=== PATIENT | male | born 1950 | race Caucasian/White ===

== ENCOUNTER 2021-04-09 09:38 | Inpatient (IN) | payer MEDICARE, BC ==
[~2021-04-09] VITALS: Ht 182.9 cm; Wt 82.2 kg
--- NOTE | 2021-04-09 10:07 | PHYS DOC ---
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 Chemical Production Technician reports patient was found on floor in bedroom by who thinks he may have been laying there for 5 hours prior to being found. Chemical Production Technician reports told him the patient has been feeling sick in some way for the past 10 days. Patient complains of mouth dryness. No other HPI obtained related to patient's altered mental status state. Review of Systems: Review of Systems: 14 body systems of review of systems have been reviewed. See HPI for pertinent positives and negative responses, otherwise all other systems are negative, nonpertinent or noncontributory. Constitutional: Negative except as outlined in HPI above. Skin: Negative except as outlined in HPI above. Eyes: Negative except as outlined in HPI above. HENT: Negative except as outlined in HPI above. Respiratory: Negative except as outlined in HPI above. Cardiovascular: Negative except as outlined in HPI above. GI: Negative except as outlined in HPI above. : Negative except as outlined in HPI above. Musculoskeletal: Negative except as outlined in HPI above. Integument: Negative except as outlined in HPI above. Neurologic: Negative except as outlined in HPI above. Endocrine: Negative except as outlined in HPI above. Lymphatic: Negative except as outlined in HPI above. Psychiatric: Negative except as outlined in HPI above. Note: Limited HPI related to patient's altered mental status state. Heart Score: C/O Chest Pain: No Risk Factors: Risk Factors: DM, Current or recent (<one month) smoker, HTN, HLP, family history of CAD, obesity. Risk Scores: Score 0 - 3: 2.5% MACE over next 6 weeks - Discharge Home Score 4 - 6: 20.3% MACE over next 6 weeks - Admit for Clinical Observation Score 7 - 10: 72.7% MACE over next 6 weeks - Early Invasive Strategies Current Medications: Current Medications Medications (Trade) Dose Ordered Sig/Carole Start Time Stop Time Status Last Admin Dose Admin Sodium Chloride 1,000 ml @ 1,000 mls/hr 1X ONCE 04/09/21 10:15 04/09/21 11:14 UNV Physical Exam: PE: Constitutional: Well developed, well nourished, no acute distress, non-toxic appearance. 70-year-old male in no apparent distress HENT: Normocephalic, atraumatic, bilateral external ears normal, oropharynx and oral mucosa sticky, no oral exudates, nose normal. No deep tissue infectious process appreciated, no lymphadenopathy of the head or neck. Eyes: PERRLA, EOMI, conjunctiva normal, no discharge. Neck: Normal range of motion, no tenderness, supple, no stridor. Cardiovascular:Heart rate regular rhythm, no murmur, tachycardic rate at 110 bpm during physical examination. Lungs & Thorax: Bilateral breath sounds clear to auscultation, limited assessment related to patient not taking deep breaths during assessment. Abdomen: Bowel sounds normal, soft, no tenderness, no masses, no pulsatile masses. Ecchymotic skin discoloration around abdomen Skin: Warm, dry, no erythema, no rash. Back: No tenderness, no CVA tenderness. Extremities: No tenderness, no cyanosis, no clubbing, ROM intact, no edema. Neurologic: Alert and not oriented to self place or time or birthday, normal motor function, normal sensory function, no focal deficits noted. Psychologic: Affect normal, judgement normal, mood normal. Current Patient Data: Vital Signs: Vital Signs Date Time Temp Pulse Resp B/P (MAP) Pulse Ox O2 Delivery O2 Flow Rate FiO2 04/09/21 09:52 99.7 118 30 122/73 100 Nasal Cannula 4.0 99.7 EKG: EKG: EKG performed at 943 by ED nursing staff shows a sinus tachycardia with abnormal left axis deviation, no ectopy appreciated, heart rate 118, ID interval 0.124, QTc interval 0.499, no acute STEMI, no ACS, no acute ischemia appreciated, EKG interpreted by ED attending physician Dr. Pastrana. Radiology/Procedures: Radiology/Procedures: [] Course & Med Decision Making: Course & Med Decision Making Pertinent Labs and Imaging studies reviewed. (See chart for details) 70-year-old male, vital signs reviewed, has tachycardic rate otherwise within normal limits, the patient is not febrile, presents to the emergency department via EMS for concerns of being found on floor at home. Physical examination concerning for rhabdomyolysis, patient had ill with COVID-19 virus for the past 2 weeks, will order COVID-19 virus testing, cardio respiratory work-up, septic work-up, urinalysis assay. Patient's chest x-ray concerning for immunity acquired pneumonia, elevated troponin I, elevated lactic acid level, white blood cell count within normal l imits. CK level to evaluate rhabdomyolysis pending at this time, will consult with hospitalist for admission to hospital. Strong suspicion for rhabdomyolysis related to patient being found on floor for unknown amount of time estimated by 4 to 5 hours. Called and discussed patient case and ED work-up with inpatient management physician Dr. Calhoun who agrees patient's case warrants admission to the hospital on CVC unit, patient has been started on Rocephin 1 g IV along with 30 mL/kg normal saline IV fluid replacement. Dr. Calhoun has assumed care at this time, patient awaiting bed assignment from supervisor vat house. COVID-19 testing pending at this time. Patient has not given urine sample at this time. At 11:20 AM ED staff nurse advised patient is COVID-19 positive per rapid study. At 1154, patient awaiting bed assignment, ED nurse reports patient room air O2 sat is down to 90%, will start on 2 L per nasal cannula. DragEnvis Disclaimer: DragEnvis Disclaimer: This electronic medical record was generated, in whole or in part, using a voice recognition dictation system. Departure Departure Impression: Primary Impression: Elevated troponin I level Additional Impressions: Elevated lactic acid level Altered mental status Qualified Codes: R41.82 - Altered mental status, unspecified Acute kidney injury Community acquired pneumonia Qualified Codes: J18.9 - Pneumonia, unspecified organism COVID-19 virus infection Disposition: ADMITTED INPATIENT Admitting Physician: RENE (Admit to Dr. Calhoun to CVC unit) Condition: GUARDED NICOLE WILHELM TAX EVALUATOR Apr 09, 2021 10:07
[2021-04-09] MEDS ORDERED: IV NORMAL SALINE 1000ML BAG 1,000 ML IV ONE (10:15)
[2021-04-09 10:24] LABS: CALCIUM 8.8 mg/dL (8.5-10.1); CREATININE 1.9 mg/dL (0.7-1.3); GFR 35.2; POTASSIUM 3.7 mmol/L (3.5-5.1)
--- NOTE | 2021-04-09 10:27 | RAD ---
XR CHEST 1V History: Status. Comparison: None. Technique: Portable AP radiograph of the chest. Findings: Mild hypoinflation. Bilateral hazy airspace opacities. No pleural effusion thorax. Postsurgical singh es from CABG. Heart size and pulmonary vasculature are within normal limits. No acute findings in the osseous structures are soft tissues. Impression: 1. Hazy bilateral airspace opacities concerning for multifocal pneumonia versus pulmonary edema. Electronically signed by: Jayden Sharp MD (04/09/2021 10:24 AM) [id number]
[2021-04-09 10:30] LABS: ALBUMIN 3.1 g/dL (3.4-5.0); ALBUMIN/GLOBULIN RATIO 0.7 (1.0-1.7); MAGNESIUM 2.5 mg/dL (1.8-2.4); PHOSPHORUS 4.3 mg/dL (2.6-4.7); TOTAL BILIRUBIN 2.9 mg/dL (0.2-1.0); TOTAL PROTEIN 7.3 g/dL (6.4-8.2)
[2021-04-09 10:35] LABS: BASO % 0 % (0-3); EOS % 0 % (0-3); HEMATOCRIT 49.2 % (39.0-53.0); LYMPH # 0.8 x10^3/uL (1.0-4.8); LYMPH % 10 % (24-48); MEAN CORPUSCULAR HEMOGLOBIN 34 pg (25-35); MEAN CORPUSCULAR HGB CONC 36 g/dL (31-37); MEAN CORPUSCULAR VOLUME 94 fL (79-100); MONO # 0.9 x10^3/uL (0.0-1.1); MONO % 11 % (0-9); NEUT # 6.1 x10^3/uL (1.8-7.7); NEUT % 79 % (31-73); PLATELET COUNT 180 x10^3/uL (140-400); RED BLOOD COUNT 5.21 x10^6/uL (4.30-5.70); RED CELL DISTRIBUTION WIDTH 14.4 % (11.5-14.5); WHITE BLOOD COUNT 7.8 x10^3/uL (4.0-11.0)
[2021-04-09] MEDS: IV NORMAL SALINE 1000ML BAG 1,000 ML IV SCH ×4 (10:45→21:00)
[2021-04-09] MEDS ORDERED: cefTRIAXone IV Push 1 GM VIAL. IVP ONE (10:45)
[2021-04-09 10:51] LABS: HEMOGLOBIN 17.4 g/dL (13.0-17.5)
--- NOTE | 2021-04-09 10:54 | RAD ---
EXAMINATION: CT HEAD/BRAIN WO CLINICAL HISTORY: Altered mental status TECHNIQUE: Serial axial images without IV contrast were obtained from the vertex to the foramen magnu m. CT Dose Reduction Employed: One or more of the following individualized dose reduction techniques ghazala e utilized for this examination: 1. Automated exposure control 2. Adjustment of the mA and/or kV ac cording to patient size 3. Use of iterative reconstruction technique. COMPARISON: None FINDINGS: Acute Change: No evidence of an acute infarct or other acute parenchymal process. Hemorrhage: No evidence of acute intracranial hemorrhage. Mass Lesion/Mass Effect: No evidence of intracranial mass or extraaxial fluid collection. No signific ant mass effect. Chronic Change: Scattered patchy foci of hypoattenuation in the supratentorial white matter, nonspeci fic but likely represents mild microvascular ischemia. Atherosclerotic calcification of the anterior and posterior circulation. Parenchyma: Mild generalized volume loss. Ventricles: Ventricular enlargement concordant with degree of parenchymal volume loss. Paranasal Sinuses and Skull Base: Mild secretions in the ethmoid air cells. Minimal mucoperiosteal th ickening and mild sclerosis of the sphenoid sinus nino, suggestive of history of chronic sinusitis. Small remote blowout fracture in the left medial orbital wall with herniation of extraconal fat into the fracture defect. Visualized skull base and soft tissues otherwise unremarkable. IMPRESSION: No evidence of acute intracranial abnormality. Mild chronic white matter microvascular ischemic changes. Small remote blowout fracture left medial orbital wall as described. Electronically signed by: Danny Van DO (04/09/2021 10:51 AM) [id number]
[2021-04-09] MEDS ORDERED: DOXYCYCLINE HYCLATE 100 MG in IV DEXTROSE 5% 100ML 100 ML IV ONE (11:00)
--- NOTE | 2021-04-09 11:02 | PDOC1 ---
History and Physical Date of Admission Date of Admission DATE: 04/09/21 TIME: 11:01 Identification/Chief Complaint Chief Complaint Acute encephalopathy Source Source: Caregiver, Chart review, Patient History of Present Illness History of Present Illness Mr Page is a 70 year old male with PMH HTN, HLD, CAD s/p CABG comes to ED via EMS after his called 911. Teaching Dietitian reports patient was found on floor in bedroom by who thinks he may have been laying there for at least 5-6 hours. noted he has bee sick for the past 10 days and that she has also been sick with COVID 19 for 14 days. She is confused as well as the patient. Patient can only ask for food and water and is oriented to self only. His only recalls above PMHx, does not know his meds. EMS noted patient was 87% on room air, placed on 4L NCO2 Patient's chest x-ray concerning for immunity acquired pneumonia, elevated troponin I, elevated lactic acid level, white blood cell count within [place] [address], LFTs elevated, CR 1.9. Started on Rocephin 1 g IV along with 30 mL/kg normal saline IV fluid replacement. COVID-19 positive per rapid study. EKG sinus tachycardia 118 bpm, left axis deviation, LAFB, no ST segment or T- wave abnormalities Admitted for further care Past Medical History Cardiovascular: HTN, Hyperlipidemia Past Surgical History Past Surgical History: CABG Family History Family History: Family History Unknown Social History Smoke: No (unknown) ALCOHOL: other (unknown) Drugs: None Current Medications Current Medications Current Medications Sodium Chloride 1,000 ml @ 1,000 mls/hr 1X ONCE IV Last administered on 04/09/21at 10:10; Start 04/09/21 at 10:15; Stop 04/09/21 at 11:14 Sodium Chloride 1,000 ml @ 2,850 mls/hr Q22M IV ; Start 04/09/21 at 10:45; Stop 04/09/21 at 11:45 Ceftriaxone Sodium (Rocephin) 1 gm 1X ONCE IVP ; Start 04/09/21 at 10:45; Stop 04/09/21 at 10:46; Status DC Allergies Allergies: Coded Allergies: No Known Drug Allergies (Unverified , 04/09/21) ROS Review of System Unable to obtain due to obtunded mental status Physical Exam General: Cooperative, moderate distress, Other (Confused) HEENT: Atraumatic, PERRLA, EOMI, Mucous membr. moist/pink Lungs: Other (bialteral crackles) Heart: S1S2, RRR, no thrills, no rubs, no gallops, no murmurs Abdomen: Normal bowel sounds, Soft, No tenderness, No hepatosplenomegaly, No masses Extremities: No clubbing, No cyanosis, No edema, Normal pulses, No tenderness/swelling Skin: No rashes, No breakdown, No significant lesion Neuro: Normal tone, Sensation intact, Cranial nerves 3-12 NL, Reflexes 2+ Psych/Mental Status: Other (Obtunded) Vitals Vitals Vital Signs Date Time Temp Pulse Resp B/P (MAP) Pulse Ox O2 Delivery O2 Flow Rate FiO2 04/09/21 09:52 99.7 118 30 122/73 100 Nasal Cannula 4.0 99.7 Labs Labs Laboratory Tests Test 04/09/21 09:50 White Blood Count 7.8 x10^3/uL (4.0-11.0) Red Blood Count 5.21 x10^6/uL (4.30-5.70) Hemoglobin 17.4 g/dL (13.0-17.5) Hematocrit 49.2 % (39.0-53.0) Mean Corpuscular Volume 94 fL (79-100) Mean Corpuscular Hemoglobin 34 pg (25-35) Mean Corpuscular Hemoglobin Concent 36 g/dL (31-37) Red Cell Distribution Width 14.4 % (11.5-14.5) Platelet Count 180 x10^3/uL (140-400) Neutrophils (%) (Auto) 79 % (31-73) Lymphocytes (%) (Auto) 10 % (24-48) Monocytes (%) (Auto) 11 % (0-9) Eosinophils (%) (Auto) 0 % (0-3) Basophils (%) (Auto) 0 % (0-3) Neutrophils # (Auto) 6.1 x10^3/uL (1.8-7.7) Lymphocytes # (Auto) 0.8 x10^3/uL (1.0-4.8) Monocytes # (Auto) 0.9 x10^3/uL (0.0-1.1) Eosinophils # (Auto) 0.0 x10^3/uL (0.0-0.7) Basophils # (Auto) 0.0 x10^3/uL (0.0-0.2) Sodium Level 145 mmol/L (136-145) Potassium Level 3.7 mmol/L (3.5-5.1) Chloride Level 98 mmol/L (98-107) Carbon Dioxide Level 36 mmol/L (21-32) Anion Gap 11 (6-14) Blood Urea Nitrogen 42 mg/dL (8-26) Creatinine 1.9 mg/dL (0.7-1.3) Estimated GFR (Cockcroft-Gault) 35.2 BUN/Creatinine Ratio 22 (6-20) Glucose Level 142 mg/dL (70-99) Lactic Acid Level 3.6 mmol/L (0.4-2.0) Calcium Level 8.8 mg/dL (8.5-10.1) Phosphorus Level 4.3 mg/dL (2.6-4.7) Magnesium Level 2.5 mg/dL (1.8-2.4) Total Bilirubin 2.9 mg/dL (0.2-1.0) Aspartate Amino Transf (AST/SGOT) 601 U/L (15-37) Alanine Aminotransferase (ALT/SGPT) 194 U/L (16-63) Alkaline Phosphatase 61 U/L (46-116) Troponin I Quantitative 0.523 ng/mL (0.000-0.055) Total Protein 7.3 g/dL (6.4-8.2) Albumin 3.1 g/dL (3.4-5.0) Albumin/Globulin Ratio 0.7 (1.0-1.7) Laboratory Tests Test 04/09/21 09:50 White Blood Count 7.8 x10^3/uL (4.0-11.0) Red Blood Count 5.21 x10^6/uL (4.30-5.70) Hemoglobin 17.4 g/dL (13.0-17.5) Hematocrit 49.2 % (39.0-53.0) Mean Corpuscular Volume 94 fL (79-100) Mean Corpuscular Hemoglobin 34 pg (25-35) Mean Corpuscular Hemoglobin Concent 36 g/dL (31-37) Red Cell Distribution Width 14.4 % (11.5-14.5) Platelet Count 180 x10^3/uL (140-400) Neutrophils (%) (Auto) 79 % (31-73) Lymphocytes (%) (Auto) 10 % (24-48) Monocytes (%) (Auto) 11 % (0-9) Eosinophils (%) (Auto) 0 % (0-3) Basophils (%) (Auto) 0 % (0-3) Neutrophils # (Auto) 6.1 x10^3/uL (1.8-7.7) Lymphocytes # (Auto) 0.8 x10^3/uL (1.0-4.8) Monocytes # (Auto) 0.9 x10^3/uL (0.0-1.1) Eosinophils # (Auto) 0.0 x10^3/uL (0.0-0.7) Basophils # (Auto) 0.0 x10^3/uL (0.0-0.2) Sodium Level 145 mmol/L (136-145) Potassium Level 3.7 mmol/L (3.5-5.1) Chloride Level 98 mmol/L (98-107) Carbon Dioxide Level 36 mmol/L (21-32) Anion Gap 11 (6-14) Blood Urea Nitrogen 42 mg/dL (8-26) Creatinine 1.9 mg/dL (0.7-1.3) Estimated GFR (Cockcroft-Gault) 35.2 BUN/Creatinine Ratio 22 (6-20) Glucose Level 142 mg/dL (70-99) Lactic Acid Level 3.6 mmol/L (0.4-2.0) Calcium Level 8.8 mg/dL (8.5-10.1) Phosphorus Level 4.3 mg/dL (2.6-4.7) Magnesium Level 2.5 mg/dL (1.8-2.4) Total Bilirubin 2.9 mg/dL (0.2-1.0) Aspartate Amino Transf (AST/SGOT) 601 U/L (15-37) Alanine Aminotransferase (ALT/SGPT) 194 U/L (16-63) Alkaline Phosphatase 61 U/L (46-116) Troponin I Quantitative 0.523 ng/mL (0.000-0.055) Total Protein 7.3 g/dL (6.4-8.2) Albumin 3.1 g/dL (3.4-5.0) Albumin/Globulin Ratio 0.7 (1.0-1.7) Images Images CT head: Acute Change: No evidence of an acute infarct or other acute parenchymal process. Hemorrhage: No evidence of acute intracranial hemorrhage. Mass Lesion/Mass Effect: No evidence of intracranial mass or extraaxial fluid collection. No significant mass effect. Chronic Change: Scattered patchy foci of hypoattenuation in the supratentorial white matter, nonspecific but likely represents mild microvascular ischemia. Atherosclerotic calcification of the anterior and posterior circulation. Parenchyma: Mild generalized volume loss. Ventricles: Ventricular enlargement concordant with degree of parenchymal volume loss. Paranasal Sinuses and Skull Base: Mild secretions in the ethmoid air cells. Minimal mucoperiosteal thickening and mild sclerosis of the sphenoid sinus nino, suggestive of history of chronic sinusitis. Small remote blowout fracture in the left medial orbital wall with herniation of extraconal fat into the fracture defect. Visualized skull base and soft tissues otherwise unremarkable. IMPRESSION: No evidence of acute intracranial abnormality. Mild chronic white matter microvascular ischemic changes. Small remote blowout fracture left medial orbital wall as described. VTE Prophylaxis Ordered VTE Prophylaxis Devices: No VTE Pharmacological Prophylaxi: Yes Assessment/Plan Assessment/Plan A/P: Acute encephalopathy - likely metabolic from hypoxia, rhabdomyolysis Acute hypoxic respiratory failure - likely due to COVID 19 pneumonia Elevated troponin I level - likely demand ischemia from hypoxia, will trend, monitor on tele Elevated lactic acid - likely due to hypoxia, sepsis from COVID 19 Sepsis - with COVID 19 will treat with IVF and remdesivir, this is clearly viral, no definite bacterial source Acute kidney injury - likely vasomotor nephropathy from rhabomyolysis, will monitor renal function Pneumonia - likely due to COVID 19 COVID-19 virus infection - remdesivir and steroids, supportive care, wean O2 as tolerated Rhabdomyolysis - will monitor CK, likely traumatic from falling Transaminitis - likely rhabdo and covid related, will hydrate CAD s/p CABG - reconcile home meds with pharmacy as and patient cannot recall HTN - restart home meds FEN - ADAT PPX - heparin FULL CODE Dispo - inpatient Justifications for Admission Other Justification KARIME MORRIS MD Apr 09, 2021 11:02
[2021-04-09] MEDS ORDERED: ONDANSETRON PF 4 MG/2 ML VIAL. IVP PRN (15:00)
[2021-04-09] MEDS ORDERED: traMADol 50 MG TABLET PO PRN (15:00)
[2021-04-09] MEDS ORDERED: guaiFENesin DM 200MG/20MG 10 ML SYRUP PO PRN (15:00)
[2021-04-09] MEDS ORDERED: fentaNYL PF VIAL 100 MCG/2 ML VIAL IVP PRN (15:00)
[2021-04-09] MEDS ORDERED: ACETAMINOPHEN 325 MG TABLET. PO PRN (15:00)
[2021-04-09] MEDS: HEPARIN for SUB-Q USE 5,000 UNIT/ML VIAL. SQ SCH ×2 (15:30→21:02)
[2021-04-09] MEDS ORDERED: REMDESIVIR LOAD in IV NORMAL SALINE 250ML TV IV ONE (16:00)
[2021-04-09] MEDS: DEXAMETHASONE SOD PHOS 4 MG/ML VIAL IVP SCH (17:33)
[2021-04-09] MEDS: THIAMINE 100 MG TABLET. PO SCH (17:33)
[2021-04-09] MEDS: ZINC SULFATE 220 MG CAPSULE. PO SCH (17:33)
[2021-04-09 18:00] VITALS: BP 109/73
[2021-04-09 19:47] VITALS: BP 100/71
--- NOTE | 2021-04-09 20:00 | NUR ---
The patient, KYLER ROTIZ, 70 y/o, M admitted by KARIME MORRIS MD, was given written information regarding hospital policies, unit procedures and contact persons. assessment complete and documented. pt nonverbal at this time, unable to obtain history. pt call light in place will cont to monitor pt status and safety. pmrn
[2021-04-09] MEDS: ACETAMINOPHEN 650 MG SUPP.RECT. PR PRN (21:01)
[2021-04-09 23:12] VITALS: BP 106/76
[2021-04-10 02:00] VITALS: BP 118/62
[2021-04-10 05:53] LABS: ALBUMIN/GLOBULIN RATIO 0.6 (1.0-1.7); CALCIUM 7.4 mg/dL (8.5-10.1); CREATININE 1.2 mg/dL (0.7-1.3); GFR 59.9; POTASSIUM 3.3 mmol/L (3.5-5.1); TOTAL BILIRUBIN 1.5 mg/dL (0.2-1.0); TOTAL PROTEIN 5.2 g/dL (6.4-8.2)
[2021-04-10] MEDS: IV NORMAL SALINE 1000ML BAG 1,000 ML IV SCH (05:59)
[2021-04-10] MEDS: HEPARIN for SUB-Q USE 5,000 UNIT/ML VIAL. SQ SCH ×3 (05:59→21:46)
[2021-04-10] MEDS ORDERED: METO-239 PO (06:39)
[2021-04-10] MEDS ORDERED: ASPI-630 PO (06:39)
[2021-04-10] MEDS ORDERED: ATOR20TA58 PO (06:40)
[2021-04-10] MEDS ORDERED: HYDR25TA10 PO (06:41)
[2021-04-10 07:00] VITALS: BP 103/66
[2021-04-10] MEDS: ZINC SULFATE 220 MG CAPSULE. PO SCH (09:00)
[2021-04-10] MEDS: LACTOBACILLUS RHAMNOSUS GG 1 CAPSULE. PO SCH ×2 (09:00→21:45)
[2021-04-10] MEDS: THIAMINE 100 MG TABLET. PO SCH (09:00)
--- NOTE | 2021-04-10 09:43 | PDOC ---
PROGRESS NOTES Date of Service: DATE: 04/10/21 TIME: 09:43 Chief Complaint Chief Complaint VTE Prophylaxis Ordered VTE Prophylaxis Devices: No VTE Pharmacological Prophylaxi: Yes Assessment/Plan Assessment/Plan A/P: Acute encephalopathy - likely metabolic from hypoxia, rhabdomyolysis Acute hypoxic respiratory failure - likely due to COVID 19 pneumonia Elevated troponin I level - likely demand ischemia from hypoxia, will trend, monitor on tele Elevated lactic acid - likely due to hypoxia, sepsis from COVID 19 Sepsis - with COVID 19 will treat with IVF and remdesivir, this is clearly viral, no definite bacterial source Acute kidney injury - likely vasomotor nephropathy from rhabomyolysis, will monitor renal function Pneumonia - likely due to COVID 19 COVID-19 virus infection - remdesivir and steroids, supportive care, wean O2 as tolerated Rhabdomyolysis - will monitor CK, likely traumatic from falling Transaminitis - likely rhabdo and covid related, will hydrate CAD s/p CABG - reconcile home meds with pharmacy as and patient cannot recall HTN - restart home meds FEN - ADAT PPX - heparin FULL CODE Dispo - inpatient ERROR DUPLICATE History of Present Illness History of Present Illness Identification/Chief Complaint Chief Complaint Acute encephalopathy Source Source: Caregiver, Chart review, Patient History of Present Illness History of Present Illness Mr Page is a 70 year old male with PMH HTN, HLD, CAD s/p CABG comes to ED via EMS after his called 911. Wind Technician reports patient was found on floor in bedroom by who thinks he may have been laying there for at least 5-6 hours. noted he has bee sick for the past 10 days and that she has also been sick with COVID 19 for 14 days. She is confused as well as the patient. Patient can only ask for food and water and is oriented to self only. His only recalls above PMHx, does not know his meds. EMS noted patient was 87% on room air, placed on 4L NCO2 Patient's chest x-ray concerning for immunity acquired pneumonia, elevated troponin I, elevated lactic acid level, white [place] [address], LFTs elevated, CR 1.9. Started on Rocephin 1 g IV along with 30 mL/kg normal saline IV fluid replacement. COVID-19 positive per rapid study. EKG sinus tachycardia 118 bpm, left axis deviation, LAFB, no ST segment or T- wave abnormalities Admitted for further care Past Medical History Cardiovascular: HTN, Hyperlipidemia Past Surgical History Past Surgical History: CABG Family History Family History: Family History Unknown Social History Smoke: No (unknown) ALCOHOL: other (unknown) Drugs: None Current Medications Current Medications Current Medications Sodium Chloride 1,000 ml @ 1,000 mls/hr 1X ONCE IV Last administered on 04/09/21at 10:10; Start 04/09/21 at 10:15; Stop 04/09/21 at 11:14 Sodium Chloride 1,000 ml @ 2,850 mls/hr Q22M IV ; Start 04/09/21 at 10:45; Stop 04/09/21 at 11:45 Ceftriaxone Sodium (Rocephin) 1 gm 1X ONCE IVP ; Start 04/09/21 at 10:45; Stop 04/09/21 at 10:46; Status DC Allergies Allergies: Coded Allergies: No Known Drug Allergies (Unverified , 04/09/21) ROS Review of System Unable to obtain due to obtunded mental status Vitals Vitals Vital Signs Date Time Temp Pulse Resp B/P (MAP) Pulse Ox O2 Delivery O2 Flow Rate FiO2 04/10/21 02:00 98.3 104 22 118/62 (80) 95 Nasal Cannula 3.0 98.3 Physical Exam Physical Exam General: Cooperative, moderate distress, Other (Confused) HEENT: Atraumatic, PERRLA, EOMI, Mucous membr. moist/pink Lungs: Other (bialteral crackles) Heart: S1S2, RRR, no thrills, no rubs, no gallops, no murmurs Abdomen: Normal bowel sounds, Soft, No tenderness, No hepatosplenomegaly, No masses Extremities: No clubbing, No cyanosis, No edema, Normal pulses, No tenderness/swelling Skin: No rashes, No breakdown, No significant lesion Neuro: Normal tone, Sensation intact, Cranial nerves 3-12 NL, Reflexes 2+ Psych/Mental Status: Other (Obtunded) General: Cooperative, moderate distress, Other (Confused) Abdomen: Normal bowel sounds, Soft, No tenderness, No hepatosplenomegaly, No masses Extremities: No clubbing, No cyanosis, No edema, Normal pulses, No tenderness/swelling Skin: No rashes, No breakdown, No significant lesion Labs LABS Laboratory Tests Test 04/09/21 09:50 04/09/21 13:23 04/09/21 18:00 04/10/21 00:25 White Blood Count 7.8 x10^3/uL (4.0-11.0) Red Blood Count 5.21 x10^6/uL (4.30-5.70) Hemoglobin 17.4 g/dL (13.0-17.5) Hematocrit 49.2 % (39.0-53.0) Mean Corpuscular Volume 94 fL (79-100) Mean Corpuscular Hemoglobin 34 pg (25-35) Mean Corpuscular Hemoglobin Concent 36 g/dL (31-37) Red Cell Distribution Width 14.4 % (11.5-14.5) Platelet Count 180 x10^3/uL (140-400) Neutrophils (%) (Auto) 79 % (31-73) Lymphocytes (%) (Auto) 10 % (24-48) Monocytes (%) (Auto) 11 % (0-9) Eosinophils (%) (Auto) 0 % (0-3) Basophils (%) (Auto) 0 % (0-3) Neutrophils # (Auto) 6.1 x10^3/uL (1.8-7.7) Lymphocytes # (Auto) 0.8 x10^3/uL (1.0-4.8) Monocytes # (Auto) 0.9 x10^3/uL (0.0-1.1) Eosinophils # (Auto) 0.0 x10^3/uL (0.0-0.7) Basophils # (Auto) 0.0 x10^3/uL (0.0-0.2) Sodium Level 145 mmol/L (136-145) Potassium Level 3.7 mmol/L (3.5-5.1) Chloride Level 98 mmol/L (98-107) Carbon Dioxide Level 36 mmol/L (21-32) Anion Gap 11 (6-14) Blood Urea Nitrogen 42 mg/dL (8-26) Creatinine 1.9 mg/dL (0.7-1.3) Estimated GFR (Cockcroft-Gault) 35.2 BUN/Creatinine Ratio 22 (6-20) Glucose Level 142 mg/dL (70-99) Lactic Acid Level 3.6 mmol/L (0.4-2.0) 1.5 mmol/L (0.4-2.0) Calcium Level 8.8 mg/dL (8.5-10.1) Phosphorus Level 4.3 mg/dL (2.6-4.7) Magnesium Level 2.5 mg/dL (1.8-2.4) Total Bilirubin 2.9 mg/dL (0.2-1.0) Aspartate Amino Transf (AST/SGOT) 601 U/L (15-37) Alanine Aminotransferase (ALT/SGPT) 194 U/L (16-63) Alkaline Phosphatase 61 U/L (46-116) Creatine Kinase 31119 U/L (39-308) Creatine Kinase MB (Mass) 3.5 ng/mL (0.0-3.6) Creatine Kinase MB Relative Index 0.0 % (0-4) Troponin I Quantitative 0.523 ng/mL (0.000-0.055) 0.497 ng/mL (0.000-0.055) 0.520 ng/mL (0.000-0.055) QU-Cus-P-Type Natriuretic Peptide 809 pg/mL (0-124) Total Protein 7.3 g/dL (6.4-8.2) Albumin 3.1 g/dL (3.4-5.0) Albumin/Globulin Ratio 0.7 (1.0-1.7) Test 04/10/21 04:40 Sodium Level 152 mmol/L (136-145) Potassium Level 3.3 mmol/L (3.5-5.1) Chloride Level 111 mmol/L (98-107) Carbon Dioxide Level 32 mmol/L (21-32) Anion Gap 9 (6-14) Blood Urea Nitrogen 32 mg/dL (8-26) Creatinine 1.2 mg/dL (0.7-1.3) Estimated GFR (Cockcroft-Gault) 59.9 BUN/Creatinine Ratio 27 (6-20) Glucose Level 143 mg/dL (70-99) Calcium Level 7.4 mg/dL (8.5-10.1) Total Bilirubin 1.5 mg/dL (0.2-1.0) Aspartate Amino Transf (AST/SGOT) 365 U/L (15-37) Alanine Aminotransferase (ALT/SGPT) 141 U/L (16-63) Alkaline Phosphatase 45 U/L (46-116) Creatine Kinase 7773 U/L (39-308) Troponin I Quantitative 0.336 ng/mL (0.000-0.055) Total Protein 5.2 g/dL (6.4-8.2) Albumin 2.0 g/dL (3.4-5.0) Albumin/Globulin Ratio 0.6 (1.0-1.7) Assessment and Plan Assessmemt and Plan Problems Medical Problems: (1) Acute kidney injury Status: Acute (2) Altered mental status Status: Acute (3) Community acquired pneumonia Status: Acute (4) COVID-19 virus infection Status: Acute (5) Elevated lactic acid level Status: Acute (6) Elevated troponin I level Status: Acute Comment Review of Relevant I have reviewed the following items pinky (where applicable) has been applied. Labs Laboratory Tests Test 04/09/21 09:43 04/09/21 09:50 04/09/21 13:23 04/09/21 18:00 SARS-CoV-2 Antigen (Rapid) Positive (NEGATIVE) White Blood Count 7.8 x10^3/uL (4.0-11.0) Red Blood Count 5.21 x10^6/uL (4.30-5.70) Hemoglobin 17.4 g/dL (13.0-17.5) Hematocrit 49.2 % (39.0-53.0) Mean Corpuscular Volume 94 fL (79-100) Mean Corpuscular Hemoglobin 34 pg (25-35) Mean Corpuscular Hemoglobin Concent 36 g/dL (31-37) Red Cell Distribution Width 14.4 % (11.5-14.5) Platelet Count 180 x10^3/uL (140-400) Neutrophils (%) (Auto) 79 % (31-73) Lymphocytes (%) (Auto) 10 % (24-48) Monocytes (%) (Auto) 11 % (0-9) Eosinophils (%) (Auto) 0 % (0-3) Basophils (%) (Auto) 0 % (0-3) Neutrophils # (Auto) 6.1 x10^3/uL (1.8-7.7) Lymphocytes # (Auto) 0.8 x10^3/uL (1.0-4.8) Monocytes # (Auto) 0.9 x10^3/uL (0.0-1.1) Eosinophils # (Auto) 0.0 x10^3/uL (0.0-0.7) Basophils # (Auto) 0.0 x10^3/uL (0.0-0.2) Sodium Level 145 mmol/L (136-145) Potassium Level 3.7 mmol/L (3.5-5.1) Chloride Level 98 mmol/L (98-107) Carbon Dioxide Level 36 mmol/L (21-32) Anion Gap 11 (6-14) Blood Urea Nitrogen 42 mg/dL (8-26) Creatinine 1.9 mg/dL (0.7-1.3) Estimated GFR (Cockcroft-Gault) 35.2 BUN/Creatinine Ratio 22 (6-20) Glucose Level 142 mg/dL (70-99) Lactic Acid Level 3.6 mmol/L (0.4-2.0) 1.5 mmol/L (0.4-2.0) Calcium Level 8.8 mg/dL (8.5-10.1) Phosphorus Level 4.3 mg/dL (2.6-4.7) Magnesium Level 2.5 mg/dL (1.8-2.4) Total Bilirubin 2.9 mg/dL (0.2-1.0) Aspartate Amino Transf (AST/SGOT) 601 U/L (15-37) Alanine Aminotransferase (ALT/SGPT) 194 U/L (16-63) Alkaline Phosphatase 61 U/L (46-116) Creatine Kinase 14789 U/L (39-308) Creatine Kinase MB (Mass) 3.5 ng/mL (0.0-3.6) Creatine Kinase MB Relative Index 0.0 % (0-4) Troponin I Quantitative 0.523 ng/mL (0.000-0.055) 0.497 ng/mL (0.000-0.055) AT-Pde-L-Type Natriuretic Peptide 809 pg/mL (0-124) Total Protein 7.3 g/dL (6.4-8.2) Albumin 3.1 g/dL (3.4-5.0) Albumin/Globulin Ratio 0.7 (1.0-1.7) Test 04/10/21 00:25 04/10/21 04:40 Troponin I Quantitative 0.520 ng/mL (0.000-0.055) 0.336 ng/mL (0.000-0.055) Sodium Level 152 mmol/L (136-145) Potassium Level 3.3 mmol/L (3.5-5.1) Chloride Level 111 mmol/L (98-107) Carbon Dioxide Level 32 mmol/L (21-32) Anion Gap 9 (6-14) Blood Urea Nitrogen 32 mg/dL (8-26) Creatinine 1.2 mg/dL (0.7-1.3) Estimated GFR (Cockcroft-Gault) 59.9 BUN/Creatinine Ratio 27 (6-20) Glucose Level 143 mg/dL (70-99) Calcium Level 7.4 mg/dL (8.5-10.1) Total Bilirubin 1.5 mg/dL (0.2-1.0) Aspartate Amino Transf (AST/SGOT) 365 U/L (15-37) Alanine Aminotransferase (ALT/SGPT) 141 U/L (16-63) Alkaline Phosphatase 45 U/L (46-116) Creatine Kinase 7773 U/L (39-308) Total Protein 5.2 g/dL (6.4-8.2) Albumin 2.0 g/dL (3.4-5.0) Albumin/Globulin Ratio 0.6 (1.0-1.7) Laboratory Tests Test 04/09/21 09:50 04/09/21 13:23 04/09/21 18:00 04/10/21 00:25 White Blood Count 7.8 x10^3/uL (4.0-11.0) Red Blood Count 5.21 x10^6/uL (4.30-5.70) Hemoglobin 17.4 g/dL (13.0-17.5) Hematocrit 49.2 % (39.0-53.0) Mean Corpuscular Volume 94 fL (79-100) Mean Corpuscular Hemoglobin 34 pg (25-35) Mean Corpuscular Hemoglobin Concent 36 g/dL (31-37) Red Cell Distribution Width 14.4 % (11.5-14.5) Platelet Count 180 x10^3/uL (140-400) Neutrophils (%) (Auto) 79 % (31-73) Lymphocytes (%) (Auto) 10 % (24-48) Monocytes (%) (Auto) 11 % (0-9) Eosinophils (%) (Auto) 0 % (0-3) Basophils (%) (Auto) 0 % (0-3) Neutrophils # (Auto) 6.1 x10^3/uL (1.8-7.7) Lymphocytes # (Auto) 0.8 x10^3/uL (1.0-4.8) Monocytes # (Auto) 0.9 x10^3/uL (0.0-1.1) Eosinophils # (Auto) 0.0 x10^3/uL (0.0-0.7) Basophils # (Auto) 0.0 x10^3/uL (0.0-0.2) Sodium Level 145 mmol/L (136-145) Potassium Level 3.7 mmol/L (3.5-5.1) Chloride Level 98 mmol/L (98-107) Carbon Dioxide Level 36 mmol/L (21-32) Anion Gap 11 (6-14) Blood Urea Nitrogen 42 mg/dL (8-26) Creatinine 1.9 mg/dL (0.7-1.3) Estimated GFR (Cockcroft-Gault) 35.2 BUN/Creatinine Ratio 22 (6-20) Glucose Level 142 mg/dL (70-99) Lactic Acid Level 3.6 mmol/L (0.4-2.0) 1.5 mmol/L (0.4-2.0) Calcium Level 8.8 mg/dL (8.5-10.1) Phosphorus Level 4.3 mg/dL (2.6-4.7) Magnesium Level 2.5 mg/dL (1.8-2.4) Total Bilirubin 2.9 mg/dL (0.2-1.0) Aspartate Amino Transf (AST/SGOT) 601 U/L (15-37) Alanine Aminotransferase (ALT/SGPT) 194 U/L (16-63) Alkaline Phosphatase 61 U/L (46-116) Creatine Kinase 95240 U/L (39-308) Creatine Kinase MB (Mass) 3.5 ng/mL (0.0-3.6) Creatine Kinase MB Relative Index 0.0 % (0-4) Troponin I Quantitative 0.523 ng/mL (0.000-0.055) 0.497 ng/mL (0.000-0.055) 0.520 ng/mL (0.000-0.055) NX-Zim-D-Type Natriuretic Peptide 809 pg/mL (0-124) Total Protein 7.3 g/dL (6.4-8.2) Albumin 3.1 g/dL (3.4-5.0) Albumin/Globulin Ratio 0.7 (1.0-1.7) Test 04/10/21 04:40 Sodium Level 152 mmol/L (136-145) Potassium Level 3.3 mmol/L (3.5-5.1) Chloride Level 111 mmol/L (98-107) Carbon Dioxide Level 32 mmol/L (21-32) Anion Gap 9 (6-14) Blood Urea Nitrogen 32 mg/dL (8-26) Creatinine 1.2 mg/dL (0.7-1.3) Estimated GFR (Cockcroft-Gault) 59.9 BUN/Creatinine Ratio 27 (6-20) Glucose Level 143 mg/dL (70-99) Calcium Level 7.4 mg/dL (8.5-10.1) Total Bilirubin 1.5 mg/dL (0.2-1.0) Aspartate Amino Transf (AST/SGOT) 365 U/L (15-37) Alanine Aminotransferase (ALT/SGPT) 141 U/L (16-63) Alkaline Phosphatase 45 U/L (46-116) Creatine Kinase 7773 U/L (39-308) Troponin I Quantitative 0.336 ng/mL (0.000-0.055) Total Protein 5.2 g/dL (6.4-8.2) Albumin 2.0 g/dL (3.4-5.0) Albumin/Globulin Ratio 0.6 (1.0-1.7) Medications Current Medications Sodium Chloride 1,000 ml @ 1,000 mls/hr 1X ONCE IV Last administered on 04/09/21at 10:10; Start 04/09/21 at 10:15; Stop 04/09/21 at 11:14; Status DC Sodium Chloride 1,000 ml @ 2,850 mls/hr Q22M IV Last administered on 04/09/21at 11:29; Start 04/09/21 at 10:45; Stop 04/09/21 at 11:45; Status DC Ceftriaxone Sodium (Rocephin) 1 gm 1X ONCE IVP Last administered on 04/09/21at 11:33; Start 04/09/21 at 10:45; Stop 04/09/21 at 10:46; Status DC Doxycycline Hyclate 100 mg/ Dextrose 100 ml @ 50 mls/hr 1X ONCE IV Last administered on 04/09/21at 11:32; Start 04/09/21 at 11:00; Stop 04/09/21 at 12:59; Status DC Olanzapine (ZyPREXA ZYDIS) 5 mg PRN BID PRN PO ANXIETY / AGITATION; Start 04/09/21 at 15:00 Ondansetron HCl (Zofran) 4 mg PRN Q4HRS PRN IVP NAUSEA/VOMITING; Start 04/09/21 at 15:00 Tramadol HCl (Ultram) 50 mg PRN Q6HRS PRN PO MODERATE - SEVERE PAIN; Start 04/09/21 at 15:00 Guaifenesin (Robitussin Dm) 10 ml PRN Q6HRS PRN PO COUGH; Start 04/09/21 at 15:00 Acetaminophen (Tylenol) 650 mg PRN Q6HRS PRN PO MILD PAIN / TEMP > 100.3'F; Start 04/09/21 at 15:00 Fentanyl Citrate (Fentanyl 2ml Vial) 25 mcg PRN Q3HRS PRN IVP SEVERE PAIN 7-10; Start 04/09/21 at 15:00 Heparin Sodium (Porcine) (Heparin Sodium) 5,000 unit Q8HRS SQ Last administered on 04/10/21at 05:59; Start 04/09/21 at 15:30 Zinc Sulfate (Orazinc) 220 mg DAILY PO Last administered on 04/09/21at 17:33; Start 04/09/21 at 15:00 Thiamine Mononitrate (Vitamin B-1) 100 mg DAILY PO Last administered on 04/09/21at 17:33; Start 04/09/21 at 15:00 Dexamethasone Sodium Phosphate (Decadron) 6 mg DAILY IVP Last administered on 04/09/21at 17:33; Start 04/09/21 at 15:30 Remdesivir 200 mg/ Sodium Chloride 210 ml @ 210 mls/hr 1X ONCE IV Last administered on 04/09/21at 19:00; Start 04/09/21 at 16:00; Stop 04/09/21 at 16:59; Status DC Remdesivir 100 mg/ Sodium Chloride 230 ml @ 460 mls/hr Q24H IV ; Start 04/10/21 at 16:00; Stop 04/13/21 at 16:29 Acetaminophen (Tylenol Supp) 650 mg PRN Q6HRS PRN LA MILD PAIN / TEMP > 100.3'F Last administered on 04/09/21at 21:01; Start 04/09/21 at 20:15 Sodium Chloride 1,000 ml @ 100 mls/hr Q10H IV Last administered on 04/10/21at 05:59; Start 04/09/21 at 20:30 Ceftriaxone Sodium (Rocephin) 1 gm Q24H IVP ; Start 04/10/21 at 10:15 Doxycycline Hyclate 100 mg/ Dextrose 100 ml @ 50 mls/hr Q12HR IV ; Start 04/10/21 at 09:00 Lactobacillus Rhamnosus (Culturelle) 1 cap BID PO ; Start 04/10/21 at 09:00 Active Scripts Active Reported Hydrochlorothiazide 25 Mg Tablet 25 Mg PO 1X Atorvastatin Calcium 20 Mg Tablet 20 Mg PO HS Metoprolol Succinate ( Xl ) (Metoprolol Succinate) 25 Mg Tab.er.24h 25 Mg PO 3X/WEEK Aspirin 81 Mg Tab.chew 81 Mg PO DAILY Vitals/I & O Vital Sign - Last 24 Hours 04/09/21 04/09/21 04/09/21 04/09/21 09:52 10:39 11:50 11:54 Temp 99.7 99.7 Pulse 118 107 107 Resp 30 30 30 B/P (MAP) 122/73 126/74 (91) 126/74 (91) Pulse Ox 100 98 91 96 O2 Delivery Nasal Cannula Room Air O2 Flow Rate 4.0 4.0 3.0 04/09/21 04/09/21 04/09/21 04/09/21 17:55 18:00 19:47 20:30 Temp 101.0 101.3 101.0 101.3 Pulse 107 114 111 Resp 26 20 B/P (MAP) 126/74 (91) 109/73 (85) 100/71 (81) Pulse Ox 95 89 91 O2 Delivery Nasal Cannula Nasal Cannula Nasal Cannula Room Air O2 Flow Rate 3.0 5.0 4.0 04/09/21 04/10/21 23:12 02:00 Temp 99.4 98.3 99.4 98.3 Pulse 97 104 Resp 20 22 B/P (MAP) 106/76 (86) 118/62 (80) Pulse Ox 90 95 O2 Delivery Nasal Cannula Nasal Cannula O2 Flow Rate 3.0 3.0 Intake and Output 04/09/21 04/09/21 04/10/21 15:00 23:00 07:00 Intake Total 0 ml 1164 ml Output Total 875 ml Balance 0 ml 289 ml Justicifation of Admission Dx: Justifications for Admission: Justification of Admission Dx: Yes Sepsis: Hypoxemia YULIET DE SOUZA MD Apr 10, 2021 09:43
--- NOTE | 2021-04-10 10:26 | PDOC ---
PROGRESS NOTES Date of Service: DATE: 04/10/21 TIME: 10:25 Chief Complaint Chief Complaint VTE Prophylaxis Ordered VTE Prophylaxis Devices: No VTE Pharmacological Prophylaxi: Yes Assessment/Plan Assessment/Plan A/P: Acute encephalopathy - likely metabolic from hypoxia, rhabdomyolysis Acute hypoxic respiratory failure - likely due to COVID 19 pneumonia Elevated troponin I level - likely demand ischemia from hypoxia, will trend, monitor on tele Elevated lactic acid - likely due to hypoxia, sepsis from COVID 19 Sepsis - with COVID 19 will treat with IVF and remdesivir, this is clearly viral, no definite bacterial source Acute kidney injury - likely vasomotor nephropathy from rhabomyolysis, will monitor renal function Pneumonia - likely due to COVID 19 COVID-19 virus infection - remdesivir and steroids, supportive care, wean O2 as tolerated Rhabdomyolysis - will monitor CK, likely traumatic from falling Transaminitis - likely rhabdo and covid related, will hydrate CAD s/p CABG - reconcile home meds with pharmacy as and patient cannot recall HTN - restart home meds FEN - ADAT PPX - heparin FULL CODE Dispo - inpatient d/w RN History of Present Illness History of Present Illness Identification/Chief Complaint Chief Complaint Acute encephalopathy Source Source: Caregiver, Chart review, Patient History of Present Illness History of Present Illness Mr Page is a 70 year old male with PMH HTN, HLD, CAD s/p CABG comes to ED via EMS after his called 911. Hand Reamer reports patient was found on floor in bedroom by who thinks he may have been laying there for at least 5-6 hours. noted he has bee sick for the past 10 days and that she has also been sick with COVID 19 for 14 days. She is confused as well as the patient. Patient can only ask for food and water and is oriented to self only. His only recalls above PMHx, does not know his meds. EMS noted patient was 87% on room air, placed on 4L NCO2 Patient's chest x-ray concerning for immunity acquired pneumonia, elevated troponin I, elevated lactic acid level, white blood cell count [place] [address], LFTs elevated, CR 1.9. Started on Rocephin 1 g IV along with 30 mL/kg normal saline IV fluid replacement. COVID-19 positive per rapid study. EKG sinus tachycardia 118 bpm, left axis deviation, LAFB, no ST segment or T- wave abnormalities Admitted for further care Past Medical History Cardiovascular: HTN, Hyperlipidemia Past Surgical History Past Surgical History: CABG Family History Family History: Family History Unknown Social History Smoke: No (unknown) ALCOHOL: other (unknown) Drugs: None Current Medications Current Medications Current Medications Sodium Chloride 1,000 ml @ 1,000 mls/hr 1X ONCE IV Last administered on 04/09/21at 10:10; Start 04/09/21 at 10:15; Stop 04/09/21 at 11:14 Sodium Chloride 1,000 ml @ 2,850 mls/hr Q22M IV ; Start 04/09/21 at 10:45; Stop 04/09/21 at 11:45 Ceftriaxone Sodium (Rocephin) 1 gm 1X ONCE IVP ; Start 04/09/21 at 10:45; Stop 04/09/21 at 10:46; Status DC Allergies Allergies: Coded Allergies: No Known Drug Allergies (Unverified , 04/09/21) ROS Review of System Unable to obtain due to obtunded mental status Vitals Vitals Vital Signs Date Time Temp Pulse Resp B/P (MAP) Pulse Ox O2 Delivery O2 Flow Rate FiO2 04/10/21 07:00 96.1 114 22 103/66 (78) 82 Nasal Cannula 3.0 96.1 Physical Exam Physical Exam General: Cooperative, moderate distress, Other (Confused) HEENT: Atraumatic, PERRLA, EOMI, Mucous membr. moist/pink Lungs: Other (bialteral crackles) Heart: S1S2, RRR, no thrills, no rubs, no gallops, no murmurs Abdomen: Normal bowel sounds, Soft, No tenderness, No hepatosplenomegaly, No masses Extremities: No clubbing, No cyanosis, No edema, Normal pulses, No tenderness/swelling Skin: No rashes, No breakdown, No significant lesion Neuro: Normal tone, Sensation intact, Cranial nerves 3-12 NL, Reflexes 2+ Psych/Mental Status: MORE AWAKE General: Alert, Cooperative, No acute distress, Other (Confused) Heart: Regular rate Lungs: Clear Abdomen: Normal bowel sounds, Soft, No tenderness, No hepatosplenomegaly, No masses Extremities: No clubbing, No cyanosis, No edema, Normal pulses, No tenderness/swelling Skin: No rashes, No breakdown, No significant lesion Labs LABS Signed PATIENT: XAVIER PAGE ACCOUNT: [id number] : 1950 LOCATION: ER AGE: 70 SEX: M EXAM STATUS: PRE ER ORD. PHYSICIAN: NICOLE WILHELM APRN REASON: Altered mental status PROCEDURE: CHEST AP ONLY XR CHEST 1V History: Status. Comparison: None. Technique: Portable AP radiograph of the chest. Findings: Mild hypoinflation. Bilateral hazy airspace opacities. No pleural effusion thorax. Postsurgical changes from CABG. Heart size and pulmonary vasculature are within normal limits. No acute findings in the osseous structures are soft tissues. Impression: 1. Hazy bilateral airspace opacities concerning for multifocal pneumonia versus pulmonary edema. Electronically signed by: Jayden Avitia MD (04/09/2021 10:24 AM) [id number] DICTATED and SIGNED BY: JAYDEN AVITIA MD DATE: 04/09/21 [id number] 0 think and talk about your own wishes for healthcare in case youre ever not able to tell your loved ones or healthcare team what your wishes are. If you became really sick tomorrow, would your loved ones or healthcare team know what your wishes were? Here are some examples of different sets of goals and health care directives for your conversations: My wish is to use all medical therapies including resuscitation (such as CPR) and artificial life-sustaining treatments (such as machines and medicine) in an intensive care unit, to keep me alive if at all possible. My wish is to live as long as possible, but I dont want attempts to bring me back to life if my heart and breathing stop. I would like full medical care but without using resuscitation or artificial life-sustaining intensive treatments, if these are unlikely to make me live longer or restore me to a certain quality of life. I will accept treatments that try to fix medical problems, but if Im not getting better or going to have a certain quality of life, I would want to switch to focusing only on my comfort and letting my happen naturally. My wish is for healthcare to focus on my comfort and lessen suffering. I would like medical care that focuses only on my quality of life and that allows me to naturally. Consider: What does a good quality of life mean for me? For many people, it is the ability to live independently and tell their own story. I may define it differently. Under what circumstances would I not want to be kept alive by medical treatments, resuscitation, or intensive care? What kind of changes to my health or life might make me change my mind? If I clearly am facing the last chapter of my life, how do I want the story to end? Who do I want to speak for me if I cant speak for myself? Do they un derstand my preferences? Are they willing to assume the role of my Durable Power of [employer]p [employer]? Can I change my Goals of Care Designation? Yes, your Goals of Care Designation can be changed at any time. It should be reviewed if: your health condition changes your circumstances change (such as new understanding) you are transferred or admitted to another healthcare setting dpoa review, to pt portal 17 min and question review SPEC #: [id number] SUSAN: 04/09/21 STATUS: RES REQ #: [id number] RECD: 04/09/21 [facility] DR: NICOLE WILHELM APRN SOURCE: BLOOD ENTR: 04/09/21-1006 [facility] DR: SPDES: ORDERED: BCULT Procedure Result BLOOD CULTURE Preliminary NO GROWTH AFTER 1 DAY Laboratory Tests Test 04/09/21 13:23 04/09/21 18:00 04/10/21 00:25 04/10/21 04:40 Lactic Acid Level 1.5 mmol/L (0.4-2.0) Troponin I Quantitative 0.497 ng/mL (0.000-0.055) 0.520 ng/mL (0.000-0.055) 0.336 ng/mL (0.000-0.055) Sodium Level 152 mmol/L (136-145) Potassium Level 3.3 mmol/L (3.5-5.1) Chloride Level 111 mmol/L (98-107) Carbon Dioxide Level 32 mmol/L (21-32) Anion Gap 9 (6-14) Blood Urea Nitrogen 32 mg/dL (8-26) Creatinine 1.2 mg/dL (0.7-1.3) Estimated GFR (Cockcroft-Gault) 59.9 BUN/Creatinine Ratio 27 (6-20) Glucose Level 143 mg/dL (70-99) Calcium Level 7.4 mg/dL (8.5-10.1) Total Bilirubin 1.5 mg/dL (0.2-1.0) Aspartate Amino Transf (AST/SGOT) 365 U/L (15-37) Alanine Aminotransferase (ALT/SGPT) 141 U/L (16-63) Alkaline Phosphatase 45 U/L (46-116) Creatine Kinase 7773 U/L (39-308) Total Protein 5.2 g/dL (6.4-8.2) Albumin 2.0 g/dL (3.4-5.0) Albumin/Globulin Ratio 0.6 (1.0-1.7) Assessment and Plan Assessmemt and Plan Problems Medical Problems: (1) Acute kidney injury Status: Acute (2) Altered mental status Status: Acute (3) Community acquired pneumonia Status: Acute (4) COVID-19 virus infection Status: Acute (5) Elevated lactic acid level Status: Acute (6) Elevated troponin I level Status: Acute Comment Review of Relevant I have reviewed the following items pinky (where applicable) has been applied. Labs Laboratory Tests Test 04/09/21 09:43 04/09/21 09:50 04/09/21 13:23 04/09/21 18:00 SARS-CoV-2 Antigen (Rapid) Positive (NEGATIVE) White Blood Count 7.8 x10^3/uL (4.0-11.0) Red Blood Count 5.21 x10^6/uL (4.30-5.70) Hemoglobin 17.4 g/dL (13.0-17.5) Hematocrit 49.2 % (39.0-53.0) Mean Corpuscular Volume 94 fL (79-100) Mean Corpuscular Hemoglobin 34 pg (25-35) Mean Corpuscular Hemoglobin Concent 36 g/dL (31-37) Red Cell Distribution Width 14.4 % (11.5-14.5) Platelet Count 180 x10^3/uL (140-400) Neutrophils (%) (Auto) 79 % (31-73) Lymphocytes (%) (Auto) 10 % (24-48) Monocytes (%) (Auto) 11 % (0-9) Eosinophils (%) (Auto) 0 % (0-3) Basophils (%) (Auto) 0 % (0-3) Neutrophils # (Auto) 6.1 x10^3/uL (1.8-7.7) Lymphocytes # (Auto) 0.8 x10^3/uL (1.0-4.8) Monocytes # (Auto) 0.9 x10^3/uL (0.0-1.1) Eosinophils # (Auto) 0.0 x10^3/uL (0.0-0.7) Basophils # (Auto) 0.0 x10^3/uL (0.0-0.2) Sodium Level 145 mmol/L (136-145) Potassium Level 3.7 mmol/L (3.5-5.1) Chloride Level 98 mmol/L (98-107) Carbon Dioxide Level 36 mmol/L (21-32) Anion Gap 11 (6-14) Blood Urea Nitrogen 42 mg/dL (8-26) Creatinine 1.9 mg/dL (0.7-1.3) Estimated GFR (Cockcroft-Gault) 35.2 BUN/Creatinine Ratio 22 (6-20) Glucose Level 142 mg/dL (70-99) Lactic Acid Level 3.6 mmol/L (0.4-2.0) 1.5 mmol/L (0.4-2.0) Calcium Level 8.8 mg/dL (8.5-10.1) Phosphorus Level 4.3 mg/dL (2.6-4.7) Magnesium Level 2.5 mg/dL (1.8-2.4) Total Bilirubin 2.9 mg/dL (0.2-1.0) Aspartate Amino Transf (AST/SGOT) 601 U/L (15-37) Alanine Aminotransferase (ALT/SGPT) 194 U/L (16-63) Alkaline Phosphatase 61 U/L (46-116) Creatine Kinase 99912 U/L (39-308) Creatine Kinase MB (Mass) 3.5 ng/mL (0.0-3.6) Creatine Kinase MB Relative Index 0.0 % (0-4) Troponin I Quantitative 0.523 ng/mL (0.000-0.055) 0.497 ng/mL (0.000-0.055) EI-Dpa-L-Type Natriuretic Peptide 809 pg/mL (0-124) Total Protein 7.3 g/dL (6.4-8.2) Albumin 3.1 g/dL (3.4-5.0) Albumin/Globulin Ratio 0.7 (1.0-1.7) Test 04/10/21 00:25 04/10/21 04:40 Troponin I Quantitative 0.520 ng/mL (0.000-0.055) 0.336 ng/mL (0.000-0.055) Sodium Level 152 mmol/L (136-145) Potassium Level 3.3 mmol/L (3.5-5.1) Chloride Level 111 mmol/L (98-107) Carbon Dioxide Level 32 mmol/L (21-32) Anion Gap 9 (6-14) Blood Urea Nitrogen 32 mg/dL (8-26) Creatinine 1.2 mg/dL (0.7-1.3) Estimated GFR (Cockcroft-Gault) 59.9 BUN/Creatinine Ratio 27 (6-20) Glucose Level 143 mg/dL (70-99) Calcium Level 7.4 mg/dL (8.5-10.1) Total Bilirubin 1.5 mg/dL (0.2-1.0) Aspartate Amino Transf (AST/SGOT) 365 U/L (15-37) Alanine Aminotransferase (ALT/SGPT) 141 U/L (16-63) Alkaline Phosphatase 45 U/L (46-116) Creatine Kinase 7773 U/L (39-308) Total Protein 5.2 g/dL (6.4-8.2) Albumin 2.0 g/dL (3.4-5.0) Albumin/Globulin Ratio 0.6 (1.0-1.7) Laboratory Tests Test 04/09/21 13:23 04/09/21 18:00 04/10/21 00:25 04/10/21 04:40 Lactic Acid Level 1.5 mmol/L (0.4-2.0) Troponin I Quantitative 0.497 ng/mL (0.000-0.055) 0.520 ng/mL (0.000-0.055) 0.336 ng/mL (0.000-0.055) Sodium Level 152 mmol/L (136-145) Potassium Level 3.3 mmol/L (3.5-5.1) Chloride Level 111 mmol/L (98-107) Carbon Dioxide Level 32 mmol/L (21-32) Anion Gap 9 (6-14) Blood Urea Nitrogen 32 mg/dL (8-26) Creatinine 1.2 mg/dL (0.7-1.3) Estimated GFR (Cockcroft-Gault) 59.9 BUN/Creatinine Ratio 27 (6-20) Glucose Level 143 mg/dL (70-99) Calcium Level 7.4 mg/dL (8.5-10.1) Total Bilirubin 1.5 mg/dL (0.2-1.0) Aspartate Amino Transf (AST/SGOT) 365 U/L (15-37) Alanine Aminotransferase (ALT/SGPT) 141 U/L (16-63) Alkaline Phosphatase 45 U/L (46-116) Creatine Kinase 7773 U/L (39-308) Total Protein 5.2 g/dL (6.4-8.2) Albumin 2.0 g/dL (3.4-5.0) Albumin/Globulin Ratio 0.6 (1.0-1.7) Microbiology 04/09/21 Blood Culture - Preliminary, Resulted NO GROWTH AFTER 1 DAY Medications Current Medications Sodium Chloride 1,000 ml @ 1,000 mls/hr 1X ONCE IV Last administered on 04/09/21at 10:10; Start 04/09/21 at 10:15; Stop 04/09/21 at 11:14; Status DC Sodium Chloride 1,000 ml @ 2,850 mls/hr Q22M IV Last administered on 04/09/21at 11:29; Start 04/09/21 at 10:45; Stop 04/09/21 at 11:45; Status DC Ceftriaxone Sodium (Rocephin) 1 gm 1X ONCE IVP Last administered on 04/09/21at 11:33; Start 04/09/21 at 10:45; Stop 04/09/21 at 10:46; Status DC Doxycycline Hyclate 100 mg/ Dextrose 100 ml @ 50 mls/hr 1X ONCE IV Last administered on 04/09/21at 11:32; Start 04/09/21 at 11:00; Stop 04/09/21 at 12:59; Status DC Olanzapine (ZyPREXA ZYDIS) 5 mg PRN BID PRN PO ANXIETY / AGITATION; Start 04/09/21 at 15:00 Ondansetron HCl (Zofran) 4 mg PRN Q4HRS PRN IVP NAUSEA/VOMITING; Start 04/09/21 at 15:00 Tramadol HCl (Ultram) 50 mg PRN Q6HRS PRN PO MODERATE - SEVERE PAIN; Start 04/09/21 at 15:00 Guaifenesin (Robitussin Dm) 10 ml PRN Q6HRS PRN PO COUGH; Start 04/09/21 at 15:00 Acetaminophen (Tylenol) 650 mg PRN Q6HRS PRN PO MILD PAIN / TEMP > 100.3'F; Start 04/09/21 at 15:00 Fentanyl Citrate (Fentanyl 2ml Vial) 25 mcg PRN Q3HRS PRN IVP SEVERE PAIN 7-10; Start 04/09/21 at 15:00 Heparin Sodium (Porcine) (Heparin Sodium) 5,000 unit Q8HRS SQ Last administered on 04/10/21at 05:59; Start 04/09/21 at 15:30 Zinc Sulfate (Orazinc) 220 mg DAILY PO Last administered on 04/09/21at 17:33; Start 04/09/21 at 15:00 Thiamine Mononitrate (Vitamin B-1) 100 mg DAILY PO Last administered on 04/09/21at 17:33; Start 04/09/21 at 15:00 Dexamethasone Sodium Phosphate (Decadron) 6 mg DAILY IVP Last administered on 04/09/21at 17:33; Start 04/09/21 at 15:30 Remdesivir 200 mg/ Sodium Chloride 210 ml @ 210 mls/hr 1X ONCE IV Last administered on 04/09/21at 19:00; Start 04/09/21 at 16:00; Stop 04/09/21 at 16:59; Status DC Remdesivir 100 mg/ Sodium Chloride 230 ml @ 460 mls/hr Q24H IV ; Start 04/10/21 at 16:00; Stop 04/13/21 at 16:29 Acetaminophen (Tylenol Supp) 650 mg PRN Q6HRS PRN VA MILD PAIN / TEMP > 100.3'F Last administered on 04/09/21at 21:01; Start 04/09/21 at 20:15 Sodium Chloride 1,000 ml @ 100 mls/hr Q10H IV Last administered on 04/10/21at 05:59; Start 04/09/21 at 20:30 Ceftriaxone Sodium (Rocephin) 1 gm Q24H IVP ; Start 04/10/21 at 10:15 Doxycycline Hyclate 100 mg/ Dextrose 100 ml @ 50 mls/hr Q12HR IV ; Start 04/10/21 at 09:00 Lactobacillus Rhamnosus (Culturelle) 1 cap BID PO ; Start 04/10/21 at 09:00 Active Scripts Active Reported Hydrochlorothiazide 25 Mg Tablet 25 Mg PO 1X Atorvastatin Calcium 20 Mg Tablet 20 Mg PO HS Metoprolol Succinate ( Xl ) (Metoprolol Succinate) 25 Mg Tab.er.24h 25 Mg PO 3X/WEEK Aspirin 81 Mg Tab.chew 81 Mg PO DAILY Vitals/I & O Vital Sign - Last 24 Hours 04/09/21 04/09/21 04/09/21 04/09/21 10:39 11:50 11:54 17:55 Pulse 107 107 107 Resp 30 30 B/P (MAP) 126/74 (91) 126/74 (91) 126/74 (91) Pulse Ox 98 91 96 95 O2 Delivery Room Air Nasal Cannula O2 Flow Rate 4.0 3.0 3.0 04/09/21 04/09/21 04/09/21 04/09/21 18:00 19:47 20:30 23:12 Temp 101.0 101.3 99.4 101.0 101.3 99.4 Pulse 114 111 97 Resp 26 20 20 B/P (MAP) 109/73 (85) 100/71 (81) 106/76 (86) Pulse Ox 89 91 90 O2 Delivery Nasal Cannula Nasal Cannula Room Air Nasal Cannula O2 Flow Rate 5.0 4.0 3.0 04/10/21 04/10/21 02:00 07:00 Temp 98.3 96.1 98.3 96.1 Pulse 104 114 Resp 22 22 B/P (MAP) 118/62 (80) 103/66 (78) Pulse Ox 95 82 O2 Delivery Nasal Cannula Nasal Cannula O2 Flow Rate 3.0 3.0 Intake and Output 04/09/21 04/09/21 04/10/21 15:00 23:00 07:00 Intake Total 0 ml 1164 ml Output Total 875 ml Balance 0 ml 289 ml Justicifation of Admission Dx: Justifications for Admission: Justification of Admission Dx: Yes Sepsis: Hypoxemia YULIET DE SOUZA MD Apr 10, 2021 10:26
[2021-04-10] MEDS: DEXAMETHASONE SOD PHOS 4 MG/ML VIAL IVP SCH (10:49)
[2021-04-10] MEDS: cefTRIAXone IV Push 1 GM VIAL. IVP SCH (10:50)
[2021-04-10] MEDS: DOXYCYCLINE HYCLATE 100 MG in IV DEXTROSE 5% 100ML 100 ML IV SCH ×2 (10:59→21:43)
[2021-04-10 11:00] VITALS: BP 97/61
--- NOTE | 2021-04-10 11:47 | NUR ---
All PO medications held this AM due to swallow precautions. Order for speech/swallow eval is in place
--- NOTE | 2021-04-10 12:28 | NUR ---
SS following for discharge planning. SS reviewed pt chart and discussed with pt RN. Pt is from home with spouse and is currently requiring oxygen at three liters nasal canula. COVID19 positive. Pt on IV Rocephin, IV Remdesivir, IV Doxycycline, and IV Decadron. ST ordered. SS will continue to follow for discharge planning.
[2021-04-10 13:32] LABS: BASO % 0 % (0-3); EOS % 0 % (0-3); HEMATOCRIT 40.4 % (39.0-53.0); HEMOGLOBIN 14.2 g/dL (13.0-17.5); LYMPH # 0.6 x10^3/uL (1.0-4.8); LYMPH % 5 % (24-48); MEAN CORPUSCULAR HEMOGLOBIN 34 pg (25-35); MEAN CORPUSCULAR HGB CONC 35 g/dL (31-37); MEAN CORPUSCULAR VOLUME 96 fL (79-100); MONO # 1.2 x10^3/uL (0.0-1.1); MONO % 11 % (0-9); NEUT # 9.2 x10^3/uL (1.8-7.7); NEUT % 84 % (31-73); PLATELET COUNT 156 x10^3/uL (140-400); RED BLOOD COUNT 4.22 x10^6/uL (4.30-5.70); RED CELL DISTRIBUTION WIDTH 14.5 % (11.5-14.5); WHITE BLOOD COUNT 10.9 x10^3/uL (4.0-11.0)
[2021-04-10] MEDS ORDERED: POTASSIUM CHLORIDE 20 MEQ TABLET.ER. PO ONE (14:00)
[2021-04-10] MEDS: IV 1/2 NORMAL SALINE 1,000 ML IV SCH (14:19)
--- NOTE | 2021-04-10 14:39 | PDOC2 ---
LUNA TRUJILLO VEGETABLE THINNER 04/10/21 1439: CARDIAC CONSULT DATE OF CONSULT Date of Consult DATE: 04/10/21 TIME: 14:35 REASON FOR CONSULT Reason for Consult: Elevated troponin REFERRING PHYSICIAN Referring Physician: Dr. Kim SOURCE Source: Chart review, Patient HISTORY OF PRESENT ILLNESS HISTORY OF PRESENT ILLNESS This is a 70 yo male who presented secondary to altered mental status. Was found down on the floor by in bedroom. Thinks he could have been there for 5-6 hours. Has been since approximately 10 days prior to arrival. Was COVID + upon arrival. Troponin noted to be mildly elevated, which prompted this consult. He denies any dizziness, diaphoresis, or chest pain. He has a history of CAD s/p C ABG in 2001. PAST MEDICAL HISTORY Cardiovascular: CAD, HTN, Hyperlipidemia PAST SURGICAL HISTORY Past Surgical History: CABG FAMILY HISTORY Family History: Other (noncontributory ) SOCIAL HISTORY Smoke: No ALCOHOL: none Drugs: None Lives: with Family CURRENT MEDICATIONS CURRENT MEDICATIONS Current Medications Medications (Trade) Dose Ordered Sig/Carole Route PRN Reason Start Time Stop Time Status Last Admin Dose Admin Olanzapine (ZyPREXA ZYDIS) 5 mg PRN BID PRN PO ANXIETY / AGITATION 04/09/21 15:00 04/10/21 11:02 Heparin Sodium (Porcine) (Heparin Sodium) 5,000 unit Q8HRS SQ 04/09/21 15:30 04/10/21 14:20 Zinc Sulfate (Orazinc) 220 mg DAILY PO 04/09/21 15:00 04/09/21 17:33 Thiamine Mononitrate (Vitamin B-1) 100 mg DAILY PO 04/09/21 15:00 04/09/21 17:33 Dexamethasone Sodium Phosphate (Decadron) 6 mg DAILY IVP 04/09/21 15:30 04/10/21 10:49 Remdesivir 200 mg/ Sodium Chloride 210 ml @ 210 mls/hr 1X ONCE IV 04/09/21 16:00 04/09/21 16:59 DC 04/09/21 19:00 Acetaminophen (Tylenol Supp) 650 mg PRN Q6HRS PRN DE MILD PAIN / TEMP > 100.3'F 04/09/21 20:15 04/09/21 21:01 Sodium Chloride 1,000 ml @ 100 mls/hr Q10H IV 04/09/21 20:30 8/19/21 13:47 DC 04/10/21 05:59 Ceftriaxone Sodium (Rocephin) 1 gm Q24H IVP 04/10/21 10:15 04/10/21 10:50 Doxycycline Hyclate 100 mg/ Dextrose 100 ml @ 50 mls/hr Q12HR IV 04/10/21 09:00 04/10/21 10:59 Sodium Chloride 1,000 ml @ 75 mls/hr [id number] IV 04/10/21 14:00 04/10/21 14:19 Potassium Chloride (Klor-Con) 40 meq 1X ONCE PO 04/10/21 14:00 04/10/21 14:01 DC 04/10/21 14:20 ALLERGIES ALLERGIES: Coded Allergies: No Known Drug Allergies (Unverified , 04/09/21) ROS Review of System 14 point ROS conducted with pertinent positives noted above in hPI, although somewhat limited due to confusion PHYSICAL EXAM General: Alert, Cooperative, Other (alert to person and place) HEENT: Atraumatic Lungs: Other (on NC ) Heart: Regular rate Abdomen: Soft Extremities: No edema Skin: No significant lesion Neuro: Normal speech, Sensation intact Psych/Mental Status: Mood NL, Other (confused ) MUSCULOSKELETAL: Osteoarthritic changes both hands VITALS/I&O VITALS/I&O: Vital Signs Date Time Temp Pulse Resp B/P (MAP) Pulse Ox O2 Delivery O2 Flow Rate FiO2 04/10/21 11:00 97.9 104 22 97/61 (73) 90 Nasal Cannula 3.0 97.9 I & O 04/09/21 04/09/21 04/10/21 15:00 23:00 07:00 Intake Total 0 ml 1164 ml Output Total 875 ml Balance 0 ml 289 ml LABS Lab: Laboratory Tests Test 04/09/21 18:00 04/10/21 00:25 04/10/21 04:40 04/10/21 13:00 Troponin I Quantitative 0.497 ng/mL (0.000-0.055) 0.520 ng/mL (0.000-0.055) 0.336 ng/mL (0.000-0.055) Sodium Level 152 mmol/L (136-145) H Potassium Level 3.3 mmol/L (3.5-5.1) L Chloride Level 111 mmol/L (98-107) H Carbon Dioxide Level 32 mmol/L (21-32) Anion Gap 9 (6-14) Blood Urea Nitrogen 32 mg/dL (8-26) H Creatinine 1.2 mg/dL (0.7-1.3) Estimated GFR (Cockcroft-Gault) 59.9 BUN/Creatinine Ratio 27 (6-20) H Glucose Level 143 mg/dL (70-99) H Calcium Level 7.4 mg/dL (8.5-10.1) L Total Bilirubin 1.5 mg/dL (0.2-1.0) H Aspartate Amino Transferase (AST) 365 U/L (15-37) H Alanine Aminotransferase (ALT) 141 U/L (16-63) H Alkaline Phosphatase 45 U/L (46-116) L Creatine Kinase 7773 U/L (39-308) H Total Protein 5.2 g/dL (6.4-8.2) L Albumin 2.0 g/dL (3.4-5.0) L Albumin/Globulin Ratio 0.6 (1.0-1.7) L White Blood Count 10.9 x10^3/uL (4.0-11.0) Red Blood Count 4.22 x10^6/uL (4.30-5.70) L Hemoglobin 14.2 g/dL (13.0-17.5) Hematocrit 40.4 % (39.0-53.0) Mean Corpuscular Volume 96 fL (79-100) Mean Corpuscular Hemoglobin 34 pg (25-35) Mean Corpuscular Hemoglobin Concent 35 g/dL (31-37) Red Cell Distribution Width 14.5 % (11.5-14.5) Platelet Count 156 x10^3/uL (140-400) Neutrophils (%) (Auto) 84 % (31-73) H Lymphocytes (%) (Auto) 5 % (24-48) L Monocytes (%) (Auto) 11 % (0-9) H Eosinophils (%) (Auto) 0 % (0-3) Basophils (%) (Auto) 0 % (0-3) Neutrophils # (Auto) 9.2 x10^3/uL (1.8-7.7) H Lymphocytes # (Auto) 0.6 x10^3/uL (1.0-4.8) L Monocytes # (Auto) 1.2 x10^3/uL (0.0-1.1) H Eosinophils # (Auto) 0.0 x10^3/uL (0.0-0.7) Basophils # (Auto) 0.0 x10^3/uL (0.0-0.2) Laboratory Tests 04/10/21 13:00 Laboratory Tests 04/10/21 04:40 ECHOCARDIOGRAM ECHOCARDIOGRAM Echo 02/22/19 shows an ejection fraction of 50-55% with mild to moderate mitral regurgitation and mild tricuspid regurgitation HEART CATH HEART CATH His most recent catheterization was in 2010. His LAD and right coronary artery were occluded. He had a severe lesion in his left circumflex. His GUNTER graft was patent to his LAD. He had a patent saphenous vein graft to the right coronary artery. He had a patent saphenous vein graft in skip fashion to the obtuse marginal 2, 3 and 4. ASSESSMENT/PLAN ASSESSMENT/PLAN 1. Acute respiratory failure secondary to COVID PNA 2. Mild troponin elevation; peak 0.5. Most probably type II, demand ischemia secondary to above 3. CAD s/p remote CABG. Cath 2010 showed patent grafts as noted above. Echo 03/10 with preserved LV systolic function 4. Hypertension; controlled 5. Hyperlipidemia; on statin at home 6. NOEMÍ; better 7. Rhabdomyolysis 8. Hypokalemia, hypernatremia 9. Transaminitis Recommendations ASA Lipids Secondary prevention No statin with transaminitis Hold HCTZ with NOEMÍ Ongoing lung optimization, treatment of COVID Supportive care Plan outpatient echo and ischemic evaluation when recovered from COVID MARTIN MACEDO MD 04/10/21 1833: CARDIAC CONSULT ASSESSMENT/PLAN ASSESSMENT/PLAN Patient seen and evaluated. I agree with our nurse practitioners assessment and plan. Acute respiratory failure secondary to COVID PNA. Continuing baseline Covid treatments with close monitoring. Mild troponin elevation; peak 0.5. Now trending down. Most probably type II, demand ischemia secondary to above. Also the patient was down for a prolonged period and creatinine kinase is elevated at 7773. Will trend. CAD s/p remote CABG. Cath 2010 showed patent grafts as noted above. Echo 03/10 with preserved LV systolic function. Follow-up echo as per Covid guidelines. Hypertension; controlled Hyperlipidemia; on statin at home. Checking a lipid panel. NOEMÍ; improved. Rhabdomyolysis Hypokalemia, hypernatremia Transaminitis. Holding statins. LUNA TRUJILLO APRN Apr 10, 2021 14:39 MARTIN MACEDO MD Apr 10, 2021 18:33
[2021-04-10 15:00] VITALS: BP 115/77
[2021-04-10 15:36] LABS: BASE EXCESS COOX 4 mmol/L (-3-3); HCO3 COOX 26 mmol/L (21-28); METHEMOGLOBIN 0.3 % (0.0-1.9); OXYHEMOGLOBIN 90.9 %; PCO2 COOX 34 mmHg (35-46); PO2 COOX 59 mmHg (65-108); SAT O2 COOX 91 % (92-99)
[2021-04-10 16:49] LABS: CHOLESTEROL/HDL RATIO 6.6
[2021-04-10] MEDS: REMDESIVIR 100mg in NORMAL SALINE 250ML X 4 DAYS IV SCH (18:01)
[2021-04-10 19:34] VITALS: BP 97/66
[2021-04-10 22:28] VITALS: BP 98/60
--- NOTE | 2021-04-11 01:38 | CONS ---
DATE OF CONSULTATION: 04/10/2021 ATTENDING PHYSICIAN: Dr. Calhoun. REASON FOR CONSULTATION: Respiratory failure, COVID-19 viral pneumonia. HISTORY OF PRESENT ILLNESS: The patient is a 70-year-old male who has past medical history of hypertension, coronary artery disease, status post CABG. He was brought into the hospital after he was found to be lying down on the floor for at least 5-6 hours. The patient's has been sick for the last 10 days with COVID. I did the consultation via telemedicine. The patient states that he and his have not been out much in the last 2 years, except to do the grocery which his usually does. The patient's called 911. He was brought into the hospital. He was hypoxic with saturation of 87% on room air. He was placed on 4 liters. His chest x-ray was reviewed by me and it shows evidence of hazy bilateral airspace opacities consistent with viral pneumonia. He also had very markedly elevated CPK consistent with rhabdomyolysis. His troponin levels were high as well as transaminases were high. He is currently getting hydration and numbers are getting better. He does not appear to be in any obvious respiratory distress. I did the tele exam. He has no cough. No chest pain. No nausea or vomiting. No diarrhea, no dysuria. No focal weakness. He is currently on 5 liters with saturation of 91%. PAST MEDICAL HISTORY: Significant for hypertension, CAD, status post CABG. Likely COPD, smoked for 31 years. PAST SURGICAL HISTORY: CABG. FAMILY HISTORY: Noncontributory to lungs. ALLERGIES: None. MEDICATIONS: Reviewed as listed in the [facility]AD including remdesivir, Rocephin, doxycycline and dexamethasone. REVIEW OF SYSTEMS: A 12-point systems obtained. Pertinent positives discussed in my present illness, otherwise noncontributory. All systems that were negative were reviewed as well. PHYSICAL EXAMINATION: VITAL SIGNS: Reviewed. 91% saturation on 5 liters, blood pressure stable, pulse is in the 90s. He is afebrile. Visual exam done. No paradoxical breathing. He is on nasal cannula. EXTREMITIES: No leg edema. LABORATORY DATA: Reviewed. Sodium 152, potassium 3.3, chloride 111, BUN 32, creatinine 1.2. Troponin 0.3. His liver function tests are trending down. Initially, his lactic acid was elevated at 3.6, now 1.5. AST was 601 and ALT 194 with bilirubin of 2.9. They are all improving. ABG showed a pH of 7.51, pCO2 of 34 and a pO2 of 59 on 40% FIO2. IMPRESSION: 1. Acute hypoxic respiratory failure secondary to COVID-19 viral pneumonia and acute lung injury. 2. Abnormal chest x-ray with faint bilateral hazy opacities consistent with viral pneumonia. 3. Rhabdomyolysis, currently being hydrated and clinically improving. 4. Markedly elevated LFTs secondary to combination of COVID-19 viral pneumonia and rhabdomyolysis. Improving. 5. Mildly increased troponin level. 6. Lactic acidosis, which is now improving as well. 7. Underlying COPD. The patient smoked for 31 years before quitting. RECOMMENDATIONS: 1. Continue with present oxygen, keep saturations 92 and above. 2. Follow complete remdesivir course. 3. Continue steroids with gradual tapering for a total of 10 days. 4. Empiric antibiotics. 5. Continue hydration and follow renal function as well as liver function test and CPKs. 6. Heparin for DVT prophylaxis. 7. Continue isolation for COVID-19. 8. Discussed with RN. We will follow along with you. WILFREDO/KYMBERLY/RAMEZ DR: Bryan TID: [id number]
[2021-04-11 03:31] VITALS: BP 94/60
[2021-04-11 04:57] LABS: BASO % 0 % (0-3); EOS % 0 % (0-3); HEMATOCRIT 37.7 % (39.0-53.0); HEMOGLOBIN 13.3 g/dL (13.0-17.5); LYMPH # 0.8 x10^3/uL (1.0-4.8); LYMPH % 7 % (24-48); MEAN CORPUSCULAR HEMOGLOBIN 34 pg (25-35); MEAN CORPUSCULAR HGB CONC 35 g/dL (31-37); MEAN CORPUSCULAR VOLUME 96 fL (79-100); MONO # 2.2 x10^3/uL (0.0-1.1); MONO % 22 % (0-9); NEUT # 7.2 x10^3/uL (1.8-7.7); NEUT % 71 % (31-73); PLATELET COUNT 158 x10^3/uL (140-400); RED BLOOD COUNT 3.91 x10^6/uL (4.30-5.70); RED CELL DISTRIBUTION WIDTH 14.8 % (11.5-14.5); WHITE BLOOD COUNT 10.2 x10^3/uL (4.0-11.0)
[2021-04-11 05:30] LABS: ALBUMIN 1.9 g/dL (3.4-5.0); ALBUMIN/GLOBULIN RATIO 0.5 (1.0-1.7); CALCIUM 7.7 mg/dL (8.5-10.1); CREATININE 0.9 mg/dL (0.7-1.3); GFR 83.4; POTASSIUM 3.4 mmol/L (3.5-5.1); TOTAL PROTEIN 5.5 g/dL (6.4-8.2)
[2021-04-11] MEDS: HEPARIN for SUB-Q USE 5,000 UNIT/ML VIAL. SQ SCH ×3 (06:14→21:35)
[2021-04-11 06:54] VITALS: BP_SYST 113
[2021-04-11] MEDS ORDERED: METOPROLOL SUCC 24HR ER 25 MG TAB.ER.24H. PO SCH (09:00)
--- NOTE | 2021-04-11 09:06 | PDOC ---
PROGRESS NOTES Date of Service: DATE: 04/11/21 TIME: 09:05 Chief Complaint Chief Complaint VTE Prophylaxis Ordered VTE Prophylaxis Devices: No VTE Pharmacological Prophylaxi: Yes Assessment/Plan Assessment/Plan A/P: Acute encephalopathy - likely metabolic from hypoxia, rhabdomyolysis Acute hypoxic respiratory failure - likely due to COVID 19 pneumonia Elevated troponin I level - likely demand ischemia from hypoxia, will trend, monitor on tele Elevated lactic acid - likely due to hypoxia, sepsis from COVID 19 Sepsis - with COVID 19 will treat with IVF and remdesivir, this is clearly viral, no definite bacterial source Acute kidney injury - likely vasomotor nephropathy from rhabomyolysis, will monitor renal function Pneumonia - likely due to COVID 19 COVID-19 virus infection - remdesivir and steroids, supportive care, wean O2 as tolerated Rhabdomyolysis - will monitor CK, likely traumatic from falling Transaminitis - likely rhabdo and covid related, will hydrate CAD s/p CABG - reconcile home meds with pharmacy as and patient cannot recall HTN - restart home meds FEN - ADAT PPX - heparin FULL CODE Dispo - inpatient ERROR DUPLICATE History of Present Illness History of Present Illness Identification/Chief Complaint Chief Complaint Acute encephalopathy Source Source: Caregiver, Chart review, Patient History of Present Illness History of Present Illness Mr Page is a 70 year old male with PMH HTN, HLD, CAD s/p CABG comes to ED via EMS after his called 911. Junior [employer] Analyst reports patient was found on floor in bedroom by who thinks he may have been laying there for at least 5-6 hours. noted he has bee sick for the past 10 days and that she has also been sick with COVID 19 for 14 days. She is confused as well as the patient. Patient can only ask for food and water and is oriented to self only. His only recalls above PMHx, does not know his meds. EMS noted patient was 87% on room air, placed on 4L NCO2 Patient's chest x-ray concerning for immunity acquired pneumonia, elevated troponin I, elevated lactic acid level, white blood cell count within [place]. [place] [address], LFTs elevated, CR 1.9. Started on Rocephin 1 g IV along with 30 mL/kg normal saline IV fluid replacement. COVID-19 positive per rapid study. EKG sinus tachycardia 118 bpm, left axis deviation, LAFB, no ST segment or T- wave abnormalities Admitted for further care Past Medical History Cardiovascular: HTN, Hyperlipidemia Past Surgical History Past Surgical History: CABG Family History Family History: Family History Unknown Social History Smoke: No (unknown) ALCOHOL: other (unknown) Drugs: None Current Medications Current Medications Current Medications Sodium Chloride 1,000 ml @ 1,000 mls/hr 1X ONCE IV Last administered on 04/09/21at 10:10; Start 04/09/21 at 10:15; Stop 04/09/21 at 11:14 Sodium Chloride 1,000 ml @ 2,850 mls/hr Q22M IV ; Start 04/09/21 at 10:45; Stop 04/09/21 at 11:45 Ceftriaxone Sodium (Rocephin) 1 gm 1X ONCE IVP ; Start 04/09/21 at 10:45; Stop 04/09/21 at 10:46; Status DC Allergies Allergies: Coded Allergies: No Known Drug Allergies (Unverified , 04/09/21) ROS Review of System Unable to obtain due to obtunded mental status 04-11 alcoholism: admitted drinking rum Metabolic encephalopathy Arrhythmia: NSVT with associated triggers above including covid-19, possible ETOH Mild troponin elevation; peak 0.5. Most probably type II, demand ischemia secondary to above. denies angina CAD s/p remote CABG. Cath 2010 showed patent grafts as noted above. Echo 03/10 with preserved LV systolic function COVID 19 POS Pneumonia Acute encephalopathy - likely metabolic from hypoxia, rhabdomyolysis Acute hypoxic respiratory failure - likely due to COVID 19 pneumonia Elevated troponin I level - likely demand ischemia from hypoxia, will trend, monitor on tele Elevated lactic acid - likely due to hypoxia, sepsis from COVID 19 Sepsis - with COVID 19 will treat with IVF and remdesivir, this is clearly viral, no definite bacterial source Acute kidney injury - likely vasomotor nephropathy from rhabomyolysis, will monitor renal function Pneumonia - likely due to COVID 19 COVID-19 virus infection - remdesivir and steroids, supportive care, wean O2 as tolerated Rhabdomyolysis - will monitor CK, likely traumatic from falling Transaminitis - likely rhabdo and covid related, will hydrate CAD s/p CABG - reconcile home meds with pharmacy as and patient cannot recall HTN - restart home meds FEN - ADAT PPX - heparin FULL CODE Dispo - inpatient Abnormal chest x-ray with faint bilateral hazy opacities consistent with viral pneumonia. Rhabdomyolysis, currently being hydrated and clinically improving. Markedly elevated LFTs secondary to combination of COVID-19 viral pneumonia rhabdomyolysis. Mildly increased troponin level. [facility] protocol d/w rn Vitals Vitals Vital Signs Date Time Temp Pulse Resp B/P (MAP) Pulse Ox O2 Delivery O2 Flow Rate FiO2 04/11/21 06:54 98.1 93 22 113/ 94 NonRebreather Mask 5.0 98.1 Physical Exam Physical Exam General: Cooperative, moderate distress, Other (Confused) HEENT: Atraumatic, PERRLA, EOMI, Mucous membr. moist/pink Lungs: Other (bialteral crackles) Heart: S1S2, RRR, no thrills, no rubs, no gallops, no murmurs Abdomen: Normal bowel sounds, Soft, No tenderness, No hepatosplenomegaly, No masses Extremities: No clubbing, No cyanosis, No edema, Normal pulses, No tenderness/swelling Skin: No rashes, No breakdown, No significant lesion Neuro: Normal tone, Sensation intact, Cranial nerves 3-12 NL, Reflexes 2+ Psych/Mental Status: MORE AWAKE General: Alert, Cooperative, No acute distress, Other (alert to person and place) Heart: Regular rate Lungs: Clear Abdomen: Normal bowel sounds, Soft, No tenderness Extremities: No cyanosis, No edema Skin: No significant lesion Labs LABS Laboratory Tests Test 04/10/21 13:00 04/10/21 15:32 04/11/21 04:00 White Blood Count 10.9 x10^3/uL (4.0-11.0) 10.2 x10^3/uL (4.0-11.0) Red Blood Count 4.22 x10^6/uL (4.30-5.70) 3.91 x10^6/uL (4.30-5.70) Hemoglobin 14.2 g/dL (13.0-17.5) 13.3 g/dL (13.0-17.5) Hematocrit 40.4 % (39.0-53.0) 37.7 % (39.0-53.0) Mean Corpuscular Volume 96 fL (79-100) 96 fL (79-100) Mean Corpuscular Hemoglobin 34 pg (25-35) 34 pg (25-35) Mean Corpuscular Hemoglobin Concent 35 g/dL (31-37) 35 g/dL (31-37) Red Cell Distribution Width 14.5 % (11.5-14.5) 14.8 % (11.5-14.5) Platelet Count 156 x10^3/uL (140-400) 158 x10^3/uL (140-400) Neutrophils (%) (Auto) 84 % (31-73) 71 % (31-73) Lymphocytes (%) (Auto) 5 % (24-48) 7 % (24-48) Monocytes (%) (Auto) 11 % (0-9) 22 % (0-9) Eosinophils (%) (Auto) 0 % (0-3) 0 % (0-3) Basophils (%) (Auto) 0 % (0-3) 0 % (0-3) Neutrophils # (Auto) 9.2 x10^3/uL (1.8-7.7) 7.2 x10^3/uL (1.8-7.7) Lymphocytes # (Auto) 0.6 x10^3/uL (1.0-4.8) 0.8 x10^3/uL (1.0-4.8) Monocytes # (Auto) 1.2 x10^3/uL (0.0-1.1) 2.2 x10^3/uL (0.0-1.1) Eosinophils # (Auto) 0.0 x10^3/uL (0.0-0.7) 0.0 x10^3/uL (0.0-0.7) Basophils # (Auto) 0.0 x10^3/uL (0.0-0.2) 0.0 x10^3/uL (0.0-0.2) O2 Saturation 91 % (92-99) Arterial Blood pH 7.51 (7.35-7.45) Arterial Blood pCO2 at Patient Temp 34 mmHg (35-46) Arterial Blood pO2 at Patient Temp 59 mmHg (65-108) Arterial Blood HCO3 26 mmol/L (21-28) Arterial Blood Base Excess 4 mmol/L (-3-3) Oxyhemoglobin 90.9 % Methemoglobin 0.3 % (0.0-1.9) Carbon Monoxide, Quantitative 0.1 % (0.0-1.9) FiO2 40 Sodium Level 149 mmol/L (136-145) Potassium Level 3.4 mmol/L (3.5-5.1) Chloride Level 112 mmol/L (98-107) Carbon Dioxide Level 30 mmol/L (21-32) Anion Gap 7 (6-14) Blood Urea Nitrogen 26 mg/dL (8-26) Creatinine 0.9 mg/dL (0.7-1.3) Estimated GFR (Cockcroft-Gault) 83.4 BUN/Creatinine Ratio 29 (6-20) Glucose Level 137 mg/dL (70-99) Calcium Level 7.7 mg/dL (8.5-10.1) Total Bilirubin 1.0 mg/dL (0.2-1.0) Aspartate Amino Transf (AST/SGOT) 231 U/L (15-37) Alanine Aminotransferase (ALT/SGPT) 111 U/L (16-63) Alkaline Phosphatase 41 U/L (46-116) Creatine Kinase 2842 U/L (39-308) Total Protein 5.5 g/dL (6.4-8.2) Albumin 1.9 g/dL (3.4-5.0) Albumin/Globulin Ratio 0.5 (1.0-1.7) Assessment and Plan Assessmemt and Plan Problems Medical Problems: (1) Acute kidney injury Status: Acute (2) Altered mental status Status: Acute (3) Community acquired pneumonia Status: Acute (4) COVID-19 virus infection Status: Acute (5) Elevated lactic acid level Status: Acute (6) Elevated troponin I level Status: Acute Comment Review of Relevant I have reviewed the following items pinky (where applicable) has been applied. Labs Laboratory Tests Test 04/09/21 09:43 04/09/21 09:50 04/09/21 13:23 04/09/21 18:00 SARS-CoV-2 Antigen (Rapid) Positive (NEGATIVE) White Blood Count 7.8 x10^3/uL (4.0-11.0) Red Blood Count 5.21 x10^6/uL (4.30-5.70) Hemoglobin 17.4 g/dL (13.0-17.5) Hematocrit 49.2 % (39.0-53.0) Mean Corpuscular Volume 94 fL (79-100) Mean Corpuscular Hemoglobin 34 pg (25-35) Mean Corpuscular Hemoglobin Concent 36 g/dL (31-37) Red Cell Distribution Width 14.4 % (11.5-14.5) Platelet Count 180 x10^3/uL (140-400) Neutrophils (%) (Auto) 79 % (31-73) Lymphocytes (%) (Auto) 10 % (24-48) Monocytes (%) (Auto) 11 % (0-9) Eosinophils (%) (Auto) 0 % (0-3) Basophils (%) (Auto) 0 % (0-3) Neutrophils # (Auto) 6.1 x10^3/uL (1.8-7.7) Lymphocytes # (Auto) 0.8 x10^3/uL (1.0-4.8) Monocytes # (Auto) 0.9 x10^3/uL (0.0-1.1) Eosinophils # (Auto) 0.0 x10^3/uL (0.0-0.7) Basophils # (Auto) 0.0 x10^3/uL (0.0-0.2) Sodium Level 145 mmol/L (136-145) Potassium Level 3.7 mmol/L (3.5-5.1) Chloride Level 98 mmol/L (98-107) Carbon Dioxide Level 36 mmol/L (21-32) Anion Gap 11 (6-14) Blood Urea Nitrogen 42 mg/dL (8-26) Creatinine 1.9 mg/dL (0.7-1.3) Estimated GFR (Cockcroft-Gault) 35.2 BUN/Creatinine Ratio 22 (6-20) Glucose Level 142 mg/dL (70-99) Lactic Acid Level 3.6 mmol/L (0.4-2.0) 1.5 mmol/L (0.4-2.0) Calcium Level 8.8 mg/dL (8.5-10.1) Phosphorus Level 4.3 mg/dL (2.6-4.7) Magnesium Level 2.5 mg/dL (1.8-2.4) Total Bilirubin 2.9 mg/dL (0.2-1.0) Aspartate Amino Transf (AST/SGOT) 601 U/L (15-37) Alanine Aminotransferase (ALT/SGPT) 194 U/L (16-63) Alkaline Phosphatase 61 U/L (46-116) Creatine Kinase 81760 U/L (39-308) Creatine Kinase MB (Mass) 3.5 ng/mL (0.0-3.6) Creatine Kinase MB Relative Index 0.0 % (0-4) Troponin I Quantitative 0.523 ng/mL (0.000-0.055) 0.497 ng/mL (0.000-0.055) UL-Jte-E-Type Natriuretic Peptide 809 pg/mL (0-124) Total Protein 7.3 g/dL (6.4-8.2) Albumin 3.1 g/dL (3.4-5.0) Albumin/Globulin Ratio 0.7 (1.0-1.7) Test 04/10/21 00:25 04/10/21 04:40 04/10/21 13:00 04/10/21 15:32 Troponin I Quantitative 0.520 ng/mL (0.000-0.055) 0.336 ng/mL (0.000-0.055) Sodium Level 152 mmol/L (136-145) Potassium Level 3.3 mmol/L (3.5-5.1) Chloride Level 111 mmol/L (98-107) Carbon Dioxide Level 32 mmol/L (21-32) Anion Gap 9 (6-14) Blood Urea Nitrogen 32 mg/dL (8-26) Creatinine 1.2 mg/dL (0.7-1.3) Estimated GFR (Cockcroft-Gault) 59.9 BUN/Creatinine Ratio 27 (6-20) Glucose Level 143 mg/dL (70-99) Calcium Level 7.4 mg/dL (8.5-10.1) Total Bilirubin 1.5 mg/dL (0.2-1.0) Aspartate Amino Transf (AST/SGOT) 365 U/L (15-37) Alanine Aminotransferase (ALT/SGPT) 141 U/L (16-63) Alkaline Phosphatase 45 U/L (46-116) Creatine Kinase 7773 U/L (39-308) Total Protein 5.2 g/dL (6.4-8.2) Albumin 2.0 g/dL (3.4-5.0) Albumin/Globulin Ratio 0.6 (1.0-1.7) Triglycerides Level 117 mg/dL (0-150) Cholesterol Level 113 mg/dL (0-200) LDL Cholesterol, Calculated 73 mg/dL (0-100) VLDL Cholesterol, Calculated 23 mg/dL (0-40) Non-HDL Cholesterol Calculated 96 mg/dL (0-129) HDL Cholesterol 17 mg/dL (40-60) Cholesterol/HDL Ratio 6.6 White Blood Count 10.9 x10^3/uL (4.0-11.0) Red Blood Count 4.22 x10^6/uL (4.30-5.70) Hemoglobin 14.2 g/dL (13.0-17.5) Hematocrit 40.4 % (39.0-53.0) Mean Corpuscular Volume 96 fL (79-100) Mean Corpuscular Hemoglobin 34 pg (25-35) Mean Corpuscular Hemoglobin Concent 35 g/dL (31-37) Red Cell Distribution Width 14.5 % (11.5-14.5) Platelet Count 156 x10^3/uL (140-400) Neutrophils (%) (Auto) 84 % (31-73) Lymphocytes (%) (Auto) 5 % (24-48) Monocytes (%) (Auto) 11 % (0-9) Eosinophils (%) (Auto) 0 % (0-3) Basophils (%) (Auto) 0 % (0-3) Neutrophils # (Auto) 9.2 x10^3/uL (1.8-7.7) Lymphocytes # (Auto) 0.6 x10^3/uL (1.0-4.8) Monocytes # (Auto) 1.2 x10^3/uL (0.0-1.1) Eosinophils # (Auto) 0.0 x10^3/uL (0.0-0.7) Basophils # (Auto) 0.0 x10^3/uL (0.0-0.2) O2 Saturation 91 % (92-99) Arterial Blood pH 7.51 (7.35-7.45) Arterial Blood pCO2 at Patient Temp 34 mmHg (35-46) Arterial Blood pO2 at Patient Temp 59 mmHg (65-108) Arterial Blood HCO3 26 mmol/L (21-28) Arterial Blood Base Excess 4 mmol/L (-3-3) Oxyhemoglobin 90.9 % Methemoglobin 0.3 % (0.0-1.9) Carbon Monoxide, Quantitative 0.1 % (0.0-1.9) FiO2 40 Test 04/11/21 04:00 White Blood Count 10.2 x10^3/uL (4.0-11.0) Red Blood Count 3.91 x10^6/uL (4.30-5.70) Hemoglobin 13.3 g/dL (13.0-17.5) Hematocrit 37.7 % (39.0-53.0) Mean Corpuscular Volume 96 fL (79-100) Mean Corpuscular Hemoglobin 34 pg (25-35) Mean Corpuscular Hemoglobin Concent 35 g/dL (31-37) Red Cell Distribution Width 14.8 % (11.5-14.5) Platelet Count 158 x10^3/uL (140-400) Neutrophils (%) (Auto) 71 % (31-73) Lymphocytes (%) (Auto) 7 % (24-48) Monocytes (%) (Auto) 22 % (0-9) Eosinophils (%) (Auto) 0 % (0-3) Basophils (%) (Auto) 0 % (0-3) Neutrophils # (Auto) 7.2 x10^3/uL (1.8-7.7) Lymphocytes # (Auto) 0.8 x10^3/uL (1.0-4.8) Monocytes # (Auto) 2.2 x10^3/uL (0.0-1.1) Eosinophils # (Auto) 0.0 x10^3/uL (0.0-0.7) Basophils # (Auto) 0.0 x10^3/uL (0.0-0.2) Sodium Level 149 mmol/L (136-145) Potassium Level 3.4 mmol/L (3.5-5.1) Chloride Level 112 mmol/L (98-107) Carbon Dioxide Level 30 mmol/L (21-32) Anion Gap 7 (6-14) Blood Urea Nitrogen 26 mg/dL (8-26) Creatinine 0.9 mg/dL (0.7-1.3) Estimated GFR (Cockcroft-Gault) 83.4 BUN/Creatinine Ratio 29 (6-20) Glucose Level 137 mg/dL (70-99) Calcium Level 7.7 mg/dL (8.5-10.1) Total Bilirubin 1.0 mg/dL (0.2-1.0) Aspartate Amino Transf (AST/SGOT) 231 U/L (15-37) Alanine Aminotransferase (ALT/SGPT) 111 U/L (16-63) Alkaline Phosphatase 41 U/L (46-116) Creatine Kinase 2842 U/L (39-308) Total Protein 5.5 g/dL (6.4-8.2) Albumin 1.9 g/dL (3.4-5.0) Albumin/Globulin Ratio 0.5 (1.0-1.7) Laboratory Tests Test 04/10/21 13:00 04/10/21 15:32 04/11/21 04:00 White Blood Count 10.9 x10^3/uL (4.0-11.0) 10.2 x10^3/uL (4.0-11.0) Red Blood Count 4.22 x10^6/uL (4.30-5.70) 3.91 x10^6/uL (4.30-5.70) Hemoglobin 14.2 g/dL (13.0-17.5) 13.3 g/dL (13.0-17.5) Hematocrit 40.4 % (39.0-53.0) 37.7 % (39.0-53.0) Mean Corpuscular Volume 96 fL (79-100) 96 fL (79-100) Mean Corpuscular Hemoglobin 34 pg (25-35) 34 pg (25-35) Mean Corpuscular Hemoglobin Concent 35 g/dL (31-37) 35 g/dL (31-37) Red Cell Distribution Width 14.5 % (11.5-14.5) 14.8 % (11.5-14.5) Platelet Count 156 x10^3/uL (140-400) 158 x10^3/uL (140-400) Neutrophils (%) (Auto) 84 % (31-73) 71 % (31-73) Lymphocytes (%) (Auto) 5 % (24-48) 7 % (24-48) Monocytes (%) (Auto) 11 % (0-9) 22 % (0-9) Eosinophils (%) (Auto) 0 % (0-3) 0 % (0-3) Basophils (%) (Auto) 0 % (0-3) 0 % (0-3) Neutrophils # (Auto) 9.2 x10^3/uL (1.8-7.7) 7.2 x10^3/uL (1.8-7.7) Lymphocytes # (Auto) 0.6 x10^3/uL (1.0-4.8) 0.8 x10^3/uL (1.0-4.8) Monocytes # (Auto) 1.2 x10^3/uL (0.0-1.1) 2.2 x10^3/uL (0.0-1.1) Eosinophils # (Auto) 0.0 x10^3/uL (0.0-0.7) 0.0 x10^3/uL (0.0-0.7) Basophils # (Auto) 0.0 x10^3/uL (0.0-0.2) 0.0 x10^3/uL (0.0-0.2) O2 Saturation 91 % (92-99) Arterial Blood pH 7.51 (7.35-7.45) Arterial Blood pCO2 at Patient Temp 34 mmHg (35-46) Arterial Blood pO2 at Patient Temp 59 mmHg (65-108) Arterial Blood HCO3 26 mmol/L (21-28) Arterial Blood Base Excess 4 mmol/L (-3-3) Oxyhemoglobin 90.9 % Methemoglobin 0.3 % (0.0-1.9) Carbon Monoxide, Quantitative 0.1 % (0.0-1.9) FiO2 40 Sodium Level 149 mmol/L (136-145) Potassium Level 3.4 mmol/L (3.5-5.1) Chloride Level 112 mmol/L (98-107) Carbon Dioxide Level 30 mmol/L (21-32) Anion Gap 7 (6-14) Blood Urea Nitrogen 26 mg/dL (8-26) Creatinine 0.9 mg/dL (0.7-1.3) Estimated GFR (Cockcroft-Gault) 83.4 BUN/Creatinine Ratio 29 (6-20) Glucose Level 137 mg/dL (70-99) Calcium Level 7.7 mg/dL (8.5-10.1) Total Bilirubin 1.0 mg/dL (0.2-1.0) Aspartate Amino Transf (AST/SGOT) 231 U/L (15-37) Alanine Aminotransferase (ALT/SGPT) 111 U/L (16-63) Alkaline Phosphatase 41 U/L (46-116) Creatine Kinase 2842 U/L (39-308) Total Protein 5.5 g/dL (6.4-8.2) Albumin 1.9 g/dL (3.4-5.0) Albumin/Globulin Ratio 0.5 (1.0-1.7) Microbiology 04/09/21 Blood Culture - Preliminary, Resulted NO GROWTH AFTER 1 DAY Medications Current Medications Sodium Chloride 1,000 ml @ 1,000 mls/hr 1X ONCE IV Last administered on 04/09/21at 10:10; Start 04/09/21 at 10:15; Stop 04/09/21 at 11:14; Status DC Sodium Chloride 1,000 ml @ 2,850 mls/hr Q22M IV Last administered on 04/09/21at 11:29; Start 04/09/21 at 10:45; Stop 04/09/21 at 11:45; Status DC Ceftriaxone Sodium (Rocephin) 1 gm 1X ONCE IVP Last administered on 04/09/21at 11:33; Start 04/09/21 at 10:45; Stop 04/09/21 at 10:46; Status DC Doxycycline Hyclate 100 mg/ Dextrose 100 ml @ 50 mls/hr 1X ONCE IV Last administered on 04/09/21at 11:32; Start 04/09/21 at 11:00; Stop 04/09/21 at 12:59; Status DC Olanzapine (ZyPREXA ZYDIS) 5 mg PRN BID PRN PO ANXIETY / AGITATION Last administered on 04/10/21at 11:02; Start 04/09/21 at 15:00 Ondansetron HCl (Zofran) 4 mg PRN Q4HRS PRN IVP NAUSEA/VOMITING; Start 04/09/21 at 15:00 Tramadol HCl (Ultram) 50 mg PRN Q6HRS PRN PO MODERATE - SEVERE PAIN; Start 04/09/21 at 15:00 Guaifenesin (Robitussin Dm) 10 ml PRN Q6HRS PRN PO COUGH; Start 04/09/21 at 15:00 Acetaminophen (Tylenol) 650 mg PRN Q6HRS PRN PO MILD PAIN / TEMP > 100.3'F; Start 04/09/21 at 15:00 Fentanyl Citrate (Fentanyl 2ml Vial) 25 mcg PRN Q3HRS PRN IVP SEVERE PAIN 7-10; Start 04/09/21 at 15:00 Heparin Sodium (Porcine) (Heparin Sodium) 5,000 unit Q8HRS SQ Last administered on 04/11/21at 06:14; Start 04/09/21 at 15:30 Zinc Sulfate (Orazinc) 220 mg DAILY PO Last administered on 04/09/21at 17:33; Start 04/09/21 at 15:00 Thiamine Mononitrate (Vitamin B-1) 100 mg DAILY PO Last administered on 04/09/21at 17:33; Start 04/09/21 at 15:00 Dexamethasone Sodium Phosphate (Decadron) 6 mg DAILY IVP Last administered on 04/10/21at 10:49; Start 04/09/21 at 15:30 Remdesivir 200 mg/ Sodium Chloride 210 ml @ 210 mls/hr 1X ONCE IV Last administered on 04/09/21at 19:00; Start 04/09/21 at 16:00; Stop 04/09/21 at 16:59; Status DC Remdesivir 100 mg/ Sodium Chloride 230 ml @ 460 mls/hr Q24H IV Last administe red on 04/10/21at 18:01; Start 04/10/21 at 16:00; Stop 04/13/21 at 16:29 Acetaminophen (Tylenol Supp) 650 mg PRN Q6HRS PRN VT MILD PAIN / TEMP > 100.3'F Last administered on 04/09/21at 21:01; Start 04/09/21 at 20:15 Sodium Chloride 1,000 ml @ 100 mls/hr Q10H IV Last administered on 04/10/21at 05:59; Start 04/09/21 at 20:30; Stop 04/10/21 at 13:47; Status DC Ceftriaxone Sodium (Rocephin) 1 gm Q24H IVP Last administered on 04/10/21at 10:50; Start 04/10/21 at 10:15 Doxycycline Hyclate 100 mg/ Dextrose 100 ml @ 50 mls/hr Q12HR IV Last administered on 04/10/21at 21:43; Start 04/10/21 at 09:00 Lactobacillus Rhamnosus (Culturelle) 1 cap BID PO Last administered on 04/10/21at 21:45; Start 04/10/21 at 09:00 Sodium Chloride 1,000 ml @ 75 mls/hr [id number] IV Last administered on 04/10/21at 14:19; Start 04/10/21 at 14:00 Potassium Chloride (Klor-Con) 40 meq 1X ONCE PO Last administered on 04/10/21at 14:20; Start 04/10/21 at 14:00; Stop 04/10/21 at 14:01; Status DC Potassium Chloride (Klor-Con) 20 meq [id number] PO ; Start 04/11/21 at 08:00 Aspirin (Aspirin Chewable) 81 mg DAILY PO ; Start 04/11/21 at 09:00 Metoprolol Succinate (Toprol Xl) 25 mg 3X/WEEK PO ; Start 04/11/21 at 09:00 Active Scripts Active Reported Hydrochlorothiazide 25 Mg Tablet 25 Mg PO 1X Atorvastatin Calcium 20 Mg Tablet 20 Mg PO HS Metoprolol Succinate ( Xl ) (Metoprolol Succinate) 25 Mg Tab.er.24h 25 Mg PO 3X/WEEK Aspirin 81 Mg Tab.chew 81 Mg PO DAILY Vitals/I & O Vital Sign - Last 24 Hours 04/10/21 04/10/21 04/10/21 04/10/21 11:00 15:00 15:20 19:34 Temp 97.9 97.1 98.3 97.9 97.1 98.3 Pulse 104 96 95 Resp 22 B/P (MAP) 97/61 (73) 115/77 (90) 97/66 (76) Pulse Ox 90 92 91 92 O2 Delivery Nasal Cannula Nasal Cannula Nasal Cannula Nasal Cannula O2 Flow Rate 3.0 3.0 5.0 5.0 04/10/21 04/10/21 04/11/21 04/11/21 20:25 22:28 03:31 06:54 Temp 98.0 97.8 98.1 98.0 97.8 98.1 Pulse 84 93 93 Resp 18 24 22 B/P (MAP) 98/60 (73) 94/60 (71) 113/ Pulse Ox 100 88 94 O2 Delivery Nasal Cannula Nasal Cannula Nasal Cannula NonRebreather Mask O2 Flow Rate 5.0 5.0 5.0 5.0 Intake and Output 04/10/21 04/10/21 04/11/21 15:00 23:00 07:00 Intake Total 90 ml 240 ml 900 ml Output Total 575 ml Balance 90 ml -335 ml 900 ml Justicifation of Admission Dx: Justifications for Admission: Justification of Admission Dx: Yes Sepsis: Hypoxemia YULIET DE SOUZA MD Apr 11, 2021 09:06
[2021-04-11 10:13] LABS: % BANDS 3 % (0-9); % LYMPHS 16 % (24-48); % MONOS 5 % (0-10); % SEGS 76 % (35-66); PLT ESTIMATE ADEQUATE (ADEQUATE)
--- NOTE | 2021-04-11 10:29 | PDOC ---
CARDIO Progress Notes Date and Time Date of Service 04/11/2021 Time of Evaluation 1010 Subjective Subjective: No Chest Pain, No shortness of breath, No Palpitations Vitals Vitals Vital Signs Date Time Temp Pulse Resp B/P (MAP) Pulse Ox O2 Delivery O2 Flow Rate FiO2 04/11/21 06:54 98.1 93 22 113/ 94 NonRebreather Mask 5.0 98.1 Weight Weight [ ] Input and Output Intake and Output Intake and Output0 04/11/21 07:00 Intake Total 1230 ml Output Total 575 ml Balance 655 ml Intake Oral 330 ml IV Total 900 ml Output Urine Total 575 ml # Voids 1 Laboratory Labs Laboratory Tests Test 04/10/21 13:00 04/10/21 15:32 04/11/21 04:00 White Blood Count 10.9 x10^3/uL (4.0-11.0) 10.2 x10^3/uL (4.0-11.0) Red Blood Count 4.22 x10^6/uL (4.30-5.70) 3.91 x10^6/uL (4.30-5.70) Hemoglobin 14.2 g/dL (13.0-17.5) 13.3 g/dL (13.0-17.5) Hematocrit 40.4 % (39.0-53.0) 37.7 % (39.0-53.0) Mean Corpuscular Volume 96 fL (79-100) 96 fL (79-100) Mean Corpuscular Hemoglobin 34 pg (25-35) 34 pg (25-35) Mean Corpuscular Hemoglobin Concent 35 g/dL (31-37) 35 g/dL (31-37) Red Cell Distribution Width 14.5 % (11.5-14.5) 14.8 % (11.5-14.5) Platelet Count 156 x10^3/uL (140-400) 158 x10^3/uL (140-400) Neutrophils (%) (Auto) 84 % (31-73) 71 % (31-73) Lymphocytes (%) (Auto) 5 % (24-48) 7 % (24-48) Monocytes (%) (Auto) 11 % (0-9) 22 % (0-9) Eosinophils (%) (Auto) 0 % (0-3) 0 % (0-3) Basophils (%) (Auto) 0 % (0-3) 0 % (0-3) Neutrophils # (Auto) 9.2 x10^3/uL (1.8-7.7) 7.2 x10^3/uL (1.8-7.7) Lymphocytes # (Auto) 0.6 x10^3/uL (1.0-4.8) 0.8 x10^3/uL (1.0-4.8) Monocytes # (Auto) 1.2 x10^3/uL (0.0-1.1) 2.2 x10^3/uL (0.0-1.1) Eosinophils # (Auto) 0.0 x10^3/uL (0.0-0.7) 0.0 x10^3/uL (0.0-0.7) Basophils # (Auto) 0.0 x10^3/uL (0.0-0.2) 0.0 x10^3/uL (0.0-0.2) O2 Saturation 91 % (92-99) Arterial Blood pH 7.51 (7.35-7.45) Arterial Blood pCO2 at Patient Temp 34 mmHg (35-46) Arterial Blood pO2 at Patient Temp 59 mmHg (65-108) Arterial Blood HCO3 26 mmol/L (21-28) Arterial Blood Base Excess 4 mmol/L (-3-3) Oxyhemoglobin 90.9 % Methemoglobin 0.3 % (0.0-1.9) Carbon Monoxide, Quantitative 0.1 % (0.0-1.9) FiO2 40 Segmented Neutrophils % 76 % (35-66) Band Neutrophils % 3 % (0-9) Lymphocytes % 16 % (24-48) Monocytes % 5 % (0-10) Platelet Estimate Adequate (ADEQUATE) Sodium Level 149 mmol/L (136-145) Potassium Level 3.4 mmol/L (3.5-5.1) Chloride Level 112 mmol/L (98-107) Carbon Dioxide Level 30 mmol/L (21-32) Anion Gap 7 (6-14) Blood Urea Nitrogen 26 mg/dL (8-26) Creatinine 0.9 mg/dL (0.7-1.3) Estimated GFR (Cockcroft-Gault) 83.4 BUN/Creatinine Ratio 29 (6-20) Glucose Level 137 mg/dL (70-99) Calcium Level 7.7 mg/dL (8.5-10.1) Total Bilirubin 1.0 mg/dL (0.2-1.0) Aspartate Amino Transf (AST/SGOT) 231 U/L (15-37) Alanine Aminotransferase (ALT/SGPT) 111 U/L (16-63) Alkaline Phosphatase 41 U/L (46-116) Creatine Kinase 2842 U/L (39-308) Total Protein 5.5 g/dL (6.4-8.2) Albumin 1.9 g/dL (3.4-5.0) Albumin/Globulin Ratio 0.5 (1.0-1.7) Microbiology Micro Microbiology 04/09/21 Blood Culture - Preliminary, Resulted NO GROWTH AFTER 2 DAYS Physical Exam HEENT: Neck Supple W Full Motion Chest: Symmetric LUNGS: Other (diminished ) Heart: RRR (SR/ST with PACs) Abdomen: Soft N/T Extremities: No Calf Tenderness Neurology: alert, follow commands, other Assessment Assessment 1. Acute respiratory failure secondary to COVID PNA 2. Mild troponin elevation; peak 0.5. Most probably type II, demand ischemia secondary to above. No CP 3. CAD s/p remote CABG. Cath 2010 showed patent grafts as noted above. Echo 03/10 with preserved LV systolic function 4. Hypertension; controlled at low end 5. Hyperlipidemia; on statin at home 6. NOEMÍ; improved 7. Rhabdomyolysis 8. Hypokalemia, hypernatremia 9. Transaminitis: per PCP 10. Possible alcoholism: admitted drinking rum 11. Metabolic encephalopathy 12. Arrhythmia: NSVT with associated triggers above including covid-19, possible ETOH issues Recommendations ASA. Hold statin for now. replace K. Check NH3 and INR and Mg Secondary prevention Hold BP meds for now. Resume PO metoprolol when BP is consistently adequate. Continue IVF. Metoprolol IV PRN. Monitor rhythm CIWA protocol per PCP Supportive care Plan outpatient echo and ischemic evaluation when recovered from COVID Justicifation of Admission Dx: Justifications for Admission: Justification of Admission Dx: Yes Sepsis: Hypoxemia FLORENTINO ROWAN PHARMACIST IN CHARGE Apr 11, 2021 10:29
[2021-04-11] MEDS ORDERED: METOPROLOL IV PUSH 5 MG/5 ML VIAL. IVP PRN (10:30)
--- NOTE | 2021-04-11 10:30 | PDOC ---
PULMONARY PROGRESS NOTES DATE: 04/11/21 TIME: 10:29 Subjective Patient gets short of breath without oxygen. I noticed his nasal cannula was off. Vitals Vital Signs Date Time Temp Pulse Resp B/P (MAP) Pulse Ox O2 Delivery O2 Flow Rate FiO2 04/11/21 06:54 98.1 93 22 113/ 94 NonRebreather Mask 5.0 98.1 Comments Visual exam done due to COVID-19. No paradoxical breathing no skin rash no leg edema. Labs Laboratory Tests Test 04/09/21 13:23 04/09/21 18:00 04/10/21 00:25 04/10/21 04:40 Lactic Acid Level 1.5 mmol/L (0.4-2.0) Troponin I Quantitative 0.497 ng/mL (0.000-0.055) 0.520 ng/mL (0.000-0.055) 0.336 ng/mL (0.000-0.055) Sodium Level 152 mmol/L (136-145) Potassium Level 3.3 mmol/L (3.5-5.1) Chloride Level 111 mmol/L (98-107) Carbon Dioxide Level 32 mmol/L (21-32) Anion Gap 9 (6-14) Blood Urea Nitrogen 32 mg/dL (8-26) Creatinine 1.2 mg/dL (0.7-1.3) Estimated GFR (Cockcroft-Gault) 59.9 BUN/Creatinine Ratio 27 (6-20) Glucose Level 143 mg/dL (70-99) Calcium Level 7.4 mg/dL (8.5-10.1) Total Bilirubin 1.5 mg/dL (0.2-1.0) Aspartate Amino Transf (AST/SGOT) 365 U/L (15-37) Alanine Aminotransferase (ALT/SGPT) 141 U/L (16-63) Alkaline Phosphatase 45 U/L (46-116) Creatine Kinase 7773 U/L (39-308) Total Protein 5.2 g/dL (6.4-8.2) Albumin 2.0 g/dL (3.4-5.0) Albumin/Globulin Ratio 0.6 (1.0-1.7) Triglycerides Level 117 mg/dL (0-150) Cholesterol Level 113 mg/dL (0-200) LDL Cholesterol, Calculated 73 mg/dL (0-100) VLDL Cholesterol, Calculated 23 mg/dL (0-40) Non-HDL Cholesterol Calculated 96 mg/dL (0-129) HDL Cholesterol 17 mg/dL (40-60) Cholesterol/HDL Ratio 6.6 Test 04/10/21 13:00 04/10/21 15:32 04/11/21 04:00 White Blood Count 10.9 x10^3/uL (4.0-11.0) 10.2 x10^3/uL (4.0-11.0) Red Blood Count 4.22 x10^6/uL (4.30-5.70) 3.91 x10^6/uL (4.30-5.70) Hemoglobin 14.2 g/dL (13.0-17.5) 13.3 g/dL (13.0-17.5) Hematocrit 40.4 % (39.0-53.0) 37.7 % (39.0-53.0) Mean Corpuscular Volume 96 fL (79-100) 96 fL (79-100) Mean Corpuscular Hemoglobin 34 pg (25-35) 34 pg (25-35) Mean Corpuscular Hemoglobin Concent 35 g/dL (31-37) 35 g/dL (31-37) Red Cell Distribution Width 14.5 % (11.5-14.5) 14.8 % (11.5-14.5) Platelet Count 156 x10^3/uL (140-400) 158 x10^3/uL (140-400) Neutrophils (%) (Auto) 84 % (31-73) 71 % (31-73) Lymphocytes (%) (Auto) 5 % (24-48) 7 % (24-48) Monocytes (%) (Auto) 11 % (0-9) 22 % (0-9) Eosinophils (%) (Auto) 0 % (0-3) 0 % (0-3) Basophils (%) (Auto) 0 % (0-3) 0 % (0-3) Neutrophils # (Auto) 9.2 x10^3/uL (1.8-7.7) 7.2 x10^3/uL (1.8-7.7) Lymphocytes # (Auto) 0.6 x10^3/uL (1.0-4.8) 0.8 x10^3/uL (1.0-4.8) Monocytes # (Auto) 1.2 x10^3/uL (0.0-1.1) 2.2 x10^3/uL (0.0-1.1) Eosinophils # (Auto) 0.0 x10^3/uL (0.0-0.7) 0.0 x10^3/uL (0.0-0.7) Basophils # (Auto) 0.0 x10^3/uL (0.0-0.2) 0.0 x10^3/uL (0.0-0.2) O2 Saturation 91 % (92-99) Arterial Blood pH 7.51 (7.35-7.45) Arterial Blood pCO2 at Patient Temp 34 mmHg (35-46) Arterial Blood pO2 at Patient Temp 59 mmHg (65-108) Arterial Blood HCO3 26 mmol/L (21-28) Arterial Blood Base Excess 4 mmol/L (-3-3) Oxyhemoglobin 90.9 % Methemoglobin 0.3 % (0.0-1.9) Carbon Monoxide, Quantitative 0.1 % (0.0-1.9) FiO2 40 Segmented Neutrophils % 76 % (35-66) Band Neutrophils % 3 % (0-9) Lymphocytes % 16 % (24-48) Monocytes % 5 % (0-10) Platelet Estimate Adequate (ADEQUATE) Sodium Level 149 mmol/L (136-145) Potassium Level 3.4 mmol/L (3.5-5.1) Chloride Level 112 mmol/L (98-107) Carbon Dioxide Level 30 mmol/L (21-32) Anion Gap 7 (6-14) Blood Urea Nitrogen 26 mg/dL (8-26) Creatinine 0.9 mg/dL (0.7-1.3) Estimated GFR (Cockcroft-Gault) 83.4 BUN/Creatinine Ratio 29 (6-20) Glucose Level 137 mg/dL (70-99) Calcium Level 7.7 mg/dL (8.5-10.1) Total Bilirubin 1.0 mg/dL (0.2-1.0) Aspartate Amino Transf (AST/SGOT) 231 U/L (15-37) Alanine Aminotransferase (ALT/SGPT) 111 U/L (16-63) Alkaline Phosphatase 41 U/L (46-116) Creatine Kinase 2842 U/L (39-308) Total Protein 5.5 g/dL (6.4-8.2) Albumin 1.9 g/dL (3.4-5.0) Albumin/Globulin Ratio 0.5 (1.0-1.7) Laboratory Tests Test 04/10/21 13:00 04/10/21 15:32 04/11/21 04:00 White Blood Count 10.9 x10^3/uL (4.0-11.0) 10.2 x10^3/uL (4.0-11.0) Red Blood Count 4.22 x10^6/uL (4.30-5.70) 3.91 x10^6/uL (4.30-5.70) Hemoglobin 14.2 g/dL (13.0-17.5) 13.3 g/dL (13.0-17.5) Hematocrit 40.4 % (39.0-53.0) 37.7 % (39.0-53.0) Mean Corpuscular Volume 96 fL (79-100) 96 fL (79-100) Mean Corpuscular Hemoglobin 34 pg (25-35) 34 pg (25-35) Mean Corpuscular Hemoglobin Concent 35 g/dL (31-37) 35 g/dL (31-37) Red Cell Distribution Width 14.5 % (11.5-14.5) 14.8 % (11.5-14.5) Platelet Count 156 x10^3/uL (140-400) 158 x10^3/uL (140-400) Neutrophils (%) (Auto) 84 % (31-73) 71 % (31-73) Lymphocytes (%) (Auto) 5 % (24-48) 7 % (24-48) Monocytes (%) (Auto) 11 % (0-9) 22 % (0-9) Eosinophils (%) (Auto) 0 % (0-3) 0 % (0-3) Basophils (%) (Auto) 0 % (0-3) 0 % (0-3) Neutrophils # (Auto) 9.2 x10^3/uL (1.8-7.7) 7.2 x10^3/uL (1.8-7.7) Lymphocytes # (Auto) 0.6 x10^3/uL (1.0-4.8) 0.8 x10^3/uL (1.0-4.8) Monocytes # (Auto) 1.2 x10^3/uL (0.0-1.1) 2.2 x10^3/uL (0.0-1.1) Eosinophils # (Auto) 0.0 x10^3/uL (0.0-0.7) 0.0 x10^3/uL (0.0-0.7) Basophils # (Auto) 0.0 x10^3/uL (0.0-0.2) 0.0 x10^3/uL (0.0-0.2) O2 Saturation 91 % (92-99) Arterial Blood pH 7.51 (7.35-7.45) Arterial Blood pCO2 at Patient Temp 34 mmHg (35-46) Arterial Blood pO2 at Patient Temp 59 mmHg (65-108) Arterial Blood HCO3 26 mmol/L (21-28) Arterial Blood Base Excess 4 mmol/L (-3-3) Oxyhemoglobin 90.9 % Methemoglobin 0.3 % (0.0-1.9) Carbon Monoxide, Quantitative 0.1 % (0.0-1.9) FiO2 40 Segmented Neutrophils % 76 % (35-66) Band Neutrophils % 3 % (0-9) Lymphocytes % 16 % (24-48) Monocytes % 5 % (0-10) Platelet Estimate Adequate (ADEQUATE) Sodium Level 149 mmol/L (136-145) Potassium Level 3.4 mmol/L (3.5-5.1) Chloride Level 112 mmol/L (98-107) Carbon Dioxide Level 30 mmol/L (21-32) Anion Gap 7 (6-14) Blood Urea Nitrogen 26 mg/dL (8-26) Creatinine 0.9 mg/dL (0.7-1.3) Estimated GFR (Cockcroft-Gault) 83.4 BUN/Creatinine Ratio 29 (6-20) Glucose Level 137 mg/dL (70-99) Calcium Level 7.7 mg/dL (8.5-10.1) Total Bilirubin 1.0 mg/dL (0.2-1.0) Aspartate Amino Transf (AST/SGOT) 231 U/L (15-37) Alanine Aminotransferase (ALT/SGPT) 111 U/L (16-63) Alkaline Phosphatase 41 U/L (46-116) Creatine Kinase 2842 U/L (39-308) Total Protein 5.5 g/dL (6.4-8.2) Albumin 1.9 g/dL (3.4-5.0) Albumin/Globulin Ratio 0.5 (1.0-1.7) Medications Active Scripts Medications Dose Route/Sig Max Daily Dose Days Date Category Hydrochlorothiazide 25 Mg Tablet 25 Mg PO 1X 04/10/21 Reported Atorvastatin Calcium 20 Mg Tablet 20 Mg PO HS 04/10/21 Reported Metoprolol Succinate ( Xl ) (Metoprolol Succinate) 25 Mg Tab.er.24h 25 Mg PO 3X/WEEK 04/10/21 Reported Aspirin 81 Mg Tab.chew 81 Mg PO DAILY 04/10/21 Reported Impression . 1. Acute hypoxic respiratory failure secondary to COVID-19 viral pneumonia and acute lung injury. 2. Abnormal chest x-ray with faint bilateral hazy opacities consistent with viral pneumonia. 3. Rhabdomyolysis, currently being hydrated and clinically improving. 4. Markedly elevated LFTs secondary to combination of COVID-19 viral pneumonia and rhabdomyolysis. Improving. 5. Mildly increased troponin level. 6. Lactic acidosis, which is now improving as well. 7. Underlying COPD. The patient smoked for 31 years before quitting. Plan . 1. Continue with present oxygen, keep saturations 92 and above. 2. Follow complete remdesivir course. 3. Continue steroids with gradual tapering for a total of 10 days. 4. Empiric antibiotics. 5. Continue hydration and follow renal function as well as liver function test and CPKs. 6. Heparin for DVT prophylaxis. 7. Continue isolation for COVID-19. 8. Discussed with RN. We will follow along with you. ANN RIDDLE MD Apr 11, 2021 10:30
[2021-04-11] MEDS: POTASSIUM CHLORIDE 20 MEQ TABLET.ER. PO SCH (10:36)
[2021-04-11] MEDS: ZINC SULFATE 220 MG CAPSULE. PO SCH (10:36)
[2021-04-11] MEDS: THIAMINE 100 MG TABLET. PO SCH (10:36)
[2021-04-11] MEDS: LACTOBACILLUS RHAMNOSUS GG 1 CAPSULE. PO SCH ×2 (10:36→21:34)
[2021-04-11] MEDS: ASPIRIN CHEWABLE 81 MG TABLET. PO SCH (10:36)
[2021-04-11] MEDS: DOXYCYCLINE HYCLATE 100 MG in IV DEXTROSE 5% 100ML 100 ML IV SCH ×2 (10:37→21:34)
[2021-04-11] MEDS: DEXAMETHASONE SOD PHOS 4 MG/ML VIAL IVP SCH (10:38)
[2021-04-11] MEDS: IV 1/2 NORMAL SALINE 1,000 ML IV SCH ×2 (10:39→16:40)
[2021-04-11] MEDS: cefTRIAXone IV Push 1 GM VIAL. IVP SCH (10:45)
[2021-04-11] MEDS ORDERED: POTASSIUM CHLORIDE 20 MEQ TABLET.ER. PO ONE (10:45)
[2021-04-11] MEDS ORDERED: diphenhydrAMINE 50 MG/ML VIAL IVP PRN (11:45)
[2021-04-11] MEDS ORDERED: HALOPERIDOL LACTATE 5 MG/ML VIAL. IVP PRN (11:45)
[2021-04-11] MEDS ORDERED: cloNIDine HCL 0.1 MG TABLET PO PRN (11:45)
[2021-04-11 11:48] LABS: PROTHROMBIN TIME PATIENT 14.4 SEC (11.7-14.0)
[2021-04-11] MEDS: MULTIVITAMIN with MINERAL TABLET. PO SCH (12:28)
[2021-04-11] MEDS: FOLIC ACID 1 MG TABLET. PO SCH (12:29)
[2021-04-11 12:59] LABS: BILIRUBIN,URINE NEGATIVE (NEG); CLARITY,URINE CLEAR; COLOR,URINE AMBER; NITRITE,URINE NEGATIVE (NEG); PROTEIN,URINE 30 mg/dL (NEG-TRACE)
[2021-04-11 13:04] LABS: AMPHETAMINE/METHAMPHETAMINE NEG (NEG); BARBITURATES NEG (NEG); BENZODIAZEPINES NEG (NEG); CANNABINOIDS NEG (NEG); COCAINE NEG (NEG); METHADONE NEG (NEG); OPIATES NEG (NEG); PHENCYCLIDINE NEG (NEG)
[2021-04-11 13:05] LABS: WBC,URINE 0 /HPF (0-4)
[2021-04-11 13:06] LABS: BACTERIA,URINE 0 /HPF (0-FEW)
--- NOTE | 2021-04-11 13:33 | NUR ---
SS following up with discharge planning. SS reviewed pt chart and discussed with pt RN. Pt is currently requiring oxygen at five liters nasal canula. COVID19 positive. Pt on IV Rocephin, IV Remdesivir, IV Doxycycline, and IV Decadron. SS will continue to follow for discharge planning.
[2021-04-11 14:49] VITALS: BP 102/73
[2021-04-11] MEDS: REMDESIVIR 100mg in NORMAL SALINE 250ML X 4 DAYS IV SCH (17:00)
[2021-04-11 19:28] VITALS: BP 143/76
--- NOTE | 2021-04-11 19:45 | NUR ---
PT IN BED ASSESSMENT COMPLETED VSS POC EXPLAINED PT REORIENTED TO SURROUNDINGS BED ALARM SET CALL LIGHT IN REACH WILL RESUME CARE.
[2021-04-11 22:52] VITALS: BP 124/80
[2021-04-12] VITALS (7 sets, daily range): BP systolic 110–140; BP diastolic 70–106
[2021-04-12] MEDS: IV 1/2 NORMAL SALINE 1,000 ML IV SCH ×2 (05:59→21:20)
[2021-04-12] MEDS: HEPARIN for SUB-Q USE 5,000 UNIT/ML VIAL. SQ SCH ×3 (06:00→21:22)
[2021-04-12] MEDS: POTASSIUM CHLORIDE 20 MEQ TABLET.ER. PO SCH (08:00)
[2021-04-12] MEDS: MULTIVITAMIN with MINERAL TABLET. PO SCH (09:00)
[2021-04-12] MEDS: ZINC SULFATE 220 MG CAPSULE. PO SCH (09:00)
[2021-04-12] MEDS: METOPROLOL SUCC 24HR ER 25 MG TAB.ER.24H. PO SCH (09:00)
[2021-04-12] MEDS: LACTOBACILLUS RHAMNOSUS GG 1 CAPSULE. PO SCH ×2 (09:00→21:21)
[2021-04-12] MEDS: ASPIRIN CHEWABLE 81 MG TABLET. PO SCH (09:00)
[2021-04-12] MEDS: FOLIC ACID 1 MG TABLET. PO SCH (09:00)
[2021-04-12] MEDS: THIAMINE 100 MG TABLET. PO SCH (09:00)
[2021-04-12] MEDS: DOXYCYCLINE HYCLATE 100 MG in IV DEXTROSE 5% 100ML 100 ML IV SCH ×2 (09:07→21:21)
[2021-04-12] MEDS: DEXAMETHASONE SOD PHOS 4 MG/ML VIAL IVP SCH (09:07)
[2021-04-12] MEDS: cefTRIAXone IV Push 1 GM VIAL. IVP SCH (09:08)
--- NOTE | 2021-04-12 10:41 | PDOC ---
PULMONARY PROGRESS NOTES DATE: 04/12/21 TIME: 10:38 Subjective increase 02 need on nrb and 15 lpm confused 02 sat 97% Vitals Vital Signs Date Time Temp Pulse Resp B/P (MAP) Pulse Ox O2 Delivery O2 Flow Rate FiO2 04/12/21 09:00 111 122/106 04/12/21 07:40 Non-Rebreather 15.0 04/12/21 07:00 99.9 18 90 99.9 Comments Visual exam done due to COVID-19. confused NCAT RRR No accessory muscle use no skin rash no leg edema. Labs Laboratory Tests Test 04/10/21 13:00 04/10/21 15:32 04/11/21 04:00 04/11/21 11:00 White Blood Count 10.9 x10^3/uL (4.0-11.0) 10.2 x10^3/uL (4.0-11.0) Red Blood Count 4.22 x10^6/uL (4.30-5.70) 3.91 x10^6/uL (4.30-5.70) Hemoglobin 14.2 g/dL (13.0-17.5) 13.3 g/dL (13.0-17.5) Hematocrit 40.4 % (39.0-53.0) 37.7 % (39.0-53.0) Mean Corpuscular Volume 96 fL (79-100) 96 fL (79-100) Mean Corpuscular Hemoglobin 34 pg (25-35) 34 pg (25-35) Mean Corpuscular Hemoglobin Concent 35 g/dL (31-37) 35 g/dL (31-37) Red Cell Distribution Width 14.5 % (11.5-14.5) 14.8 % (11.5-14.5) Platelet Count 156 x10^3/uL (140-400) 158 x10^3/uL (140-400) Neutrophils (%) (Auto) 84 % (31-73) 71 % (31-73) Lymphocytes (%) (Auto) 5 % (24-48) 7 % (24-48) Monocytes (%) (Auto) 11 % (0-9) 22 % (0-9) Eosinophils (%) (Auto) 0 % (0-3) 0 % (0-3) Basophils (%) (Auto) 0 % (0-3) 0 % (0-3) Neutrophils # (Auto) 9.2 x10^3/uL (1.8-7.7) 7.2 x10^3/uL (1.8-7.7) Lymphocytes # (Auto) 0.6 x10^3/uL (1.0-4.8) 0.8 x10^3/uL (1.0-4.8) Monocytes # (Auto) 1.2 x10^3/uL (0.0-1.1) 2.2 x10^3/uL (0.0-1.1) Eosinophils # (Auto) 0.0 x10^3/uL (0.0-0.7) 0.0 x10^3/uL (0.0-0.7) Basophils # (Auto) 0.0 x10^3/uL (0.0-0.2) 0.0 x10^3/uL (0.0-0.2) O2 Saturation 91 % (92-99) Arterial Blood pH 7.51 (7.35-7.45) Arterial Blood pCO2 at Patient Temp 34 mmHg (35-46) Arterial Blood pO2 at Patient Temp 59 mmHg (65-108) Arterial Blood HCO3 26 mmol/L (21-28) Arterial Blood Base Excess 4 mmol/L (-3-3) Oxyhemoglobin 90.9 % Methemoglobin 0.3 % (0.0-1.9) Carbon Monoxide, Quantitative 0.1 % (0.0-1.9) FiO2 40 Segmented Neutrophils % 76 % (35-66) Band Neutrophils % 3 % (0-9) Lymphocytes % 16 % (24-48) Monocytes % 5 % (0-10) Platelet Estimate Adequate (ADEQUATE) Sodium Level 149 mmol/L (136-145) Potassium Level 3.4 mmol/L (3.5-5.1) Chloride Level 112 mmol/L (98-107) Carbon Dioxide Level 30 mmol/L (21-32) Anion Gap 7 (6-14) Blood Urea Nitrogen 26 mg/dL (8-26) Creatinine 0.9 mg/dL (0.7-1.3) Estimated GFR (Cockcroft-Gault) 83.4 BUN/Creatinine Ratio 29 (6-20) Glucose Level 137 mg/dL (70-99) Calcium Level 7.7 mg/dL (8.5-10.1) Magnesium Level 2.1 mg/dL (1.8-2.4) Total Bilirubin 1.0 mg/dL (0.2-1.0) Aspartate Amino Transf (AST/SGOT) 231 U/L (15-37) Alanine Aminotransferase (ALT/SGPT) 111 U/L (16-63) Alkaline Phosphatase 41 U/L (46-116) Creatine Kinase 2842 U/L (39-308) Total Protein 5.5 g/dL (6.4-8.2) Albumin 1.9 g/dL (3.4-5.0) Albumin/Globulin Ratio 0.5 (1.0-1.7) Prothrombin Time 14.4 SEC (11.7-14.0) Prothromb Time International Ratio 1.1 (0.8-1.1) Ammonia 12 mcmol/L (11-34) Test 04/11/21 12:40 Urine Collection Type Unknown Urine Color Anna Urine Clarity Clear Urine pH 6.0 (<5.0-8.0) Urine Specific [place] 1.025 (1.000-1.030) Urine Protein 30 mg/dL (NEG-TRACE) Urine Glucose (UA) Negative mg/dL (NEG) Urine Ketones (Stick) Negative mg/dL (NEG) Urine Blood Negative (NEG) Urine Nitrite Negative (NEG) Urine Bilirubin Negative (NEG) Urine Urobilinogen Dipstick 4.0 mg/dL (0.2 mg/dL) Urine Leukocyte Esterase Negative (NEG) Urine RBC 3-5 /HPF (0-2) Urine WBC 0 /HPF (0-4) Urine Squamous Epithelial Cells Few /LPF Urine Bacteria 0 /HPF (0-FEW) Urine Opiates Screen Neg (NEG) Urine Methadone Screen Neg (NEG) Urine Barbiturates Neg (NEG) Urine Phencyclidine Screen Neg (NEG) Urine Amphetamine/Methamphetamine Neg (NEG) Urine Benzodiazepines Screen Neg (NEG) Urine Cocaine Screen Neg (NEG) Urine Cannabinoids Screen Neg (NEG) Urine Ethyl Alcohol Neg (NEG) Laboratory Tests Test 04/11/21 11:00 04/11/21 12:40 Prothrombin Time 14.4 SEC (11.7-14.0) Prothromb Time International Ratio 1.1 (0.8-1.1) Ammonia 12 mcmol/L (11-34) Urine Collection Type Unknown Urine Color Anna Urine Clarity Clear Urine pH 6.0 (<5.0-8.0) Urine Specific [place] 1.025 (1.000-1.030) Urine Protein 30 mg/dL (NEG-TRACE) Urine Glucose (UA) Negative mg/dL (NEG) Urine Ketones (Stick) Negative mg/dL (NEG) Urine Blood Negative (NEG) Urine Nitrite Negative (NEG) Urine Bilirubin Negative (NEG) Urine Urobilinogen Dipstick 4.0 mg/dL (0.2 mg/dL) Urine Leukocyte Esterase Negative (NEG) Urine RBC 3-5 /HPF (0-2) Urine WBC 0 /HPF (0-4) Urine Squamous Epithelial Cells Few /LPF Urine Bacteria 0 /HPF (0-FEW) Urine Opiates Screen Neg (NEG) Urine Methadone Screen Neg (NEG) Urine Barbiturates Neg (NEG) Urine Phencyclidine Screen Neg (NEG) Urine Amphetamine/Methamphetamine Neg (NEG) Urine Benzodiazepines Screen Neg (NEG) Urine Cocaine Screen Neg (NEG) Urine Cannabinoids Screen Neg (NEG) Urine Ethyl Alcohol Neg (NEG) Medications Active Scripts Medications Dose Route/Sig Max Daily Dose Days Date Category Hydrochlorothiazide 25 Mg Tablet 25 Mg PO 1X 04/10/21 Reported Atorvastatin Calcium 20 Mg Tablet 20 Mg PO HS 04/10/21 Reported Metoprolol Succinate ( Xl ) (Metoprolol Succinate) 25 Mg Tab.er.24h 25 Mg PO 3X/WEEK 04/10/21 Reported Aspirin 81 Mg Tab.chew 81 Mg PO DAILY 04/10/21 Reported Impression . 1. Acute hypoxic respiratory failure secondary to COVID-19 viral pneumonia and acute lung injury. 2. Abnormal chest x-ray with faint bilateral hazy opacities consistent with viral pneumonia. 3. Rhabdomyolysis, currently being hydrated and clinically improving. 4. Markedly elevated LFTs secondary to combination of COVID-19 viral pneumonia and rhabdomyolysis. Improving. 5. Mildly increased troponin level. 6. Lactic acidosis, which is now improving as well. 7. Underlying COPD. The patient smoked for 31 years before quitting. Plan . 1. Continue with present oxygen, keep saturations 90% start bipap to use prn 2. Follow complete remdesivir course. 3. Continue steroids with gradual tapering for a total of 10 days. 4. Empiric antibiotics. 5. Continue hydration and follow renal function as well as liver function test and CPKs. ck coming down 6. Heparin for DVT prophylaxis. 7. Continue isolation for COVID-19. 8. Discussed with RN. We will follow along with you. RONAK BRICEÑO MD Apr 12, 2021 10:40
--- NOTE | 2021-04-12 10:55 | PDOC ---
PROGRESS NOTES Date of Service: DATE: 04/12/21 TIME: 10:55 Chief Complaint Chief Complaint VTE Prophylaxis Ordered VTE Prophylaxis Devices: No VTE Pharmacological Prophylaxi: Yes Assessment/Plan Assessment/Plan A/P: Acute encephalopathy - likely metabolic from hypoxia, rhabdomyolysis Acute hypoxic respiratory failure - likely due to COVID 19 pneumonia Elevated troponin I level - likely demand ischemia from hypoxia, will trend, monitor on tele Elevated lactic acid - likely due to hypoxia, sepsis from COVID 19 Sepsis - with COVID 19 will treat with IVF and remdesivir, this is clearly viral, no definite bacterial source Acute kidney injury - likely vasomotor nephropathy from rhabomyolysis, will monitor renal function Pneumonia - likely due to COVID 19 COVID-19 virus infection - remdesivir and steroids, supportive care, wean O2 as tolerated Rhabdomyolysis - will monitor CK, likely traumatic from falling Transaminitis - likely rhabdo and covid related, will hydrate CAD s/p CABG - reconcile home meds with pharmacy as and patient cannot recall HTN - restart home meds FEN - ADAT PPX - heparin FULL CODE Dispo - inpatient ERROR DUPLICATE History of Present Illness History of Present Illness Identification/Chief Complaint Chief Complaint Acute encephalopathy Source Source: Caregiver, Chart review, Patient History of Present Illness History of Present Illness Mr Page is a 70 year old male with PMH HTN, HLD, CAD s/p CABG comes to ED via EMS after his called 911. Pit Tanner reports patient was found on floor in bedroom by who thinks he may have been laying there for at least 5-6 hours. noted he has bee sick for the past 10 days and that she has also been sick with COVID 19 for 14 days. She is confused as well as the patient. Patient can only ask for food and water and is oriented to self only. His only recalls above PMHx, does not know his meds. EMS noted patient was 87% on room air, placed on 4L NCO2 Patient's chest x-ray concerning for immunity acquired pneumonia, elevated troponin I, elevated lactic acid level, white blood cell count [place] [address], LFTs elevated, CR 1.9. Started on Rocephin 1 g IV along with 30 mL/kg normal saline IV fluid replacement. COVID-19 positive per rapid study. EKG sinus tachycardia 118 bpm, left axis deviation, LAFB, no ST segment or T- wave abnormalities Admitted for further care Past Medical History Cardiovascular: HTN, Hyperlipidemia Past Surgical History Past Surgical History: CABG Family History Family History: Family History Unknown Social History Smoke: No (unknown) ALCOHOL: other (unknown) Drugs: None Current Medications Current Medications Current Medications Sodium Chloride 1,000 ml @ 1,000 mls/hr 1X ONCE IV Last administered on 04/09/21at 10:10; Start 04/09/21 at 10:15; Stop 04/09/21 at 11:14 Sodium Chloride 1,000 ml @ 2,850 mls/hr Q22M IV ; Start 04/09/21 at 10:45; Stop 04/09/21 at 11:45 Ceftriaxone Sodium (Rocephin) 1 gm 1X ONCE IVP ; Start 04/09/21 at 10:45; Stop 04/09/21 at 10:46; Status DC Allergies Allergies: Coded Allergies: No Known Drug Allergies (Unverified , 04/09/21) ROS Review of System Unable to obtain due to obtunded mental status 04-11 alcoholism: admitted drinking rum Metabolic encephalopathy Arrhythmia: NSVT with associated triggers above including covid-19, possible ETOH Mild troponin elevation; peak 0.5. Most probably type II, demand ischemia secondary to above. denies angina CAD s/p remote CABG. Cath 2010 showed patent grafts as noted above. Echo 03/10 with preserved LV systolic function COVID 19 POS Pneumonia Acute encephalopathy - likely metabolic from hypoxia, rhabdomyolysis Acute hypoxic respiratory failure - likely due to COVID 19 pneumonia Elevated troponin I level - likely demand ischemia from hypoxia, will trend, monitor on tele Elevated lactic acid - likely due to hypoxia, sepsis from COVID 19 Sepsis - with COVID 19 will treat with IVF and remdesivir, this is clearly viral, no definite bacterial source Acute kidney injury - likely vasomotor nephropathy from rhabomyolysis, will monitor renal function Pneumonia - likely due to COVID 19 COVID-19 virus infection - remdesivir and steroids, supportive care, wean O2 as tolerated Rhabdomyolysis - will monitor CK, likely traumatic from falling Transaminitis - likely rhabdo and covid related, will hydrate CAD s/p CABG - reconcile home meds with pharmacy as and patient cannot recall HTN - restart home meds FEN - ADAT PPX - heparin FULL CODE Dispo - inpatient Abnormal chest x-ray with faint bilateral hazy opacities consistent with viral pneumonia. Rhabdomyolysis, currently being hydrated and clinically improving. Markedly elevated LFTs secondary to combination of COVID-19 viral pneumonia rhabdomyolysis. Mildly increased troponin level. [facility] protocol d/w rn 04-12 alcoholism: admitted drinking rum 2-4 drinks a day Metabolic encephalopathy Arrhythmia: NSVT with associated triggers above including covid-19, possible ETOH Mild troponin elevation; peak 0.5. Most probably type II, demand ischemia secondary to above. denies angina CAD s/p remote CABG. Cath 2010 showed patent grafts as noted above. Echo 03/10 with preserved LV systolic function COVID 19 POS Pneumonia Acute encephalopathy - likely metabolic from hypoxia, rhabdomyolysis Acute hypoxic respiratory failure - likely due to COVID 19 pneumonia Elevated troponin I level - likely demand ischemia from hypoxia, will trend, monitor on tele Elevated lactic acid - likely due to hypoxia, sepsis from COVID 19 Sepsis - with COVID 19 will treat with IVF and remdesivir, this is clearly viral, no definite bacterial source Acute kidney injury - likely vasomotor nephropathy from rhabomyolysis, will monitor renal function Pneumonia - likely due to COVID 19 COVID-19 virus infection - remdesivir and steroids, supportive care, wean O2 as tolerated Rhabdomyolysis - will monitor CK, likely traumatic from falling Transaminitis - likely rhabdo and covid related, will hydrate CAD s/p CABG - reconcile home meds with pharmacy as and patient cannot recall HTN - restart home meds FEN - ADAT PPX - heparin FULL CODE Dispo - inpatient Abnormal chest x-ray with faint bilateral hazy opacities consistent with viral pneumonia. Rhabdomyolysis, currently being hydrated and clinically improving. Markedly elevated LFTs secondary to combination of COVID-19 viral pneumonia rhabdomyolysis. Mildly increased troponin level. [facility] protocol d/w rn Vitals Vitals Vital Signs Date Time Temp Pulse Resp B/P (MAP) Pulse Ox O2 Delivery O2 Flow Rate FiO2 04/12/21 09:00 111 122/106 04/12/21 07:40 Non-Rebreather 15.0 04/12/21 07:00 99.9 18 90 99.9 Physical Exam Physical Exam General: Cooperative, moderate distress, Other (Confused) HEENT: Atraumatic, PERRLA, EOMI, Mucous membr. moist/pink Lungs: Other (bialteral crackles) Heart: S1S2, RRR, no thrills, no rubs, no gallops, no murmurs Abdomen: Normal bowel sounds, Soft, No tenderness, No hepatosplenomegaly, No masses Extremities: No clubbing, No cyanosis, No edema, Normal pulses, No tenderness/swelling Skin: No rashes, No breakdown, No significant lesion Neuro: Normal tone, Sensation intact, Cranial nerves 3-12 NL, Reflexes 2+ Psych/Mental Status: MORE AWAKE General: Alert, Cooperative, No acute distress, Other Heart: Regular rate Abdomen: Normal bowel sounds, Soft, No tenderness Extremities: No cyanosis, No edema Skin: No significant lesion Labs LABS Laboratory Tests Test 04/11/21 11:00 04/11/21 12:40 Prothrombin Time 14.4 SEC (11.7-14.0) Prothromb Time International Ratio 1.1 (0.8-1.1) Ammonia 12 mcmol/L (11-34) Urine Collection Type Unknown Urine Color Anna Urine Clarity Clear Urine pH 6.0 (<5.0-8.0) Urine Specific Lockhart 1.025 (1.000-1.030) Urine Protein 30 mg/dL (NEG-TRACE) Urine Glucose (UA) Negative mg/dL (NEG) Urine Ketones (Stick) Negative mg/dL (NEG) Urine Blood Negative (NEG) Urine Nitrite Negative (NEG) Urine Bilirubin Negative (NEG) Urine Urobilinogen Dipstick 4.0 mg/dL (0.2 mg/dL) Urine Leukocyte Esterase Negative (NEG) Urine RBC 3-5 /HPF (0-2) Urine WBC 0 /HPF (0-4) Urine Squamous Epithelial Cells Few /LPF Urine Bacteria 0 /HPF (0-FEW) Urine Opiates Screen Neg (NEG) Urine Methadone Screen Neg (NEG) Urine Barbiturates Neg (NEG) Urine Phencyclidine Screen Neg (NEG) Urine Amphetamine/Methamphetamine Neg (NEG) Urine Benzodiazepines Screen Neg (NEG) Urine Cocaine Screen Neg (NEG) Urine Cannabinoids Screen Neg (NEG) Urine Ethyl Alcohol Neg (NEG) Assessment and Plan Assessmemt and Plan Problems Medical Problems: (1) Acute kidney injury Status: Acute (2) Altered mental status Status: Acute (3) Community acquired pneumonia Status: Acute (4) COVID-19 virus infection Status: Acute (5) Elevated lactic acid level Status: Acute (6) Elevated troponin I level Status: Acute Comment Review of Relevant I have reviewed the following items pinky (where applicable) has been applied. Labs Laboratory Tests Test 04/10/21 13:00 04/10/21 15:32 04/11/21 04:00 04/11/21 11:00 White Blood Count 10.9 x10^3/uL (4.0-11.0) 10.2 x10^3/uL (4.0-11.0) Red Blood Count 4.22 x10^6/uL (4.30-5.70) 3.91 x10^6/uL (4.30-5.70) Hemoglobin 14.2 g/dL (13.0-17.5) 13.3 g/dL (13.0-17.5) Hematocrit 40.4 % (39.0-53.0) 37.7 % (39.0-53.0) Mean Corpuscular Volume 96 fL (79-100) 96 fL (79-100) Mean Corpuscular Hemoglobin 34 pg (25-35) 34 pg (25-35) Mean Corpuscular Hemoglobin Concent 35 g/dL (31-37) 35 g/dL (31-37) Red Cell Distribution Width 14.5 % (11.5-14.5) 14.8 % (11.5-14.5) Platelet Count 156 x10^3/uL (140-400) 158 x10^3/uL (140-400) Neutrophils (%) (Auto) 84 % (31-73) 71 % (31-73) Lymphocytes (%) (Auto) 5 % (24-48) 7 % (24-48) Monocytes (%) (Auto) 11 % (0-9) 22 % (0-9) Eosinophils (%) (Auto) 0 % (0-3) 0 % (0-3) Basophils (%) (Auto) 0 % (0-3) 0 % (0-3) Neutrophils # (Auto) 9.2 x10^3/uL (1.8-7.7) 7.2 x10^3/uL (1.8-7.7) Lymphocytes # (Auto) 0.6 x10^3/uL (1.0-4.8) 0.8 x10^3/uL (1.0-4.8) Monocytes # (Auto) 1.2 x10^3/uL (0.0-1.1) 2.2 x10^3/uL (0.0-1.1) Eosinophils # (Auto) 0.0 x10^3/uL (0.0-0.7) 0.0 x10^3/uL (0.0-0.7) Basophils # (Auto) 0.0 x10^3/uL (0.0-0.2) 0.0 x10^3/uL (0.0-0.2) O2 Saturation 91 % (92-99) Arterial Blood pH 7.51 (7.35-7.45) Arterial Blood pCO2 at Patient Temp 34 mmHg (35-46) Arterial Blood pO2 at Patient Temp 59 mmHg (65-108) Arterial Blood HCO3 26 mmol/L (21-28) Arterial Blood Base Excess 4 mmol/L (-3-3) Oxyhemoglobin 90.9 % Methemoglobin 0.3 % (0.0-1.9) Carbon Monoxide, Quantitative 0.1 % (0.0-1.9) FiO2 40 Segmented Neutrophils % 76 % (35-66) Band Neutrophils % 3 % (0-9) Lymphocytes % 16 % (24-48) Monocytes % 5 % (0-10) Platelet Estimate Adequate (ADEQUATE) Sodium Level 149 mmol/L (136-145) Potassium Level 3.4 mmol/L (3.5-5.1) Chloride Level 112 mmol/L (98-107) Carbon Dioxide Level 30 mmol/L (21-32) Anion Gap 7 (6-14) Blood Urea Nitrogen 26 mg/dL (8-26) Creatinine 0.9 mg/dL (0.7-1.3) Estimated GFR (Cockcroft-Gault) 83.4 BUN/Creatinine Ratio 29 (6-20) Glucose Level 137 mg/dL (70-99) Calcium Level 7.7 mg/dL (8.5-10.1) Magnesium Level 2.1 mg/dL (1.8-2.4) Total Bilirubin 1.0 mg/dL (0.2-1.0) Aspartate Amino Transf (AST/SGOT) 231 U/L (15-37) Alanine Aminotransferase (ALT/SGPT) 111 U/L (16-63) Alkaline Phosphatase 41 U/L (46-116) Creatine Kinase 2842 U/L (39-308) Total Protein 5.5 g/dL (6.4-8.2) Albumin 1.9 g/dL (3.4-5.0) Albumin/Globulin Ratio 0.5 (1.0-1.7) Prothrombin Time 14.4 SEC (11.7-14.0) Prothromb Time International Ratio 1.1 (0.8-1.1) Ammonia 12 mcmol/L (11-34) Test 04/11/21 12:40 Urine Collection Type Unknown Urine Color Anna Urine Clarity Clear Urine pH 6.0 (<5.0-8.0) Urine Specific Lockhart 1.025 (1.000-1.030) Urine Protein 30 mg/dL (NEG-TRACE) Urine Glucose (UA) Negative mg/dL (NEG) Urine Ketones (Stick) Negative mg/dL (NEG) Urine Blood Negative (NEG) Urine Nitrite Negative (NEG) Urine Bilirubin Negative (NEG) Urine Urobilinogen Dipstick 4.0 mg/dL (0.2 mg/dL) Urine Leukocyte Esterase Negative (NEG) Urine RBC 3-5 /HPF (0-2) Urine WBC 0 /HPF (0-4) Urine Squamous Epithelial Cells Few /LPF Urine Bacteria 0 /HPF (0-FEW) Urine Opiates Screen Neg (NEG) Urine Methadone Screen Neg (NEG) Urine Barbiturates Neg (NEG) Urine Phencyclidine Screen Neg (NEG) Urine Amphetamine/Methamphetamine Neg (NEG) Urine Benzodiazepines Screen Neg (NEG) Urine Cocaine Screen Neg (NEG) Urine Cannabinoids Screen Neg (NEG) Urine Ethyl Alcohol Neg (NEG) Laboratory Tests Test 04/11/21 11:00 04/11/21 12:40 Prothrombin Time 14.4 SEC (11.7-14.0) Prothromb Time International Ratio 1.1 (0.8-1.1) Ammonia 12 mcmol/L (11-34) Urine Collection Type Unknown Urine Color Anna Urine Clarity Clear Urine pH 6.0 (<5.0-8.0) Urine Specific Lockhart 1.025 (1.000-1.030) Urine Protein 30 mg/dL (NEG-TRACE) Urine Glucose (UA) Negative mg/dL (NEG) Urine Ketones (Stick) Negative mg/dL (NEG) Urine Blood Negative (NEG) Urine Nitrite Negative (NEG) Urine Bilirubin Negative (NEG) Urine Urobilinogen Dipstick 4.0 mg/dL (0.2 mg/dL) Urine Leukocyte Esterase Negative (NEG) Urine RBC 3-5 /HPF (0-2) Urine WBC 0 /HPF (0-4) Urine Squamous Epithelial Cells Few /LPF Urine Bacteria 0 /HPF (0-FEW) Urine Opiates Screen Neg (NEG) Urine Methadone Screen Neg (NEG) Urine Barbiturates Neg (NEG) Urine Phencyclidine Screen Neg (NEG) Urine Amphetamine/Methamphetamine Neg (NEG) Urine Benzodiazepines Screen Neg (NEG) Urine Cocaine Screen Neg (NEG) Urine Cannabinoids Screen Neg (NEG) Urine Ethyl Alcohol Neg (NEG) Microbiology 04/09/21 Blood Culture - Preliminary, Resulted NO GROWTH AFTER 3 DAYS Medications Current Medications Sodium Chloride 1,000 ml @ 1,000 mls/hr 1X ONCE IV Last administered on 04/09/21at 10:10; Start 04/09/21 at 10:15; Stop 04/09/21 at 11:14; Status DC Sodium Chloride 1,000 ml @ 2,850 mls/hr Q22M IV Last administered on 04/09/21at 11:29; Start 04/09/21 at 10:45; Stop 04/09/21 at 11:45; Status DC Ceftriaxone Sodium (Rocephin) 1 gm 1X ONCE IVP Last administered on 04/09/21at 11:33; Start 04/09/21 at 10:45; Stop 04/09/21 at 10:46; Status DC Doxycycline Hyclate 100 mg/ Dextrose 100 ml @ 50 mls/hr 1X ONCE IV Last administered on 04/09/21at 11:32; Start 04/09/21 at 11:00; Stop 04/09/21 at 12:59; Status DC Olanzapine (ZyPREXA ZYDIS) 5 mg PRN BID PRN PO ANXIETY / AGITATION Last administered on 04/11/21at 10:36; Start 04/09/21 at 15:00 Ondansetron HCl (Zofran) 4 mg PRN Q4HRS PRN IVP NAUSEA/VOMITING; Start 04/09/21 at 15:00 Tramadol HCl (Ultram) 50 mg PRN Q6HRS PRN PO MODERATE - SEVERE PAIN; Start 04/09/21 at 15:00 Guaifenesin (Robitussin Dm) 10 ml PRN Q6HRS PRN PO COUGH; Start 04/09/21 at 15:00 Acetaminophen (Tylenol) 650 mg PRN Q6HRS PRN PO MILD PAIN / TEMP > 100.3'F; Start 04/09/21 at 15:00 Fentanyl Citrate (Fentanyl 2ml Vial) 25 mcg PRN Q3HRS PRN IVP SEVERE PAIN 7-10; Start 04/09/21 at 15:00 Heparin Sodium (Porcine) (Heparin Sodium) 5,000 unit Q8HRS SQ Last administered on 04/12/21at 06:00; Start 04/09/21 at 15:30 Zinc Sulfate (Orazinc) 220 mg DAILY PO Last administered on 04/11/21at 10:36; Start 04/09/21 at 15:00 Thiamine Mononitrate (Vitamin B-1) 100 mg DAILY PO Last administered on 04/11/21at 10:36; Start 04/09/21 at 15:00 Dexamethasone Sodium Phosphate (Decadron) 6 mg DAILY IVP Last administered on 04/12/21at 09:07; Start 04/09/21 at 15:30 Remdesivir 200 mg/ Sodium Chloride 210 ml @ 210 mls/hr 1X ONCE IV Last administered on 04/09/21at 19:00; Start 04/09/21 at 16:00; Stop 04/09/21 at 16:59; Status DC Remdesivir 100 mg/ Sodium Chloride 230 ml @ 460 mls/hr Q24H IV Last administered on 04/11/21at 17:00; Start 04/10/21 at 16:00; Stop 04/13/21 at 16:29 Acetaminophen (Tylenol Supp) 650 mg PRN Q6HRS PRN MT MILD PAIN / TEMP > 100.3'F Last administered on 04/09/21at 21:01; Start 04/09/21 at 20:15 Sodium Chloride 1,000 ml @ 100 mls/hr Q10H IV Last administered on 04/10/21at 05:59; Start 04/09/21 at 20:30; Stop 04/10/21 at 13:47; Status DC Ceftriaxone Sodium (Rocephin) 1 gm Q24H IVP Last administered on 04/12/21at 09:08; Start 04/10/21 at 10:15 Doxycycline Hyclate 100 mg/ Dextrose 100 ml @ 50 mls/hr Q12HR IV Last administered on 04/12/21at 09:07; Start 04/10/21 at 09:00 Lactobacillus Rhamnosus (Culturelle) 1 cap BID PO Last administered on 04/11/21at 21:34; Start 04/10/21 at 09:00 Sodium Chloride 1,000 ml @ 75 mls/hr [id number] IV Last administered on 04/12/21at 05:59; Start 04/10/21 at 14:00 Potassium Chloride (Klor-Con) 40 meq 1X ONCE PO Last administered on 04/10/21at 14:20; Start 04/10/21 at 14:00; Stop 04/10/21 at 14:01; Status DC Potassium Chloride (Klor-Con) 20 meq [id number] PO Last administered on 04/11/21at 10:36; Start 04/11/21 at 08:00 Aspirin (Aspirin Chewable) 81 mg DAILY PO Last administered on 04/11/21at 10:36; Start 04/11/21 at 09:00 Metoprolol Succinate (Toprol Xl) 25 mg 3X/WEEK PO Last administered on 04/11/21at 10:37; Start 04/11/21 at 09:00; Stop 04/11/21 at 10:48; Status DC Metoprolol Tartrate (Lopressor Vial) 5 mg PRN Q6HRS PRN IVP PER PROTOCOL; Start 04/11/21 at 10:30 Potassium Chloride (Klor-Con) 40 meq 1X ONCE PO Last administered on 04/11/21at 12:29; Start 04/11/21 at 10:45; Stop 04/11/21 at 10:46; Status DC Metoprolol Succinate (Toprol Xl) 25 mg DAILY PO ; Start 04/12/21 at 09:00 Multivitamins (Thera M Plus) 1 tab DAILY PO Last administered on 04/11/21at 12:28; Start 04/11/21 at 12:00 Folic Acid (Folic Acid) 1 mg DAILY PO Last administered on 04/11/21at 12:29; Start 04/11/21 at 12:00 Thiamine Mononitrate (Vitamin B-1) 100 mg DAILY PO ; Start 04/16/21 at 09:00; Status UNV Lorazepam (Ativan) 4 mg PRN Q1HR PRN PO For CIWA 8-14; Start 04/11/21 at 11:45 Lorazepam (Ativan) 8 mg PRN Q1HR PRN PO For CIWA 15 or greater; Start 04/11/21 at 11:45 Lorazepam (Ativan Inj) 2 mg PRN Q1HR PRN IV For CIWA 8-14 Last administered on 04/12/21at 09:08; Start 04/11/21 at 11:45 Lorazepam (Ativan Inj) 4 mg PRN Q1HR PRN IV For CIWA 15 or greater; Start 04/11/21 at 11:45 Haloperidol Lactate (Haldol Inj) 5 mg PRN Q4HRS PRN IVP Hallucinatns,Confusn,Delirium; Start 04/11/21 at 11:45 Diphenhydramine HCl (Benadryl) 25 mg PRN Q15MIN PRN IVP EPS symptoms 2'Haldol admin; Start 04/11/21 at 11:45 Clonidine HCl (Catapres) 0.1 mg PRN Q1HR PRN PO SBP > 180 or DBP > 100, MRX3; Start 04/11/21 at 11:45 Lorazepam (Ativan Inj) 2 mg PRN Q15MIN PRN IV SEE COMMENTS; Start 04/11/21 at 11:45; Status UNV Lorazepam (Ativan Inj) 4 mg PRN Q15MIN PRN IV SEE COMMENTS; Start 04/11/21 at 11:45; Status UNV Active Scripts Active Reported Hydrochlorothiazide 25 Mg Tablet 25 Mg PO 1X Atorvastatin Calcium 20 Mg Tablet 20 Mg PO HS Metoprolol Succinate ( Xl ) (Metoprolol Succinate) 25 Mg Tab.er.24h 25 Mg PO 3X/WEEK Aspirin 81 Mg Tab.chew 81 Mg PO DAILY Vitals/I & O Vital Sign - Last 24 Hours 04/11/21 04/11/21 04/11/21 04/11/21 14:49 19:28 19:45 22:52 Temp 97.0 98.6 97.7 97.0 98.6 97.7 Pulse 101 84 88 Resp 18 22 24 B/P (MAP) 102/73 (83) 143/76 (98) 124/80 (95) Pulse Ox 90 93 90 O2 Delivery Nasal Cannula Nasal Cannula Nasal Cannula Nasal Cannula O2 Flow Rate 8.0 10.0 8.0 10.0 04/12/21 04/12/21 04/12/21 04/12/21 03:00 07:00 07:40 09:00 Temp 98.6 99.9 98.6 99.9 Pulse 90 111 111 Resp 18 18 B/P (MAP) 128/70 (89) 122/106 (111) 122/106 Pulse Ox 92 90 O2 Delivery Nasal Cannula Nasal Cannula Non-Rebreather O2 Flow Rate 10.0 10.0 15.0 Intake and Output 04/11/21 04/11/21 04/12/21 15:00 23:00 07:00 Intake Total 480 ml 0 ml 0 ml Output Total 400 ml Balance 80 ml 0 ml 0 ml Justicifation of Admission Dx: Justifications for Admission: Justification of Admission Dx: Yes Sepsis: Hypoxemia YULIET DE SOUZA MD Apr 12, 2021 10:55
[2021-04-12] MEDS: ACETAMINOPHEN 650 MG SUPP.RECT. PR PRN (11:20)
[2021-04-12] MEDS: REMDESIVIR 100mg in NORMAL SALINE 250ML X 4 DAYS IV SCH (15:04)
[2021-04-12] MEDS ORDERED: POTASSIUM CHLORIDE 20 MEQ TABLET.ER. PO ONE (17:00)
[2021-04-13 04:34] LABS: BASO % 0 % (0-3); EOS % 0 % (0-3); HEMATOCRIT 39.8 % (39.0-53.0); HEMOGLOBIN 13.6 g/dL (13.0-17.5); LYMPH # 0.5 x10^3/uL (1.0-4.8); LYMPH % 6 % (24-48); MEAN CORPUSCULAR HEMOGLOBIN 34 pg (25-35); MEAN CORPUSCULAR HGB CONC 34 g/dL (31-37); MEAN CORPUSCULAR VOLUME 100 fL (79-100); MONO # 0.7 x10^3/uL (0.0-1.1); MONO % 7 % (0-9); NEUT # 8.1 x10^3/uL (1.8-7.7); NEUT % 87 % (31-73); PLATELET COUNT 190 x10^3/uL (140-400); RED BLOOD COUNT 3.97 x10^6/uL (4.30-5.70); WHITE BLOOD COUNT 9.3 x10^3/uL (4.0-11.0)
[2021-04-13 05:06] LABS: ALBUMIN 1.9 g/dL (3.4-5.0); ALBUMIN/GLOBULIN RATIO 0.5 (1.0-1.7); CALCIUM 7.8 mg/dL (8.5-10.1); GFR 73.9; POTASSIUM 3.6 mmol/L (3.5-5.1); TOTAL BILIRUBIN 1.1 mg/dL (0.2-1.0)
[2021-04-13 06:30] VITALS: BP 152/85
[2021-04-13] MEDS: HEPARIN for SUB-Q USE 5,000 UNIT/ML VIAL. SQ SCH ×3 (06:30→22:00)
[2021-04-13] MEDS: POTASSIUM CHLORIDE 20 MEQ TABLET.ER. PO SCH (08:00)
--- NOTE | 2021-04-13 08:08 | RAD ---
XR CHEST 1V INDICATION: PNEUMONIA 664 . COMPARISON STUDY: 04/09/2021. FINDINGS: Lungs: Low lung volume. Progression of bilateral perihilar and basilar opacities. Pleura: No pleural effusion or pneumothorax. Heart and Mediastinum: Stable cardiomediastinal silhouette and great vessels. Bones and Soft Tissues: Stable regional skeleton and soft tissues. IMPRESSION: Progression of bilateral perihilar and basilar. Electronically signed by: Zachary Osorio MD (04/13/2021 8:06 AM) [facility]ENTERMadelyn
[2021-04-13] MEDS: DEXAMETHASONE SOD PHOS 4 MG/ML VIAL IVP SCH (08:16)
--- NOTE | 2021-04-13 08:54 | PDOC ---
PULMONARY PROGRESS NOTES DATE: 04/13/21 TIME: 08:52 Subjective on nrb 15 and nc 6lpm confused ativan given for alcohol withdrawal Vitals Vital Signs Date Time Temp Pulse Resp B/P (MAP) Pulse Ox O2 Delivery O2 Flow Rate FiO2 04/13/21 08:16 120 152/85 04/13/21 06:30 100.5 22 96 NonRebreather Mask 15.0 100.5 Comments Visual exam done due to COVID-19. confused NCAT RRR tachypneac no skin rash no leg edema. Labs Laboratory Tests Test 04/11/21 11:00 04/11/21 12:40 04/12/21 16:50 04/13/21 04:00 Prothrombin Time 14.4 SEC (11.7-14.0) Prothromb Time International Ratio 1.1 (0.8-1.1) Ammonia 12 mcmol/L (11-34) Urine Collection Type Unknown Urine Color Anna Urine Clarity Clear Urine pH 6.0 (<5.0-8.0) Urine Specific [place] 1.025 (1.000-1.030) Urine Protein 30 mg/dL (NEG-TRACE) Urine Glucose (UA) Negative mg/dL (NEG) Urine Ketones (Stick) Negative mg/dL (NEG) Urine Blood Negative (NEG) Urine Nitrite Negative (NEG) Urine Bilirubin Negative (NEG) Urine Urobilinogen Dipstick 4.0 mg/dL (0.2 mg/dL) Urine Leukocyte Esterase Negative (NEG) Urine RBC 3-5 /HPF (0-2) Urine WBC 0 /HPF (0-4) Urine Squamous Epithelial Cells Few /LPF Urine Bacteria 0 /HPF (0-FEW) Urine Opiates Screen Neg (NEG) Urine Methadone Screen Neg (NEG) Urine Barbiturates Neg (NEG) Urine Phencyclidine Screen Neg (NEG) Urine Amphetamine/Methamphetamine Neg (NEG) Urine Benzodiazepines Screen Neg (NEG) Urine Cocaine Screen Neg (NEG) Urine Cannabinoids Screen Neg (NEG) Urine Ethyl Alcohol Neg (NEG) Ionized Calcium 1.09 mmol/L (1.13-1.32) Hepatitis A IgM Antibody Nonreactive (Nonreactive) Hepatitis B Surface Antigen Nonreactive (Nonreactive) Hepatitis B Core IgM Antibody Nonreactive (Nonreactive) Hepatitis C IgG Antibody Nonreactive (Nonreactive) White Blood Count 9.3 x10^3/uL (4.0-11.0) Red Blood Count 3.97 x10^6/uL (4.30-5.70) Hemoglobin 13.6 g/dL (13.0-17.5) Hematocrit 39.8 % (39.0-53.0) Mean Corpuscular Volume 100 fL (79-100) Mean Corpuscular Hemoglobin 34 pg (25-35) Mean Corpuscular Hemoglobin Concent 34 g/dL (31-37) Red Cell Distribution Width 15.0 % (11.5-14.5) Platelet Count 190 x10^3/uL (140-400) Neutrophils (%) (Auto) 87 % (31-73) Lymphocytes (%) (Auto) 6 % (24-48) Monocytes (%) (Auto) 7 % (0-9) Eosinophils (%) (Auto) 0 % (0-3) Basophils (%) (Auto) 0 % (0-3) Neutrophils # (Auto) 8.1 x10^3/uL (1.8-7.7) Lymphocytes # (Auto) 0.5 x10^3/uL (1.0-4.8) Monocytes # (Auto) 0.7 x10^3/uL (0.0-1.1) Eosinophils # (Auto) 0.0 x10^3/uL (0.0-0.7) Basophils # (Auto) 0.0 x10^3/uL (0.0-0.2) Sodium Level 148 mmol/L (136-145) Potassium Level 3.6 mmol/L (3.5-5.1) Chloride Level 114 mmol/L (98-107) Carbon Dioxide Level 26 mmol/L (21-32) Anion Gap 8 (6-14) Blood Urea Nitrogen 25 mg/dL (8-26) Creatinine 1.0 mg/dL (0.7-1.3) Estimated GFR (Cockcroft-Gault) 73.9 BUN/Creatinine Ratio 25 (6-20) Glucose Level 92 mg/dL (70-99) Calcium Level 7.8 mg/dL (8.5-10.1) Ferritin 1451 ng/mL (26-388) Total Bilirubin 1.1 mg/dL (0.2-1.0) Aspartate Amino Transf (AST/SGOT) 128 U/L (15-37) Alanine Aminotransferase (ALT/SGPT) 92 U/L (16-63) Alkaline Phosphatase 50 U/L (46-116) Creatine Kinase 462 U/L (39-308) Total Protein 6.0 g/dL (6.4-8.2) Albumin 1.9 g/dL (3.4-5.0) Albumin/Globulin Ratio 0.5 (1.0-1.7) Laboratory Tests Test 04/12/21 16:50 04/13/21 04:00 Ionized Calcium 1.09 mmol/L (1.13-1.32) Hepatitis A IgM Antibody Nonreactive (Nonreactive) Hepatitis B Surface Antigen Nonreactive (Nonreactive) Hepatitis B Core IgM Antibody Nonreactive (Nonreactive) Hepatitis C IgG Antibody Nonreactive (Nonreactive) White Blood Count 9.3 x10^3/uL (4.0-11.0) Red Blood Count 3.97 x10^6/uL (4.30-5.70) Hemoglobin 13.6 g/dL (13.0-17.5) Hematocrit 39.8 % (39.0-53.0) Mean Corpuscular Volume 100 fL (79-100) Mean Corpuscular Hemoglobin 34 pg (25-35) Mean Corpuscular Hemoglobin Concent 34 g/dL (31-37) Red Cell Distribution Width 15.0 % (11.5-14.5) Platelet Count 190 x10^3/uL (140-400) Neutrophils (%) (Auto) 87 % (31-73) Lymphocytes (%) (Auto) 6 % (24-48) Monocytes (%) (Auto) 7 % (0-9) Eosinophils (%) (Auto) 0 % (0-3) Basophils (%) (Auto) 0 % (0-3) Neutrophils # (Auto) 8.1 x10^3/uL (1.8-7.7) Lymphocytes # (Auto) 0.5 x10^3/uL (1.0-4.8) Monocytes # (Auto) 0.7 x10^3/uL (0.0-1.1) Eosinophils # (Auto) 0.0 x10^3/uL (0.0-0.7) Basophils # (Auto) 0.0 x10^3/uL (0.0-0.2) Sodium Level 148 mmol/L (136-145) Potassium Level 3.6 mmol/L (3.5-5.1) Chloride Level 114 mmol/L (98-107) Carbon Dioxide Level 26 mmol/L (21-32) Anion Gap 8 (6-14) Blood Urea Nitrogen 25 mg/dL (8-26) Creatinine 1.0 mg/dL (0.7-1.3) Estimated GFR (Cockcroft-Gault) 73.9 BUN/Creatinine Ratio 25 (6-20) Glucose Level 92 mg/dL (70-99) Calcium Level 7.8 mg/dL (8.5-10.1) Ferritin 1451 ng/mL (26-388) Total Bilirubin 1.1 mg/dL (0.2-1.0) Aspartate Amino Transf (AST/SGOT) 128 U/L (15-37) Alanine Aminotransferase (ALT/SGPT) 92 U/L (16-63) Alkaline Phosphatase 50 U/L (46-116) Creatine Kinase 462 U/L (39-308) Total Protein 6.0 g/dL (6.4-8.2) Albumin 1.9 g/dL (3.4-5.0) Albumin/Globulin Ratio 0.5 (1.0-1.7) Medications Active Scripts Medications Dose Route/Sig Max Daily Dose Days Date Category Hydrochlorothiazide 25 Mg Tablet 25 Mg PO 1X 04/10/21 Reported Atorvastatin Calcium 20 Mg Tablet 20 Mg PO HS 04/10/21 Reported Metoprolol Succinate ( Xl ) (Metoprolol Succinate) 25 Mg Tab.er.24h 25 Mg PO 3X/WEEK 04/10/21 Reported Aspirin 81 Mg Tab.chew 81 Mg PO DAILY 04/10/21 Reported Impression . 1. Acute hypoxic respiratory failure secondary to COVID-19 viral pneumonia and acute lung injury. 2. Abnormal chest x-ray with faint bilateral hazy opacities consistent with viral pneumonia. 3. Rhabdomyolysis, currently being hydrated and clinically improving. 4. Markedly elevated LFTs secondary to combination of COVID-19 viral pneumonia and rhabdomyolysis. Improving. 5. Mildly increased troponin level. 6. Lactic acidosis, which is now improving as well. 7. Underlying COPD. The patient smoked for 31 years before quitting. Plan . 1. Continue with present oxygen, keep saturations 90% confused tachypneac will start bipap alcohol withdrawal precaution 2. Follow complete remdesivir course. 3. Continue steroids with gradual tapering for a total of 10 days. 4. Empiric antibiotics. 5. Continue hydration and follow renal function as well as liver function test and CPKs. ck coming down 6. Heparin for DVT prophylaxis. 7. Continue isolation for COVID-19. 8. Discussed with RN. We will follow along with you. RONAK BRICEÑO MD Apr 13, 2021 08:54
[2021-04-13] MEDS: ZINC SULFATE 220 MG CAPSULE. PO SCH (09:00)
[2021-04-13] MEDS: THIAMINE 100 MG TABLET. PO SCH (09:00)
[2021-04-13] MEDS: METOPROLOL SUCC 24HR ER 25 MG TAB.ER.24H. PO SCH (09:00)
[2021-04-13] MEDS: FOLIC ACID 1 MG TABLET. PO SCH (09:00)
[2021-04-13] MEDS: ASPIRIN CHEWABLE 81 MG TABLET. PO SCH (09:00)
[2021-04-13] MEDS: MULTIVITAMIN with MINERAL TABLET. PO SCH (09:00)
[2021-04-13] MEDS: LACTOBACILLUS RHAMNOSUS GG 1 CAPSULE. PO SCH ×2 (09:00→20:31)
--- NOTE | 2021-04-13 09:21 | PDOC ---
PROGRESS NOTES Date of Service DATE: 04/13/21 TIME: 09:20 Subjective Subjective Patient noted to be on my list. No formal consult has been called yet. It appears a consult was put in yesterday by Dr. Kim for rhabdomyolysis. Labs from 820 did show a CPK of 2842 however today his CPK is down to 462. Creatinine is 0.9-1.0. Rhabdomyolysis appears to have resolved and hence no formal consult was done. Please call if you would like us to see the patient. Objective Objective Vital Signs Date Time Temp Pulse Resp B/P (MAP) Pulse Ox O2 Delivery O2 Flow Rate FiO2 04/13/21 08:16 120 152/85 04/13/21 06:30 100.5 22 96 NonRebreather Mask 15.0 100.5 Intake and Output 04/13/21 07:00 Intake Total 0 ml Balance 0 ml Intake Oral 0 ml # Voids 8 # Bowel Movements 1 Assessment Assessment Problems Medical Problems: (1) Acute kidney injury Status: Acute (2) Altered mental status Status: Acute (3) Community acquired pneumonia Status: Acute (4) COVID-19 virus infection Status: Acute (5) Elevated lactic acid level Status: Acute (6) Elevated troponin I level Status: Acute Comment Review of Relevant I have reviewed the following items pinky (where applicable) has been applied. Labs Laboratory Tests Test 04/11/21 11:00 04/11/21 12:40 04/12/21 16:50 04/13/21 04:00 Prothrombin Time 14.4 SEC (11.7-14.0) Prothromb Time International Ratio 1.1 (0.8-1.1) Ammonia 12 mcmol/L (11-34) Urine Collection Type Unknown Urine Color Anna Urine Clarity Clear Urine pH 6.0 (<5.0-8.0) Urine Specific [place] 1.025 (1.000-1.030) Urine Protein 30 mg/dL (NEG-TRACE) Urine Glucose (UA) Negative mg/dL (NEG) Urine Ketones (Stick) Negative mg/dL (NEG) Urine Blood Negative (NEG) Urine Nitrite Negative (NEG) Urine Bilirubin Negative (NEG) Urine Urobilinogen Dipstick 4.0 mg/dL (0.2 mg/dL) Urine Leukocyte Esterase Negative (NEG) Urine RBC 3-5 /HPF (0-2) Urine WBC 0 /HPF (0-4) Urine Squamous Epithelial Cells Few /LPF Urine Bacteria 0 /HPF (0-FEW) Urine Opiates Screen Neg (NEG) Urine Methadone Screen Neg (NEG) Urine Barbiturates Neg (NEG) Urine Phencyclidine Screen Neg (NEG) Urine Amphetamine/Methamphetamine Neg (NEG) Urine Benzodiazepines Screen Neg (NEG) Urine Cocaine Screen Neg (NEG) Urine Cannabinoids Screen Neg (NEG) Urine Ethyl Alcohol Neg (NEG) Ionized Calcium 1.09 mmol/L (1.13-1.32) Hepatitis A IgM Antibody Nonreactive (Nonreactive) Hepatitis B Surface Antigen Nonreactive (Nonreactive) Hepatitis B Core IgM Antibody Nonreactive (Nonreactive) Hepatitis C IgG Antibody Nonreactive (Nonreactive) White Blood Count 9.3 x10^3/uL (4.0-11.0) Red Blood Count 3.97 x10^6/uL (4.30-5.70) Hemoglobin 13.6 g/dL (13.0-17.5) Hematocrit 39.8 % (39.0-53.0) Mean Corpuscular Volume 100 fL (79-100) Mean Corpuscular Hemoglobin 34 pg (25-35) Mean Corpuscular Hemoglobin Concent 34 g/dL (31-37) Red Cell Distribution Width 15.0 % (11.5-14.5) Platelet Count 190 x10^3/uL (140-400) Neutrophils (%) (Auto) 87 % (31-73) Lymphocytes (%) (Auto) 6 % (24-48) Monocytes (%) (Auto) 7 % (0-9) Eosinophils (%) (Auto) 0 % (0-3) Basophils (%) (Auto) 0 % (0-3) Neutrophils # (Auto) 8.1 x10^3/uL (1.8-7.7) Lymphocytes # (Auto) 0.5 x10^3/uL (1.0-4.8) Monocytes # (Auto) 0.7 x10^3/uL (0.0-1.1) Eosinophils # (Auto) 0.0 x10^3/uL (0.0-0.7) Basophils # (Auto) 0.0 x10^3/uL (0.0-0.2) Sodium Level 148 mmol/L (136-145) Potassium Level 3.6 mmol/L (3.5-5.1) Chloride Level 114 mmol/L (98-107) Carbon Dioxide Level 26 mmol/L (21-32) Anion Gap 8 (6-14) Blood Urea Nitrogen 25 mg/dL (8-26) Creatinine 1.0 mg/dL (0.7-1.3) Estimated GFR (Cockcroft-Gault) 73.9 BUN/Creatinine Ratio 25 (6-20) Glucose Level 92 mg/dL (70-99) Calcium Level 7.8 mg/dL (8.5-10.1) Ferritin 1451 ng/mL (26-388) Total Bilirubin 1.1 mg/dL (0.2-1.0) Aspartate Amino Transf (AST/SGOT) 128 U/L (15-37) Alanine Aminotransferase (ALT/SGPT) 92 U/L (16-63) Alkaline Phosphatase 50 U/L (46-116) Creatine Kinase 462 U/L (39-308) Total Protein 6.0 g/dL (6.4-8.2) Albumin 1.9 g/dL (3.4-5.0) Albumin/Globulin Ratio 0.5 (1.0-1.7) Laboratory Tests Test 04/12/21 16:50 04/13/21 04:00 Ionized Calcium 1.09 mmol/L (1.13-1.32) Hepatitis A IgM Antibody Nonreactive (Nonreactive) Hepatitis B Surface Antigen Nonreactive (Nonreactive) Hepatitis B Core IgM Antibody Nonreactive (Nonreactive) Hepatitis C IgG Antibody Nonreactive (Nonreactive) White Blood Count 9.3 x10^3/uL (4.0-11.0) Red Blood Count 3.97 x10^6/uL (4.30-5.70) Hemoglobin 13.6 g/dL (13.0-17.5) Hematocrit 39.8 % (39.0-53.0) Mean Corpuscular Volume 100 fL (79-100) Mean Corpuscular Hemoglobin 34 pg (25-35) Mean Corpuscular Hemoglobin Concent 34 g/dL (31-37) Red Cell Distribution Width 15.0 % (11.5-14.5) Platelet Count 190 x10^3/uL (140-400) Neutrophils (%) (Auto) 87 % (31-73) Lymphocytes (%) (Auto) 6 % (24-48) Monocytes (%) (Auto) 7 % (0-9) Eosinophils (%) (Auto) 0 % (0-3) Basophils (%) (Auto) 0 % (0-3) Neutrophils # (Auto) 8.1 x10^3/uL (1.8-7.7) Lymphocytes # (Auto) 0.5 x10^3/uL (1.0-4.8) Monocytes # (Auto) 0.7 x10^3/uL (0.0-1.1) Eosinophils # (Auto) 0.0 x10^3/uL (0.0-0.7) Basophils # (Auto) 0.0 x10^3/uL (0.0-0.2) Sodium Level 148 mmol/L (136-145) Potassium Level 3.6 mmol/L (3.5-5.1) Chloride Level 114 mmol/L (98-107) Carbon Dioxide Level 26 mmol/L (21-32) Anion Gap 8 (6-14) Blood Urea Nitrogen 25 mg/dL (8-26) Creatinine 1.0 mg/dL (0.7-1.3) Estimated GFR (Cockcroft-Gault) 73.9 BUN/Creatinine Ratio 25 (6-20) Glucose Level 92 mg/dL (70-99) Calcium Level 7.8 mg/dL (8.5-10.1) Ferritin 1451 ng/mL (26-388) Total Bilirubin 1.1 mg/dL (0.2-1.0) Aspartate Amino Transf (AST/SGOT) 128 U/L (15-37) Alanine Aminotransferase (ALT/SGPT) 92 U/L (16-63) Alkaline Phosphatase 50 U/L (46-116) Creatine Kinase 462 U/L (39-308) Total Protein 6.0 g/dL (6.4-8.2) Albumin 1.9 g/dL (3.4-5.0) Albumin/Globulin Ratio 0.5 (1.0-1.7) Microbiology 04/09/21 Blood Culture - Preliminary, Resulted NO GROWTH AFTER 3 DAYS Medications Current Medications Sodium Chloride 1,000 ml @ 1,000 mls/hr 1X ONCE IV Last administered on 04/09/21at 10:10; Start 04/09/21 at 10:15; Stop 04/09/21 at 11:14; Status DC Sodium Chloride 1,000 ml @ 2,850 mls/hr Q22M IV Last administered on 04/09/21at 11:29; Start 04/09/21 at 10:45; Stop 04/09/21 at 11:45; Status DC Ceftriaxone Sodium (Rocephin) 1 gm 1X ONCE IVP Last administered on 04/09/21at 11:33; Start 04/09/21 at 10:45; Stop 04/09/21 at 10:46; Status DC Doxycycline Hyclate 100 mg/ Dextrose 100 ml @ 50 mls/hr 1X ONCE IV Last administered on 04/09/21at 11:32; Start 04/09/21 at 11:00; Stop 04/09/21 at 12:59; Status DC Olanzapine (ZyPREXA ZYDIS) 5 mg PRN BID PRN PO ANXIETY / AGITATION Last administered on 04/11/21at 10:36; Start 04/09/21 at 15:00 Ondansetron HCl (Zofran) 4 mg PRN Q4HRS PRN IVP NAUSEA/VOMITING; Start 04/09/21 at 15:00 Tramadol HCl (Ultram) 50 mg PRN Q6HRS PRN PO MODERATE - SEVERE PAIN; Start 04/09/21 at 15:00 Guaifenesin (Robitussin Dm) 10 ml PRN Q6HRS PRN PO COUGH; Start 04/09/21 at 15:00 Acetaminophen (Tylenol) 650 mg PRN Q6HRS PRN PO MILD PAIN / TEMP > 100.3'F; Start 04/09/21 at 15:00 Fentanyl Citrate (Fentanyl 2ml Vial) 25 mcg PRN Q3HRS PRN IVP SEVERE PAIN 7-10; Start 04/09/21 at 15:00 Heparin Sodium (Porcine) (Heparin Sodium) 5,000 unit Q8HRS SQ Last administered on 04/13/21at 06:30; Start 04/09/21 at 15:30 Zinc Sulfate (Orazinc) 220 mg DAILY PO Last administered on 04/11/21at 10:36; Start 04/09/21 at 15:00 Thiamine Mononitrate (Vitamin B-1) 100 mg DAILY PO Last administered on 04/11/21at 10:36; Start 04/09/21 at 15:00 Dexamethasone Sodium Phosphate (Decadron) 6 mg DAILY IVP Last administered on 04/13/21at 08:16; Start 04/09/21 at 15:30 Remdesivir 200 mg/ Sodium Chloride 210 ml @ 210 mls/hr 1X ONCE IV Last administered on 04/09/21at 19:00; Start 04/09/21 at 16:00; Stop 04/09/21 at 16:59; Status DC Remdesivir 100 mg/ Sodium Chloride 230 ml @ 460 mls/hr Q24H IV Last administered on 04/12/21at 15:04; Start 04/10/21 at 16:00; Stop 04/13/21 at 16:29 Acetaminophen (Tylenol Supp) 650 mg PRN Q6HRS PRN RI MILD PAIN / TEMP > 100.3'F Last administered on 04/12/21at 11:20; Start 04/09/21 at 20:15 Sodium Chloride 1,000 ml @ 100 mls/hr Q10H IV Last administered on 04/10/21at 05:59; Start 04/09/21 at 20:30; Stop 04/10/21 at 13:47; Status DC Ceftriaxone Sodium (Rocephin) 1 gm Q24H IVP Last administered on 04/12/21at 09:08; Start 04/10/21 at 10:15 Doxycycline Hyclate 100 mg/ Dextrose 100 ml @ 50 mls/hr Q12HR IV Last administered on 04/12/21at 21:21; Start 04/10/21 at 09:00 Lactobacillus Rhamnosus (Culturelle) 1 cap BID PO Last administered on 04/11/21at 21:34; Start 04/10/21 at 09:00 Sodium Chloride 1,000 ml @ 75 mls/hr [id number] IV Last administered on 04/12/21at 21:20; Start 04/10/21 at 14:00 Potassium Chloride (Klor-Con) 40 meq 1X ONCE PO Last administered on 04/10/21at 14:20; Start 04/10/21 at 14:00; Stop 04/10/21 at 14:01; Status DC Potassium Chloride (Klor-Con) 20 meq [id number] PO Last administered on 04/11/21at 10:36; Start 04/11/21 at 08:00 Aspirin (Aspirin Chewable) 81 mg DAILY PO Last administered on 04/11/21at 10:36; Start 04/11/21 at 09:00 Metoprolol Succinate (Toprol Xl) 25 mg 3X/WEEK PO Last administered on 04/11/21at 10:37; Start 04/11/21 at 09:00; Stop 04/11/21 at 10:48; Status DC Metoprolol Tartrate (Lopressor Vial) 5 mg PRN Q6HRS PRN IVP PER PROTOCOL Last administered on 04/13/21at 08:16; Start 04/11/21 at 10:30 Potassium Chloride (Klor-Con) 40 meq 1X ONCE PO Last administered on 04/11/21at 12:29; Start 04/11/21 at 10:45; Stop 04/11/21 at 10:46; Status DC Metoprolol Succinate (Toprol Xl) 25 mg DAILY PO ; Start 04/12/21 at 09:00 Multivitamins (Thera M Plus) 1 tab DAILY PO Last administered on 04/11/21at 12:28; Start 04/11/21 at 12:00 Folic Acid (Folic Acid) 1 mg DAILY PO Last administered on 04/11/21at 12:29; Start 04/11/21 at 12:00 Thiamine Mononitrate (Vitamin B-1) 100 mg DAILY PO ; Start 04/16/21 at 09:00; Status UNV Lorazepam (Ativan) 4 mg PRN Q1HR PRN PO For CIWA 8-14; Start 04/11/21 at 11:45 Lorazepam (Ativan) 8 mg PRN Q1HR PRN PO For CIWA 15 or greater; Start 04/11/21 at 11:45 Lorazepam (Ativan Inj) 2 mg PRN Q1HR PRN IV For CIWA 8-14 Last administered on 04/13/21at 06:30; Start 04/11/21 at 11:45 Lorazepam (Ativan Inj) 4 mg PRN Q1HR PRN IV For CIWA 15 or greater; Start 04/11/21 at 11:45 Haloperidol Lactate (Haldol Inj) 5 mg PRN Q4HRS PRN IVP Hallucinatns,Confusn,Delirium; Start 04/11/21 at 11:45 Diphenhydramine HCl (Benadryl) 25 mg PRN Q15MIN PRN IVP EPS symptoms 2'Haldol admin; Start 04/11/21 at 11:45 Clonidine HCl (Catapres) 0.1 mg PRN Q1HR PRN PO SBP > 180 or DBP > 100, MRX3; Start 04/11/21 at 11:45 Lorazepam (Ativan Inj) 2 mg PRN Q15MIN PRN IV SEE COMMENTS; Start 04/11/21 at 11:45; Status UNV Lorazepam (Ativan Inj) 4 mg PRN Q15MIN PRN IV SEE COMMENTS; Start 04/11/21 at 11:45; Status UNV Potassium Chloride (Klor-Con) 20 meq 1X ONCE PO ; Start 04/12/21 at 17:00; Stop 04/12/21 at 17:38; Status DC Active Scripts Active Reported Hydrochlorothiazide 25 Mg Tablet 25 Mg PO 1X Atorvastatin Calcium 20 Mg Tablet 20 Mg PO HS Metoprolol Succinate ( Xl ) (Metoprolol Succinate) 25 Mg Tab.er.24h 25 Mg PO 3X/WEEK Aspirin 81 Mg Tab.chew 81 Mg PO DAILY Vitals/I & O Vital Sign - Last 24 Hours 04/12/21 04/12/21 04/12/21 04/12/21 11:00 15:00 19:00 19:20 Temp 100.9 97.9 98.1 100.9 97.9 98.1 Pulse 108 96 85 Resp 18 18 20 B/P (MAP) 128/70 (89) 122/73 (89) 110/77 (88) Pulse Ox 94 94 97 O2 Delivery Nasal Cannula Nasal Cannula nrb-10/6-nc Non-Rebreather O2 Flow Rate 10.0 10.0 8.0 04/12/21 04/12/21 04/13/21 04/13/21 23:00 23:08 06:30 08:16 Temp 98.2 98.2 100.5 98.2 98.2 100.5 Pulse 85 90 120 120 Resp 18 22 B/P (MAP) 140/77 (98) 140/81 (100) 152/85 (107) 152/85 Pulse Ox 98 95 96 O2 Delivery NonRebreather Mask NRB/NC 15L-6L NonRebreather Mask O2 Flow Rate 8.0 15.0 Intake and Output 04/12/21 04/12/2121 15:00 23:00 07:00 Intake Total 0 ml Balance 0 ml Justifications for Admission Other Justification NERY CAGLE MD Apr 13, 2021 09:21
--- NOTE | 2021-04-13 09:41 | NUR ---
Pt alert to self only and very drowsy. PO meds held by this RN for fear of aspiration. Pt not following commands. Pt breathing fast and shallow. Dr. Church at bedside. Advised we switch to bipap. RT paged and bipap set up. Will continue to monitor patient for withdraw symptoms. Bed alarm industrial education teacher light in reach. Will continue to monitor and follow plan of care.
[2021-04-13] MEDS: IV 1/2 NORMAL SALINE 1,000 ML IV SCH ×2 (10:19→22:03)
[2021-04-13] MEDS: cefTRIAXone IV Push 1 GM VIAL. IVP SCH (10:20)
[2021-04-13] MEDS: DOXYCYCLINE HYCLATE 100 MG in IV DEXTROSE 5% 100ML 100 ML IV SCH ×2 (10:20→20:30)
--- NOTE | 2021-04-13 10:47 | PDOC ---
PROGRESS NOTES Date of Service: DATE: 04/13/21 TIME: 10:44 Chief Complaint Chief Complaint VTE Prophylaxis Ordered VTE Prophylaxis Devices: No VTE Pharmacological Prophylaxi: Yes Assessment/Plan Assessment/Plan A/P: Acute encephalopathy - likely metabolic from hypoxia, rhabdomyolysis Acute hypoxic respiratory failure - likely due to COVID 19 pneumonia Elevated troponin I level - likely demand ischemia from hypoxia, will trend, monitor on tele Elevated lactic acid - likely due to hypoxia, sepsis from COVID 19 Sepsis - with COVID 19 will treat with IVF and remdesivir, this is clearly viral, no definite bacterial source Acute kidney injury - likely vasomotor nephropathy from rhabomyolysis, will monitor renal function Pneumonia - likely due to COVID 19 COVID-19 virus infection - remdesivir and steroids, supportive care, wean O2 as tolerated Rhabdomyolysis - will monitor CK, likely traumatic from falling Transaminitis - likely rhabdo and covid related, will hydrate CAD s/p CABG - reconcile home meds with pharmacy as and patient cannot recall HTN - restart home meds FEN - ADAT PPX - heparin FULL CODE Dispo - inpatient History of Present Illness History of Present Illness Identification/Chief Complaint Chief Complaint Acute encephalopathy Source Source: Caregiver, Chart review, Patient History of Present Illness History of Present Illness Mr Page is a 70 year old male with PMH HTN, HLD, CAD s/p CABG comes to ED via EMS after his called 911. Supervisor Stave Cutting reports patient was found on floor in bedroom by who thinks he may have been laying there for at least 5-6 hours. noted he has bee sick for the past 10 days and that she has also been sick with COVID 19 for 14 days. She is confused as well as the patient. Patient can only ask for food and water and is oriented to self only. His only recalls above PMHx, does not know his meds. EMS noted patient was 87% on room air, placed on 4L NCO2 Patient's chest x-ray concerning for immunity acquired pneumonia, elevated troponin I, elevated lactic acid level, white blood cell count within [place] [address], LFTs elevated, CR 1.9. Started on Rocephin 1 g IV along with 30 mL/kg normal saline IV fluid replacement. COVID-19 positive per rapid study. EKG sinus tachycardia 118 bpm, left axis deviation, LAFB, no ST segment or T- wave abnormalities Admitted for further care Past Medical History Cardiovascular: HTN, Hyperlipidemia Past Surgical History Past Surgical History: CABG Family History Family History: Family History Unknown Social History Smoke: No (unknown) ALCOHOL: other (unknown) Drugs: None Current Medications Current Medications Current Medications Sodium Chloride 1,000 ml @ 1,000 mls/hr 1X ONCE IV Last administered on 04/09/21at 10:10; Start 04/09/21 at 10:15; Stop 04/09/21 at 11:14 Sodium Chloride 1,000 ml @ 2,850 mls/hr Q22M IV ; Start 04/09/21 at 10:45; Stop 04/09/21 at 11:45 Ceftriaxone Sodium (Rocephin) 1 gm 1X ONCE IVP ; Start 04/09/21 at 10:45; Stop 04/09/21 at 10:46; Status DC Allergies Allergies: Coded Allergies: No Known Drug Allergies (Unverified , 04/09/21) ROS Review of System Unable to obtain due to obtunded mental status 04-11 alcoholism: admitted drinking rum Metabolic encephalopathy Arrhythmia: NSVT with associated triggers above including covid-19, possible ETOH Mild troponin elevation; peak 0.5. Most probably type II, demand ischemia secondary to above. denies angina CAD s/p remote CABG. Cath 2010 showed patent grafts as noted above. Echo 03/10 with preserved LV systolic function COVID 19 POS Pneumonia Acute encephalopathy - likely metabolic from hypoxia, rhabdomyolysis Acute hypoxic respiratory failure - likely due to COVID 19 pneumonia Elevated troponin I level - likely demand ischemia from hypoxia, will trend, monitor on tele Elevated lactic acid - likely due to hypoxia, sepsis from COVID 19 Sepsis - with COVID 19 will treat with IVF and remdesivir, this is clearly viral, no definite bacterial source Acute kidney injury - likely vasomotor nephropathy from rhabomyolysis, will monitor renal function Pneumonia - likely due to COVID 19 COVID-19 virus infection - remdesivir and steroids, supportive care, wean O2 as tolerated Rhabdomyolysis - will monitor CK, likely traumatic from falling Transaminitis - likely rhabdo and covid related, will hydrate CAD s/p CABG - reconcile home meds with pharmacy as and patient cannot recall HTN - restart home meds FEN - ADAT PPX - heparin FULL CODE Dispo - inpatient Abnormal chest x-ray with faint bilateral hazy opacities consistent with viral pneumonia. Rhabdomyolysis, currently being hydrated and clinically improving. Markedly elevated LFTs secondary to combination of COVID-19 viral pneumonia rhabdomyolysis. Mildly increased troponin level. [facility] protocol d/w rn 8-21 alcoholism: admitted drinking rum 2-4 drinks a day Metabolic encephalopathy Arrhythmia: NSVT with associated triggers above including covid-19, possible ETOH Mild troponin elevation; peak 0.5. Most probably type II, demand ischemia secondary to above. denies angina CAD s/p remote CABG. Cath 2010 showed patent grafts as noted above. Echo 03/10 with preserved LV systolic function COVID 19 POS Pneumonia Acute encephalopathy - likely metabolic from hypoxia, rhabdomyolysis Acute hypoxic respiratory failure - likely due to COVID 19 pneumonia Elevated troponin I level - likely demand ischemia from hypoxia, will trend, monitor on tele Elevated lactic acid - likely due to hypoxia, sepsis from COVID 19 Sepsis - with COVID 19 will treat with IVF and remdesivir, this is clearly viral, no definite bacterial source Acute kidney injury - likely vasomotor nephropathy from rhabomyolysis, will monitor renal function Pneumonia - likely due to COVID 19 COVID-19 virus infection - remdesivir and steroids, supportive care, wean O2 as tolerated Rhabdomyolysis - will monitor CK, likely traumatic from falling Transaminitis - likely rhabdo and covid related, will hydrate CAD s/p CABG - reconcile home meds with pharmacy as and patient cannot reca ll HTN - restart home meds FEN - ADAT PPX - heparin FULL CODE Dispo - inpatient Abnormal chest x-ray with faint bilateral hazy opacities consistent with viral pneumonia. Rhabdomyolysis, currently being hydrated and clinically improving. Markedly elevated LFTs secondary to combination of COVID-19 viral pneumonia rhabdomyolysis. Mildly increased troponin level. [facility] protocol d/w rn 8-22 alcoholism: admitted drinking rum 2-4 drinks a day Metabolic encephalopathy Arrhythmia: NSVT with associated triggers above including covid-19, possible ETOH Mild troponin elevation; peak 0.5. Most probably type II, demand ischemia secondary to above. denies angina CAD s/p remote CABG. Cath 2010 showed patent grafts as noted above. Echo 03/10 with preserved LV systolic function COVID 19 POS Pneumonia Acute encephalopathy - likely metabolic from hypoxia, rhabdomyolysis Acute hypoxic respiratory failure - likely due to COVID 19 pneumonia Elevated troponin I level - likely demand ischemia from hypoxia, will trend, monitor on tele Elevated lactic acid - likely due to hypoxia, sepsis from COVID 19 Sepsis - with COVID 19 will treat with IVF and remdesivir, this is clearly viral, no definite bacterial source Acute kidney injury - likely vasomotor nephropathy from rhabomyolysis, will monitor renal function Pneumonia - likely due to COVID 19 COVID-19 virus infection - remdesivir and steroids, supportive care, wean O2 as tolerated Rhabdomyolysis - will monitor CK, likely traumatic from falling Transaminitis - likely rhabdo and covid related, will hydrate CAD s/p CABG - reconcile home meds with pharmacy as and patient cannot recall HTN - restart home meds FEN - ADAT PPX - heparin FULL CODE Dispo - inpatient Abnormal chest x-ray with faint bilateral hazy opacities consistent with viral pneumonia. Rhabdomyolysis, currently being hydrated and clinically improving. Markedly elevated LFTs secondary to combination of COVID-19 viral pneumonia rhabdomyolysis. Mildly increased troponin level. CIWA protocol, thiamine, folic acid Small remote blowout fracture in the left medial orbital wall with herniation of extraconal fat into the fracture defect. NEUROLOGY Consult d/w rn 8-23 alcoholism: admitted drinking rum 2-4 drinks a day Metabolic encephalopathy Arrhythmia: NSVT with associated triggers above including covid-19, possible ETOH Mild troponin elevation; peak 0.5. Most probably type II, demand ischemia secondary to above. denies angina CAD s/p remote CABG. Cath 2010 showed patent grafts as noted above. Echo 03/10 with preserved LV systolic function COVID 19 POS Pneumonia Acute encephalopathy - likely metabolic from hypoxia, rhabdomyolysis Acute hypoxic respiratory failure - likely due to COVID 19 pneumonia Elevated troponin I level - likely demand ischemia from hypoxia, will trend, monitor on tele Elevated lactic acid - likely due to hypoxia, sepsis from COVID 19 Sepsis - with COVID 19 will treat with IVF and remdesivir, this is clearly viral, no definite bacterial source Acute kidney injury - likely vasomotor nephropathy from rhabomyolysis, will monitor renal function Pneumonia - likely due to COVID 19 COVID-19 virus infection - remdesivir and steroids, supportive care, wean O2 as tolerated Rhabdomyolysis - will monitor CK, likely traumatic from falling Transaminitis - likely rhabdo and covid related, will hydrate CAD s/p CABG - reconcile home meds with pharmacy as and patient cannot recall HTN - restart home meds FEN - ADAT PPX - heparin FULL CODE Dispo - inpatient Abnormal chest x-ray with faint bilateral hazy opacities consistent with viral pneumonia. Rhabdomyolysis, currently being hydrated and clinically improving. Markedly elevated LFTs secondary to combination of COVID-19 viral pneumonia rhabdomyolysis. Mildly increased troponin level. CIWA protocol, thiamine, folic acid Small remote blowout fracture in the left medial orbital wall with herniation of extraconal fat into the fracture defect. NEUROLOGY Consult STEVE TO ROSINA d/w rn Vitals Vitals Vital Signs Date Time Temp Pulse Resp B/P (MAP) Pulse Ox O2 Delivery O2 Flow Rate FiO2 04/13/21 09:00 120 152/85 04/13/21 06:30 100.5 22 96 NonRebreather Mask 15.0 100.5 Physical Exam Physical Exam General: Cooperative, moderate distress, Other (Confused) HEENT: Atraumatic, PERRLA, EOMI, Mucous membr. moist/pink Lungs: Other (bialteral crackles) Heart: S1S2, RRR, no thrills, no rubs, no gallops, no murmurs Abdomen: Normal bowel sounds, Soft, No tenderness, No hepatosplenomegaly, No masses Extremities: No clubbing, No cyanosis, No edema, Normal pulses, No tenderness/swelling Skin: No rashes, No breakdown, No significant lesion Neuro: Normal tone, Sensation intact, Cranial nerves 3-12 NL, Reflexes 2+ Psych/Mental Status: MORE AWAKE General: Alert, Cooperative, No acute distress, Other Heart: Regular rate Abdomen: Normal bowel sounds, Soft, No tenderness Extremities: No cyanosis, No edema Skin: No significant lesion Labs LABS PATIENT: KYLER PAGE ACCOUNT: [id number] : 1950 LOCATION: [address] [place] [address] AGE: 70 SEX: M EXAM STATUS: ADM IN ORD. PHYSICIAN: YULIET DE SOUZA MD REASON: PNEUMONIA 664 PROCEDURE: CHEST AP ONLY XR CHEST 1V INDICATION: PNEUMONIA 664 . COMPARISON STUDY: 04/09/2021. FINDINGS: Lungs: Low lung volume. Progression of bilateral perihilar and basilar opacities. Pleura: No pleural effusion or pneumothorax. Heart and Mediastinum: Stable cardiomediastinal silhouette and great vessels. Bones and Soft Tissues: Stable regional skeleton and soft tissues. IMPRESSION: Progression of bilateral perihilar and basilar. Electronically signed by: Jt Osorio MD (04/13/2021 8:06 AM) [facility] DICTATED and SIGNED BY: JT OSORIO MD DATE: 04/13/21 [id number] PATIENT: XAVIER PAGE ACCOUNT: [id number] : 1950 LOCATION: ER AGE: 70 SEX: M EXAM STATUS: PRE ER ORD. PHYSICIAN: NICOLE WILHELM APRN REASON: Altered mental status PROCEDURE: CT HEAD WO CONTRAST EXAMINATION: CT HEAD/BRAIN WO CLINICAL HISTORY: Altered mental status TECHNIQUE: Serial axial images without IV contrast were obtained from the vertex to the foramen magnum. CT Dose Reduction Employed: One or more of the following individualized dose reduction techniques were utilized for this examination: 1. Automated exposure control 2. Adjustment of the mA and/or kV according to patient size 3. Use of iterative reconstruction technique. COMPARISON: None FINDINGS: Acute Change: No evidence of an acute infarct or other acute parenchymal process. Hemorrhage: No evidence of acute intracranial hemorrhage. Mass Lesion/Mass Effect: No evidence of intracranial mass or extraaxial fluid collection. No significant mass effect. Chronic Change: Scattered patchy foci of hypoattenuation in the supratentorial white matter, nonspecific but likely represents mild microvascular ischemia. Atherosclerotic calcification of the anterior and posterior circulation. Parenchyma: Mild generalized volume loss. Ventricles: Ventricular enlargement concordant with degree of parenchymal volume loss. Paranasal Sinuses and Skull Base: Mild secretions in the ethmoid air cells. Minimal mucoperiosteal thickening and mild sclerosis of the sphenoid sinus nino, suggestive of history of chronic sinusitis. Small remote blowout fracture in the left medial orbital wall with herniation of extraconal fat into the fracture defect. Visualized skull base and soft tissues otherwise unremarkable. IMPRESSION: No evidence of acute intracranial abnormality. Mild chronic white matter microvascular ischemic changes. Small remote blowout fracture left medial orbital wall as described. Electronically signed by: Danny Martinez DO (04/09/2021 10:51 AM) [id number] DICTATED and SIGNED BY: DANNY MARTINEZ DO DATE: 04/09/21 [id number] Laboratory Tests Test 04/12/21 16:50 04/13/21 04:00 Ionized Calcium 1.09 mmol/L (1.13-1.32) Hepatitis A IgM Antibody Nonreactive (Nonreactive) Hepatitis B Surface Antigen Nonreactive (Nonreactive) Hepatitis B Core IgM Antibody Nonreactive (Nonreactive) Hepatitis C IgG Antibody Nonreactive (Nonreactive) White Blood Count 9.3 x10^3/uL (4.0-11.0) Red Blood Count 3.97 x10^6/uL (4.30-5.70) Hemoglobin 13.6 g/dL (13.0-17.5) Hematocrit 39.8 % (39.0-53.0) Mean Corpuscular Volume 100 fL (79-100) Mean Corpuscular Hemoglobin 34 pg (25-35) Mean Corpuscular Hemoglobin Concent 34 g/dL (31-37) Red Cell Distribution Width 15.0 % (11.5-14.5) Platelet Count 190 x10^3/uL (140-400) Neutrophils (%) (Auto) 87 % (31-73) Lymphocytes (%) (Auto) 6 % (24-48) Monocytes (%) (Auto) 7 % (0-9) Eosinophils (%) (Auto) 0 % (0-3) Basophils (%) (Auto) 0 % (0-3) Neutrophils # (Auto) 8.1 x10^3/uL (1.8-7.7) Lymphocytes # (Auto) 0.5 x10^3/uL (1.0-4.8) Monocytes # (Auto) 0.7 x10^3/uL (0.0-1.1) Eosinophils # (Auto) 0.0 x10^3/uL (0.0-0.7) Basophils # (Auto) 0.0 x10^3/uL (0.0-0.2) Sodium Level 148 mmol/L (136-145) Potassium Level 3.6 mmol/L (3.5-5.1) Chloride Level 114 mmol/L (98-107) Carbon Dioxide Level 26 mmol/L (21-32) Anion Gap 8 (6-14) Blood Urea Nitrogen 25 mg/dL (8-26) Creatinine 1.0 mg/dL (0.7-1.3) Estimated GFR (Cockcroft-Gault) 73.9 BUN/Creatinine Ratio 25 (6-20) Glucose Level 92 mg/dL (70-99) Calcium Level 7.8 mg/dL (8.5-10.1) Ferritin 1451 ng/mL (26-388) Total Bilirubin 1.1 mg/dL (0.2-1.0) Aspartate Amino Transf (AST/SGOT) 128 U/L (15-37) Alanine Aminotransferase (ALT/SGPT) 92 U/L (16-63) Alkaline Phosphatase 50 U/L (46-116) Creatine Kinase 462 U/L (39-308) Total Protein 6.0 g/dL (6.4-8.2) Albumin 1.9 g/dL (3.4-5.0) Albumin/Globulin Ratio 0.5 (1.0-1.7) Assessment and Plan Assessmemt and Plan Problems Medical Problems: (1) Acute kidney injury Status: Acute (2) Altered mental status Status: Acute (3) Community acquired pneumonia Status: Acute (4) COVID-19 virus infection Status: Acute (5) Elevated lactic acid level Status: Acute (6) Elevated troponin I level Status: Acute Comment Review of Relevant I have reviewed the following items pinky (where applicable) has been applied. Labs Laboratory Tests Test 04/11/21 11:00 04/11/21 12:40 04/12/21 16:50 04/13/21 04:00 Prothrombin Time 14.4 SEC (11.7-14.0) Prothromb Time International Ratio 1.1 (0.8-1.1) Ammonia 12 mcmol/L (11-34) Urine Collection Type Unknown Urine Color Anna Urine Clarity Clear Urine pH 6.0 (<5.0-8.0) Urine Specific [place] 1.025 (1.000-1.030) Urine Protein 30 mg/dL (NEG-TRACE) Urine Glucose (UA) Negative mg/dL (NEG) Urine Ketones (Stick) Negative mg/dL (NEG) Urine Blood Negative (NEG) Urine Nitrite Negative (NEG) Urine Bilirubin Negative (NEG) Urine Urobilinogen Dipstick 4.0 mg/dL (0.2 mg/dL) Urine Leukocyte Esterase Negative (NEG) Urine RBC 3-5 /HPF (0-2) Urine WBC 0 /HPF (0-4) Urine Squamous Epithelial Cells Few /LPF Urine Bacteria 0 /HPF (0-FEW) Urine Opiates Screen Neg (NEG) Urine Methadone Screen Neg (NEG) Urine Barbiturates Neg (NEG) Urine Phencyclidine Screen Neg (NEG) Urine Amphetamine/Methamphetamine Neg (NEG) Urine Benzodiazepines Screen Neg (NEG) Urine Cocaine Screen Neg (NEG) Urine Cannabinoids Screen Neg (NEG) Urine Ethyl Alcohol Neg (NEG) Ionized Calcium 1.09 mmol/L (1.13-1.32) Hepatitis A IgM Antibody Nonreactive (Nonreactive) Hepatitis B Surface Antigen Nonreactive (Nonreactive) Hepatitis B Core IgM Antibody Nonreactive (Nonreactive) Hepatitis C IgG Antibody Nonreactive (Nonreactive) White Blood Count 9.3 x10^3/uL (4.0-11.0) Red Blood Count 3.97 x10^6/uL (4.30-5.70) Hemoglobin 13.6 g/dL (13.0-17.5) Hematocrit 39.8 % (39.0-53.0) Mean Corpuscular Volume 100 fL (79-100) Mean Corpuscular Hemoglobin 34 pg (25-35) Mean Corpuscular Hemoglobin Concent 34 g/dL (31-37) Red Cell Distribution Width 15.0 % (11.5-14.5) Platelet Count 190 x10^3/uL (140-400) Neutrophils (%) (Auto) 87 % (31-73) Lymphocytes (%) (Auto) 6 % (24-48) Monocytes (%) (Auto) 7 % (0-9) Eosinophils (%) (Auto) 0 % (0-3) Basophils (%) (Auto) 0 % (0-3) Neutrophils # (Auto) 8.1 x10^3/uL (1.8-7.7) Lymphocytes # (Auto) 0.5 x10^3/uL (1.0-4.8) Monocytes # (Auto) 0.7 x10^3/uL (0.0-1.1) Eosinophils # (Auto) 0.0 x10^3/uL (0.0-0.7) Basophils # (Auto) 0.0 x10^3/uL (0.0-0.2) Sodium Level 148 mmol/L (136-145) Potassium Level 3.6 mmol/L (3.5-5.1) Chloride Level 114 mmol/L (98-107) Carbon Dioxide Level 26 mmol/L (21-32) Anion Gap 8 (6-14) Blood Urea Nitrogen 25 mg/dL (8-26) Creatinine 1.0 mg/dL (0.7-1.3) Estimated GFR (Cockcroft-Gault) 73.9 BUN/Creatinine Ratio 25 (6-20) Glucose Level 92 mg/dL (70-99) Calcium Level 7.8 mg/dL (8.5-10.1) Ferritin 1451 ng/mL (26-388) Total Bilirubin 1.1 mg/dL (0.2-1.0) Aspartate Amino Transf (AST/SGOT) 128 U/L (15-37) Alanine Aminotransferase (ALT/SGPT) 92 U/L (16-63) Alkaline Phosphatase 50 U/L (46-116) Creatine Kinase 462 U/L (39-308) Total Protein 6.0 g/dL (6.4-8.2) Albumin 1.9 g/dL (3.4-5.0) Albumin/Globulin Ratio 0.5 (1.0-1.7) Laboratory Tests Test 04/12/21 16:50 04/13/21 04:00 Ionized Calcium 1.09 mmol/L (1.13-1.32) Hepatitis A IgM Antibody Nonreactive (Nonreactive) Hepatitis B Surface Antigen Nonreactive (Nonreactive) Hepatitis B Core IgM Antibody Nonreactive (Nonreactive) Hepatitis C IgG Antibody Nonreactive (Nonreactive) White Blood Count 9.3 x10^3/uL (4.0-11.0) Red Blood Count 3.97 x10^6/uL (4.30-5.70) Hemoglobin 13.6 g/dL (13.0-17.5) Hematocrit 39.8 % (39.0-53.0) Mean Corpuscular Volume 100 fL (79-100) Mean Corpuscular Hemoglobin 34 pg (25-35) Mean Corpuscular Hemoglobin Concent 34 g/dL (31-37) Red Cell Distribution Width 15.0 % (11.5-14.5) Platelet Count 190 x10^3/uL (140-400) Neutrophils (%) (Auto) 87 % (31-73) Lymphocytes (%) (Auto) 6 % (24-48) Monocytes (%) (Auto) 7 % (0-9) Eosinophils (%) (Auto) 0 % (0-3) Basophils (%) (Auto) 0 % (0-3) Neutrophils # (Auto) 8.1 x10^3/uL (1.8-7.7) Lymphocytes # (Auto) 0.5 x10^3/uL (1.0-4.8) Monocytes # (Auto) 0.7 x10^3/uL (0.0-1.1) Eosinophils # (Auto) 0.0 x10^3/uL (0.0-0.7) Basophils # (Auto) 0.0 x10^3/uL (0.0-0.2) Sodium Level 148 mmol/L (136-145) Potassium Level 3.6 mmol/L (3.5-5.1) Chloride Level 114 mmol/L (98-107) Carbon Dioxide Level 26 mmol/L (21-32) Anion Gap 8 (6-14) Blood Urea Nitrogen 25 mg/dL (8-26) Creatinine 1.0 mg/dL (0.7-1.3) Estimated GFR (Cockcroft-Gault) 73.9 BUN/Creatinine Ratio 25 (6-20) Glucose Level 92 mg/dL (70-99) Calcium Level 7.8 mg/dL (8.5-10.1) Ferritin 1451 ng/mL (26-388) Total Bilirubin 1.1 mg/dL (0.2-1.0) Aspartate Amino Transf (AST/SGOT) 128 U/L (15-37) Alanine Aminotransferase (ALT/SGPT) 92 U/L (16-63) Alkaline Phosphatase 50 U/L (46-116) Creatine Kinase 462 U/L (39-308) Total Protein 6.0 g/dL (6.4-8.2) Albumin 1.9 g/dL (3.4-5.0) Albumin/Globulin Ratio 0.5 (1.0-1.7) Microbiology 04/09/21 Blood Culture - Preliminary, Resulted NO GROWTH AFTER 4 DAYS Medications Current Medications Sodium Chloride 1,000 ml @ 1,000 mls/hr 1X ONCE IV Last administered on 04/09/21at 10:10; Start 04/09/21 at 10:15; Stop 04/09/21 at 11:14; Status DC Sodium Chloride 1,000 ml @ 2,850 mls/hr Q22M IV Last administered on 04/09/21at 11:29; Start 04/09/21 at 10:45; Stop 04/09/21 at 11:45; Status DC Ceftriaxone Sodium (Rocephin) 1 gm 1X ONCE IVP Last administered on 04/09/21at 11:33; Start 04/09/21 at 10:45; Stop 04/09/21 at 10:46; Status DC Doxycycline Hyclate 100 mg/ Dextrose 100 ml @ 50 mls/hr 1X ONCE IV Last administered on 04/09/21at 11:32; Start 04/09/21 at 11:00; Stop 04/09/21 at 12:59; Status DC Olanzapine (ZyPREXA ZYDIS) 5 mg PRN BID PRN PO ANXIETY / AGITATION Last administered on 04/11/21at 10:36; Start 04/09/21 at 15:00 Ondansetron HCl (Zofran) 4 mg PRN Q4HRS PRN IVP NAUSEA/VOMITING; Start 04/09/21 at 15:00 Tramadol HCl (Ultram) 50 mg PRN Q6HRS PRN PO MODERATE - SEVERE PAIN; Start 04/09/21 at 15:00 Guaifenesin (Robitussin Dm) 10 ml PRN Q6HRS PRN PO COUGH; Start 04/09/21 at 15:00 Acetaminophen (Tylenol) 650 mg PRN Q6HRS PRN PO MILD PAIN / TEMP > 100.3'F; Start 04/09/21 at 15:00 Fentanyl Citrate (Fentanyl 2ml Vial) 25 mcg PRN Q3HRS PRN IVP SEVERE PAIN 7-10; Start 04/09/21 at 15:00 Heparin Sodium (Porcine) (Heparin Sodium) 5,000 unit Q8HRS SQ Last administered on 04/13/21at 06:30; Start 04/09/21 at 15:30 Zinc Sulfate (Orazinc) 220 mg DAILY PO Last administered on 04/11/21at 10:36; Start 04/09/21 at 15:00 Thiamine Mononitrate (Vitamin B-1) 100 mg DAILY PO Last administered on 04/11/21at 10:36; Start 04/09/21 at 15:00 Dexamethasone Sodium Phosphate (Decadron) 6 mg DAILY IVP Last administered on 04/13/21at 08:16; Start 04/09/21 at 15:30 Remdesivir 200 mg/ Sodium Chloride 210 ml @ 210 mls/hr 1X ONCE IV Last administered on 04/09/21at 19:00; Start 04/09/21 at 16:00; Stop 04/09/21 at 16:59; Status DC Remdesivir 100 mg/ Sodium Chloride 230 ml @ 460 mls/hr Q24H IV Last administered on 04/12/21at 15:04; Start 04/10/21 at 16:00; Stop 04/13/21 at 16:29 Acetaminophen (Tylenol Supp) 650 mg PRN Q6HRS PRN [place] MILD PAIN / TEMP > 100.3'F Last administered on 04/12/21at 11:20; Start 04/09/21 at 20:15 Sodium Chloride 1,000 ml @ 100 mls/hr Q10H IV Last administered on 04/10/21at 05:59; Start 04/09/21 at 20:30; Stop 04/10/21 at 13:47; Status DC Ceftriaxone Sodium (Rocephin) 1 gm Q24H IVP Last administered on 04/13/21at 10:20; Start 04/10/21 at 10:15 Doxycycline Hyclate 100 mg/ Dextrose 100 ml @ 50 mls/hr Q12HR IV Last administered on 04/13/21at 10:20; Start 04/10/21 at 09:00 Lactobacillus Rhamnosus (Culturelle) 1 cap BID PO Last administered on 04/11/21at 21:34; Start 04/10/21 at 09:00 Sodium Chloride 1,000 ml @ 75 mls/hr [id number] IV Last administered on 04/13/21at 10:19; Start 04/10/21 at 14:00 Potassium Chloride (Klor-Con) 40 meq 1X ONCE PO Last administered on 04/10/21at 14:20; Start 04/10/21 at 14:00; Stop 04/10/21 at 14:01; Status DC Potassium Chloride (Klor-Con) 20 meq [id number] PO Last administered on 04/11/21at 10:36; Start 04/11/21 at 08:00 Aspirin (Aspirin Chewable) 81 mg DAILY PO Last administered on 04/11/21at 10:36; Start 04/11/21 at 09:00 Metoprolol Succinate (Toprol Xl) 25 mg 3X/WEEK PO Last administered on 04/11/21at 10:37; Start 04/11/21 at 09:00; Stop 04/11/21 at 10:48; Status DC Metoprolol Tartrate (Lopressor Vial) 5 mg PRN Q6HRS PRN IVP PER PROTOCOL Last administered on 04/13/21at 08:16; Start 04/11/21 at 10:30 Potassium Chloride (Klor-Con) 40 meq 1X ONCE PO Last administered on 04/11/21at 12:29; Start 04/11/21 at 10:45; Stop 04/11/21 at 10:46; Status DC Metoprolol Succinate (Toprol Xl) 25 mg DAILY PO ; Start 04/12/21 at 09:00 Multivitamins (Thera M Plus) 1 tab DAILY PO Last administered on 04/11/21at 12:28; Start 04/11/21 at 12:00 Folic Acid (Folic Acid) 1 mg DAILY PO Last administered on 04/11/21at 12:29; Start 04/11/21 at 12:00 Thiamine Mononitrate (Vitamin B-1) 100 mg DAILY PO ; Start 04/16/21 at 09:00; Status UNV Lorazepam (Ativan) 4 mg PRN Q1HR PRN PO For CIWA 8-14; Start 04/11/21 at 11:45 Lorazepam (Ativan) 8 mg PRN Q1HR PRN PO For CIWA 15 or greater; Start 04/11/21 at 11:45 Lorazepam (Ativan Inj) 2 mg PRN Q1HR PRN IV For CIWA 8-14 Last administered on 04/13/21at 10:21; Start 04/11/21 at 11:45 Lorazepam (Ativan Inj) 4 mg PRN Q1HR PRN IV For CIWA 15 or greater; Start 04/11/21 at 11:45 Haloperidol Lactate (Haldol Inj) 5 mg PRN Q4HRS PRN IVP Hallucinatns,Confusn,Delirium; Start 04/11/21 at 11:45 Diphenhydramine HCl (Benadryl) 25 mg PRN Q15MIN PRN IVP EPS symptoms 2'Haldol admin; Start 04/11/21 at 11:45 Clonidine HCl (Catapres) 0.1 mg PRN Q1HR PRN PO SBP > 180 or DBP > 100, MRX3; Start 04/11/21 at 11:45 Lorazepam (Ativan Inj) 2 mg PRN Q15MIN PRN IV SEE COMMENTS; Start 04/11/21 at 11:45; Status UNV Lorazepam (Ativan Inj) 4 mg PRN Q15MIN PRN IV SEE COMMENTS; Start 04/11/21 at 11:45; Status UNV Potassium Chloride (Klor-Con) 20 meq 1X ONCE PO ; Start 04/12/21 at 17:00; Stop 04/12/21 at 17:38; Status DC Active Scripts Active Reported Hydrochlorothiazide 25 Mg Tablet 25 Mg PO 1X Atorvastatin Calcium 20 Mg Tablet 20 Mg PO HS Metoprolol Succinate ( Xl ) (Metoprolol Succinate) 25 Mg Tab.er.24h 25 Mg PO 3X/WEEK Aspirin 81 Mg Tab.chew 81 Mg PO DAILY Vitals/I & O Vital Sign - Last 24 Hours 04/12/21 04/12/21 04/12/21 04/12/21 11:00 15:00 19:00 19:20 Temp 100.9 97.9 98.1 100.9 97.9 98.1 Pulse 108 96 85 Resp 18 18 20 B/P (MAP) 128/70 (89) 122/73 (89) 110/77 (88) Pulse Ox 94 94 97 O2 Delivery Nasal Cannula Nasal Cannula nrb-10/6-nc Non-Rebreather O2 Flow Rate 10.0 10.0 8.0 04/12/21 04/12/21 04/13/21 04/13/21 23:00 23:08 06:30 08:16 Temp 98.2 98.2 100.5 98.2 98.2 100.5 Pulse 85 90 120 120 Resp 18 22 B/P (MAP) 140/77 (98) 140/81 (100) 152/85 (107) 152/85 Pulse Ox 98 95 96 O2 Delivery NonRebreather Mask NRB/NC 15L-6L NonRebreather Mask O2 Flow Rate 8.0 15.0 04/13/21 09:00 Pulse 120 B/P (MAP) 152/85 Intake and Output 04/12/21 04/12/21 04/13/21 15:00 23:00 07:00 Intake Total 0 ml Balance 0 ml Justicifation of Admission Dx: Justifications for Admission: Justification of Admission Dx: Yes Sepsis: Hypoxemia YULIET DE SOUZA MD Apr 13, 2021 10:46
[2021-04-13 11:00] VITALS: BP 159/84
[2021-04-13 15:00] VITALS: BP 138/73
--- NOTE | 2021-04-13 15:30 | PDOC2 ---
CONSULT Date of Consult Date of Consult DATE: 04/13/21 TIME: 15:28 Reason for Consult Reason for Consult: Transamintis/sepsis/alcohol abuse Past Medical History Cardiovascular: CAD, HTN, Hyperlipidemia Past Surgical History Past Surgical History: CABG Family History Family History: Other (noncontributory ) Social History No ALCOHOL: none Drugs: None Lives: with Family Current Problem List Problem List Problems Medical Problems: (1) Acute kidney injury Status: Acute (2) Altered mental status Status: Acute (3) Community acquired pneumonia Status: Acute (4) COVID-19 virus infection Status: Acute (5) Elevated lactic acid level Status: Acute (6) Elevated troponin I level Status: Acute Current Medications Current Medications Current Medications Sodium Chloride 1,000 ml @ 1,000 mls/hr 1X ONCE IV Last administered on 04/09/21at 10:10; Start 04/09/21 at 10:15; Stop 04/09/21 at 11:14; Status DC Sodium Chloride 1,000 ml @ 2,850 mls/hr Q22M IV Last administered on 04/09/21at 11:29; Start 04/09/21 at 10:45; Stop 04/09/21 at 11:45; Status DC Ceftriaxone Sodium (Rocephin) 1 gm 1X ONCE IVP Last administered on 04/09/21at 11:33; Start 04/09/21 at 10:45; Stop 04/09/21 at 10:46; Status DC Doxycycline Hyclate 100 mg/ Dextrose 100 ml @ 50 mls/hr 1X ONCE IV Last administered on 04/09/21at 11:32; Start 04/09/21 at 11:00; Stop 04/09/21 at 12:59; Status DC Olanzapine (ZyPREXA ZYDIS) 5 mg PRN BID PRN PO ANXIETY / AGITATION Last administered on 04/11/21at 10:36; Start 04/09/21 at 15:00 Ondansetron HCl (Zofran) 4 mg PRN Q4HRS PRN IVP NAUSEA/VOMITING; Start 04/09/21 at 15:00 Tramadol HCl (Ultram) 50 mg PRN Q6HRS PRN PO MODERATE - SEVERE PAIN; Start 04/09/21 at 15:00 Guaifenesin (Robitussin Dm) 10 ml PRN Q6HRS PRN PO COUGH; Start 04/09/21 at 15:00 Acetaminophen (Tylenol) 650 mg PRN Q6HRS PRN PO MILD PAIN / TEMP > 100.3'F; Start 04/09/21 at 15:00 Fentanyl Citrate (Fentanyl 2ml Vial) 25 mcg PRN Q3HRS PRN IVP SEVERE PAIN 7-10; Start 04/09/21 at 15:00 Heparin Sodium (Porcine) (Heparin Sodium) 5,000 unit Q8HRS SQ Last administered on 04/13/21at 14:06; Start 04/09/21 at 15:30 Zinc Sulfate (Orazinc) 220 mg DAILY PO Last administered on 04/11/21at 10:36; Start 04/09/21 at 15:00 Thiamine Mononitrate (Vitamin B-1) 100 mg DAILY PO Last administered on 04/11/21at 10:36; Start 04/09/21 at 15:00 Dexamethasone Sodium Phosphate (Decadron) 6 mg DAILY IVP Last administered on 04/13/21at 08:16; Start 04/09/21 at 15:30 Remdesivir 200 mg/ Sodium Chloride 210 ml @ 210 mls/hr 1X ONCE IV Last administered on 04/09/21at 19:00; Start 04/09/21 at 16:00; Stop 04/09/21 at 16:59; Status DC Remdesivir 100 mg/ Sodium Chloride 230 ml @ 460 mls/hr Q24H IV Last administered on 04/12/21at 15:04; Start 04/10/21 at 16:00; Stop 04/13/21 at 16:29 Acetaminophen (Tylenol Supp) 650 mg PRN Q6HRS PRN CO MILD PAIN / TEMP > 100.3'F Last administered on 04/12/21at 11:20; Start 04/09/21 at 20:15 Sodium Chloride 1,000 ml @ 100 mls/hr Q10H IV Last administered on 04/10/21at 05:59; Start 04/09/21 at 20:30; Stop 04/10/21 at 13:47; Status DC Ceftriaxone Sodium (Rocephin) 1 gm Q24H IVP Last administered on 04/13/21at 10:20; Start 04/10/21 at 10:15 Doxycycline Hyclate 100 mg/ Dextrose 100 ml @ 50 mls/hr Q12HR IV Last administered on 04/13/21at 10:20; Start 04/10/21 at 09:00 Lactobacillus Rhamnosus (Culturelle) 1 cap BID PO Last administered on 04/11/21at 21:34; Start 04/10/21 at 09:00 Sodium Chloride 1,000 ml @ 75 mls/hr [id number] IV Last administered on 04/13/21at 10:19; Start 04/10/21 at 14:00 Potassium Chloride (Klor-Con) 40 meq 1X ONCE PO Last administered on 04/10/21at 14:20; Start 04/10/21 at 14:00; Stop 04/10/21 at 14:01; Status DC Potassium Chloride (Klor-Con) 20 meq [id number] PO Last administered on 04/11/21at 10:36; Start 04/11/21 at 08:00 Aspirin (Aspirin Chewable) 81 mg DAILY PO Last administered on 04/11/21at 10:36; Start 04/11/21 at 09:00 Metoprolol Succinate (Toprol Xl) 25 mg 3X/WEEK PO Last administered on 04/11/21at 10:37; Start 04/11/21 at 09:00; Stop 04/11/21 at 10:48; Status DC Metoprolol Tartrate (Lopressor Vial) 5 mg PRN Q6HRS PRN IVP PER PROTOCOL Last administered on 04/13/21at 08:16; Start 04/11/21 at 10:30 Potassium Chloride (Klor-Con) 40 meq 1X ONCE PO Last administered on 04/11/21at 12:29; Start 04/11/21 at 10:45; Stop 04/11/21 at 10:46; Status DC Metoprolol Succinate (Toprol Xl) 25 mg DAILY PO ; Start 04/12/21 at 09:00 Multivitamins (Thera M Plus) 1 tab DAILY PO Last administered on 04/11/21at 12:28; Start 04/11/21 at 12:00 Folic Acid (Folic Acid) 1 mg DAILY PO Last administered on 04/11/21at 12:29; Start 04/11/21 at 12:00 Thiamine Mononitrate (Vitamin B-1) 100 mg DAILY PO ; Start 04/16/21 at 09:00; Status UNV Lorazepam (Ativan) 4 mg PRN Q1HR PRN PO For CIWA 8-14; Start 04/11/21 at 11:45 Lorazepam (Ativan) 8 mg PRN Q1HR PRN PO For CIWA 15 or greater; Start 04/11/21 at 11:45 Lorazepam (Ativan Inj) 2 mg PRN Q1HR PRN IV For CIWA 8-14 Last administered on 04/13/21at 14:07; Start 04/11/21 at 11:45 Lorazepam (Ativan Inj) 4 mg PRN Q1HR PRN IV For CIWA 15 or greater; Start 04/11/21 at 11:45 Haloperidol Lactate (Haldol Inj) 5 mg PRN Q4HRS PRN IVP H allucinatns,Confusn,Delirium; Start 04/11/21 at 11:45 Diphenhydramine HCl (Benadryl) 25 mg PRN Q15MIN PRN IVP EPS symptoms 2'Haldol admin; Start 04/11/21 at 11:45 Clonidine HCl (Catapres) 0.1 mg PRN Q1HR PRN PO SBP > 180 or DBP > 100, MRX3; Start 04/11/21 at 11:45 Lorazepam (Ativan Inj) 2 mg PRN Q15MIN PRN IV SEE COMMENTS; Start 04/11/21 at 11:45; Status UNV Lorazepam (Ativan Inj) 4 mg PRN Q15MIN PRN IV SEE COMMENTS; Start 04/11/21 at 11:45; Status UNV Potassium Chloride (Klor-Con) 20 meq 1X ONCE PO ; Start 04/12/21 at 17:00; Stop 04/12/21 at 17:38; Status DC Active Scripts Active Reported Hydrochlorothiazide 25 Mg Tablet 25 Mg PO 1X Atorvastatin Calcium 20 Mg Tablet 20 Mg PO HS Metoprolol Succinate ( Xl ) (Metoprolol Succinate) 25 Mg Tab.er.24h 25 Mg PO 3X/WEEK Aspirin 81 Mg Tab.chew 81 Mg PO DAILY Allergies Allergies: Coded Allergies: No Known Drug Allergies (Unverified , 04/09/21) Vitals VITALS Vital Signs Date Time Temp Pulse Resp B/P (MAP) Pulse Ox O2 Delivery O2 Flow Rate FiO2 04/13/21 12:40 98 BiPAP/CPAP 04/13/21 11:00 99.0 111 22 159/84 (109) 15.0 99.0 Labs Labs Laboratory Tests Test 04/12/21 16:50 04/13/21 04:00 Ionized Calcium 1.09 mmol/L (1.13-1.32) Hepatitis A IgM Antibody Nonreactive (Nonreactive) Hepatitis B Surface Antigen Nonreactive (Nonreactive) Hepatitis B Core IgM Antibody Nonreactive (Nonreactive) Hepatitis C IgG Antibody Nonreactive (Nonreactive) White Blood Count 9.3 x10^3/uL (4.0-11.0) Red Blood Count 3.97 x10^6/uL (4.30-5.70) Hemoglobin 13.6 g/dL (13.0-17.5) Hematocrit 39.8 % (39.0-53.0) Mean Corpuscular Volume 100 fL (79-100) Mean Corpuscular Hemoglobin 34 pg (25-35) Mean Corpuscular Hemoglobin Concent 34 g/dL (31-37) Red Cell Distribution Width 15.0 % (11.5-14.5) Platelet Count 190 x10^3/uL (140-400) Neutrophils (%) (Auto) 87 % (31-73) Lymphocytes (%) (Auto) 6 % (24-48) Monocytes (%) (Auto) 7 % (0-9) Eosinophils (%) (Auto) 0 % (0-3) Basophils (%) (Auto) 0 % (0-3) Neutrophils # (Auto) 8.1 x10^3/uL (1.8-7.7) Lymphocytes # (Auto) 0.5 x10^3/uL (1.0-4.8) Monocytes # (Auto) 0.7 x10^3/uL (0.0-1.1) Eosinophils # (Auto) 0.0 x10^3/uL (0.0-0.7) Basophils # (Auto) 0.0 x10^3/uL (0.0-0.2) Sodium Level 148 mmol/L (136-145) Potassium Level 3.6 mmol/L (3.5-5.1) Chloride Level 114 mmol/L (98-107) Carbon Dioxide Level 26 mmol/L (21-32) Anion Gap 8 (6-14) Blood Urea Nitrogen 25 mg/dL (8-26) Creatinine 1.0 mg/dL (0.7-1.3) Estimated GFR (Cockcroft-Gault) 73.9 BUN/Creatinine Ratio 25 (6-20) Glucose Level 92 mg/dL (70-99) Calcium Level 7.8 mg/dL (8.5-10.1) Ferritin 1451 ng/mL (26-388) Total Bilirubin 1.1 mg/dL (0.2-1.0) Aspartate Amino Transf (AST/SGOT) 128 U/L (15-37) Alanine Aminotransferase (ALT/SGPT) 92 U/L (16-63) Alkaline Phosphatase 50 U/L (46-116) Creatine Kinase 462 U/L (39-308) Total Protein 6.0 g/dL (6.4-8.2) Albumin 1.9 g/dL (3.4-5.0) Albumin/Globulin Ratio 0.5 (1.0-1.7) Laboratory Tests Test 04/12/21 16:50 04/13/21 04:00 Ionized Calcium 1.09 mmol/L (1.13-1.32) Hepatitis A IgM Antibody Nonreactive (Nonreactive) Hepatitis B Surface Antigen Nonreactive (Nonreactive) Hepatitis B Core IgM Antibody Nonreactive (Nonreactive) Hepatitis C IgG Antibody Nonreactive (Nonreactive) White Blood Count 9.3 x10^3/uL (4.0-11.0) Red Blood Count 3.97 x10^6/uL (4.30-5.70) Hemoglobin 13.6 g/dL (13.0-17.5) Hematocrit 39.8 % (39.0-53.0) Mean Corpuscular Volume 100 fL (79-100) Mean Corpuscular Hemoglobin 34 pg (25-35) Mean Corpuscular Hemoglobin Concent 34 g/dL (31-37) Red Cell Distribution Width 15.0 % (11.5-14.5) Platelet Count 190 x10^3/uL (140-400) Neutrophils (%) (Auto) 87 % (31-73) Lymphocytes (%) (Auto) 6 % (24-48) Monocytes (%) (Auto) 7 % (0-9) Eosinophils (%) (Auto) 0 % (0-3) Basophils (%) (Auto) 0 % (0-3) Neutrophils # (Auto) 8.1 x10^3/uL (1.8-7.7) Lymphocytes # (Auto) 0.5 x10^3/uL (1.0-4.8) Monocytes # (Auto) 0.7 x10^3/uL (0.0-1.1) Eosinophils # (Auto) 0.0 x10^3/uL (0.0-0.7) Basophils # (Auto) 0.0 x10^3/uL (0.0-0.2) Sodium Level 148 mmol/L (136-145) Potassium Level 3.6 mmol/L (3.5-5.1) Chloride Level 114 mmol/L (98-107) Carbon Dioxide Level 26 mmol/L (21-32) Anion Gap 8 (6-14) Blood Urea Nitrogen 25 mg/dL (8-26) Creatinine 1.0 mg/dL (0.7-1.3) Estimated GFR (Cockcroft-Gault) 73.9 BUN/Creatinine Ratio 25 (6-20) Glucose Level 92 mg/dL (70-99) Calcium Level 7.8 mg/dL (8.5-10.1) Ferritin 1451 ng/mL (26-388) Total Bilirubin 1.1 mg/dL (0.2-1.0) Aspartate Amino Transf (AST/SGOT) 128 U/L (15-37) Alanine Aminotransferase (ALT/SGPT) 92 U/L (16-63) Alkaline Phosphatase 50 U/L (46-116) Creatine Kinase 462 U/L (39-308) Total Protein 6.0 g/dL (6.4-8.2) Albumin 1.9 g/dL (3.4-5.0) Albumin/Globulin Ratio 0.5 (1.0-1.7) Assessment/Plan Assessment/Plan Transaminitis- with sepsis, alcohol abuse, and rhabomyolysis Most likley multifactorial in etiology. Plan supportive therapy with serial LFTS/alcohol withdrawal precautions Full note dictated NISH ESTRADA MD Apr 13, 2021 15:30
[2021-04-13] MEDS: REMDESIVIR 100mg in NORMAL SALINE 250ML X 4 DAYS IV SCH (17:09)
--- NOTE | 2021-04-13 19:01 | PDOC2 ---
CONSULT Date of Consult Date of Consult DATE: 04/13/21 TIME: 18:58 Reason for Consult Reason for Consult: AMS Identification/Chief Complaint Chief Complaint ams History of Present Illness Reason for Visit: This patient is 70-year-old man with past medical history of multiple medical problems history of hypertension coronary artery disease status post canopy hyperlipidemia patient has also been sick with covid. Patient had a Chest X- ray: Concerning for pneumonia, Being treated for COVID pneumonia patient had elevated CPK levels, elevated LFTs, elevated creatinine Past Medical History Cardiovascular: CAD, HTN, Hyperlipidemia Past Surgical History Past Surgical History: CABG Family History Family History: Other (noncontributory ) Social History No ALCOHOL: none Drugs: None Lives: with Family Current Problem List Problem List Problems Medical Problems: (1) Acute kidney injury Status: Acute (2) Altered mental status Status: Acute (3) Community acquired pneumonia Status: Acute (4) COVID-19 virus infection Status: Acute (5) Elevated lactic acid level Status: Acute (6) Elevated troponin I level Status: Acute Current Medications Current Medications Current Medications Sodium Chloride 1,000 ml @ 1,000 mls/hr 1X ONCE IV Last administered on 04/09/21at 10:10; Start 04/09/21 at 10:15; Stop 04/09/21 at 11:14; Status DC Sodium Chloride 1,000 ml @ 2,850 mls/hr Q22M IV Last administered on 04/09/21at 11:29; Start 04/09/21 at 10:45; Stop 04/09/21 at 11:45; Status DC Ceftriaxone Sodium (Rocephin) 1 gm 1X ONCE IVP Last administered on 04/09/21at 11:33; Start 04/09/21 at 10:45; Stop 04/09/21 at 10:46; Status DC Doxycycline Hyclate 100 mg/ Dextrose 100 ml @ 50 mls/hr 1X ONCE IV Last administered on 04/09/21at 11:32; Start 04/09/21 at 11:00; Stop 04/09/21 at 12:59; Status DC Olanzapine (ZyPREXA ZYDIS) 5 mg PRN BID PRN PO ANXIETY / AGITATION Last administered on 04/11/21at 10:36; Start 04/09/21 at 15:00 Ondansetron HCl (Zofran) 4 mg PRN Q4HRS PRN IVP NAUSEA/VOMITING; Start 04/09/21 at 15:00 Tramadol HCl (Ultram) 50 mg PRN Q6HRS PRN PO MODERATE - SEVERE PAIN; Start 04/09/21 at 15:00 Guaifenesin (Robitussin Dm) 10 ml PRN Q6HRS PRN PO COUGH; Start 04/09/21 at 15:00 Acetaminophen (Tylenol) 650 mg PRN Q6HRS PRN PO MILD PAIN / TEMP > 100.3'F; Start 04/09/21 at 15:00 Fentanyl Citrate (Fentanyl 2ml Vial) 25 mcg PRN Q3HRS PRN IVP SEVERE PAIN 7-10; Start 04/09/21 at 15:00 Heparin Sodium (Porcine) (Heparin Sodium) 5,000 unit Q8HRS SQ Last administered on 04/13/21at 14:06; Start 04/09/21 at 15:30 Zinc Sulfate (Orazinc) 220 mg DAILY PO Last administered on 04/11/21at 10:36; Start 04/09/21 at 15:00 Thiamine Mononitrate (Vitamin B-1) 100 mg DAILY PO Last administered on 04/11/21at 10:36; Start 04/09/21 at 15:00 Dexamethasone Sodium Phosphate (Decadron) 6 mg DAILY IVP Last administered on 04/13/21at 08:16; Start 04/09/21 at 15:30 Remdesivir 200 mg/ Sodium Chloride 210 ml @ 210 mls/hr 1X ONCE IV Last administered on 04/09/21at 19:00; Start 04/09/21 at 16:00; Stop 04/09/21 at 16:59; Status DC Remdesivir 100 mg/ Sodium Chloride 230 ml @ 460 mls/hr Q24H IV Last administered on 04/13/21at 17:09; Start 04/10/21 at 16:00; Stop 04/13/21 at 16:29; Status DC Acetaminophen (Tylenol Supp) 650 mg PRN Q6HRS PRN [place] MILD PAIN / TEMP > 100.3'F Last administered on 04/12/21at 11:20; Start 04/09/21 at 20:15 Sodium Chloride 1,000 ml @ 100 mls/hr Q10H IV Last administered on 04/10/21at 05:59; Start 04/09/21 at 20:30; Stop 04/10/21 at 13:47; Status DC Ceftriaxone Sodium (Rocephin) 1 gm Q24H IVP Last administered on 04/13/21at 10:20; Start 04/10/21 at 10:15 Doxycycline Hyclate 100 mg/ Dextrose 100 ml @ 50 mls/hr Q12HR IV Last administered on 04/13/21at 10:20; Start 04/10/21 at 09:00 Lactobacillus Rhamnosus (Culturelle) 1 cap BID PO Last administered on 04/11/21at 21:34; Start 04/10/21 at 09:00 Sodium Chloride 1,000 ml @ 75 mls/hr [id number] IV Last administered on 04/13/21at 10:19; Start 04/10/21 at 14:00 Potassium Chloride (Klor-Con) 40 meq 1X ONCE PO Last administered on 04/10/21at 14:20; Start 04/10/21 at 14:00; Stop 04/10/21 at 14:01; Status DC Potassium Chloride (Klor-Con) 20 meq [id number] PO Last administered on 04/11/21at 10:36; Start 04/11/21 at 08:00 Aspirin (Aspirin Chewable) 81 mg DAILY PO Last administered on 04/11/21at 10:36; Start 04/11/21 at 09:00 Metoprolol Succinate (Toprol Xl) 25 mg 3X/WEEK PO Last administered on 04/11/21at 10:37; Start 04/11/21 at 09:00; Stop 04/11/21 at 10:48; Status DC Metoprolol Tartrate (Lopressor Vial) 5 mg PRN Q6HRS PRN IVP PER PROTOCOL Last administered on 04/13/21at 08:16; Start 04/11/21 at 10:30 Potassium Chloride (Klor-Con) 40 meq 1X ONCE PO Last administered on 04/11/21at 12:29; Start 04/11/21 at 10:45; Stop 04/11/21 at 10:46; Status DC Metoprolol Succinate (Toprol Xl) 25 mg DAILY PO ; Start 04/12/21 at 09:00 Multivitamins (Thera M Plus) 1 tab DAILY PO Last administered on 04/11/21at 12:28; Start 04/11/21 at 12:00 Folic Acid (Folic Acid) 1 mg DAILY PO Last administered on 04/11/21at 12:29; Start 04/11/21 at 12:00 Thiamine Mononitrate (Vitamin B-1) 100 mg DAILY PO ; Start 04/16/21 at 09:00; Status UNV Lorazepam (Ativan) 4 mg PRN Q1HR PRN PO For CIWA 8-14; Start 04/11/21 at 11:45 Lorazepam (Ativan) 8 mg PRN Q1HR PRN PO For CIWA 15 or greater; Start 04/11/21 at 11:45 Lorazepam (Ativan Inj) 2 mg PRN Q1HR PRN IV For CIWA 8-14 Last administered on 04/13/21at 14:07; Start 04/11/21 at 11:45 Lorazepam (Ativan Inj) 4 mg PRN Q1HR PRN IV For CIWA 15 or greater; Start 04/11/21 at 11:45 Haloperidol Lactate (Haldol Inj) 5 mg PRN Q4HRS PRN IVP Wilson ucinatns,Confusn,Delirium; Start 04/11/21 at 11:45 Diphenhydramine HCl (Benadryl) 25 mg PRN Q15MIN PRN IVP EPS symptoms 2'Haldol admin; Start 04/11/21 at 11:45 Clonidine HCl (Catapres) 0.1 mg PRN Q1HR PRN PO SBP > 180 or DBP > 100, MRX3; Start 04/11/21 at 11:45 Lorazepam (Ativan Inj) 2 mg PRN Q15MIN PRN IV SEE COMMENTS; Start 04/11/21 at 11:45; Status UNV Lorazepam (Ativan Inj) 4 mg PRN Q15MIN PRN IV SEE COMMENTS; Start 04/11/21 at 11:45; Status UNV Potassium Chloride (Klor-Con) 20 meq 1X ONCE PO ; Start 04/12/21 at 17:00; Stop 04/12/21 at 17:38; Status DC Famotidine (Pepcid Vial) 20 mg BID IVP ; Start 04/13/21 at 21:00 Active Scripts Active Reported Hydrochlorothiazide 25 Mg Tablet 25 Mg PO 1X Atorvastatin Calcium 20 Mg Tablet 20 Mg PO HS Metoprolol Succinate ( Xl ) (Metoprolol Succinate) 25 Mg Tab.er.24h 25 Mg PO 3X/WEEK Aspirin 81 Mg Tab.chew 81 Mg PO DAILY Allergies Allergies: Coded Allergies: No Known Drug Allergies (Unverified , 04/09/21) Physical Exam Physical Exam General no acute distress. HEENT: Normocephalic and atraumatic. NECK: Supple without bruit Respiratory decreased bs Heart: Regular rate and rhythm, S1S2 normal NEUROLOGIC: Mental status sleepy no meningeal signs Cranial nerve equally reactive pupils, No facial asymmetry. Palate elevates and tongue protrudes in midline. Reflexes are 1 with flexor plantar responses. Coordination not able Sensory exam Strength able to move all exts to stimuli Gait in bed. A 10-point review of systems limited per hpi due to current medical condition. Vitals VITALS Vital Signs Date Time Temp Pulse Resp B/P (MAP) Pulse Ox O2 Delivery O2 Flow Rate FiO2 04/13/21 18:08 97 BiPAP/CPAP 04/13/21 15:00 97.0 98 24 138/73 (94) 15.0 97.0 Labs Labs Laboratory Tests Test 04/12/21 16:50 04/13/21 04:00 Ionized Calcium 1.09 mmol/L (1.13-1.32) Hepatitis A IgM Antibody Nonreactive (Nonreactive) Hepatitis B Surface Antigen Nonreactive (Nonreactive) Hepatitis B Core IgM Antibody Nonreactive (Nonreactive) Hepatitis C IgG Antibody Nonreactive (Nonreactive) White Blood Count 9.3 x10^3/uL (4.0-11.0) Red Blood Count 3.97 x10^6/uL (4.30-5.70) Hemoglobin 13.6 g/dL (13.0-17.5) Hematocrit 39.8 % (39.0-53.0) Mean Corpuscular Volume 100 fL (79-100) Mean Corpuscular Hemoglobin 34 pg (25-35) Mean Corpuscular Hemoglobin Concent 34 g/dL (31-37) Red Cell Distribution Width 15.0 % (11.5-14.5) Platelet Count 190 x10^3/uL (140-400) Neutrophils (%) (Auto) 87 % (31-73) Lymphocytes (%) (Auto) 6 % (24-48) Monocytes (%) (Auto) 7 % (0-9) Eosinophils (%) (Auto) 0 % (0-3) Basophils (%) (Auto) 0 % (0-3) Neutrophils # (Auto) 8.1 x10^3/uL (1.8-7.7) Lymphocytes # (Auto) 0.5 x10^3/uL (1.0-4.8) Monocytes # (Auto) 0.7 x10^3/uL (0.0-1.1) Eosinophils # (Auto) 0.0 x10^3/uL (0.0-0.7) Basophils # (Auto) 0.0 x10^3/uL (0.0-0.2) Sodium Level 148 mmol/L (136-145) Potassium Level 3.6 mmol/L (3.5-5.1) Chloride Level 114 mmol/L (98-107) Carbon Dioxide Level 26 mmol/L (21-32) Anion Gap 8 (6-14) Blood Urea Nitrogen 25 mg/dL (8-26) Creatinine 1.0 mg/dL (0.7-1.3) Estimated GFR (Cockcroft-Gault) 73.9 BUN/Creatinine Ratio 25 (6-20) Glucose Level 92 mg/dL (70-99) Calcium Level 7.8 mg/dL (8.5-10.1) Ferritin 1451 ng/mL (26-388) Total Bilirubin 1.1 mg/dL (0.2-1.0) Aspartate Amino Transf (AST/SGOT) 128 U/L (15-37) Alanine Aminotransferase (ALT/SGPT) 92 U/L (16-63) Alkaline Phosphatase 50 U/L (46-116) Creatine Kinase 462 U/L (39-308) Total Protein 6.0 g/dL (6.4-8.2) Albumin 1.9 g/dL (3.4-5.0) Albumin/Globulin Ratio 0.5 (1.0-1.7) Laboratory Tests Test 04/13/21 04:00 White Blood Count 9.3 x10^3/uL (4.0-11.0) Red Blood Count 3.97 x10^6/uL (4.30-5.70) Hemoglobin 13.6 g/dL (13.0-17.5) Hematocrit 39.8 % (39.0-53.0) Mean Corpuscular Volume 100 fL (79-100) Mean Corpuscular Hemoglobin 34 pg (25-35) Mean Corpuscular Hemoglobin Concent 34 g/dL (31-37) Red Cell Distribution Width 15.0 % (11.5-14.5) Platelet Count 190 x10^3/uL (140-400) Neutrophils (%) (Auto) 87 % (31-73) Lymphocytes (%) (Auto) 6 % (24-48) Monocytes (%) (Auto) 7 % (0-9) Eosinophils (%) (Auto) 0 % (0-3) Basophils (%) (Auto) 0 % (0-3) Neutrophils # (Auto) 8.1 x10^3/uL (1.8-7.7) Lymphocytes # (Auto) 0.5 x10^3/uL (1.0-4.8) Monocytes # (Auto) 0.7 x10^3/uL (0.0-1.1) Eosinophils # (Auto) 0.0 x10^3/uL (0.0-0.7) Basophils # (Auto) 0.0 x10^3/uL (0.0-0.2) Sodium Level 148 mmol/L (136-145) Potassium Level 3.6 mmol/L (3.5-5.1) Chloride Level 114 mmol/L (98-107) Carbon Dioxide Level 26 mmol/L (21-32) Anion Gap 8 (6-14) Blood Urea Nitrogen 25 mg/dL (8-26) Creatinine 1.0 mg/dL (0.7-1.3) Estimated GFR (Cockcroft-Gault) 73.9 BUN/Creatinine Ratio 25 (6-20) Glucose Level 92 mg/dL (70-99) Calcium Level 7.8 mg/dL (8.5-10.1) Ferritin 1451 ng/mL (26-388) Total Bilirubin 1.1 mg/dL (0.2-1.0) Aspartate Amino Transf (AST/SGOT) 128 U/L (15-37) Alanine Aminotransferase (ALT/SGPT) 92 U/L (16-63) Alkaline Phosphatase 50 U/L (46-116) Creatine Kinase 462 U/L (39-308) Total Protein 6.0 g/dL (6.4-8.2) Albumin 1.9 g/dL (3.4-5.0) Albumin/Globulin Ratio 0.5 (1.0-1.7) Assessment/Plan Assessment/Plan This patient is 70-year-old man with past medical history of multiple medical problems history of hypertension coronary artery disease status post canopy hyperlipidemia patient has also been sick with covid. Patient had a Chest X- ray: Concerning for pneumonia, Being treated for COVID pneumonia patient had elevated CPK levels, elevated LFTs, elevated creatinine With encephalopathy check for infectious, metabolic etiology multifactorial alcohol abuse, who had COVID pneumonia, on antibiotics, hypoxic respiratory failure, elevated troponin, sepsis, acute kidney injury Patient had CT brain did not show any evidence of acute intracranial etiology no evidence of acute bleed or mass. Changes noted for atrophy, chronic small vessel ischemic disease. MRI of brain cannot be done due to current medical condition COVID pneumonia, rhabdomyolysis, continue treat and monitor Thank you for allowing me to take part in this patient's care. Please not hesitate to contact me with questions. Transcribed using dictation device. The dictation could contain irregularities inherent in the voice to text conversion software, which may not be detected during the document review process. Please contact our office in case of any confusion or for any clarification, as needed. ANN VALENTINE MD Apr 13, 2021 19:01
[2021-04-13 19:19] VITALS: BP 126/89
[2021-04-13] MEDS: FAMOTIDINE 20 MG/2 ML VIAL IVP SCH (20:30)
[2021-04-13 23:26] VITALS: BP 116/77
--- NOTE | 2021-04-14 00:08 | CONS ---
DATE OF CONSULTATION: 04/13/2021 GI CONSULTATION REFERRING PHYSICIAN: Manuel Kim MD REASON FOR CONSULTATION: Elevated liver function tests, encephalopathy and rhabdomyolysis and possible alcohol abuse. HISTORY OF PRESENT ILLNESS: This is a 70-year-old male who was admitted to the hospital with confusion, hypoxemia and found down. The patient has no additional history at this time, is on a CPAP mask. PAST MEDICAL HISTORY: Significant for hypertension, hyperlipidemia, coronary artery disease, status post CABG. ALLERGIES: None. MEDICATIONS: Presently include metoprolol, folic acid, multivitamin, clonidine, diphenhydramine, Haldol, lorazepam, metoprolol, aspirin, potassium chloride, remdesivir, sodium chloride, ceftriaxone, Lactobacillus, doxycycline. FAMILY AND SOCIAL HISTORY: Not obtainable. REVIEW OF SYSTEMS: Not obtainable. PHYSICAL EXAMINATION: VITAL SIGNS: Reveals temperature 95, pulse 111, respiratory rate 22, blood pressure 159/84, on a nonrebreather/BiPAP. HEENT: Examination was not performed. NECK: Supple. LUNGS: Reveal coarse rhonchi. CARDIOVASCULAR: S1, S2, without S3, S4 or appreciable murmur. ABDOMEN: Reveals a soft abdomen, normal bowel sounds, without appreciable hepatosplenomegaly. EXTREMITIES: Reveals no cyanosis, clubbing or edema. LABORATORY DATA: Sodium 140, potassium 3.6, chloride 114, bicarbonate 26, BUN 25, creatinine 1.0, glucose 92, calcium 7.8, total bilirubin 1.1. Ferritin is 1451, AST 128, ALT of 92, alkaline phosphatase of 50, creatine kinase today is ____, on admission was ____, total protein 6.0, albumin 1.9. ASSESSMENT AND PLAN: Transaminitis with history of alcohol abuse, sepsis of COVID exposure and rhabdomyolysis, most likely is multifactorial in etiology. We will recommend serial liver enzymes, supportive therapy with remdesivir and other antibiotics, further serologies and hepatic imaging can be obtained once the patient's pulmonary status is stabilized. SSP/AVR/AMI DR: SAVANNAH/carly TID: [id number]
[2021-04-14 03:59] VITALS: BP 148/76
[2021-04-14] MEDS: HEPARIN for SUB-Q USE 5,000 UNIT/ML VIAL. SQ SCH ×3 (05:57→20:33)
[2021-04-14 07:00] VITALS: BP 148/79
[2021-04-14] MEDS: POTASSIUM CHLORIDE 20 MEQ TABLET.ER. PO SCH (08:00)
[2021-04-14] MEDS: ASPIRIN CHEWABLE 81 MG TABLET. PO SCH (08:43)
[2021-04-14] MEDS: LACTOBACILLUS RHAMNOSUS GG 1 CAPSULE. PO SCH ×2 (08:43→20:34)
[2021-04-14] MEDS: ZINC SULFATE 220 MG CAPSULE. PO SCH (08:43)
[2021-04-14] MEDS: FOLIC ACID 1 MG TABLET. PO SCH (08:43)
[2021-04-14] MEDS: MULTIVITAMIN with MINERAL TABLET. PO SCH (08:43)
[2021-04-14] MEDS: METOPROLOL SUCC 24HR ER 25 MG TAB.ER.24H. PO SCH (08:44)
[2021-04-14] MEDS: THIAMINE 100 MG TABLET. PO SCH (08:44)
[2021-04-14] MEDS: DOXYCYCLINE HYCLATE 100 MG in IV DEXTROSE 5% 100ML 100 ML IV SCH ×2 (08:45→20:34)
[2021-04-14] MEDS: FAMOTIDINE 20 MG/2 ML VIAL IVP SCH ×2 (08:46→20:34)
[2021-04-14] MEDS: DEXAMETHASONE SOD PHOS 4 MG/ML VIAL IVP SCH (08:46)
[2021-04-14] MEDS: cefTRIAXone IV Push 1 GM VIAL. IVP SCH (08:47)
--- NOTE | 2021-04-14 10:09 | PDOC ---
Date of Service: DATE: 04/14/21 TIME: 10:06 Objective: Objective: D/w nurse - resp status worse. Dr. Perez plans to call , discuss code status, etc. Vital Signs: Vital Signs Date Time Temp Pulse Resp B/P (MAP) Pulse Ox O2 Delivery O2 Flow Rate FiO2 04/14/21 08:14 95 BiPAP/CPAP 04/14/21 07:00 98.7 121 18 148/79 (102) 98.7 04/13/21 15:00 15.0 Imaging: CXR 04/12 IMPRESSION: Progression of bilateral perihilar and basilar. PE: GEN: in COVID isolation, looks ill LUNGS: BiPAP HEART: tachycardic ABD: non-distneded NEURO/PSYCH: lethargic A/P: COVID-19 resp failure, rhabdo, elevated LFTs -- Favorable trend in LFTs (last checked 04/13/21). Further GI workup pending improvement in resp status (which is worse today). Justicifation of Admission Dx: Justifications for Admission: Justification of Admission Dx: Yes Sepsis: Hypoxemia MARK MARCELO Apr 14, 2021 10:09
--- NOTE | 2021-04-14 10:27 | PDOC ---
PROGRESS NOTES Date of Service DATE: 04/14/21 TIME: 10:20 Assessment Problems Medical Problems: (1) Acute kidney injury Status: Acute (2) Altered mental status Status: Acute (3) Community acquired pneumonia Status: Acute (4) COVID-19 virus infection Status: Acute (5) Elevated lactic acid level Status: Acute (6) Elevated troponin I level Status: Acute Encephalopathy, COVID pneumonia, respiratory failure is worsening Rhabdomyolysis, elevated transaminases, renal insufficiency, elevated troponin on admission, elevated lactic acid on admission, history of alcohol abuse History of hypertension coronary artery disease, hyperlipidemia Plan Risks to our personnel outweigh benefits to patient of taking him out of isolation for a brain MRI Treat medical issues Subjective None Objective Vital Signs Date Time Temp Pulse Resp B/P (MAP) Pulse Ox O2 Delivery O2 Flow Rate FiO2 04/14/21 08:14 95 BiPAP/CPAP 04/14/21 07:00 98.7 121 18 148/79 (102) 98.7 04/13/21 15:00 15.0 Intake and Output 04/14/21 07:00 Intake Total 0 ml Output Total 1000 ml Balance -1000 ml Intake Oral 0 ml Output Urine Total 1000 ml PHYSICAL EXAM Eyes closed, opens to voice, bilateral mittens on, nonverbal, does not follow commands PERRL. EOMI. CN: no focal findings. Muscle tone: normal. Muscle strength: 4/5 DTR: 1+ Plantar reflex: Flexor Gait: not examined in bed. Sensory exam: no abnormal findings. Cerebellar: Not cooperative Review of Relevant I have reviewed the following items pinky (where applicable) has been applied. Labs Laboratory Tests Test 04/12/21 16:50 04/13/21 04:00 Ionized Calcium 1.09 mmol/L (1.13-1.32) Hepatitis A IgM Antibody Nonreactive (Nonreactive) Hepatitis B Surface Antigen Nonreactive (Nonreactive) Hepatitis B Core IgM Antibody Nonreactive (Nonreactive) Hepatitis C IgG Antibody Nonreactive (Nonreactive) White Blood Count 9.3 x10^3/uL (4.0-11.0) Red Blood Count 3.97 x10^6/uL (4.30-5.70) Hemoglobin 13.6 g/dL (13.0-17.5) Hematocrit 39.8 % (39.0-53.0) Mean Corpuscular Volume 100 fL (79-100) Mean Corpuscular Hemoglobin 34 pg (25-35) Mean Corpuscular Hemoglobin Concent 34 g/dL (31-37) Red Cell Distribution Width 15.0 % (11.5-14.5) Platelet Count 190 x10^3/uL (140-400) Neutrophils (%) (Auto) 87 % (31-73) Lymphocytes (%) (Auto) 6 % (24-48) Monocytes (%) (Auto) 7 % (0-9) Eosinophils (%) (Auto) 0 % (0-3) Basophils (%) (Auto) 0 % (0-3) Neutrophils # (Auto) 8.1 x10^3/uL (1.8-7.7) Lymphocytes # (Auto) 0.5 x10^3/uL (1.0-4.8) Monocytes # (Auto) 0.7 x10^3/uL (0.0-1.1) Eosinophils # (Auto) 0.0 x10^3/uL (0.0-0.7) Basophils # (Auto) 0.0 x10^3/uL (0.0-0.2) Sodium Level 148 mmol/L (136-145) Potassium Level 3.6 mmol/L (3.5-5.1) Chloride Level 114 mmol/L (98-107) Carbon Dioxide Level 26 mmol/L (21-32) Anion Gap 8 (6-14) Blood Urea Nitrogen 25 mg/dL (8-26) Creatinine 1.0 mg/dL (0.7-1.3) Estimated GFR (Cockcroft-Gault) 73.9 BUN/Creatinine Ratio 25 (6-20) Glucose Level 92 mg/dL (70-99) Calcium Level 7.8 mg/dL (8.5-10.1) Ferritin 1451 ng/mL (26-388) Total Bilirubin 1.1 mg/dL (0.2-1.0) Aspartate Amino Transf (AST/SGOT) 128 U/L (15-37) Alanine Aminotransferase (ALT/SGPT) 92 U/L (16-63) Alkaline Phosphatase 50 U/L (46-116) Creatine Kinase 462 U/L (39-308) Total Protein 6.0 g/dL (6.4-8.2) Albumin 1.9 g/dL (3.4-5.0) Albumin/Globulin Ratio 0.5 (1.0-1.7) Microbiology 04/09/21 Blood Culture - Final, Complete NO GROWTH AFTER 5 DAYS Medications Current Medications Sodium Chloride 1,000 ml @ 1,000 mls/hr 1X ONCE IV Last administered on 04/09/21at 10:10; Start 04/09/21 at 10:15; Stop 04/09/21 at 11:14; Status DC Sodium Chloride 1,000 ml @ 2,850 mls/hr Q22M IV Last administered on 04/09/21at 11:29; Start 04/09/21 at 10:45; Stop 04/09/21 at 11:45; Status DC Ceftriaxone Sodium (Rocephin) 1 gm 1X ONCE IVP Last administered on 04/09/21at 11:33; Start 04/09/21 at 10:45; Stop 04/09/21 at 10:46; Status DC Doxycycline Hyclate 100 mg/ Dextrose 100 ml @ 50 mls/hr 1X ONCE IV Last administered on 04/09/21at 11:32; Start 04/09/21 at 11:00; Stop 04/09/21 at 12:59; Status DC Olanzapine (ZyPREXA ZYDIS) 5 mg PRN BID PRN PO ANXIETY / AGITATION Last administered on 04/11/21at 10:36; Start 04/09/21 at 15:00 Ondansetron HCl (Zofran) 4 mg PRN Q4HRS PRN IVP NAUSEA/VOMITING; Start 04/09/21 at 15:00 Tramadol HCl (Ultram) 50 mg PRN Q6HRS PRN PO MODERATE - SEVERE PAIN; Start 04/09/21 at 15:00 Guaifenesin (Robitussin Dm) 10 ml PRN Q6HRS PRN PO COUGH; Start 04/09/21 at 15:00 Acetaminophen (Tylenol) 650 mg PRN Q6HRS PRN PO MILD PAIN / TEMP > 100.3'F; Start 04/09/21 at 15:00 Fentanyl Citrate (Fentanyl 2ml Vial) 25 mcg PRN Q3HRS PRN IVP SEVERE PAIN 7-10; Start 04/09/21 at 15:00 Heparin Sodium (Porcine) (Heparin Sodium) 5,000 unit Q8HRS SQ Last administered on 04/14/21at 05:57; Start 04/09/21 at 15:30 Zinc Sulfate (Orazinc) 220 mg DAILY PO Last administered on 04/11/21at 10:36; Start 04/09/21 at 15:00 Thiamine Mononitrate (Vitamin B-1) 100 mg DAILY PO Last administered on 04/11/21at 10:36; Start 04/09/21 at 15:00 Dexamethasone Sodium Phosphate (Decadron) 6 mg DAILY IVP Last administered on 04/14/21at 08:46; Start 04/09/21 at 15:30 Remdesivir 200 mg/ Sodium Chloride 210 ml @ 210 mls/hr 1X ONCE IV Last administered on 04/09/21at 19:00; Start 04/09/21 at 16:00; Stop 04/09/21 at 16:59; Status DC Remdesivir 100 mg/ Sodium Chloride 230 ml @ 460 mls/hr Q24H IV Last administered on 04/13/21at 17:09; Start 04/10/21 at 16:00; Stop 04/13/21 at 16:29; Status DC Acetaminophen (Tylenol Supp) 650 mg PRN Q6HRS PRN MO MILD PAIN / TEMP > 100.3'F Last administered on 04/12/21at 11:20; Start 04/09/21 at 20:15 Sodium Chloride 1,000 ml @ 100 mls/hr Q10H IV Last administered on 04/10/21at 05:59; Start 04/09/21 at 20:30; Stop 04/10/21 at 13:47; Status DC Ceftriaxone Sodium (Rocephin) 1 gm Q24H IVP Last administered on 04/14/21at 08:47; Start 04/10/21 at 10:15 Doxycycline Hyclate 100 mg/ Dextrose 100 ml @ 50 mls/hr Q12HR IV Last administered on 04/14/21at 08:45; Start 04/10/21 at 09:00 Lactobacillus Rhamnosus (Culturelle) 1 cap BID PO Last administered on 04/11/21at 21:34; Start 04/10/21 at 09:00 Sodium Chloride 1,000 ml @ 75 mls/hr [id number] IV Last administered on 04/13/21at 22:03; Start 04/10/21 at 14:00 Potassium Chloride (Klor-Con) 40 meq 1X ONCE PO Last administered on 04/10/21at 14:20; Start 04/10/21 at 14:00; Stop 04/10/21 at 14:01; Status DC Potassium Chloride (Klor-Con) 20 meq [id number] PO Last administered on 04/11/21at 10:36; Start 04/11/21 at 08:00 Aspirin (Aspirin Chewable) 81 mg DAILY PO Last administered on 04/11/21at 10:36; Start 04/11/21 at 09:00 Metoprolol Succinate (Toprol Xl) 25 mg 3X/WEEK PO Last administered on 04/11/21at 10:37; Start 04/11/21 at 09:00; Stop 04/11/21 at 10:48; Status DC Metoprolol Tartrate (Lopressor Vial) 5 mg PRN Q6HRS PRN IVP PER PROTOCOL Last administered on 04/13/21at 08:16; Start 04/11/21 at 10:30 Potassium Chloride (Klor-Con) 40 meq 1X ONCE PO Last administered on 04/11/21at 12:29; Start 04/11/21 at 10:45; Stop 04/11/21 at 10:46; Status DC Metoprolol Succinate (Toprol Xl) 25 mg DAILY PO ; Start 04/12/21 at 09:00 Multivitamins (Thera M Plus) 1 tab DAILY PO Last administered on 04/11/21at 12:28; Start 04/11/21 at 12:00 Folic Acid (Folic Acid) 1 mg DAILY PO Last administered on 04/11/21at 12:29; Start 04/11/21 at 12:00 Thiamine Mononitrate (Vitamin B-1) 100 mg DAILY PO ; Start 04/16/21 at 09:00; Status UNV Lorazepam (Ativan) 4 mg PRN Q1HR PRN PO For CIWA 8-14; Start 04/11/21 at 11:45 Lorazepam (Ativan) 8 mg PRN Q1HR PRN PO For CIWA 15 or greater; Start 04/11/21 at 11:45 Lorazepam (Ativan Inj) 2 mg PRN Q1HR PRN IV For CIWA 8-14 Last administered on 04/13/21at 23:19; Start 04/11/21 at 11:45 Lorazepam (Ativan Inj) 4 mg PRN Q1HR PRN IV For CIWA 15 or greater; Start 04/11/21 at 11:45 Haloperidol Lactate (Haldol Inj) 5 mg PRN Q4HRS PRN IVP Hallucinatns,C onfusn,Delirium; Start 04/11/21 at 11:45 Diphenhydramine HCl (Benadryl) 25 mg PRN Q15MIN PRN IVP EPS symptoms 2'Haldol admin; Start 04/11/21 at 11:45 Clonidine HCl (Catapres) 0.1 mg PRN Q1HR PRN PO SBP > 180 or DBP > 100, MRX3; Start 04/11/21 at 11:45 Lorazepam (Ativan Inj) 2 mg PRN Q15MIN PRN IV SEE COMMENTS; Start 04/11/21 at 11:45; Status UNV Lorazepam (Ativan Inj) 4 mg PRN Q15MIN PRN IV SEE COMMENTS; Start 04/11/21 at 11:45; Status UNV Potassium Chloride (Klor-Con) 20 meq 1X ONCE PO ; Start 04/12/21 at 17:00; Stop 04/12/21 at 17:38; Status DC Famotidine (Pepcid Vial) 20 mg BID IVP Last administered on 04/14/21at 08:46; Start 04/13/21 at 21:00 Active Scripts Active Reported Hydrochlorothiazide 25 Mg Tablet 25 Mg PO 1X Atorvastatin Calcium 20 Mg Tablet 20 Mg PO HS Metoprolol Succinate ( Xl ) (Metoprolol Succinate) 25 Mg Tab.er.24h 25 Mg PO 3X/WEEK Aspirin 81 Mg Tab.chew 81 Mg PO DAILY Vitals/I & O Vital Sign - Last 24 Hours 04/13/21 04/13/21 04/13/21 04/13/21 11:00 12:40 15:00 15:54 Temp 99.0 97.0 99.0 97.0 Pulse 111 98 Resp 22 24 B/P (MAP) 159/84 (109) 138/73 (94) Pulse Ox 97 98 97 94 O2 Delivery NonRebreather Mask BiPAP/CPAP NonRebreather Mask BiPAP/CPAP O2 Flow Rate 15.0 15.0 04/13/21 04/13/21 04/13/21 04/13/21 18:08 19:19 19:35 20:46 Temp 98.2 98.2 Pulse 107 Resp 30 B/P (MAP) 126/89 (101) Pulse Ox 97 97 96 O2 Delivery BiPAP/CPAP BiPAP/CPAP Bi-pap BiPAP/CPAP 04/13/21 04/13/21 04/13/21 04/14/21 20:49 23:26 23:45 02:26 Temp 99.1 99.1 Pulse 97 Resp 40 B/P (MAP) 116/77 (90) Pulse Ox 100 99 96 98 O2 Delivery BiPAP/CPAP BiPAP/CPAP BiPAP/CPAP BiPAP/CPAP 04/14/21 04/14/21 04/14/21 04/14/21 03:59 05:24 06:30 07:00 Temp 99.4 98.7 99.4 98.7 Pulse 109 121 Resp 40 18 B/P (MAP) 148/76 (100) 148/79 (102) Pulse Ox 97 98 96 98 O2 Delivery BiPAP/CPAP BiPAP/CPAP BiPAP/CPAP BiPAP/CPAP 04/14/21 08:14 Pulse Ox 95 O2 Delivery BiPAP/CPAP Intake and Output 04/13/21 04/13/21 04/14/21 15:00 23:00 07:00 Intake Total 0 ml 0 ml Output Total 350 ml 650 ml Balance -350 ml -[address] HEAD/BRAIN WO CLINICAL HISTORY: Altered mental status TECHNIQUE: Serial axial images without IV contrast were obtained from the vertex to the foramen magnum. CT Dose Reduction Employed: One or more of the following individualized dose reduction techniques were utilized for this examination: 1. Automated exposure control 2. Adjustment of the mA and/or kV according to patient size 3. Use of iterative reconstruction technique. COMPARISON: None FINDINGS: Acute Change: No evidence of an acute infarct or other acute parenchymal process. Hemorrhage: No evidence of acute intracranial hemorrhage. Mass Lesion/Mass Effect: No evidence of intracranial mass or extraaxial fluid collection. No significant mass effect. Chronic Change: Scattered patchy foci of hypoattenuation in the supratentorial white matter, nonspecific but likely represents mild microvascular ischemia. Atherosclerotic calcification of the anterior and posterior circulation. Parenchyma: Mild generalized volume loss. Ventricles: Ventricular enlargement concordant with degree of parenchymal volume loss. Paranasal Sinuses and Skull Base: Mild secretions in the ethmoid air cells. Minimal mucoperiosteal thickening and mild sclerosis of the sphenoid sinus wall s, suggestive of history of chronic sinusitis. Small remote blowout fracture in the left medial orbital wall with herniation of extraconal fat into the fracture defect. Visualized skull base and soft tissues otherwise unremarkable. IMPRESSION: No evidence of acute intracranial abnormality. Mild chronic white matter microvascular ischemic changes. Small remote blowout fracture left medial orbital wall as described. Justicifation of Admission Dx: Justifications for Admission: Justification of Admission Dx: Yes Sepsis: Hypoxemia CARLEY CASTREJON MD Apr 14, 2021 10:27
[2021-04-14] MEDS: ACETAMINOPHEN 650 MG SUPP.RECT. PR PRN (10:48)
--- NOTE | 2021-04-14 10:50 | PDOC ---
PULMONARY PROGRESS NOTES DATE: 04/14/21 TIME: 10:42 Subjective Patient is on 70% BiPAP. Appears lethargic. Vitals Vital Signs Date Time Temp Pulse Resp B/P (MAP) Pulse Ox O2 Delivery O2 Flow Rate FiO2 04/14/21 08:14 95 BiPAP/CPAP 04/14/21 07:00 98.7 121 18 148/79 (102) 98.7 04/13/21 15:00 15.0 Comments Visual exam done due to COVID-19. confused NCAT RRR tachypneac no skin rash no leg edema. Labs Laboratory Tests Test 04/12/21 16:50 04/13/21 04:00 Ionized Calcium 1.09 mmol/L (1.13-1.32) Hepatitis A IgM Antibody Nonreactive (Nonreactive) Hepatitis B Surface Antigen Nonreactive (Nonreactive) Hepatitis B Core IgM Antibody Nonreactive (Nonreactive) Hepatitis C IgG Antibody Nonreactive (Nonreactive) White Blood Count 9.3 x10^3/uL (4.0-11.0) Red Blood Count 3.97 x10^6/uL (4.30-5.70) Hemoglobin 13.6 g/dL (13.0-17.5) Hematocrit 39.8 % (39.0-53.0) Mean Corpuscular Volume 100 fL (79-100) Mean Corpuscular Hemoglobin 34 pg (25-35) Mean Corpuscular Hemoglobin Concent 34 g/dL (31-37) Red Cell Distribution Width 15.0 % (11.5-14.5) Platelet Count 190 x10^3/uL (140-400) Neutrophils (%) (Auto) 87 % (31-73) Lymphocytes (%) (Auto) 6 % (24-48) Monocytes (%) (Auto) 7 % (0-9) Eosinophils (%) (Auto) 0 % (0-3) Basophils (%) (Auto) 0 % (0-3) Neutrophils # (Auto) 8.1 x10^3/uL (1.8-7.7) Lymphocytes # (Auto) 0.5 x10^3/uL (1.0-4.8) Monocytes # (Auto) 0.7 x10^3/uL (0.0-1.1) Eosinophils # (Auto) 0.0 x10^3/uL (0.0-0.7) Basophils # (Auto) 0.0 x10^3/uL (0.0-0.2) Sodium Level 148 mmol/L (136-145) Potassium Level 3.6 mmol/L (3.5-5.1) Chloride Level 114 mmol/L (98-107) Carbon Dioxide Level 26 mmol/L (21-32) Anion Gap 8 (6-14) Blood Urea Nitrogen 25 mg/dL (8-26) Creatinine 1.0 mg/dL (0.7-1.3) Estimated GFR (Cockcroft-Gault) 73.9 BUN/Creatinine Ratio 25 (6-20) Glucose Level 92 mg/dL (70-99) Calcium Level 7.8 mg/dL (8.5-10.1) Ferritin 1451 ng/mL (26-388) Total Bilirubin 1.1 mg/dL (0.2-1.0) Aspartate Amino Transf (AST/SGOT) 128 U/L (15-37) Alanine Aminotransferase (ALT/SGPT) 92 U/L (16-63) Alkaline Phosphatase 50 U/L (46-116) Creatine Kinase 462 U/L (39-308) Total Protein 6.0 g/dL (6.4-8.2) Albumin 1.9 g/dL (3.4-5.0) Albumin/Globulin Ratio 0.5 (1.0-1.7) Medications Active Scripts Medications Dose Route/Sig Max Daily Dose Days Date Category Hydrochlorothiazide 25 Mg Tablet 25 Mg PO 1X 04/10/21 Reported Atorvastatin Calcium 20 Mg Tablet 20 Mg PO HS 04/10/21 Reported Metoprolol Succinate ( Xl ) (Metoprolol Succinate) 25 Mg Tab.er.24h 25 Mg PO 3X/WEEK 04/10/21 Reported Aspirin 81 Mg Tab.chew 81 Mg PO DAILY 04/10/21 Reported Impression . 1. Acute hypoxic respiratory failure secondary to COVID-19 viral pneumonia and acute lung injury. Oxygen requirement has increased. Now on 70% FiO2 via BiPAP. 2. Abnormal chest x-ray with faint bilateral hazy opacities consistent with viral pneumonia. 3. Rhabdomyolysis, currently being hydrated and clinically improving. 4. Markedly elevated LFTs secondary to combination of COVID-19 viral pneumonia and rhabdomyolysis. Improving. 5. Mildly increased troponin level. 6. Lactic acidosis, which is now improving as well. 7. Underlying COPD. The patient smoked for 31 years before quitting. Plan . 1. Continue with present oxygen, keep saturations 90% confused tachypneac. On BiPAP. Alcohol withdrawal precaution 2. Follow complete remdesivir course. 3. Continue steroids with gradual tapering for a total of 10 days. 4. Empiric antibiotics. 5. Continue hydration and follow renal function as well as liver function test and CPKs. ck coming down 6. Heparin for DVT prophylaxis. 7. Continue isolation for COVID-19. 8. Discussed with RN. We will follow along with you. 9. Obtain a follow-up chest x-ray to make sure there is no superimposed CHF. 10. I had a long discussion with Samia. Patient's . I explained to the clinical condition. I also addressed CODE STATUS. She is agreeable for DNR. ANN RIDDLE MD Apr 14, 2021 10:50
[2021-04-14 11:00] VITALS: BP 140/84
--- NOTE | 2021-04-14 11:32 | PDOC ---
LUNA TRUJILLO BILLING REPRESENTATIVE 04/14/21 1132: CARDIO Progress Notes Date and Time Date of Service 04/14/21 Time of Evaluation 1215 Subjective Subjective: Other (on BiPAP, lethargic ) Vitals Vitals Vital Signs Date Time Temp Pulse Resp B/P (MAP) Pulse Ox O2 Delivery O2 Flow Rate FiO2 04/14/21 08:14 95 BiPAP/CPAP 04/14/21 07:00 98.7 121 18 148/79 (102) 98.7 04/13/21 15:00 15.0 Weight Weight [ ] Input and Output Intake and Output Intake and Output 04/14/21 07:00 Intake Total 0 ml Output Total 1000 ml Balance -1000 ml Intake Oral 0 ml Output Urine Total 1000 ml Microbiology Micro Microbiology 04/09/21 Blood Culture - Final, Complete NO GROWTH AFTER 5 DAYS Physical Exam HEENT: Neck Supple W Full Motion Chest: Symmetric LUNGS: Other (BiPAP) Heart: RRR (ST with PACs) Extremities: No Edema Neurology: other (lethargic, opens eyes) Assessment Assessment 1. Acute respiratory failure secondary to COVID PNA. Requiring BiPAP. 2. Mild troponin elevation; peak 0.5. Most probably type II, demand ischemia secondary to above. No CP 3. CAD s/p remote CABG. Cath 2010 showed patent grafts as noted above. Echo 03/10 with preserved LV systolic function 4. Hypertension; controlled 5. Hyperlipidemia; on statin at home 6. NOEMÍ; improved 7. Rhabdomyolysis; better 8. Hypernatremia 9. Transaminitis; improving 10. Metabolic encephalopathy, possible ETOH withdrawal 11. Arrhythmia: NSVT with associated triggers above including covid-19. Maintaining SR/ST Recommendations ASA therapy Metoprolol for rate control; convert to IV as he is not able to take oral Secondary prevention as able. Supportive care Now DNR Justicifation of Admission Dx: Justifications for Admission: Justification of Admission Dx: Yes Sepsis: Hypoxemia MARTIN MACEDO MD 04/14/21 1701: CARDIO Progress Notes Assessment Assessment Patient seen and evaluated. I agree with our nurse practitioners assessment and plan. Acute respiratory failure secondary to COVID PNA. Requiring BiPAP. Continuing present treatment. Mild troponin elevation; peak 0.5. Most probably type II, demand ischemia secondary to above. No CP CAD s/p remote CABG. Cath 2010 showed patent grafts as noted above. Echo 03/10 with preserved LV systolic function Hypertension; controlled Hyperlipidemia; on statin at home NOEMÍ; improved Metabolic encephalopathy, possible ETOH withdrawal Arrhythmia: NSVT with associated triggers above including covid-19. Maintaining SR/ST. Continuing metoprolol as above. LUNA TRUJILLO APRN Apr 14, 2021 11:32 MARTIN MACEDO MD Apr 14, 2021 17:01
--- NOTE | 2021-04-14 11:48 | RAD ---
EXAM: Chest, single view. HISTORY: Covid 19. COMPARISON: 04/12/2021 FINDINGS: A frontal view of the chest is obtained. There is stable diffuse mixed interstitial and katlin eolar infiltrate. No pleural effusion or pneumothorax is seen. There is a stable cardiac silhouette a nd evidence of prior CABG. IMPRESSION: Stable diffuse infiltrate. Electronically signed by: Brissa Lopez MD (04/14/2021 11:46 AM) [id number]
[2021-04-14] MEDS: IV 1/2 NORMAL SALINE 1,000 ML IV SCH (14:40)
[2021-04-14 15:00] VITALS: BP 146/92
[2021-04-14] MEDS: METOPROLOL IV PUSH 5 MG/5 ML VIAL. IVP SCH ×2 (16:49→22:24)
--- NOTE | 2021-04-14 17:53 | PDOC ---
[employer] PROGRESS NOTE Date of Service DOS: DATE: 04/14/21 TIME: 17:50 Chief Complaint Chief Complaint Assessment/Plan Assessment/Plan A/P: Acute encephalopathy - likely metabolic from hypoxia, rhabdomyolysis Acute hypoxic respiratory failure - likely due to COVID 19 pneumonia Elevated troponin I level - likely demand ischemia from hypoxia, will trend, monitor on tele Elevated lactic acid - likely due to hypoxia, sepsis from COVID 19 Sepsis - with COVID 19 will treat with IVF and remdesivir, this is clearly viral, no definite bacterial source Acute kidney injury - likely vasomotor nephropathy from rhabomyolysis, will monitor renal function Pneumonia - likely due to COVID 19 COVID-19 virus infection - remdesivir and steroids, supportive care, wean O2 as tolerated Rhabdomyolysis - will monitor CK, likely traumatic from falling Transaminitis - likely rhabdo and covid related, will hydrate CAD s/p CABG - reconcile home meds with pharmacy as and patient cannot recall HTN - restart home meds FEN - ADAT PPX - heparin DNR/DNI Dispo - inpatient History of Present Illness History of Present Illness Identification/Chief Complaint Chief Complaint Acute encephalopathy Source Source: Caregiver, Chart review, Patient History of Present Illness History of Present Illness Mr Page is a 70 year old male with PMH HTN, HLD, CAD s/p CABG comes to ED via EMS after his called 911. Media Marketing Manager reports patient was found on floor in bedroom by who thinks he may have been laying there for at least 5-6 hours. noted he has bee sick for the past 10 days and that she has also been sick with COVID 19 for 14 days. She is confused as well as the patient. Patient can only ask for food and water and is oriented to self only. His only recalls above PMHx, does not know his meds. EMS noted patient was 87% on room air, placed on 4L NCO2 Patient's chest x-ray concerning for immunity acquired pneumonia, elevated troponin I, elevated lactic acid level, white blood cell [place] [address], LFTs elevated, CR 1.9. Started on Rocephin 1 g IV along with 30 mL/kg normal saline IV fluid replacement. COVID-19 positive per rapid study. EKG sinus tachycardia 118 bpm, left axis deviation, LAFB, no ST segment or T- wave abnormalities Admitted for further care 8- alcoholism: admitted drinking rum Metabolic encephalopathy Arrhythmia: NSVT with associated triggers above including covid-19, possible ETOH Mild troponin elevation; peak 0.5. Most probably type II, demand ischemia secondary to above. denies angina CAD s/p remote CABG. Cath 2010 showed patent grafts as noted above. Echo 03/10 with preserved LV systolic function COVID 19 POS Pneumonia Acute encephalopathy - likely metabolic from hypoxia, rhabdomyolysis Acute hypoxic respiratory failure - likely due to COVID 19 pneumonia Elevated troponin I level - likely demand ischemia from hypoxia, will trend, monitor on tele Elevated lactic acid - likely due to hypoxia, sepsis from COVID 19 Sepsis - with COVID 19 will treat with IVF and remdesivir, this is clearly viral, no definite bacterial source Acute kidney injury - likely vasomotor nephropathy from rhabomyolysis, will monitor renal function Pneumonia - likely due to COVID 19 COVID-19 virus infection - remdesivir and steroids, supportive care, wean O2 as tolerated Rhabdomyolysis - will monitor CK, likely traumatic from falling Transaminitis - likely rhabdo and covid related, will hydrate CAD s/p CABG - reconcile home meds with pharmacy as and patient cannot recall HTN - restart home meds FEN - ADAT PPX - heparin FULL CODE Dispo - inpatient Abnormal chest x-ray with faint bilateral hazy opacities consistent with viral pneumonia. Rhabdomyolysis, currently being hydrated and clinically improving. Markedly elevated LFTs secondary to combination of COVID-19 viral pneumonia rhabdomyolysis. Mildly increased troponin level. [facility] protocol d/w rn 8-21 alcoholism: admitted drinking rum 2-4 drinks a day Metabolic encephalopathy Arrhythmia: NSVT with associated triggers above including covid-19, possible ETOH Mild troponin elevation; peak 0.5. Most probably type II, demand ischemia secondary to above. denies angina CAD s/p remote CABG. Cath 2010 showed patent grafts as noted above. Echo 03/10 with preserved LV systolic function COVID 19 POS Pneumonia Acute encephalopathy - likely metabolic from hypoxia, rhabdomyolysis Acute hypoxic respiratory failure - likely due to COVID 19 pneumonia Elevated troponin I level - likely demand ischemia from hypoxia, will trend, monitor on tele Elevated lactic acid - likely due to hypoxia, sepsis from COVID 19 Sepsis - with COVID 19 will treat with IVF and remdesivir, this is clearly viral, no definite bacterial source Acute kidney injury - likely vasomotor nephropathy from rhabomyolysis, will monitor renal function Pneumonia - likely due to COVID 19 COVID-19 virus infection - remdesivir and steroids, supportive care, wean O2 as tolerated Rhabdomyolysis - will monitor CK, likely traumatic from falling Transaminitis - likely rhabdo and covid related, will hydrate CAD s/p CABG - reconcile home meds with pharmacy as and patient cannot recall HTN - restart home meds FEN - ADAT PPX - heparin FULL CODE Dispo - inpatient Abnormal chest x-ray with faint bilateral hazy opacities consistent with viral pneumonia. Rhabdomyolysis, currently being hydrated and clinically improving. Markedly elevated LFTs secondary to combination of COVID-19 viral pneumonia rhabdomyolysis. Mildly increased troponin level. [facility] protocol d/w rn 8-22 alcoholism: admitted drinking rum 2-4 drinks a day Metabolic encephalopathy Arrhythmia: NSVT with associated triggers above including covid-19, possible ETOH Mild troponin elevation; peak 0.5. Most probably type II, demand ischemia secondary to above. denies angina CAD s/p remote CABG. Cath 2010 showed patent grafts as noted above. Echo 03/10 with preserved LV systolic function COVID 19 POS Pneumonia Acute encephalopathy - likely metabolic from hypoxia, rhabdomyolysis Acute hypoxic respiratory failure - likely due to COVID 19 pneumonia Elevated troponin I level - likely demand ischemia from hypoxia, will trend, monitor on tele Elevated lactic acid - likely due to hypoxia, sepsis from COVID 19 Sepsis - with COVID 19 will treat with IVF and remdesivir, this is clearly viral, no definite bacterial source Acute kidney injury - likely vasomotor nephropathy from rhabomyolysis, will monitor renal function Pneumonia - likely due to COVID 19 COVID-19 virus infection - remdesivir and steroids, supportive care, wean O2 as tolerated Rhabdomyolysis - will monitor CK, likely traumatic from falling Transaminitis - likely rhabdo and covid related, will hydrate CAD s/p CABG - reconcile home meds with pharmacy as and patient cannot recall HTN - restart home meds FEN - ADAT PPX - heparin FULL CODE Dispo - inpatient Abnormal chest x-ray with faint bilateral hazy opacities consistent with viral pneumonia. Rhabdomyolysis, currently being hydrated and clinically improving. Markedly elevated LFTs secondary to combination of COVID-19 viral pneumonia rhabdomyolysis. Mildly increased troponin level. [facility] protocol, thiamine, folic acid Small remote blowout fracture in the left medial orbital wall with herniation of extraconal fat into the fracture defect. NEUROLOGY Consult d/w rn 04-14 alcoholism: admitted drinking rum 2-4 drinks a day Metabolic encephalopathy Arrhythmia: NSVT with associated triggers above including covid-19, possible ETOH Mild troponin elevation; peak 0.5. Most probably type II, demand ischemia secondary to above. denies angina CAD s/p remote CABG. Cath 2010 showed patent grafts as noted above. Echo 03/10 with preserved LV systolic function COVID 19 POS Pneumonia Acute encephalopathy - likely metabolic from hypoxia, rhabdomyolysis Acute hypoxic respiratory failure - likely due to COVID 19 pneumonia Elevated troponin I level - likely demand ischemia from hypoxia, will trend, monitor on tele Elevated lactic acid - likely due to hypoxia, sepsis from COVID 19 Sepsis - with COVID 19 will treat with IVF and remdesivir, this is clearly viral, no definite bacterial source Acute kidney injury - likely vasomotor nephropathy from rhabomyolysis, will monitor renal function Pneumonia - likely due to COVID 19 COVID-19 virus infection - remdesivir and steroids, supportive care, wean O2 as tolerated Rhabdomyolysis - will monitor CK, likely traumatic from falling Transaminitis - likely rhabdo and covid related, will hydrate CAD s/p CABG - reconcile home meds with pharmacy as and patient cannot recall HTN - restart home meds FEN - ADAT PPX - heparin FULL CODE Dispo - inpatient Abnormal chest x-ray with faint bilateral hazy opacities consistent with viral pneumonia. Rhabdomyolysis, currently being hydrated and clinically improving. Markedly elevated LFTs secondary to combination of COVID-19 viral pneumonia rhabdomyolysis. Mildly increased troponin level. [facility] protocol, thiamine, folic acid Small remote blowout fracture in the left medial orbital wall with herniation of extraconal fat into the fracture defect. NEUROLOGY Consult EVI TO DD d/w rn 04/14/21 Worsening respiratory status overnight requiring increasing O2 levels. Very lethargic this AM. Dr Perez spoke with patient's about his worsening condi tion and she elected to make him DNR. Vitals/I&O Vitals/I&O: Vital Signs Date Time Temp Pulse Resp B/P (MAP) Pulse Ox O2 Delivery O2 Flow Rate FiO2 04/14/21 17:12 96 BiPAP/CPAP 04/14/21 16:49 108 140/84 04/14/21 15:00 98.0 20 98.0 04/14/21 07:47 8.0 I & O 04/13/21 04/13/21 04/14/21 15:00 23:00 07:00 Intake Total 0 ml 0 ml Output Total 350 ml 650 ml Balance -350 ml -650 ml Physical Exam Physical Exam: General: Cooperative, moderate distress, Other (Confused) HEENT: Atraumatic, PERRLA, EOMI, Mucous membr. moist/pink Lungs: Other (bialteral crackles) Heart: S1S2, RRR, no thrills, no rubs, no gallops, no murmurs Abdomen: Normal bowel sounds, Soft, No tenderness, No hepatosplenomegaly, No masses Extremities: No clubbing, No cyanosis, No edema, Normal pulses, No tenderness/swelling Skin: No rashes, No breakdown, No significant lesion Neuro: Normal tone, Sensation intact, Cranial nerves 3-12 NL, Reflexes 2+ Psych/Mental Status: MORE AWAKE General: Cooperative, moderate distress, Other (lethargic) Heart: Regular rate Abdomen: Normal bowel sounds, Soft, No tenderness Extremities: No cyanosis, No edema Skin: No significant lesion Review of Systems Review of Systems: cannot obtain Assessment and Plan Assessmemt and Plan Problems Medical Problems: (1) Acute kidney injury Status: Acute (2) Altered mental status Status: Acute (3) Community acquired pneumonia Status: Acute (4) COVID-19 virus infection Status: Acute (5) Elevated lactic acid level Status: Acute (6) Elevated troponin I level Status: Acute Comment Review of Relevant I have reviewed the following items pinky (where applicable) has been applied. Medications: Current Medications Medications (Trade) Dose Ordered Sig/Carole Route PRN Reason Start Time Stop Time Status Last Admin Dose Admin Famotidine (Pepcid Vial) 20 mg BID IVP 04/13/21 21:00 04/14/21 08:46 Metoprolol Tartrate (Lopressor Vial) 5 mg Q6HRS IVP 04/14/21 16:00 04/14/21 16:49 Justifications for Admission Other Justification KARIME GODINEZ MD Apr 14, 2021 17:53
[2021-04-14 19:00] VITALS: BP 157/80
[2021-04-14 23:00] VITALS: BP 167/94
[2021-04-15] VITALS (7 sets, daily range): BP systolic 85–185; BP diastolic 74–98
[2021-04-15] MEDS: IV 1/2 NORMAL SALINE 1,000 ML IV SCH ×3 (04:35→19:41)
[2021-04-15] MEDS: HEPARIN for SUB-Q USE 5,000 UNIT/ML VIAL. SQ SCH ×3 (04:35→20:00)
[2021-04-15] MEDS: METOPROLOL IV PUSH 5 MG/5 ML VIAL. IVP SCH ×4 (04:36→22:46)
[2021-04-15 07:25] LABS: ALBUMIN 1.5 g/dL (3.4-5.0); DIRECT BILIRUBIN 0.6 mg/dL (0.0-0.2); TOTAL BILIRUBIN 1.1 mg/dL (0.2-1.0); TOTAL PROTEIN 5.7 g/dL (6.4-8.2)
[2021-04-15] MEDS: POTASSIUM CHLORIDE 20 MEQ TABLET.ER. PO SCH (08:00)
[2021-04-15] MEDS: THIAMINE 100 MG TABLET. PO SCH (09:00)
[2021-04-15] MEDS: LACTOBACILLUS RHAMNOSUS GG 1 CAPSULE. PO SCH ×2 (09:00→19:42)
[2021-04-15] MEDS: ZINC SULFATE 220 MG CAPSULE. PO SCH (09:00)
[2021-04-15] MEDS: FOLIC ACID 1 MG TABLET. PO SCH (09:00)
[2021-04-15] MEDS: ASPIRIN CHEWABLE 81 MG TABLET. PO SCH (09:00)
[2021-04-15] MEDS: MULTIVITAMIN with MINERAL TABLET. PO SCH (09:00)
[2021-04-15] MEDS: FAMOTIDINE 20 MG/2 ML VIAL IVP SCH ×2 (09:18→20:00)
[2021-04-15] MEDS: DEXAMETHASONE SOD PHOS 4 MG/ML VIAL IVP SCH (09:20)
[2021-04-15] MEDS: DOXYCYCLINE HYCLATE 100 MG in IV DEXTROSE 5% 100ML 100 ML IV SCH ×2 (09:21→20:01)
--- NOTE | 2021-04-15 09:43 | PDOC ---
PULMONARY PROGRESS NOTES DATE: 04/15/21 TIME: 09:41 Subjective Patient is on 80% BiPAP. Appears lethargic. Vitals Vital Signs Date Time Temp Pulse Resp B/P (MAP) Pulse Ox O2 Delivery O2 Flow Rate FiO2 04/15/21 07:00 99.0 115 36 114/75 (88) 93 BiPAP/CPAP 99.0 04/14/21 07:47 8.0 Comments Visual exam done due to COVID-19. On BiPAP. confused NCAT no skin rash no leg edema. Labs Laboratory Tests Test 04/15/21 06:20 Total Bilirubin 1.1 mg/dL (0.2-1.0) Direct Bilirubin 0.6 mg/dL (0.0-0.2) Aspartate Amino Transf (AST/SGOT) 62 U/L (15-37) Alanine Aminotransferase (ALT/SGPT) 62 U/L (16-63) Alkaline Phosphatase 64 U/L (46-116) Total Protein 5.7 g/dL (6.4-8.2) Albumin 1.5 g/dL (3.4-5.0) Laboratory Tests Test 04/15/21 06:20 Total Bilirubin 1.1 mg/dL (0.2-1.0) Direct Bilirubin 0.6 mg/dL (0.0-0.2) Aspartate Amino Transf (AST/SGOT) 62 U/L (15-37) Alanine Aminotransferase (ALT/SGPT) 62 U/L (16-63) Alkaline Phosphatase 64 U/L (46-116) Total Protein 5.7 g/dL (6.4-8.2) Albumin 1.5 g/dL (3.4-5.0) Medications Active Scripts Medications Dose Route/Sig Max Daily Dose Days Date Category Hydrochlorothiazide 25 Mg Tablet 25 Mg PO 1X 04/10/21 Reported Atorvastatin Calcium 20 Mg Tablet 20 Mg PO HS 04/10/21 Reported Metoprolol Succinate ( Xl ) (Metoprolol Succinate) 25 Mg Tab.er.24h 25 Mg PO 3X/WEEK 04/10/21 Reported Aspirin 81 Mg Tab.chew 81 Mg PO DAILY 04/10/21 Reported Impression . 1. Acute hypoxic respiratory failure secondary to COVID-19 viral pneumonia and acute lung injury. Oxygen requirement has increased. Now on 70% FiO2 via BiPAP. 2. Abnormal chest x-ray with faint bilateral hazy opacities consistent with viral pneumonia. 3. Rhabdomyolysis, currently being hydrated and clinically improving. 4. Markedly elevated LFTs secondary to combination of COVID-19 viral pneumonia and rhabdomyolysis. Improving. 5. Mildly increased troponin level. 6. Lactic acidosis, which is now improving as well. 7. Underlying COPD. The patient smoked for 31 years before quitting. 8. Alcohol withdrawal. Plan . 1. Continue with present oxygen, keep saturations 90% On BiPAP at 80% FiO2. Alcohol withdrawal precaution 2. Follow complete remdesivir course. 3. Continue steroids with gradual tapering for a total of 10 days. 4. Empiric antibiotics. 5. Continue hydration and follow renal function as well as liver function test and CPKs. ck coming down 6. Heparin for DVT prophylaxis. 7. Continue isolation for COVID-19. 8. Discussed with RN. We will follow along with you. 9. follow-up chest x-ray with unchanged bilateral infiltrates. 10. I had a long discussion with Samia 04/14. Patient's . I explained to the clinical condition. I also addressed CODE STATUS. She is agreeable for DNR. ANN RIDDLE MD Apr 15, 2021 09:43
--- NOTE | 2021-04-15 10:21 | PDOC ---
Date of Service: DATE: 04/15/21 TIME: 10:18 Objective: Objective: Reviewed other notes. Vital Signs: Vital Signs Date Time Temp Pulse Resp B/P (MAP) Pulse Ox O2 Delivery O2 Flow Rate FiO2 04/15/21 09:40 92 BiPAP/CPAP 04/15/21 07:00 99.0 115 36 114/75 (88) 99.0 04/14/21 07:47 8.0 Labs: Laboratory Tests Test 04/15/21 06:20 Total Bilirubin 1.1 mg/dL Direct Bilirubin 0.6 mg/dL Aspartate Amino Transf (AST/SGOT) 62 U/L Alanine Aminotransferase (ALT/SGPT) 62 U/L Alkaline Phosphatase 64 U/L Total Protein 5.7 g/dL Albumin 1.5 g/dL PE: GEN: in COVID isolation, observed from doorway, appears ill LUNGS: BiPAP HEART: tachycardic ABD: non-distended NEURO/PSYCH: eyes closed, seems lethargic A/P: COVID-19 resp failure (worse) Rhabdo, elevated LFTs (better) -- Now DNR, increasing O2 requirements. Justicifation of Admission Dx: Justifications for Admission: Justification of Admission Dx: Yes Sepsis: Hypoxemia MARK MARCELO Apr 15, 2021 10:21 NISH ESTRADA MD Apr 15, 2021 13:09
--- NOTE | 2021-04-15 10:53 | PDOC ---
PROGRESS NOTES Date of Service DATE: 04/15/21 TIME: 10:51 Assessment Problems Medical Problems: (1) Acute kidney injury Status: Acute (2) Altered mental status Status: Acute (3) Community acquired pneumonia Status: Acute (4) COVID-19 virus infection Status: Acute (5) Elevated lactic acid level Status: Acute (6) Elevated troponin I level Status: Acute Encephalopathy, COVID pneumonia, respiratory failure is worsening, requiring 80% FiO2 Rhabdomyolysis, elevated transaminases, renal insufficiency, elevated troponin on admission, elevated lactic acid on admission, history of alcohol abuse History of hypertension coronary artery disease, hyperlipidemia Plan Risks to our personnel outweigh benefits to patient of taking him out of isolation for a brain MRI Treat medical issues Note that he is DNR now Neurology will follow loosely Subjective None Objective Vital Signs Date Time Temp Pulse Resp B/P (MAP) Pulse Ox O2 Delivery O2 Flow Rate FiO2 04/15/21 09:40 92 BiPAP/CPAP 04/15/21 07:00 99.0 115 36 114/75 (88) 99.0 04/14/21 07:47 8.0 Intake and Output 04/15/21 07:00 Intake Total 1000 ml Output Total 1550 ml Balance -550 ml Intake Oral 0 ml IV Total 1000 ml Output Urine Total 1550 ml # Bowel Movements 1 PHYSICAL EXAM Eyes closed, opens to voice, bilateral mittens on, nonverbal, does not follow commands On BiPAP PERRL. EOMI. CN: no focal findings. Muscle tone: normal. Muscle strength: 4/5 DTR: 1+ Plantar reflex: Flexor Gait: not examined in bed. Sensory exam: no abnormal findings. Cerebellar: Not cooperative Review of Relevant I have reviewed the following items pinky (where applicable) has been applied. Labs Laboratory Tests Test 04/15/21 06:20 Total Bilirubin 1.1 mg/dL (0.2-1.0) Direct Bilirubin 0.6 mg/dL (0.0-0.2) Aspartate Amino Transf (AST/SGOT) 62 U/L (15-37) Alanine Aminotransferase (ALT/SGPT) 62 U/L (16-63) Alkaline Phosphatase 64 U/L (46-116) Total Protein 5.7 g/dL (6.4-8.2) Albumin 1.5 g/dL (3.4-5.0) Laboratory Tests Test 04/15/21 06:20 Total Bilirubin 1.1 mg/dL (0.2-1.0) Direct Bilirubin 0.6 mg/dL (0.0-0.2) Aspartate Amino Transf (AST/SGOT) 62 U/L (15-37) Alanine Aminotransferase (ALT/SGPT) 62 U/L (16-63) Alkaline Phosphatase 64 U/L (46-116) Total Protein 5.7 g/dL (6.4-8.2) Albumin 1.5 g/dL (3.4-5.0) Microbiology 04/09/21 Blood Culture - Final, Complete NO GROWTH AFTER 5 DAYS Medications Current Medications Sodium Chloride 1,000 ml @ 1,000 mls/hr 1X ONCE IV Last administered on 04/09/21at 10:10; Start 04/09/21 at 10:15; Stop 04/09/21 at 11:14; Status DC Sodium Chloride 1,000 ml @ 2,850 mls/hr Q22M IV Last administered on 04/09/21at 11:29; Start 04/09/21 at 10:45; Stop 04/09/21 at 11:45; Status DC Ceftriaxone Sodium (Rocephin) 1 gm 1X ONCE IVP Last administered on 04/09/21at 11:33; Start 04/09/21 at 10:45; Stop 04/09/21 at 10:46; Status DC Doxycycline Hyclate 100 mg/ Dextrose 100 ml @ 50 mls/hr 1X ONCE IV Last administered on 04/09/21at 11:32; Start 04/09/21 at 11:00; Stop 04/09/21 at 12:59; Status DC Olanzapine (ZyPREXA ZYDIS) 5 mg PRN BID PRN PO ANXIETY / AGITATION Last admin istered on 04/11/21at 10:36; Start 04/09/21 at 15:00 Ondansetron HCl (Zofran) 4 mg PRN Q4HRS PRN IVP NAUSEA/VOMITING; Start 04/09/21 at 15:00 Tramadol HCl (Ultram) 50 mg PRN Q6HRS PRN PO MODERATE - SEVERE PAIN; Start 04/09/21 at 15:00 Guaifenesin (Robitussin Dm) 10 ml PRN Q6HRS PRN PO COUGH; Start 04/09/21 at 15:00 Acetaminophen (Tylenol) 650 mg PRN Q6HRS PRN PO MILD PAIN / TEMP > 100.3'F; Start 04/09/21 at 15:00 Fentanyl Citrate (Fentanyl 2ml Vial) 25 mcg PRN Q3HRS PRN IVP SEVERE PAIN 7-10; Start 04/09/21 at 15:00 Heparin Sodium (Porcine) (Heparin Sodium) 5,000 unit Q8HRS SQ Last administered on 04/15/21 04:35; Start 04/09/21 at 15:30 Zinc Sulfate (Orazinc) 220 mg DAILY PO Last administered on 04/11/21at 10:36; Start 04/09/21 at 15:00 Thiamine Mononitrate (Vitamin B-1) 100 mg DAILY PO Last administered on 04/11/21 10:36; Start 04/09/21 at 15:00 Dexamethasone Sodium Phosphate (Decadron) 6 mg DAILY IVP Last administered on 04/15/21at 09:20; Start 04/09/21 at 15:30 Remdesivir 200 mg/ Sodium Chloride 210 ml @ 210 mls/hr 1X ONCE IV Last administered on 04/09/21at 19:00; Start 04/09/21 at 16:00; Stop 04/09/21 at 16:59; Status DC Remdesivir 100 mg/ Sodium Chloride 230 ml @ 460 mls/hr Q24H IV Last administered on 04/13/21at 17:09; Start 04/10/21 at 16:00; Stop 04/13/21 at 16:29; Status DC Acetaminophen (Tylenol Supp) 650 mg PRN Q6HRS PRN VA MILD PAIN / TEMP > 100.3'F Last administered on 04/14/21at 10:48; Start 04/09/21 at 20:15 Sodium Chloride 1,000 ml @ 100 mls/hr Q10H IV Last administered on 04/10/21at 05:59; Start 04/09/21 at 20:30; Stop 04/10/21 at 13:47; Status DC Ceftriaxone Sodium (Rocephin) 1 gm Q24H IVP Last administered on 04/14/21at 08:47; Start 04/10/21 at 10:15 Doxycycline Hyclate 100 mg/ Dextrose 100 ml @ 50 mls/hr Q12HR IV Last administ ered on 8/24/21at 09:21; Start 04/10/21 at 09:00 Lactobacillus Rhamnosus (Culturelle) 1 cap BID PO Last administered on 04/11/21 at 21:34; Start 04/10/21 at 09:00 Sodium Chloride 1,000 ml @ 75 mls/hr [id number] IV Last administered on 04/15/21at 04:35; Start 04/10/21 at 14:00 Potassium Chloride (Klor-Con) 40 meq 1X ONCE PO Last administered on 04/10/21at 14:20; Start 04/10/21 at 14:00; Stop 04/10/21 at 14:01; Status DC Potassium Chloride (Klor-Con) 20 meq [id number] PO Last administered on 04/11/21at 10:36; Start 04/11/21 at 08:00 Aspirin (Aspirin Chewable) 81 mg DAILY PO Last administered on 04/11/21at 10:36; Start 04/11/21 at 09:00 Metoprolol Succinate (Toprol Xl) 25 mg 3X/WEEK PO Last administered on 04/11/21at 10:37; Start 04/11/21 at 09:00; Stop 04/11/21 at 10:48; Status DC Metoprolol Tartrate (Lopressor Vial) 5 mg PRN Q6HRS PRN IVP PER PROTOCOL Last administered on 04/13/21at 08:16; Start 04/11/21 at 10:30; Stop 04/14/21 at 15:11; Status DC Potassium Chloride (Klor-Con) 40 meq 1X ONCE PO Last administered on 04/11/21at 12:29; Start 04/11/21 at 10:45; Stop 04/11/21 at 10:46; Status DC Metoprolol Succinate (Toprol Xl) 25 mg DAILY PO ; Start 04/12/21 at 09:00; Stop 04/14/21 at 15:11; Status DC Multivitamins (Thera M Plus) 1 tab DAILY PO Last administered on 04/11/21at 12:28; Start 04/11/21 at 12:00 Folic Acid (Folic Acid) 1 mg DAILY PO Last administered on 04/11/21at 12:29; Start 04/11/21 at 12:00 Thiamine Mononitrate (Vitamin B-1) 100 mg DAILY PO ; Start 04/16/21 at 09:00; Status UNV Lorazepam (Ativan) 4 mg PRN Q1HR PRN PO For CIWA 8-14; Start 04/11/21 at 11:45 Lorazepam (Ativan) 8 mg PRN Q1HR PRN PO For CIWA 15 or greater; Start 04/11/21 at 11:45 Lorazepam (Ativan Inj) 2 mg PRN Q1HR PRN IV For CIWA 8-14 Last administered on 04/15/21at 02:20; Start 04/11/21 at 11:45 Lorazepam (Ativan Inj) 4 mg PRN Q1HR PRN IV For CIWA 15 or greater; Start 04/11/21 at 11:45 Haloperidol Lactate (Haldol Inj) 5 mg PRN Q4HRS PRN IVP Hallucinatns,Confusn,Delirium; Start 04/11/21 at 11:45 Diphenhydramine HCl (Benadryl) 25 mg PRN Q15MIN PRN IVP EPS symptoms 2'Haldol admin; Start 04/11/21 at 11:45 Clonidine HCl (Catapres) 0.1 mg PRN Q1HR PRN PO SBP > 180 or DBP > 100, MRX3; Start 04/11/21 at 11:45 Lorazepam (Ativan Inj) 2 mg PRN Q15MIN PRN IV SEE COMMENTS; Start 04/11/21 at 11:45; Status UNV Lorazepam (Ativan Inj) 4 mg PRN Q15MIN PRN IV SEE COMMENTS; Start 04/11/21 at 11:45; Status UNV Potassium Chloride (Klor-Con) 20 meq 1X ONCE PO ; Start 04/12/21 at 17:00; Stop 04/12/21 at 17:38; Status DC Famotidine (Pepcid Vial) 20 mg BID IVP Last administered on 04/15/21at 09:18; Start 04/13/21 at 21:00 Metoprolol Tartrate (Lopressor Vial) 5 mg Q6HRS IVP Last administered on 04/15/21at 04:36; Start 04/14/21 at 16:00 Active Scripts Active Reported Hydrochlorothiazide 25 Mg Tablet 25 Mg PO 1X Atorvastatin Calcium 20 Mg Tablet 20 Mg PO HS Metoprolol Succinate ( Xl ) (Metoprolol Succinate) 25 Mg Tab.er.24h 25 Mg PO 3X/WEEK Aspirin 81 Mg Tab.chew 81 Mg PO DAILY Vitals/I & O Vital Sign - Last 24 Hours 04/14/21 04/14/21 04/14/21 04/14/21 11:00 11:45 13:32 15:00 Temp 100.0 98.0 100.0 98.0 Pulse 121 117 Resp 16 20 B/P (MAP) 140/84 (102) 146/92 (110) Pulse Ox 94 96 96 95 O2 Delivery BiPAP/CPAP BiPAP/CPAP BiPAP/CPAP BiPAP/CPAP 04/14/21 04/14/21 04/14/21 04/14/21 15:45 16:49 17:12 19:00 Temp 98.0 98.0 Pulse 108 102 Resp 38 B/P (MAP) 140/84 157/80 (105) Pulse Ox 96 96 95 O2 Delivery BiPAP/CPAP BiPAP/CPAP BiPAP/CPAP 04/14/21 04/14/21 04/14/21 04/14/21 19:52 21:09 22:24 23:00 Temp 98.2 98.2 Pulse 128 102 Resp 43 B/P (MAP) 157/80 167/94 (118) Pulse Ox 93 92 O2 Delivery Bi-pap BiPAP/CPAP BiPAP/CPAP 04/15/21 04/15/21 04/15/21 04/15/21 00:00 02:00 02:55 04:36 Temp 99.0 99.0 Pulse 105 105 Resp 36 B/P (MAP) 135/78 (97) 135/78 Pulse Ox 90 92 93 O2 Delivery BiPAP/CPAP BiPAP/CPAP BiPAP/CPAP 04/15/21 04/15/21 04/15/21 04:45 07:00 09:40 Temp 99.0 99.0 Pulse 115 Resp 36 B/P (MAP) 114/75 (88) Pulse Ox 93 93 92 O2 Delivery BiPAP/CPAP BiPAP/CPAP BiPAP/CPAP Intake and Output 04/14/21 04/14/21 04/15/21 15:00 23:00 07:00 Intake Total 0 ml 100 ml 900 ml Output Total 800 ml 750 ml Balance 0 ml -700 ml 150 ml Justicifation of Admission Dx: Justifications for Admission: Justification of Admission Dx: Yes Sepsis: Hypoxemia APPELBAUM,CARLEY S MD Apr 15, 2021 10:53
--- NOTE | 2021-04-15 11:00 | PDOC ---
CARDIO Progress Notes Date and Time Date of Service 04/15/2021 Time of Evaluation 1040 Subjective Subjective: No Chest Pain, No shortness of breath, No Palpitations, Other (on BiPAP, lethargic ) Vitals Vitals Vital Signs Date Time Temp Pulse Resp B/P (MAP) Pulse Ox O2 Delivery O2 Flow Rate FiO2 04/15/21 09:40 92 BiPAP/CPAP 04/15/21 07:00 99.0 115 36 114/75 (88) 99.0 04/14/21 07:47 8.0 Weight Weight [ ] Input and Output Intake and Output Intake and Output 04/15/21 07:00 Intake Total 1000 ml Output Total 1550 ml Balance -550 ml Intake Oral 0 ml IV Total 1000 ml Output Urine Total 1550 ml # Bowel Movements 1 Laboratory Labs Laboratory Tests Test 04/15/21 06:20 Total Bilirubin 1.1 mg/dL (0.2-1.0) Direct Bilirubin 0.6 mg/dL (0.0-0.2) Aspartate Amino Transf (AST/SGOT) 62 U/L (15-37) Alanine Aminotransferase (ALT/SGPT) 62 U/L (16-63) Alkaline Phosphatase 64 U/L (46-116) Total Protein 5.7 g/dL (6.4-8.2) Albumin 1.5 g/dL (3.4-5.0) Microbiology Micro Microbiology 04/09/21 Blood Culture - Final, Complete NO GROWTH AFTER 5 DAYS Physical Exam HEENT: Neck Supple W Full Motion Chest: Symmetric LUNGS: Other (BiPAP) Heart: RRR (ST with PACs) Extremities: No Edema Neurology: other (lethargic, opens eyes) Assessment Assessment 1. Acute respiratory failure secondary to COVID PNA. Still requiring BiPAP. Remains with low grade fever 2. Mild troponin elevation; peak 0.5. Most probably type II, demand ischemia secondary to above. No CP 3. CAD s/p remote CABG. Cath 2010 showed patent grafts as noted above. Echo 03/10 with preserved LV systolic function 4. Hypertension; controlled 5. Hyperlipidemia; on statin at home 6. NOEMÍ; improved 7. Rhabdomyolysis; better 8. Hypernatremia 9. Transaminitis; improving 10. Metabolic encephalopathy: remains lethargic. neurology following 11. Arrhythmia: NSVT with associated triggers above including covid-19. Maintaining SR/ST Recommendations ASA therapy Metoprolol for rate control; convert to IV as he is not able to take oral Secondary prevention as able. Supportive care Now DNR Justicifation of Admission Dx: Justifications for Admission: Justification of Admission Dx: Yes Sepsis: Hypoxemia FLORENTINO ROWAN APRN Apr 15, 2021 11:00
[2021-04-15] MEDS: cefTRIAXone IV Push 1 GM VIAL. IVP SCH (11:36)
[2021-04-15 11:40] LABS: CALCIUM 7.7 mg/dL (8.5-10.1); CREATININE 0.8 mg/dL (0.7-1.3); GFR 95.6; POTASSIUM 4.2 mmol/L (3.5-5.1)
--- NOTE | 2021-04-15 16:39 | PDOC ---
[facility] PROGRESS NOTE Date of Service DOS: DATE: 04/15/21 TIME: 16:38 Chief Complaint Chief Complaint Assessment/Plan Assessment/Plan A/P: Acute encephalopathy - likely metabolic from hypoxia, rhabdomyolysis Acute hypoxic respiratory failure - likely due to COVID 19 pneumonia Elevated troponin I level - likely demand ischemia from hypoxia, will trend, monitor on tele Elevated lactic acid - likely due to hypoxia, sepsis from COVID 19 Sepsis - with COVID 19 will treat with IVF and remdesivir, this is clearly viral, no definite bacterial source Acute kidney injury - likely vasomotor nephropathy from rhabomyolysis, will monitor renal function Pneumonia - likely due to COVID 19 COVID-19 virus infection - remdesivir and steroids, supportive care, wean O2 as tolerated Rhabdomyolysis - will monitor CK, likely traumatic from falling Transaminitis - likely rhabdo and covid related, will hydrate CAD s/p CABG - reconcile home meds with pharmacy as and patient cannot recall HTN - restart home meds FEN - ADAT PPX - heparin DNR/DNI Dispo - inpatient History of Present Illness History of Present Illness Identification/Chief Complaint Chief Complaint Acute encephalopathy Source Source: Caregiver, Chart review, Patient History of Present Illness History of Present Illness Mr Page is a 70 year old male with PMH HTN, HLD, CAD s/p CABG comes to ED via EMS after his called 911. Rib Builder reports patient was found on floor in bedroom by who thinks he may have been laying there for at least 5-6 hours. noted he has bee sick for the past 10 days and that she has also been sick with COVID 19 for 14 days. She is confused as well as the patient. Patient can only ask for food and water and is oriented to self only. His only recalls above PMHx, does not know his meds. EMS noted patient was 87% on room air, placed on 4L NCO2 Patient's chest x-ray concerning for immunity acquired pneumonia, elevated troponin I, elevated lactic acid level, white blood cell count within [place] limits. [place] 10728, LFTs elevated, CR 1.9. Started on Rocephin 1 g IV along with 30 mL/kg normal saline IV fluid replacement. COVID-19 positive per rapid study. EKG sinus tachycardia 118 bpm, left axis deviation, LAFB, no ST segment or T- wave abnormalities Admitted for further care 8- alcoholism: admitted drinking rum Metabolic encephalopathy Arrhythmia: NSVT with associated triggers above including covid-19, possible ETOH Mild troponin elevation; peak 0.5. Most probably type II, demand ischemia secondary to above. denies angina CAD s/p remote CABG. Cath 2010 showed patent grafts as noted above. Echo 03/10 with preserved LV systolic function COVID 19 POS Pneumonia Acute encephalopathy - likely metabolic from hypoxia, rhabdomyolysis Acute hypoxic respiratory failure - likely due to COVID 19 pneumonia Elevated troponin I level - likely demand ischemia from hypoxia, will trend, monitor on tele Elevated lactic acid - likely due to hypoxia, sepsis from COVID 19 Sepsis - with COVID 19 will treat with IVF and remdesivir, this is clearly viral, no definite bacterial source Acute kidney injury - likely vasomotor nephropathy from rhabomyolysis, will monitor renal function Pneumonia - likely due to COVID 19 COVID-19 virus infection - remdesivir and steroids, supportive care, wean O2 as tolerated Rhabdomyolysis - will monitor CK, likely traumatic from falling Transaminitis - likely rhabdo and covid related, will hydrate CAD s/p CABG - reconcile home meds with pharmacy as and patient cannot recall HTN - restart home meds FEN - ADAT PPX - heparin FULL CODE Dispo - inpatient Abnormal chest x-ray with faint bilateral hazy opacities consistent with viral pneumonia. Rhabdomyolysis, currently being hydrated and clinically improving. Markedly elevated LFTs secondary to combination of COVID-19 viral pneumonia rhabdomyolysis. Mildly increased troponin level. [facility] protocol d/w rn 8-21 alcoholism: admitted drinking rum 2-4 drinks a day Metabolic encephalopathy Arrhythmia: NSVT with associated triggers above including covid-19, possible ETOH Mild troponin elevation; peak 0.5. Most probably type II, demand ischemia secondary to above. denies angina CAD s/p remote CABG. Cath 2010 showed patent grafts as noted above. Echo 03/10 with preserved LV systolic function COVID 19 POS Pneumonia Acute encephalopathy - likely metabolic from hypoxia, rhabdomyolysis Acute hypoxic respiratory failure - likely due to COVID 19 pneumonia Elevated troponin I level - likely demand ischemia from hypoxia, will trend, monitor on tele Elevated lactic acid - likely due to hypoxia, sepsis from COVID 19 Sepsis - with COVID 19 will treat with IVF and remdesivir, this is clearly viral, no definite bacterial source Acute kidney injury - likely vasomotor nephropathy from rhabomyolysis, will monitor renal function Pneumonia - likely due to COVID 19 COVID-19 virus infection - remdesivir and steroids, supportive care, wean O2 as tolerated Rhabdomyolysis - will monitor CK, likely traumatic from falling Transaminitis - likely rhabdo and covid related, will hydrate CAD s/p CABG - reconcile home meds with pharmacy as and patient cannot recall HTN - restart home meds FEN - ADAT PPX - heparin FULL CODE Dispo - inpatient Abnormal chest x-ray with faint bilateral hazy opacities consistent with viral pneumonia. Rhabdomyolysis, currently being hydrated and clinically improving. Markedly elevated LFTs secondary to combination of COVID-19 viral pneumonia rhabdomyolysis. Mildly increased troponin level. [facility] protocol d/w rn 8-22 alcoholism: admitted drinking rum 2-4 drinks a day Metabolic encephalopathy Arrhythmia: NSVT with associated triggers above including covid-19, possible ETOH Mild troponin elevation; peak 0.5. Most probably type II, demand ischemia secondary to above. denies angina CAD s/p remote CABG. Cath 2010 showed patent grafts as noted above. Echo 03/10 with preserved LV systolic function COVID 19 POS Pneumonia Acute encephalopathy - likely metabolic from hypoxia, rhabdomyolysis Acute hypoxic respiratory failure - likely due to COVID 19 pneumonia Elevated troponin I level - likely demand ischemia from hypoxia, will trend, monitor on tele Elevated lactic acid - likely due to hypoxia, sepsis from COVID 19 Sepsis - with COVID 19 will treat with IVF and remdesivir, this is clearly viral, no definite bacterial source Acute kidney injury - likely vasomotor nephropathy from rhabomyolysis, will monitor renal function Pneumonia - likely due to COVID 19 COVID-19 virus infection - remdesivir and steroids, supportive care, wean O2 as tolerated Rhabdomyolysis - will monitor CK, likely traumatic from falling Transaminitis - likely rhabdo and covid related, will hydrate CAD s/p CABG - reconcile home meds with pharmacy as and patient cannot recall HTN - restart home meds FEN - ADAT PPX - heparin FULL CODE Dispo - inpatient Abnormal chest x-ray with faint bilateral hazy opacities consistent with viral pneumonia. Rhabdomyolysis, currently being hydrated and clinically improving. Markedly elevated LFTs secondary to combination of COVID-19 viral pneumonia rhabdomyolysis. Mildly increased troponin level. [facility] protocol, thiamine, folic acid Small remote blowout fracture in the left medial orbital wall with herniation of extraconal fat into the fracture defect. NEUROLOGY Consult d/w rn 04-14 alcoholism: admitted drinking rum 2-4 drinks a day Metabolic encephalopathy Arrhythmia: NSVT with associated triggers above including covid-19, possible ETOH Mild troponin elevation; peak 0.5. Most probably type II, demand ischemia secondary to above. denies angina CAD s/p remote CABG. Cath 2010 showed patent grafts as noted above. Echo 03/10 with preserved LV systolic function COVID 19 POS Pneumonia Acute encephalopathy - likely metabolic from hypoxia, rhabdomyolysis Acute hypoxic respiratory failure - likely due to COVID 19 pneumonia Elevated troponin I level - likely demand ischemia from hypoxia, will trend, monitor on tele Elevated lactic acid - likely due to hypoxia, sepsis from COVID 19 Sepsis - with COVID 19 will treat with IVF and remdesivir, this is clearly viral, no definite bacterial source Acute kidney injury - likely vasomotor nephropathy from rhabomyolysis, will monitor renal function Pneumonia - likely due to COVID 19 COVID-19 virus infection - remdesivir and steroids, supportive care, wean O2 as tolerated Rhabdomyolysis - will monitor CK, likely traumatic from falling Transaminitis - likely rhabdo and covid related, will hydrate CAD s/p CABG - reconcile home meds with pharmacy as and patient cannot recall HTN - restart home meds FEN - ADAT PPX - heparin FULL CODE Dispo - inpatient Abnormal chest x-ray with faint bilateral hazy opacities consistent with viral pneumonia. Rhabdomyolysis, currently being hydrated and clinically improving. Markedly elevated LFTs secondary to combination of COVID-19 viral pneumonia rhabdomyolysis. Mildly increased troponin level. CIWA protocol, thiamine, folic acid Small remote blowout fracture in the left medial orbital wall with herniation of extraconal fat into the fracture defect. NEUROLOGY Consult EVI TO ROSINA d/w rn 04/14/21 Worsening respiratory status overnight requiring increasing O2 levels. Very lethargic this AM. Dr Perez spoke with patient's about his worsening condi tion and she elected to make him DNR. 04/15 Evaluated at bedside. Remains very lethargic. Providing supportive measures continuing treatment otherwise. Covid protocol. Plan of care discussed with bedside RN. Vitals/I&O Vitals/I&O: Vital Signs Date Time Temp Pulse Resp B/P (MAP) Pulse Ox O2 Delivery O2 Flow Rate FiO2 04/15/21 16:27 94 BiPAP/CPAP 04/15/21 15:00 100.7 117 36 142/75 (97) 100.7 04/15/21 08:00 8.0 I & O 0 04/14/21 04/14/21 04/15/21 15:00 23:00 07:00 Intake Total 0 ml 100 ml 900 ml Output Total 800 ml 750 ml Balance 0 ml -700 ml 150 ml Physical Exam Physical Exam: General: Cooperative, moderate distress, Other (Confused) HEENT: Atraumatic, PERRLA, EOMI, Mucous membr. moist/pink Lungs: Other (bialteral crackles) Heart: S1S2, RRR, no thrills, no rubs, no gallops, no murmurs Abdomen: Normal bowel sounds, Soft, No tenderness, No hepatosplenomegaly, No masses Extremities: No clubbing, No cyanosis, No edema, Normal pulses, No tenderness/swelling Skin: No rashes, No breakdown, No significant lesion Neuro: Normal tone, Sensation intact, Cranial nerves 3-12 NL, Reflexes 2+ Psych/Mental Status: MORE AWAKE General: Cooperative, moderate distress, Other (lethargic) Heart: Regular rate Abdomen: Normal bowel sounds, Soft, No tenderness Extremities: No cyanosis, No edema Skin: No significant lesion Labs Labs: Laboratory Tests Test 04/15/21 06:20 Sodium Level 147 mmol/L (136-145) Potassium Level 4.2 mmol/L (3.5-5.1) Chloride Level 114 mmol/L (98-107) Carbon Dioxide Level 24 mmol/L (21-32) Anion Gap 9 (6-14) Blood Urea Nitrogen 23 mg/dL (8-26) Creatinine 0.8 mg/dL (0.7-1.3) Estimated GFR (Cockcroft-Gault) 95.6 Glucose Level 109 mg/dL (70-99) Calcium Level 7.7 mg/dL (8.5-10.1) Total Bilirubin 1.1 mg/dL (0.2-1.0) Direct Bilirubin 0.6 mg/dL (0.0-0.2) Aspartate Amino Transf (AST/SGOT) 62 U/L (15-37) Alanine Aminotransferase (ALT/SGPT) 62 U/L (16-63) Alkaline Phosphatase 64 U/L (46-116) Total Protein 5.7 g/dL (6.4-8.2) Albumin 1.5 g/dL (3.4-5.0) Assessment and Plan Assessmemt and Plan Problems Medical Problems: (1) Acute kidney injury Status: Acute (2) Altered mental status Status: Acute (3) Community acquired pneumonia Status: Acute (4) COVID-19 virus infection Status: Acute (5) Elevated lactic acid level Status: Acute (6) Elevated troponin I level Status: Acute Comment Review of Relevant I have reviewed the following items pinky (where applicable) has been applied. Justifications for Admission Other Justification KARIME GODINEZ MD Apr 15, 2021 16:39
[2021-04-15] MEDS: ASPIRIN RECTAL 300 MG SUPP. PR SCH (16:42)
[2021-04-16 03:00] VITALS: BP 152/83
[2021-04-16] MEDS: METOPROLOL IV PUSH 5 MG/5 ML VIAL. IVP SCH ×4 (05:04→23:03)
[2021-04-16] MEDS: HEPARIN for SUB-Q USE 5,000 UNIT/ML VIAL. SQ SCH ×3 (05:05→19:55)
[2021-04-16 07:00] VITALS: BP 148/78
[2021-04-16] MEDS: POTASSIUM CHLORIDE 20 MEQ TABLET.ER. PO SCH (08:00)
[2021-04-16] MEDS: DEXAMETHASONE SOD PHOS 4 MG/ML VIAL IVP SCH (08:26)
[2021-04-16] MEDS: FAMOTIDINE 20 MG/2 ML VIAL IVP SCH ×2 (08:26→20:18)
[2021-04-16] MEDS: DOXYCYCLINE HYCLATE 100 MG in IV DEXTROSE 5% 100ML 100 ML IV SCH ×2 (08:26→20:17)
[2021-04-16] MEDS: cefTRIAXone IV Push 1 GM VIAL. IVP SCH (08:27)
[2021-04-16] MEDS: ZINC SULFATE 220 MG CAPSULE. PO SCH (09:00)
[2021-04-16] MEDS: MULTIVITAMIN with MINERAL TABLET. PO SCH (09:00)
[2021-04-16] MEDS: LACTOBACILLUS RHAMNOSUS GG 1 CAPSULE. PO SCH ×2 (09:00→20:19)
[2021-04-16] MEDS ORDERED: THIAMINE 100 MG TABLET. PO SCH (09:00)
[2021-04-16] MEDS: FOLIC ACID 1 MG TABLET. PO SCH (09:00)
[2021-04-16] MEDS: THIAMINE 100 MG TABLET. PO SCH (09:00)
--- NOTE | 2021-04-16 09:13 | PDOC ---
Date of Service: DATE: 04/16/21 TIME: 09:09 Objective: Objective: Reviewed w/ nurse - best sats are barely 90%, on BiPAP, tachycardic, responds some to painful stimuli. Vital Signs: Vital Signs Date Time Temp Pulse Resp B/P (MAP) Pulse Ox O2 Delivery O2 Flow Rate FiO2 04/16/21 07:19 90 BiPAP/CPAP 04/16/21 07:00 101.0 128 40 148/78 (101) 101.0 04/15/21 08:00 8.0 PE: GEN: in COVID isolation LUNGS: BiPAP HEART: tachycardic ABD: non-distended NEURO/PSYCH: unresponsive A/P: COVID-19, resp failure -- Continue support from GI standpoint. Justicifation of Admission Dx: Justifications for Admission: Justification of Admission Dx: Yes Sepsis: Hypoxemia MARK MARCELO Apr 16, 2021 09:13
[2021-04-16] MEDS: ASPIRIN RECTAL 300 MG SUPP. PR SCH (09:36)
[2021-04-16] MEDS: ACETAMINOPHEN 650 MG SUPP.RECT. PR PRN ×2 (09:41→20:18)
[2021-04-16 11:00] VITALS: BP 142/88
--- NOTE | 2021-04-16 11:01 | PDOC ---
PULMONARY PROGRESS NOTES DATE: 04/16/21 TIME: 11:01 Subjective Patient is on 80% BiPAP. Appears lethargic. Vitals Vital Signs Date Time Temp Pulse Resp B/P (MAP) Pulse Ox O2 Delivery O2 Flow Rate FiO2 04/16/21 10:21 92 BiPAP/CPAP 04/16/21 08:00 8.0 04/16/21 07:00 101.0 128 40 148/78 (101) 101.0 Comments Visual exam done due to COVID-19. On BiPAP. confused NCAT no skin rash no leg edema. Labs Laboratory Tests Test 04/15/21 06:20 Sodium Level 147 mmol/L (136-145) Potassium Level 4.2 mmol/L (3.5-5.1) Chloride Level 114 mmol/L (98-107) Carbon Dioxide Level 24 mmol/L (21-32) Anion Gap 9 (6-14) Blood Urea Nitrogen 23 mg/dL (8-26) Creatinine 0.8 mg/dL (0.7-1.3) Estimated GFR (Cockcroft-Gault) 95.6 Glucose Level 109 mg/dL (70-99) Calcium Level 7.7 mg/dL (8.5-10.1) Total Bilirubin 1.1 mg/dL (0.2-1.0) Direct Bilirubin 0.6 mg/dL (0.0-0.2) Aspartate Amino Transf (AST/SGOT) 62 U/L (15-37) Alanine Aminotransferase (ALT/SGPT) 62 U/L (16-63) Alkaline Phosphatase 64 U/L (46-116) Total Protein 5.7 g/dL (6.4-8.2) Albumin 1.5 g/dL (3.4-5.0) Medications Active Scripts Medications Dose Route/Sig Max Daily Dose Days Date Category Hydrochlorothiazide 25 Mg Tablet 25 Mg PO 1X 04/10/21 Reported Atorvastatin Calcium 20 Mg Tablet 20 Mg PO HS 04/10/21 Reported Metoprolol Succinate ( Xl ) (Metoprolol Succinate) 25 Mg Tab.er.24h 25 Mg PO 3X/WEEK 04/10/21 Reported Aspirin 81 Mg Tab.chew 81 Mg PO DAILY 04/10/21 Reported Impression . 1. Acute hypoxic respiratory failure secondary to COVID-19 viral pneumonia and acute lung injury. Oxygen requirement has increased. Now on 80% FiO2 via BiPAP. 2. Abnormal chest x-ray with faint bilateral hazy opacities consistent with viral pneumonia. 3. Rhabdomyolysis, currently being hydrated and clinically improving. 4. Markedly elevated LFTs secondary to combination of COVID-19 viral pneumonia and rhabdomyolysis. Improving. 5. Mildly increased troponin level. 6. Lactic acidosis, which is now improving as well. 7. Underlying COPD. The patient smoked for 31 years before quitting. 8. Alcohol withdrawal. Plan . 1. Continue with present oxygen, keep saturations 90% On BiPAP at 80% FiO2. Alcohol withdrawal precaution 2. Follow complete remdesivir course. 3. Continue steroids with gradual tapering for a total of 10 days. 4. Empiric antibiotics. 5. Continue hydration and follow renal function as well as liver function test and CPKs. ck coming down 6. Heparin for DVT prophylaxis. 7. Continue isolation for COVID-19. 8. Discussed with RN. We will follow along with you. 9. follow-up chest x-ray with unchanged bilateral infiltrates. 10. I had a long discussion with Samia 04/14. Patient's . I explained to the clinical condition. I also addressed CODE STATUS. She is agreeable for DNR. ANN RIDDLE MD Apr 16, 2021 11:01
[2021-04-16] MEDS: IV 1/2 NORMAL SALINE 1,000 ML IV SCH ×2 (12:57→23:06)
[2021-04-16 15:00] VITALS: BP 130/81
--- NOTE | 2021-04-16 17:36 | PDOC ---
[facility] [facility] PROGRESS NOTE Date of Service DOS: DATE: 04/16/21 TIME: 17:33 Chief Complaint Chief Complaint Assessment/Plan Assessment/Plan A/P: Acute encephalopathy - likely metabolic from hypoxia, rhabdomyolysis Acute hypoxic respiratory failure - likely due to COVID 19 pneumonia Elevated troponin I level - likely demand ischemia from hypoxia, will trend, monitor on tele Elevated lactic acid - likely due to hypoxia, sepsis from COVID 19 Sepsis - with COVID 19 will treat with IVF and remdesivir, this is clearly viral, no definite bacterial source Acute kidney injury - likely vasomotor nephropathy from rhabomyolysis, will monitor renal function Pneumonia - likely due to COVID 19 COVID-19 virus infection - remdesivir and steroids, supportive care, wean O2 as tolerated Rhabdomyolysis - will monitor CK, likely traumatic from falling Transaminitis - likely rhabdo and covid related, will hydrate CAD s/p CABG - reconcile home meds with pharmacy as and patient cannot recall HTN - restart home meds FEN - ADAT PPX - heparin DNR/DNI Dispo - inpatient History of Present Illness History of Present Illness Identification/Chief Complaint Chief Complaint Acute encephalopathy Source Source: Caregiver, Chart review, Patient History of Present Illness History of Present Illness Mr Page is a 70 year old male with PMH HTN, HLD, CAD s/p CABG comes to ED via EMS after his called 911. Maitre D' reports patient was found on floor in bedroom by who thinks he may have been laying there for at least 5-6 hours. noted he has bee sick for the past 10 days and that she has also been sick with COVID 19 for 14 days. She is confused as well as the patient. Patient can only ask for food and water and is oriented to self only. His only recalls above PMHx, does not know his meds. EMS noted patient was 87% on room air, placed on 4L NCO2 Patient's chest x-ray concerning for immunity acquired pneumonia, elevated troponin I, elevated lactic acid level, white blood cell [place] [address], LFTs elevated, CR 1.9. Started on Rocephin 1 g IV along with 30 mL/kg normal saline IV fluid replacement. COVID-19 positive per rapid study. EKG sinus tachycardia 118 bpm, left axis deviation, LAFB, no ST segment or T- wave abnormalities Admitted for further care 04-11 alcoholism: admitted drinking rum Metabolic encephalopathy Arrhythmia: NSVT with associated triggers above including covid-19, possible ETOH Mild troponin elevation; peak 0.5. Most probably type II, demand ischemia secondary to above. denies angina CAD s/p remote CABG. Cath 2010 showed patent grafts as noted above. Echo 03/10 with preserved LV systolic function COVID 19 POS Pneumonia Acute encephalopathy - likely metabolic from hypoxia, rhabdomyolysis Acute hypoxic respiratory failure - likely due to COVID 19 pneumonia Elevated troponin I level - likely demand ischemia from hypoxia, will trend, monitor on tele Elevated lactic acid - likely due to hypoxia, sepsis from COVID 19 Sepsis - with COVID 19 will treat with IVF and remdesivir, this is clearly viral, no definite bacterial source Acute kidney injury - likely vasomotor nephropathy from rhabomyolysis, will monitor renal function Pneumonia - likely due to COVID 19 COVID-19 virus infection - remdesivir and steroids, supportive care, wean O2 as tolerated Rhabdomyolysis - will monitor CK, likely traumatic from falling Transaminitis - likely rhabdo and covid related, will hydrate CAD s/p CABG - reconcile home meds with pharmacy as and patient cannot recall HTN - restart home meds FEN - ADAT PPX - heparin FULL CODE Dispo - inpatient Abnormal chest x-ray with faint bilateral hazy opacities consistent with viral pneumonia. Rhabdomyolysis, currently being hydrated and clinically improving. Markedly elevated LFTs secondary to combination of COVID-19 viral pneumonia rhabdomyolysis. Mildly increased troponin level. [facility] protocol d/w rn 8-21 alcoholism: admitted drinking rum 2-4 drinks a day Metabolic encephalopathy Arrhythmia: NSVT with associated triggers above including covid-19, possible ETOH Mild troponin elevation; peak 0.5. Most probably type II, demand ischemia secondary to above. denies angina CAD s/p remote CABG. Cath 2010 showed patent grafts as noted above. Echo 03/10 with preserved LV systolic function COVID 19 POS Pneumonia Acute encephalopathy - likely metabolic from hypoxia, rhabdomyolysis Acute hypoxic respiratory failure - likely due to COVID 19 pneumonia Elevated troponin I level - likely demand ischemia from hypoxia, will trend, monitor on tele Elevated lactic acid - likely due to hypoxia, sepsis from COVID 19 Sepsis - with COVID 19 will treat with IVF and remdesivir, this is clearly viral, no definite bacterial source Acute kidney injury - likely vasomotor nephropathy from rhabomyolysis, will monitor renal function Pneumonia - likely due to COVID 19 COVID-19 virus infection - remdesivir and steroids, supportive care, wean O2 as tolerated Rhabdomyolysis - will monitor CK, likely traumatic from falling Transaminitis - likely rhabdo and covid related, will hydrate CAD s/p CABG - reconcile home meds with pharmacy as and patient cannot recall HTN - restart home meds FEN - ADAT PPX - heparin FULL CODE Dispo - inpatient Abnormal chest x-ray with faint bilateral hazy opacities consistent with viral pneumonia. Rhabdomyolysis, currently being hydrated and clinically improving. Markedly elevated LFTs secondary to combination of COVID-19 viral pneumonia rhabdomyolysis. Mildly increased troponin level. [facility] protocol d/w rn 8-22 alcoholism: admitted drinking rum 2-4 drinks a day Metabolic encephalopathy Arrhythmia: NSVT with associated triggers above including covid-19, possible ETOH Mild troponin elevation; peak 0.5. Most probably type II, demand ischemia secondary to above. denies angina CAD s/p remote CABG. Cath 2010 showed patent grafts as noted above. Echo 03/10 with preserved LV systolic function COVID 19 POS Pneumonia Acute encephalopathy - likely metabolic from hypoxia, rhabdomyolysis Acute hypoxic respiratory failure - likely due to COVID 19 pneumonia Elevated troponin I level - likely demand ischemia from hypoxia, will trend, monitor on tele Elevated lactic acid - likely due to hypoxia, sepsis from COVID 19 Sepsis - with COVID 19 will treat with IVF and remdesivir, this is clearly viral, no definite bacterial source Acute kidney injury - likely vasomotor nephropathy from rhabomyolysis, will monitor renal function Pneumonia - likely due to COVID 19 COVID-19 virus infection - remdesivir and steroids, supportive care, wean O2 as tolerated Rhabdomyolysis - will monitor CK, likely traumatic from falling Transaminitis - likely rhabdo and covid related, will hydrate CAD s/p CABG - reconcile home meds with pharmacy as and patient cannot recall HTN - restart home meds FEN - ADAT PPX - heparin FULL CODE Dispo - inpatient Abnormal chest x-ray with faint bilateral hazy opacities consistent with viral pneumonia. Rhabdomyolysis, currently being hydrated and clinically improving. Markedly elevated LFTs secondary to combination of COVID-19 viral pneumonia rhabdomyolysis. Mildly increased troponin level. [facility] protocol, thiamine, folic acid Small remote blowout fracture in the left medial orbital wall with herniation of extraconal fat into the fracture defect. NEUROLOGY Consult d/w rn 04-14 alcoholism: admitted drinking rum 2-4 drinks a day Metabolic encephalopathy Arrhythmia: NSVT with associated triggers above including covid-19, possible ETOH Mild troponin elevation; peak 0.5. Most probably type II, demand ischemia secondary to above. denies angina CAD s/p remote CABG. Cath 2010 showed patent grafts as noted above. Echo 03/10 with preserved LV systolic function COVID 19 POS Pneumonia Acute encephalopathy - likely metabolic from hypoxia, rhabdomyolysis Acute hypoxic respiratory failure - likely due to COVID 19 pneumonia Elevated troponin I level - likely demand ischemia from hypoxia, will trend, monitor on tele Elevated lactic acid - likely due to hypoxia, sepsis from COVID 19 Sepsis - with COVID 19 will treat with IVF and remdesivir, this is clearly viral, no definite bacterial source Acute kidney injury - likely vasomotor nephropathy from rhabomyolysis, will monitor renal function Pneumonia - likely due to COVID 19 COVID-19 virus infection - remdesivir and steroids, supportive care, wean O2 as tolerated Rhabdomyolysis - will monitor CK, likely traumatic from falling Transaminitis - likely rhabdo and covid related, will hydrate CAD s/p CABG - reconcile home meds with pharmacy as and patient cannot recall HTN - restart home meds FEN - ADAT PPX - heparin FULL CODE Dispo - inpatient Abnormal chest x-ray with faint bilateral hazy opacities consistent with viral pneumonia. Rhabdomyolysis, currently being hydrated and clinically improving. Markedly elevated LFTs secondary to combination of COVID-19 viral pneumonia rhabdomyolysis. Mildly increased troponin level. [facility] protocol, thiamine, folic acid Small remote blowout fracture in the left medial orbital wall with herniation of extraconal fat into the fracture defect. NEUROLOGY Consult EVI TO ROSINA d/w rn 04/14/21 Worsening respiratory status overnight requiring increasing O2 levels. Very lethargic this AM. Dr Perez spoke with patient's about his worsening condi tion and she elected to make him DNR. 04/15 Evaluated at bedside. Remains very lethargic. Providing supportive measures continuing treatment otherwise. Covid protocol. Plan of care discussed with bedside RN. 04/16 Seen at bedside. Remains lethargic, on Bipap. Starting NPO this AM at speech therapy recommendation. Vitals/I&O Vitals/I&O: Vital Signs Date Time Temp Pulse Resp B/P (MAP) Pulse Ox O2 Delivery O2 Flow Rate FiO2 04/16/21 15:42 98 BiPAP/CPAP 04/16/21 15:00 100.5 109 43 130/81 (97) 100.5 04/16/21 08:00 8.0 I & O 04/15/21 04/15/21 04/16/21 15:00 23:00 07:00 Intake Total 100 ml 900 ml Output Total 600 ml 600 ml Balance -500 ml 300 ml Physical Exam Physical Exam: General: Cooperative, moderate distress, Other (Confused) HEENT: Atraumatic, PERRLA, EOMI, Mucous membr. moist/pink Lungs: Other (bialteral crackles) Heart: S1S2, RRR, no thrills, no rubs, no gallops, no murmurs Abdomen: Normal bowel sounds, Soft, No tenderness, No hepatosplenomegaly, No masses Extremities: No clubbing, No cyanosis, No edema, Normal pulses, No tenderness/swelling Skin: No rashes, No breakdown, No significant lesion Neuro: Normal tone, Sensation intact, Cranial nerves 3-12 NL, Reflexes 2+ Psych/Mental Status: MORE AWAKE General: Cooperative, moderate distress, Other (lethargic) Heart: Regular rate Abdomen: Normal bowel sounds, Soft, No tenderness Extremities: No cyanosis, No edema Skin: No significant lesion Assessment and Plan Assessmemt and Plan Problems Medical Problems: (1) Acute kidney injury Status: Acute (2) Altered mental status Status: Acute (3) Community acquired pneumonia Status: Acute (4) COVID-19 virus infection Status: Acute (5) Elevated lactic acid level Status: Acute (6) Elevated troponin I level Status: Acute Comment Review of Relevant I have reviewed the following items pinky (where applicable) has been applied. Justifications for Admission Other Justification KARIME GODINEZ MD Apr 16, 2021 17:36
[2021-04-16 19:00] VITALS: BP 118/76
[2021-04-16 23:00] VITALS: BP 162/90
[2021-04-17 02:51] VITALS: BP 111/63
[2021-04-17] MEDS: METOPROLOL IV PUSH 5 MG/5 ML VIAL. IVP SCH ×3 (05:00→17:33)
[2021-04-17] MEDS: HEPARIN for SUB-Q USE 5,000 UNIT/ML VIAL. SQ SCH ×3 (05:01→20:25)
[2021-04-17 07:00] VITALS: BP 141/67
[2021-04-17] MEDS: POTASSIUM CHLORIDE 20 MEQ TABLET.ER. PO SCH (08:00)
[2021-04-17] MEDS: MULTIVITAMIN with MINERAL TABLET. PO SCH (08:42)
[2021-04-17] MEDS: ZINC SULFATE 220 MG CAPSULE. PO SCH (08:42)
[2021-04-17] MEDS: FOLIC ACID 1 MG TABLET. PO SCH (08:42)
[2021-04-17] MEDS: THIAMINE 100 MG TABLET. PO SCH (08:42)
[2021-04-17] MEDS: LACTOBACILLUS RHAMNOSUS GG 1 CAPSULE. PO SCH ×2 (08:42→20:25)
[2021-04-17] MEDS: ASPIRIN RECTAL 300 MG SUPP. PR SCH (08:43)
[2021-04-17] MEDS: DOXYCYCLINE HYCLATE 100 MG in IV DEXTROSE 5% 100ML 100 ML IV SCH ×2 (08:44→20:20)
[2021-04-17] MEDS: FAMOTIDINE 20 MG/2 ML VIAL IVP SCH ×2 (08:45→20:24)
[2021-04-17] MEDS: DEXAMETHASONE SOD PHOS 4 MG/ML VIAL IVP SCH (08:45)
[2021-04-17] MEDS: cefTRIAXone IV Push 1 GM VIAL. IVP SCH (08:45)
[2021-04-17 10:15] VITALS: BP 145/98
--- NOTE | 2021-04-17 10:46 | PDOC ---
PULMONARY PROGRESS NOTES DATE: 04/17/21 TIME: 10:43 Subjective Patient remains on BiPAP at 70% Lethargic on examination Vitals Vital Signs Date Time Temp Pulse Resp B/P (MAP) Pulse Ox O2 Delivery O2 Flow Rate FiO2 04/17/21 10:15 117 22 145/98 (114) 94 BiPAP/CPAP 04/17/21 07:00 98.7 98.7 04/16/21 08:00 8.0 Comments Visual exam done due to COVID-19. On BiPAP. Lethargic no skin rash no leg edema. Medications Active Scripts Medications Dose Route/Sig Max Daily Dose Days Date Category Hydrochlorothiazide 25 Mg Tablet 25 Mg PO 1X 04/10/21 Reported Atorvastatin Calcium 20 Mg Tablet 20 Mg PO HS 04/10/21 Reported Metoprolol Succinate ( Xl ) (Metoprolol Succinate) 25 Mg Tab.er.24h 25 Mg PO 3X/WEEK 04/10/21 Reported Aspirin 81 Mg Tab.chew 81 Mg PO DAILY 04/10/21 Reported Impression . 1. Acute hypoxic respiratory failure secondary to COVID-19 viral pneumonia and acute lung injury. Oxygen requirement has increased. Now on 70% FiO2 via BiPAP. 2. Abnormal chest x-ray with faint bilateral hazy opacities consistent with viral pneumonia. 3. Rhabdomyolysis, currently being hydrated and clinically improving. 4. Markedly elevated LFTs secondary to combination of COVID-19 viral pneumonia and rhabdomyolysis. Improving. 5. Mildly increased troponin level. 6. Lactic acidosis, which is now improving as well. 7. Underlying COPD. The patient smoked for 31 years before quitting. 8. Alcohol withdrawal. Plan . 04/17/2021 Continue current supplemental oxygen with BiPAP at 70% S/P remdesivir course Repeat chest x-ray/ABG Continue steroids with slow taper, started on 04/09, will need full 10-day course Continue empiric antibiotics Continue IV hydration, noted to have hypernatremia, will DC NS and started D5 half NS Hold Ativan overnight DVT/GI prophylaxis: Subcutaneous heparin Patient is a DO NOT RESUSCITATE Discussed with RN and RT KELSIE FISHER APRN Apr 17, 2021 10:46
--- NOTE | 2021-04-17 10:51 | PDOC ---
Date of Service: DATE: 04/17/21 TIME: 10:48 Objective: Objective: D/w nurse - unresponsive, resp status poor. Vital Signs: Vital Signs Date Time Temp Pulse Resp B/P (MAP) Pulse Ox O2 Delivery O2 Flow Rate FiO2 04/17/21 10:41 91 BiPAP/CPAP 04/17/21 10:15 117 22 145/98 (114) 04/17/21 08:00 8.0 04/17/21 07:00 98.7 98.7 PE: GEN: in COVID isolation - visual exam done LUNGS: BiPAP NEURO/PSYCH: lethargic A/P: COVID-19, resp failure -- Supportive care. Justicifation of Admission Dx: Justifications for Admission: Justification of Admission Dx: Yes Sepsis: Hypoxemia MARK MARCELO Apr 17, 2021 10:51
--- NOTE | 2021-04-17 10:56 | PDOC ---
PROGRESS NOTES Date of Service DATE: 04/17/21 TIME: 10:55 Assessment Problems Medical Problems: (1) Acute kidney injury Status: Acute (2) Altered mental status Status: Acute (3) Community acquired pneumonia Status: Acute (4) COVID-19 virus infection Status: Acute (5) Elevated lactic acid level Status: Acute (6) Elevated troponin I level Status: Acute Encephalopathy, COVID pneumonia, respiratory failure is worsening, requiring 80% FiO2 Rhabdomyolysis, elevated transaminases, renal insufficiency, elevated troponin on admission, elevated lactic acid on admission, history of alcohol abuse History of hypertension coronary artery disease, hyperlipidemia Plan Risks to our personnel outweigh benefits to patient of taking him out of isolation for a brain MRI Treat medical issues DNR Neurology will follow loosely Subjective None Objective Vital Signs Date Time Temp Pulse Resp B/P (MAP) Pulse Ox O2 Delivery O2 Flow Rate FiO2 04/17/21 10:41 91 BiPAP/CPAP 04/17/21 10:15 117 22 145/98 (114) 04/17/21 08:00 8.0 04/17/21 07:00 98.7 98.7 Intake and Output 04/17/21 07:00 Intake Total 1000 ml Output Total 800 ml Balance 200 ml Intake Oral 0 ml IV Total 1000 ml Output Urine Total 800 ml PHYSICAL EXAM Eyes closed, opens to voice, bilateral mittens on, nonverbal, does not follow commands On BiPAP PERRL. EOMI. CN: no focal findings. Muscle tone: normal. Muscle strength: 4/5 DTR: 1+ Plantar reflex: Flexor Gait: not examined in bed. Sensory exam: no abnormal findings. Cerebellar: Not cooperative Review of Relevant I have reviewed the following items pinky (where applicable) has been applied. Labs Microbiology 04/09/21 Blood Culture - Final, Complete NO GROWTH AFTER 5 DAYS Medications Current Medications Sodium Chloride 1,000 ml @ 1,000 mls/hr 1X ONCE IV Last administered on 04/09/21at 10:10; Start 04/09/21 at 10:15; Stop 04/09/21 at 11:14; Status DC Sodium Chloride 1,000 ml @ 2,850 mls/hr Q22M IV Last administered on 04/09/21at 11:29; Start 04/09/21 at 10:45; Stop 04/09/21 at 11:45; Status DC Ceftriaxone Sodium (Rocephin) 1 gm 1X ONCE IVP Last administered on 04/09/21at 11:33; Start 04/09/21 at 10:45; Stop 04/09/21 at 10:46; Status DC Doxycycline Hyclate 100 mg/ Dextrose 100 ml @ 50 mls/hr 1X ONCE IV Last administered on 04/09/21at 11:32; Start 04/09/21 at 11:00; Stop 04/09/21 at 12:59; Status DC Olanzapine (ZyPREXA ZYDIS) 5 mg PRN BID PRN PO ANXIETY / AGITATION Last administered on 04/11/21at 10:36; Start 04/09/21 at 15:00 Ondansetron HCl (Zofran) 4 mg PRN Q4HRS PRN IVP NAUSEA/VOMITING; Start 04/09/21 at 15:00 Tramadol HCl (Ultram) 50 mg PRN Q6HRS PRN PO MODERATE - SEVERE PAIN; Start 04/09/21 at 15:00 Guaifenesin (Robitussin Dm) 10 ml PRN Q6HRS PRN PO COUGH; Start 04/09/21 at 15:00 Acetaminophen (Tylenol) 650 mg PRN Q6HRS PRN PO MILD PAIN / TEMP > 100.3'F; Start 04/09/21 at 15:00 Fentanyl Citrate (Fentanyl 2ml Vial) 25 mcg PRN Q3HRS PRN IVP SEVERE PAIN 7-10; Start 04/09/21 at 15:00 Heparin Sodium (Porcine) (Heparin Sodium) 5,000 unit Q8HRS SQ Last administered on 04/17/21at 05:01; Start 04/09/21 at 15:30 Zinc Sulfate (Orazinc) 220 mg DAILY PO Last administered on 04/11/21at 10:36; Start 04/09/21 at 15:00 Thiamine Mononitrate (Vitamin B-1) 100 mg DAILY PO Last administered on 04/11/21at 10:36; Start 04/09/21 at 15:00 Dexamethasone Sodium Phosphate (Decadron) 6 mg DAILY IVP Last administered on 04/17/21at 08:45; Start 04/09/21 at 15:30 Remdesivir 200 mg/ Sodium Chloride 210 ml @ 210 mls/hr 1X ONCE IV Last administered on 04/09/21at 19:00; Start 04/09/21 at 16:00; Stop 04/09/21 at 16:59; Status DC Remdesivir 100 mg/ Sodium Chloride 230 ml @ 460 mls/hr Q24H IV Last administered on 04/13/21at 17:09; Start 04/10/21 at 16:00; Stop 04/13/21 at 16:29; Status DC Acetaminophen (Tylenol Supp) 650 mg PRN Q6HRS PRN [place] MILD PAIN / TEMP > 100.3'F Last administered on 04/16/21at 20:18; Start 04/09/21 at 20:15 Sodium Chloride 1,000 ml @ 100 mls/hr Q10H IV Last administered on 04/10/21at 05:59; Start 04/09/21 at 20:30; Stop 04/10/21 at 13:47; Status DC Ceftriaxone Sodium (Rocephin) 1 gm Q24H IVP Last administered on 04/17/21at 08:45; Start 04/10/21 at 10:15 Doxycycline Hyclate 100 mg/ Dextrose 100 ml @ 50 mls/hr Q12HR IV Last administered on 04/17/21at 08:44; Start 04/10/21 at 09:00 Lactobacillus Rhamnosus (Culturelle) 1 cap BID PO Last administered on 04/11/21at 21:34; Start 04/10/21 at 09:00 Sodium Chloride 1,000 ml @ 75 mls/hr [id number] IV Last administered on 04/16/21at 23:06; Start 04/10/21 at 14:00; Stop 04/17/21 at 10:43; Status DC Potassium Chloride (Klor-Con) 40 meq 1X ONCE PO Last administered on 04/10/21at 14:20; Start 04/10/21 at 14:00; Stop 04/10/21 at 14:01; Status DC Potassium Chloride (Klor-Con) 20 meq [id number] PO Last administered on 04/11/21at 10:36; Start 04/11/21 at 08:00 Aspirin (Aspirin Chewable) 81 mg DAILY PO Last administered on 04/11/21at 10:36; Start 04/11/21 at 09:00; Stop 04/15/21 at 14:37; Status DC Metoprolol Succinate (Toprol Xl) 25 mg 3X/WEEK PO Last administered on 04/11/21at 10:37; Start 04/11/21 at 09:00; Stop 04/11/21 at 10:48; Status DC Metoprolol Tartrate (Lopressor Vial) 5 mg PRN Q6HRS PRN IVP PER PROTOCOL Last administered on 04/13/21at 08:16; Start 04/11/21 at 10:30; Stop 04/14/21 at 15:11; Status DC Potassium Chloride (Klor-Con) 40 meq 1X ONCE PO Last administered on 04/11/21at 12:29; Start 04/11/21 at 10:45; Stop 04/11/21 at 10:46; Status DC Metoprolol Succinate (Toprol Xl) 25 mg DAILY PO ; Start 04/12/21 at 09:00; Stop 04/14/21 at 15:11; Status DC Multivitamins (Thera M Plus) 1 tab DAILY PO Last administered on 04/11/21at 12:28; Start 04/11/21 at 12:00 Folic Acid (Folic Acid) 1 mg DAILY PO Last administered on 04/11/21at 12:29; Start 04/11/21 at 12:00 Thiamine Mononitrate (Vitamin B-1) 100 mg DAILY PO ; Start 04/16/21 at 09:00; Status UNV Lorazepam (Ativan) 4 mg PRN Q1HR PRN PO For CIWA 8-14; Start 04/11/21 at 11:45; Stop 04/17/21 at 10:38; Status DC Lorazepam (Ativan) 8 mg PRN Q1HR PRN PO For CIWA 15 or greater; Start 04/11/21 at 11:45; Stop 04/17/21 at 10:38; Status DC Lorazepam (Ativan Inj) 2 mg PRN Q1HR PRN IV For CIWA 8-14 Last administered on 04/17/21at 09:47; Start 04/11/21 at 11:45; Stop 04/17/21 at 10:38; Status DC Lorazepam (Ativan Inj) 4 mg PRN Q1HR PRN IV For CIWA 15 or greater; Start 04/11/21 at 11:45; Stop 04/17/21 at 10:38; Status DC Haloperidol Lactate (Haldol Inj) 5 mg PRN Q4HRS PRN IVP Hallucinatns,Confusn,Delirium; Start 04/11/21 at 11:45; Stop 04/17/21 at 10:38; Status DC Diphenhydramine HCl (Benadryl) 25 mg PRN Q15MIN PRN IVP EPS symptoms 2'Haldol admin; Start 04/11/21 at 11:45; Stop 04/17/21 at 10:38; Status DC Clonidine HCl (Catapres) 0.1 mg PRN Q1HR PRN PO SBP > 180 or DBP > 100, MRX3; Start 04/11/21 at 11:45; Stop 04/17/21 at 10:38; Status DC Lorazepam (Ativan Inj) 2 mg PRN Q15MIN PRN IV SEE COMMENTS; Start 04/11/21 at 11:45; Status UNV Lorazepam (Ativan Inj) 4 mg PRN Q15MIN PRN IV SEE COMMENTS; Start 04/11/21 at 11:45; Status UNV Potassium Chloride (Klor-Con) 20 meq 1X ONCE PO ; Start 04/12/21 at 17:00; Stop 04/12/21 at 17:38; Status DC Famotidine (Pepcid Vial) 20 mg BID IVP Last administered on 04/17/21at 08:45; Start 04/13/21 at 21:00 Metoprolol Tartrate (Lopressor Vial) 5 mg Q6HRS IVP Last administered on 04/17/21at 05:00; Start 04/14/21 at 16:00 Aspirin (Aspirin Rectal Supp) 300 mg DAILY [place] Last administered on 04/16/21at 09:36; Start 04/15/21 at 14:45 Dextrose/Sodium Chloride 1,000 ml @ 75 mls/hr [id number] IV ; Start 04/17/21 at 10:45 Active Scripts Active Reported Hydrochlorothiazide 25 Mg Tablet 25 Mg PO 1X Atorvastatin Calcium 20 Mg Tablet 20 Mg PO HS Metoprolol Succinate ( Xl ) (Metoprolol Succinate) 25 Mg Tab.er.24h 25 Mg PO 3X/WEEK Aspirin 81 Mg Tab.chew 81 Mg PO DAILY Vitals/I & O Vital Sign - Last 24 Hours 04/16/21 04/16/21 04/16/21 04/16/21 11:00 11:55 13:56 14:30 Temp 101.4 101.4 Pulse 123 123 Resp 48 B/P (MAP) 142/88 (106) 142/88 Pulse Ox 94 91 93 O2 Delivery BiPAP/CPAP BiPAP/CPAP BiPAP/CPAP 04/16/21 04/16/21 04/16/21 04/16/21 15:00 15:42 17:41 18:13 Temp 100.5 100.5 Pulse 109 109 Resp 43 B/P (MAP) 130/81 (97) 130/81 Pulse Ox 95 98 95 O2 Delivery BiPAP/CPAP BiPAP/CPAP BiPAP/CPAP 04/16/21 04/16/21 04/16/21 04/16/21 19:00 19:20 21:44 23:00 Temp 100.8 100.9 100.8 100.9 Pulse 114 124 Resp 36 37 B/P (MAP) 118/76 (90) 162/90 (114) Pulse Ox 93 88 93 O2 Delivery BiPAP/CPAP Bi-pap BiPAP/CPAP BiPAP/CPAP 04/16/21 04/16/21 04/17/21 04/17/21 23:03 23:45 02:16 02:51 Temp 99.3 99.3 Pulse 113 100 Resp 23 B/P (MAP) 162/90 111/63 (79) Pulse Ox 91 95 94 O2 Delivery BiPAP/CPAP BiPAP/CPAP BiPAP/CPAP 04/17/21 04/17/21 04/17/21 04/17/21 04:41 05:00 07:00 08:00 Temp 98.7 98.7 Pulse 100 100 Resp 22 B/P (MAP) 111/63 141/67 (91) Pulse Ox 91 90 O2 Delivery BiPAP/CPAP BiPAP/CPAP Bi-pap O2 Flow Rate 8.0 04/17/21 04/17/21 04/17/21 08:19 10:15 10:41 Pulse 117 Resp 22 B/P (MAP) 145/98 (114) Pulse Ox 91 94 91 O2 Delivery BiPAP/CPAP BiPAP/CPAP BiPAP/CPAP Intake and Output0 04/16/21 04/16/21 04/17/21 15:00 23:00 07:00 Intake Total 0 ml 100 ml 900 ml Output Total 800 ml Balance 0 ml 100 ml 100 ml Justicifation of Admission Dx: Justifications for Admission: Justification of Admission Dx: Yes Sepsis: Hypoxemia CARLEY CASTREJON MD Apr 17, 2021 10:56
[2021-04-17 11:57] LABS: BASE EXCESS ABG 0 mmol/L (-3-3); HCO3 ABG 22 mmol/L (21-28); PCO2 ABG 28 mmHg (35-46); PO2 ABG 84 mmHg (65-108); SAT O2 ABG 96 % (92-99)
[2021-04-17 12:08] LABS: FIO2 ABG 70%
[2021-04-17] MEDS: IV DEXTROSE 5 %-0.45 % NACL 1,000 ML IV SCH (12:12)
--- NOTE | 2021-04-17 14:14 | RAD ---
EXAM: Chest, single view. HISTORY: Shortness of breath. COMPARISON: 04/14/2021 FINDINGS: A frontal view of the chest is obtained. There is stable mixed interstitial and alveolar in filtrate. There is no pleural effusion or pneumothorax. There is a stable prominent cardiac silhouett e and evidence of prior CABG. IMPRESSION: Stable diffuse infiltrate. Electronically signed by: Brissa Lopez MD (04/17/2021 2:11 PM) [id number]
[2021-04-17 14:19] VITALS: BP 139/72
--- NOTE | 2021-04-17 15:41 | PDOC ---
[facility] PROGRESS NOTE Date of Service DOS: DATE: 04/17/21 TIME: 15:40 Chief Complaint Chief Complaint Assessment/Plan Assessment/Plan A/P: Acute encephalopathy - likely metabolic from hypoxia, rhabdomyolysis Acute hypoxic respiratory failure - likely due to COVID 19 pneumonia Sepsis - with COVID 19 will treat with IVF and remdesivir, no definite bacterial source Acute kidney injury - likely vasomotor nephropathy from rhabomyolysis, will monitor renal function Pneumonia - likely due to COVID 19 COVID-19 virus infection - remdesivir and steroids, supportive care, wean O2 as tolerated Transaminitis - likely rhabdo and covid related, will hydrate CAD s/p CABG - reconcile home meds with pharmacy as and patient cannot recall HTN - restart home meds FEN - ADAT PPX - heparin DNR/DNI Dispo - inpatient History of Present Illness History of Present Illness Identification/Chief Complaint Chief Complaint Acute encephalopathy Source Source: Caregiver, Chart review, Patient History of Present Illness History of Present Illness Mr Page is a 70 year old male with PMH HTN, HLD, CAD s/p CABG comes to ED via EMS after his called 911. Inside Sales Associate reports patient was found on floor in bedroom by who thinks he may have been laying there for at least 5-6 hours. noted he has bee sick for the past 10 days and that she has also been sick with COVID 19 for 14 days. She is confused as well as the patient. Patient can only ask for food and water and is oriented to self only. His only recalls above PMHx, does not know his meds. EMS noted patient was 87% on room air, placed on 4L NCO2 Patient's chest x-ray concerning for immunity acquired pneumonia, elevated troponin I, elevated lactic acid level, white blood cell [place] [address], LFTs elevated, CR 1.9. Started on Rocephin 1 g IV along with 30 mL/kg normal saline IV fluid replacement. COVID-19 positive per rapid study. EKG sinus tachycardia 118 bpm, left axis deviation, LAFB, no ST segment or T- wave abnormalities Admitted for further care 8-20 alcoholism: admitted drinking rum Metabolic encephalopathy Arrhythmia: NSVT with associated triggers above including covid-19, possible ETOH Mild troponin elevation; peak 0.5. Most probably type II, demand ischemia secondary to above. denies angina CAD s/p remote CABG. Cath 2010 showed patent grafts as noted above. Echo 03/10 with preserved LV systolic function COVID 19 POS Pneumonia Acute encephalopathy - likely metabolic from hypoxia, rhabdomyolysis Acute hypoxic respiratory failure - likely due to COVID 19 pneumonia Elevated troponin I level - likely demand ischemia from hypoxia, will trend, monitor on tele Elevated lactic acid - likely due to hypoxia, sepsis from COVID 19 Sepsis - with COVID 19 will treat with IVF and remdesivir, this is clearly viral, no definite bacterial source Acute kidney injury - likely vasomotor nephropathy from rhabomyolysis, will monitor renal function Pneumonia - likely due to COVID 19 COVID-19 virus infection - remdesivir and steroids, supportive care, wean O2 as tolerated Rhabdomyolysis - will monitor CK, likely traumatic from falling Transaminitis - likely rhabdo and covid related, will hydrate CAD s/p CABG - reconcile home meds with pharmacy as and patient cannot recall HTN - restart home meds FEN - ADAT PPX - heparin FULL CODE Dispo - inpatient Abnormal chest x-ray with faint bilateral hazy opacities consistent with viral pneumonia. Rhabdomyolysis, currently being hydrated and clinically improving. Markedly elevated LFTs secondary to combination of COVID-19 viral pneumonia rhabdomyolysis. Mildly increased troponin level. [facility] protocol d/w rn 8-21 alcoholism: admitted drinking rum 2-4 drinks a day Metabolic encephalopathy Arrhythmia: NSVT with associated triggers above including covid-19, possible ETOH Mild troponin elevation; peak 0.5. Most probably type II, demand ischemia secondary to above. denies angina CAD s/p remote CABG. Cath 2010 showed patent grafts as noted above. Echo 03/10 with preserved LV systolic function COVID 19 POS Pneumonia Acute encephalopathy - likely metabolic from hypoxia, rhabdomyolysis Acute hypoxic respiratory failure - likely due to COVID 19 pneumonia Elevated troponin I level - likely demand ischemia from hypoxia, will trend, monitor on tele Elevated lactic acid - likely due to hypoxia, sepsis from COVID 19 Sepsis - with COVID 19 will treat with IVF and remdesivir, this is clearly viral, no definite bacterial source Acute kidney injury - likely vasomotor nephropathy from rhabomyolysis, will monitor renal function Pneumonia - likely due to COVID 19 COVID-19 virus infection - remdesivir and steroids, supportive care, wean O2 as tolerated Rhabdomyolysis - will monitor CK, likely traumatic from falling Transaminitis - likely rhabdo and covid related, will hydrate CAD s/p CABG - reconcile home meds with pharmacy as and patient cannot recall HTN - restart home meds FEN - ADAT PPX - heparin FULL CODE Dispo - inpatient Abnormal chest x-ray with faint bilateral hazy opacities consistent with viral pneumonia. Rhabdomyolysis, currently being hydrated and clinically improving. Markedly elevated LFTs secondary to combination of COVID-19 viral pneumonia rhabdomyolysis. Mildly increased troponin level. [facility] protocol d/w rn 8- alcoholism: admitted drinking rum 2-4 drinks a day Metabolic encephalopathy Arrhythmia: NSVT with associated triggers above including covid-19, possible ETOH Mild troponin elevation; peak 0.5. Most probably type II, demand ischemia secondary to above. denies angina CAD s/p remote CABG. Cath 2010 showed patent grafts as noted above. Echo 03/10 with preserved LV systolic function COVID 19 POS Pneumonia Acute encephalopathy - likely metabolic from hypoxia, rhabdomyolysis Acute hypoxic respiratory failure - likely due to COVID 19 pneumonia Elevated troponin I level - likely demand ischemia from hypoxia, will trend, monitor on tele Elevated lactic acid - likely due to hypoxia, sepsis from COVID 19 Sepsis - with COVID 19 will treat with IVF and remdesivir, this is clearly viral, no definite bacterial source Acute kidney injury - likely vasomotor nephropathy from rhabomyolysis, will monitor renal function Pneumonia - likely due to COVID 19 COVID-19 virus infection - remdesivir and steroids, supportive care, wean O2 as tolerated Rhabdomyolysis - will monitor CK, likely traumatic from falling Transaminitis - likely rhabdo and covid related, will hydrate CAD s/p CABG - reconcile home meds with pharmacy as and patient cannot recall HTN - restart home meds FEN - ADAT PPX - heparin FULL CODE Dispo - inpatient Abnormal chest x-ray with faint bilateral hazy opacities consistent with viral pneumonia. Rhabdomyolysis, currently being hydrated and clinically improving. Markedly elevated LFTs secondary to combination of COVID-19 viral pneumonia rhabdomyolysis. Mildly increased troponin level. [facility] protocol, thiamine, folic acid Small remote blowout fracture in the left medial orbital wall with herniation of extraconal fat into the fracture defect. NEUROLOGY Consult d/w rn 8- alcoholism: admitted drinking rum 2-4 drinks a day Metabolic encephalopathy Arrhythmia: NSVT with associated triggers above including covid-19, possible ETOH Mild troponin elevation; peak 0.5. Most probably type II, demand ischemia secondary to above. denies angina CAD s/p remote CABG. Cath 2010 showed patent grafts as noted above. Echo 03/10 with preserved LV systolic function COVID 19 POS Pneumonia Acute encephalopathy - likely metabolic from hypoxia, rhabdomyolysis Acute hypoxic respiratory failure - likely due to COVID 19 pneumonia Elevated troponin I level - likely demand ischemia from hypoxia, will trend, monitor on tele Elevated lactic acid - likely due to hypoxia, sepsis from COVID 19 Sepsis - with COVID 19 will treat with IVF and remdesivir, this is clearly viral, no definite bacterial source Acute kidney injury - likely vasomotor nephropathy from rhabomyolysis, will monitor renal function Pneumonia - likely due to COVID 19 COVID-19 virus infection - remdesivir and steroids, supportive care, wean O2 as tolerated Rhabdomyolysis - will monitor CK, likely traumatic from falling Transaminitis - likely rhabdo and covid related, will hydrate CAD s/p CABG - reconcile home meds with pharmacy as and patient cannot recall HTN - restart home meds FEN - ADAT PPX - heparin FULL CODE Dispo - inpatient Abnormal chest x-ray with faint bilateral hazy opacities consistent with viral pneumonia. Rhabdomyolysis, currently being hydrated and clinically improving. Markedly elevated LFTs secondary to combination of COVID-19 viral pneumonia rhabdomyolysis. Mildly increased troponin level. CIWA protocol, thiamine, folic acid Small remote blowout fracture in the left medial orbital wall with herniation of extraconal fat into the fracture defect. NEUROLOGY Consult STEVE TO DD d/w rn 04/14/21 Worsening respiratory status overnight requiring increasing O2 levels. Very lethargic this AM. Dr Perez spoke with patient's about his worsening condition and she elected to make him DNR. 04/15 Evaluated at bedside. Remains very lethargic. Providing supportive measures continuing treatment otherwise. Covid protocol. Plan of care discussed with bedside RN. 04/16 Seen at bedside. Remains lethargic, on Bipap. Starting NPO this AM at speech therapy recommendation. 04/17 Patient seen at bedside. No withdrawal even to pain today. Remains on BiPAP. Continue ongoing discussion of hospice with family members. Vitals/I&O Vitals/I&O: Vital Signs Date Time Temp Pulse Resp B/P (MAP) Pulse Ox O2 Delivery O2 Flow Rate FiO2 04/17/21 15:24 91 BiPAP/CPAP 04/17/21 14:19 99.2 110 22 139/72 (94) 99.2 04/17/21 08:00 8.0 I & O 04/16/21 04/16/21 04/17/21 15:00 23:00 07:00 Intake Total 0 ml 100 ml 900 ml Output Total 800 ml Balance 0 ml 100 ml 100 ml Physical Exam Physical Exam: General: Cooperative, moderate distress, Other (Confused) HEENT: Atraumatic, PERRLA, EOMI, Mucous membr. moist/pink Lungs: Other (bialteral crackles) Heart: S1S2, RRR, no thrills, no rubs, no gallops, no murmurs Abdomen: Normal bowel sounds, Soft, No tenderness, No hepatosplenomegaly, No masses Extremities: No clubbing, No cyanosis, No edema, Normal pulses, No tenderness/swelling Skin: No rashes, No breakdown, No significant lesion Neuro: Normal tone, Sensation intact, Cranial nerves 3-12 NL, Reflexes 2+ Psych/Mental Status: MORE AWAKE General: Other (Nonresponsive) Heart: Regular rate Lungs: Other (Decreased air entry throughout) Abdomen: Normal bowel sounds, Soft, No tenderness Extremities: No cyanosis, No edema Skin: No significant lesion Labs Labs: Laboratory Tests Test 04/17/21 11:47 O2 Saturation 96 % (92-99) Arterial Blood pH 7.51 (7.35-7.45) Arterial Blood pCO2 at Patient Temp 28 mmHg (35-46) Arterial Blood pO2 at Patient Temp 84 mmHg (65-108) Arterial Blood HCO3 22 mmol/L (21-28) Arterial Blood Base Excess 0 mmol/L (-3-3) FiO2 70% Assessment and Plan Assessmemt and Plan Problems Medical Problems: (1) Acute kidney injury Status: Acute (2) Altered mental status Status: Acute (3) Community acquired pneumonia Status: Acute (4) COVID-19 virus infection Status: Acute (5) Elevated lactic acid level Status: Acute (6) Elevated troponin I level Status: Acute Comment Review of Relevant I have reviewed the following items pinky (where applicable) has been applied. Medications: Current Medications Medications (Trade) Dose Ordered Sig/Carole Route PRN Reason Start Time Stop Time Status Last Admin Dose Admin Dextrose/Sodium Chloride 1,000 ml @ 75 mls/hr [id number] IV 04/17/21 10:45 04/17/21 12:12 Justifications for Admission Other Justification KARIME GODINEZ MD Apr 17, 2021 15:41
[2021-04-17 19:00] VITALS: BP 143/94
[2021-04-17] MEDS: ACETAMINOPHEN 650 MG SUPP.RECT. PR PRN (20:24)
[2021-04-17 23:00] VITALS: BP 149/89
[2021-04-18] MEDS: IV DEXTROSE 5 %-0.45 % NACL 1,000 ML IV SCH ×2 (00:27→14:01)
[2021-04-18] MEDS: METOPROLOL IV PUSH 5 MG/5 ML VIAL. IVP SCH ×4 (00:27→17:02)
[2021-04-18 03:00] VITALS: BP 163/91
[2021-04-18] MEDS: HEPARIN for SUB-Q USE 5,000 UNIT/ML VIAL. SQ SCH ×3 (05:56→20:35)
[2021-04-18 07:00] VITALS: BP 137/68
--- NOTE | 2021-04-18 07:12 | NUR ---
PT IV RIGHT ARM LEAKING, MULTIPLE STICKS X5 TO RIGHT AC 20 GAUGE, WILL ADMINISTER METOPROLOL IV AND RESTART IVF PER ORDER. WILL CONT TO MONITOR PT STATUS AND SAFETY. PMRN
[2021-04-18 07:33] LABS: CALCIUM 8.3 mg/dL (8.5-10.1); CREATININE 0.9 mg/dL (0.7-1.3); GFR 83.4
[2021-04-18 07:48] LABS: HEMATOCRIT 38.5 % (39.0-53.0); HEMOGLOBIN 13.4 g/dL (13.0-17.5); RED BLOOD COUNT 3.9 x10^6/uL (4.30-5.70); RED CELL DISTRIBUTION WIDTH 14.7 % (11.5-14.5); WHITE BLOOD COUNT 11.4 x10^3/uL (4.0-11.0)
[2021-04-18] MEDS: POTASSIUM CHLORIDE 20 MEQ TABLET.ER. PO SCH (08:00)
[2021-04-18] MEDS: MULTIVITAMIN with MINERAL TABLET. PO SCH (08:04)
[2021-04-18] MEDS: ZINC SULFATE 220 MG CAPSULE. PO SCH (08:04)
[2021-04-18] MEDS: FOLIC ACID 1 MG TABLET. PO SCH (08:04)
[2021-04-18] MEDS: LACTOBACILLUS RHAMNOSUS GG 1 CAPSULE. PO SCH ×2 (08:04→19:49)
[2021-04-18] MEDS: THIAMINE 100 MG TABLET. PO SCH (08:05)
--- NOTE | 2021-04-18 09:24 | PDOC ---
Date of Service: DATE: 04/18/21 TIME: 09:23 Objective: Objective: D/w nurse - pt not doing well, possible Hospice discussion. Vital Signs: Vital Signs Date Time Temp Pulse Resp B/P (MAP) Pulse Ox O2 Delivery O2 Flow Rate FiO2 04/18/21 07:42 91 BiPAP/CPAP 04/18/21 07:00 99.8 105 26 137/68 (91) 99.8 04/17/21 20:35 8.0 PE: GEN: appears ill, COVID isolation/visual exam done LUNGS: BiPAP HEART: tachycardic ABD: non-distended NEURO/PSYCH: lethargic A/P: COVID-19, resp failure -- Goals of care discussion per primary. Justicifation of Admission Dx: Justifications for Admission: Justification of Admission Dx: Yes Sepsis: Hypoxemia MARK MARCELO Apr 18, 2021 09:24
[2021-04-18] MEDS: FAMOTIDINE 20 MG/2 ML VIAL IVP SCH ×2 (09:52→20:34)
[2021-04-18] MEDS: DEXAMETHASONE SOD PHOS 4 MG/ML VIAL IVP SCH (09:53)
[2021-04-18] MEDS: cefTRIAXone IV Push 1 GM VIAL. IVP SCH (09:54)
[2021-04-18] MEDS: ASPIRIN RECTAL 300 MG SUPP. PR SCH (09:54)
[2021-04-18] MEDS: DOXYCYCLINE HYCLATE 100 MG in IV DEXTROSE 5% 100ML 100 ML IV SCH ×2 (09:55→20:28)
--- NOTE | 2021-04-18 10:24 | PDOC ---
Provider Note Date of Service: DATE: 04/18/21 TIME: 10:18 Provider Note Discussed with , patient has encephalopathy, with COVID pneumonia, respiratory failure, rhabdomyolysis, elevated transaminases, renal insufficiency, elevated troponin on admission, elevated lactic acid on admission, history of alcohol abuse. Patient is on remdesivir, does not chart in [facility] apparently. He is on steroids. Pulmonary and kidney service are seeing him. is concerned that infectious disease is not seeing him. She says that she put a call into primary service 4 days ago and has not heard back, I asked the nurse to have Dr. Araujo or colleagues call the . Justifications for Admission Other Justification CARLEY CASTREJON MD Apr 18, 2021 10:24
[2021-04-18 11:00] VITALS: BP 126/65
--- NOTE | 2021-04-18 11:01 | PDOC ---
PULMONARY PROGRESS NOTES DATE: 04/18/21 TIME: 10:58 Subjective Patient remains on BiPAP at 80% Lethargic on examination Vitals Vital Signs Date Time Temp Pulse Resp B/P (MAP) Pulse Ox O2 Delivery O2 Flow Rate FiO2 04/18/21 10:05 91 BiPAP/CPAP 04/18/21 07:00 99.8 105 26 137/68 (91) 99.8 04/17/21 20:35 8.0 Comments Visual exam done due to COVID-19. On BiPAP. Lethargic no skin rash no leg edema. General: Lethargic Lungs: Clear Cardiovascular: S1 Abdomen: Soft Extremities: No Edema Skin: Warm Labs Laboratory Tests Test 04/17/21 11:47 04/18/21 06:05 O2 Saturation 96 % (92-99) Arterial Blood pH 7.51 (7.35-7.45) Arterial Blood pCO2 at Patient Temp 28 mmHg (35-46) Arterial Blood pO2 at Patient Temp 84 mmHg (65-108) Arterial Blood HCO3 22 mmol/L (21-28) Arterial Blood Base Excess 0 mmol/L (-3-3) FiO2 70% White Blood Count 11.4 x10^3/uL (4.0-11.0) Red Blood Count 3.90 x10^6/uL (4.30-5.70) Hemoglobin 13.4 g/dL (13.0-17.5) Hematocrit 38.5 % (39.0-53.0) Mean Corpuscular Volume 99 fL (79-100) Mean Corpuscular Hemoglobin 34 pg (25-35) Mean Corpuscular Hemoglobin Concent 35 g/dL (31-37) Red Cell Distribution Width 14.7 % (11.5-14.5) Platelet Count 177 x10^3/uL (140-400) Sodium Level 145 mmol/L (136-145) Potassium Level 4.0 mmol/L (3.5-5.1) Chloride Level 112 mmol/L (98-107) Carbon Dioxide Level 25 mmol/L (21-32) Anion Gap 8 (6-14) Blood Urea Nitrogen 25 mg/dL (8-26) Creatinine 0.9 mg/dL (0.7-1.3) Estimated GFR (Cockcroft-Gault) 83.4 Glucose Level 106 mg/dL (70-99) Calcium Level 8.3 mg/dL (8.5-10.1) Laboratory Tests Test 04/17/21 11:47 04/18/21 06:05 O2 Saturation 96 % (92-99) Arterial Blood pH 7.51 (7.35-7.45) Arterial Blood pCO2 at Patient Temp 28 mmHg (35-46) Arterial Blood pO2 at Patient Temp 84 mmHg (65-108) Arterial Blood HCO3 22 mmol/L (21-28) Arterial Blood Base Excess 0 mmol/L (-3-3) FiO2 70% White Blood Count 11.4 x10^3/uL (4.0-11.0) Red Blood Count 3.90 x10^6/uL (4.30-5.70) Hemoglobin 13.4 g/dL (13.0-17.5) Hematocrit 38.5 % (39.0-53.0) Mean Corpuscular Volume 99 fL (79-100) Mean Corpuscular Hemoglobin 34 pg (25-35) Mean Corpuscular Hemoglobin Concent 35 g/dL (31-37) Red Cell Distribution Width 14.7 % (11.5-14.5) Platelet Count 177 x10^3/uL (140-400) Sodium Level 145 mmol/L (136-145) Potassium Level 4.0 mmol/L (3.5-5.1) Chloride Level 112 mmol/L (98-107) Carbon Dioxide Level 25 mmol/L (21-32) Anion Gap 8 (6-14) Blood Urea Nitrogen 25 mg/dL (8-26) Creatinine 0.9 mg/dL (0.7-1.3) Estimated GFR (Cockcroft-Gault) 83.4 Glucose Level 106 mg/dL (70-99) Calcium Level 8.3 mg/dL (8.5-10.1) Medications Active Scripts Medications Dose Route/Sig Max Daily Dose Days Date Category Hydrochlorothiazide 25 Mg Tablet 25 Mg PO 1X 04/10/21 Reported Atorvastatin Calcium 20 Mg Tablet 20 Mg PO HS 04/10/21 Reported Metoprolol Succinate ( Xl ) (Metoprolol Succinate) 25 Mg Tab.er.24h 25 Mg PO 3X/WEEK 04/10/21 Reported Aspirin 81 Mg Tab.chew 81 Mg PO DAILY 04/10/21 Reported Comments Chest x-ray reviewed 04/17/2021 Diffuse unchanged bilateral interstitial infiltrates Impression . 1. Acute hypoxic respiratory failure secondary to COVID-19 viral pneumonia and acute lung injury. Oxygen requirement has increased. Now on 80% FiO2 via BiPAP. 2. Abnormal chest x-ray with diffuse bilateral interstitial infiltrates consistent with viral pneumonia. 3. Rhabdomyolysis, clinically improving. 4. Markedly elevated LFTs secondary to combination of COVID-19 viral pneumonia and rhabdomyolysis. Improving. 5. Mildly increased troponin level. 6. Lactic acidosis, which is now improving as well. 7. Underlying COPD. The patient smoked for 31 years before quitting. 8. Alcohol withdrawal. 9. Encephalopathy Plan . 04/18/2021 Continue current supplemental oxygen with BiPAP at 80% S/P remdesivir course Repeat chest x-ray/ABG reviewed. Oxygen requirement remains marginal. Continue steroids with slow taper, started on 04/09, will need full 10-day course Continue empiric antibiotics Hypernatremia improving Hold Ativan overnight DVT/GI prophylaxis: Subcutaneous heparin Patient is a DO NOT RESUSCITATE Discussed with RN and RT We will try to reach out to to discuss about hospice. ANN RIDDLE MD Apr 18, 2021 11:01
--- NOTE | 2021-04-18 14:47 | PDOC ---
[facility] PROGRESS NOTE Date of Service DOS: DATE: 04/18/21 TIME: 14:45 Chief Complaint Chief Complaint Assessment/Plan Assessment/Plan A/P: Acute encephalopathy - likely metabolic from hypoxia, rhabdomyolysis Acute hypoxic respiratory failure - likely due to COVID 19 pneumonia Sepsis - with COVID 19 will treat with IVF and remdesivir, no definite bacterial source Acute kidney injury - likely vasomotor nephropathy from rhabomyolysis, will monitor renal function Pneumonia - likely due to COVID 19 COVID-19 virus infection - remdesivir and steroids, supportive care, wean O2 as tolerated Transaminitis - likely rhabdo and covid related, will hydrate CAD s/p CABG - reconcile home meds with pharmacy as and patient cannot recall HTN - restart home meds FEN - ADAT PPX - heparin DNR/DNI Dispo - inpatient History of Present Illness History of Present Illness Identification/Chief Complaint Chief Complaint Acute encephalopathy Source Source: Caregiver, Chart review, Patient History of Present Illness History of Present Illness Mr Page is a 70 year old male with PMH HTN, HLD, CAD s/p CABG comes to ED via EMS after his called 911. Systems Navigator reports patient was found on floor in bedroom by who thinks he may have been laying there for at least 5-6 hours. noted he has bee sick for the past 10 days and that she has also been sick with COVID 19 for 14 days. She is confused as well as the patient. Patient can only ask for food and water and is oriented to self only. His only recalls above PMHx, does not know his meds. EMS noted patient was 87% on room air, placed on 4L NCO2 Patient's chest x-ray concerning for immunity acquired pneumonia, elevated troponin I, elevated lactic acid level, white blood cell [place] [address], LFTs elevated, CR 1.9. Started on Rocephin 1 g IV along with 30 mL/kg normal saline IV fluid replacement. COVID-19 positive per rapid study. EKG sinus tachycardia 118 bpm, left axis deviation, LAFB, no ST segment or T- wave abnormalities Admitted for further care 8-20 alcoholism: admitted drinking rum Metabolic encephalopathy Arrhythmia: NSVT with associated triggers above including covid-19, possible ETOH Mild troponin elevation; peak 0.5. Most probably type II, demand ischemia secondary to above. denies angina CAD s/p remote CABG. Cath 2010 showed patent grafts as noted above. Echo 03/10 with preserved LV systolic function COVID 19 POS Pneumonia Acute encephalopathy - likely metabolic from hypoxia, rhabdomyolysis Acute hypoxic respiratory failure - likely due to COVID 19 pneumonia Elevated troponin I level - likely demand ischemia from hypoxia, will trend, monitor on tele Elevated lactic acid - likely due to hypoxia, sepsis from COVID 19 Sepsis - with COVID 19 will treat with IVF and remdesivir, this is clearly viral, no definite bacterial source Acute kidney injury - likely vasomotor nephropathy from rhabomyolysis, will monitor renal function Pneumonia - likely due to COVID 19 COVID-19 virus infection - remdesivir and steroids, supportive care, wean O2 as tolerated Rhabdomyolysis - will monitor CK, likely traumatic from falling Transaminitis - likely rhabdo and covid related, will hydrate CAD s/p CABG - reconcile home meds with pharmacy as and patient cannot recall HTN - restart home meds FEN - ADAT PPX - heparin FULL CODE Dispo - inpatient Abnormal chest x-ray with faint bilateral hazy opacities consistent with viral pneumonia. Rhabdomyolysis, currently being hydrated and clinically improving. Markedly elevated LFTs secondary to combination of COVID-19 viral pneumonia rhabdomyolysis. Mildly increased troponin level. [facility] protocol d/w rn 8-21 alcoholism: admitted drinking rum 2-4 drinks a day Metabolic encephalopathy Arrhythmia: NSVT with associated triggers above including covid-19, possible ETOH Mild troponin elevation; peak 0.5. Most probably type II, demand ischemia secondary to above. denies angina CAD s/p remote CABG. Cath 2010 showed patent grafts as noted above. Echo 03/10 with preserved LV systolic function COVID 19 POS Pneumonia Acute encephalopathy - likely metabolic from hypoxia, rhabdomyolysis Acute hypoxic respiratory failure - likely due to COVID 19 pneumonia Elevated troponin I level - likely demand ischemia from hypoxia, will trend, monitor on tele Elevated lactic acid - likely due to hypoxia, sepsis from COVID 19 Sepsis - with COVID 19 will treat with IVF and remdesivir, this is clearly viral, no definite bacterial source Acute kidney injury - likely vasomotor nephropathy from rhabomyolysis, will monitor renal function Pneumonia - likely due to COVID 19 COVID-19 virus infection - remdesivir and steroids, supportive care, wean O2 as tolerated Rhabdomyolysis - will monitor CK, likely traumatic from falling Transaminitis - likely rhabdo and covid related, will hydrate CAD s/p CABG - reconcile home meds with pharmacy as and patient cannot recall HTN - restart home meds FEN - ADAT PPX - heparin FULL CODE Dispo - inpatient Abnormal chest x-ray with faint bilateral hazy opacities consistent with viral pneumonia. Rhabdomyolysis, currently being hydrated and clinically improving. Markedly elevated LFTs secondary to combination of COVID-19 viral pneumonia rhabdomyolysis. Mildly increased troponin level. [facility] protocol d/w rn 8- alcoholism: admitted drinking rum 2-4 drinks a day Metabolic encephalopathy Arrhythmia: NSVT with associated triggers above including covid-19, possible ETOH Mild troponin elevation; peak 0.5. Most probably type II, demand ischemia secondary to above. denies angina CAD s/p remote CABG. Cath 2010 showed patent grafts as noted above. Echo 03/10 with preserved LV systolic function COVID 19 POS Pneumonia Acute encephalopathy - likely metabolic from hypoxia, rhabdomyolysis Acute hypoxic respiratory failure - likely due to COVID 19 pneumonia Elevated troponin I level - likely demand ischemia from hypoxia, will trend, monitor on tele Elevated lactic acid - likely due to hypoxia, sepsis from COVID 19 Sepsis - with COVID 19 will treat with IVF and remdesivir, this is clearly viral, no definite bacterial source Acute kidney injury - likely vasomotor nephropathy from rhabomyolysis, will monitor renal function Pneumonia - likely due to COVID 19 COVID-19 virus infection - remdesivir and steroids, supportive care, wean O2 as tolerated Rhabdomyolysis - will monitor CK, likely traumatic from falling Transaminitis - likely rhabdo and covid related, will hydrate CAD s/p CABG - reconcile home meds with pharmacy as and patient cannot recall HTN - restart home meds FEN - ADAT PPX - heparin FULL CODE Dispo - inpatient Abnormal chest x-ray with faint bilateral hazy opacities consistent with viral pneumonia. Rhabdomyolysis, currently being hydrated and clinically improving. Markedly elevated LFTs secondary to combination of COVID-19 viral pneumonia rhabdomyolysis. Mildly increased troponin level. [facility] protocol, thiamine, folic acid Small remote blowout fracture in the left medial orbital wall with herniation of extraconal fat into the fracture defect. NEUROLOGY Consult d/w rn 8- alcoholism: admitted drinking rum 2-4 drinks a day Metabolic encephalopathy Arrhythmia: NSVT with associated triggers above including covid-19, possible ETOH Mild troponin elevation; peak 0.5. Most probably type II, demand ischemia secondary to above. denies angina CAD s/p remote CABG. Cath 2010 showed patent grafts as noted above. Echo 03/10 with preserved LV systolic function COVID 19 POS Pneumonia Acute encephalopathy - likely metabolic from hypoxia, rhabdomyolysis Acute hypoxic respiratory failure - likely due to COVID 19 pneumonia Elevated troponin I level - likely demand ischemia from hypoxia, will trend, monitor on tele Elevated lactic acid - likely due to hypoxia, sepsis from COVID 19 Sepsis - with COVID 19 will treat with IVF and remdesivir, this is clearly viral, no definite bacterial source Acute kidney injury - likely vasomotor nephropathy from rhabomyolysis, will monitor renal function Pneumonia - likely due to COVID 19 COVID-19 virus infection - remdesivir and steroids, supportive care, wean O2 as tolerated Rhabdomyolysis - will monitor CK, likely traumatic from falling Transaminitis - likely rhabdo and covid related, will hydrate CAD s/p CABG - reconcile home meds with pharmacy as and patient cannot recall HTN - restart home meds FEN - ADAT PPX - heparin FULL CODE Dispo - inpatient Abnormal chest x-ray with faint bilateral hazy opacities consistent with viral pneumonia. Rhabdomyolysis, currently being hydrated and clinically improving. Markedly elevated LFTs secondary to combination of COVID-19 viral pneumonia rhabdomyolysis. Mildly increased troponin level. [facility] protocol, thiamine, folic acid Small remote blowout fracture in the left medial orbital wall with herniation of extraconal fat into the fracture defect. NEUROLOGY Consult STEVE TO DD d/w rn 04/14/21 Worsening respiratory status overnight requiring increasing O2 levels. Very lethargic this AM. Dr Perez spoke with patient's about his worsening condition and she elected to make him DNR. 04/15 Evaluated at bedside. Remains very lethargic. Providing supportive measures continuing treatment otherwise. Covid protocol. Plan of care discussed with bedside RN. 04/16 Seen at bedside. Remains lethargic, on Bipap. Starting NPO this AM at speech therapy recommendation. 04/17 Patient seen at bedside. No withdrawal even to pain today. Remains on BiPAP. Continue ongoing discussion of hospice with family members. 04/18 Patient remains unresponsive. Dismal prognosis. Per notes Dr. Hatch attempted to contact , if he is unable to reach her I will try to contact as well.. Vitals/I&O Vitals/I&O: Vital Signs Date Time Temp Pulse Resp B/P (MAP) Pulse Ox O2 Delivery O2 Flow Rate FiO2 04/18/21 12:03 105 137/68 04/18/21 11:45 94 BiPAP/CPAP 04/18/21 11:00 98.6 26 98.6 04/17/21 20:35 8.0 I & O 04/17/21 04/17/21 04/18/21 15:00 23:00 07:00 Intake Total 800 ml 100 ml 0 ml Output Total 800 ml 600 ml Balance 800 ml -700 ml -600 ml Physical Exam Physical Exam: General: Cooperative, moderate distress, Other (Confused) HEENT: Atraumatic, PERRLA, EOMI, Mucous membr. moist/pink Lungs: Other (bialteral crackles) Heart: S1S2, RRR, no thrills, no rubs, no gallops, no murmurs Abdomen: Normal bowel sounds, Soft, No tenderness, No hepatosplenomegaly, No masses Extremities: No clubbing, No cyanosis, No edema, Normal pulses, No tenderness/s welling Skin: No rashes, No breakdown, No significant lesion Neuro: Normal tone, Sensation intact, Cranial nerves 3-12 NL, Reflexes 2+ Psych/Mental Status: MORE AWAKE General: Other (Nonresponsive) Heart: Regular rate Lungs: Clear Abdomen: Normal bowel sounds, Soft, No tenderness Extremities: No cyanosis, No edema Skin: No significant lesion Labs Labs: Laboratory Tests Test 04/18/21 06:05 White Blood Count 11.4 x10^3/uL (4.0-11.0) Red Blood Count 3.90 x10^6/uL (4.30-5.70) Hemoglobin 13.4 g/dL (13.0-17.5) Hematocrit 38.5 % (39.0-53.0) Mean Corpuscular Volume 99 fL (79-100) Mean Corpuscular Hemoglobin 34 pg (25-35) Mean Corpuscular Hemoglobin Concent 35 g/dL (31-37) Red Cell Distribution Width 14.7 % (11.5-14.5) Platelet Count 177 x10^3/uL (140-400) Sodium Level 145 mmol/L (136-145) Potassium Level 4.0 mmol/L (3.5-5.1) Chloride Level 112 mmol/L (98-107) Carbon Dioxide Level 25 mmol/L (21-32) Anion Gap 8 (6-14) Blood Urea Nitrogen 25 mg/dL (8-26) Creatinine 0.9 mg/dL (0.7-1.3) Estimated GFR (Cockcroft-Gault) 83.4 Glucose Level 106 mg/dL (70-99) Calcium Level 8.3 mg/dL (8.5-10.1) Assessment and Plan Assessmemt and Plan Problems Medical Problems: (1) Acute kidney injury Status: Acute (2) Altered mental status Status: Acute (3) Community acquired pneumonia Status: Acute (4) COVID-19 virus infection Status: Acute (5) Elevated lactic acid level Status: Acute (6) Elevated troponin I level Status: Acute Comment Review of Relevant I have reviewed the following items pinky (where applicable) has been applied. Medications: Current Medications Medications (Trade) Dose Ordered Sig/Carole Route PRN Reason Start Time Stop Time Status Last Admin Dose Admin Dexamethasone Sodium Phosphate (Decadron) 4 mg DAILY IVP 04/18/21 09:00 04/18/21 09:53 Justifications for Admission Other Justification KARIME GODINEZ MD Apr 18, 2021 14:47
[2021-04-18 15:00] VITALS: BP 133/78
[2021-04-18 19:00] VITALS: BP 153/91
[2021-04-18 23:00] VITALS: BP 134/79
[2021-04-19] MEDS: METOPROLOL IV PUSH 5 MG/5 ML VIAL. IVP SCH ×4 (00:15→16:47)
[2021-04-19 03:15] VITALS: BP 161/83
[2021-04-19] MEDS: HEPARIN for SUB-Q USE 5,000 UNIT/ML VIAL. SQ SCH ×3 (06:42→20:03)
[2021-04-19 07:46] VITALS: BP 150/80
[2021-04-19] MEDS: POTASSIUM CHLORIDE 20 MEQ TABLET.ER. PO SCH (08:00)
[2021-04-19] MEDS: DEXAMETHASONE SOD PHOS 4 MG/ML VIAL IVP SCH (08:28)
[2021-04-19] MEDS: DOXYCYCLINE HYCLATE 100 MG in IV DEXTROSE 5% 100ML 100 ML IV SCH ×2 (08:28→20:02)
[2021-04-19] MEDS: FAMOTIDINE 20 MG/2 ML VIAL IVP SCH ×2 (08:29→20:02)
[2021-04-19] MEDS: cefTRIAXone IV Push 1 GM VIAL. IVP SCH (08:29)
[2021-04-19] MEDS: MULTIVITAMIN with MINERAL TABLET. PO SCH (09:00)
[2021-04-19] MEDS: FOLIC ACID 1 MG TABLET. PO SCH (09:00)
[2021-04-19] MEDS: LACTOBACILLUS RHAMNOSUS GG 1 CAPSULE. PO SCH ×2 (09:00→21:00)
[2021-04-19] MEDS: THIAMINE 100 MG TABLET. PO SCH (09:00)
[2021-04-19] MEDS: ASPIRIN RECTAL 300 MG SUPP. PR SCH (09:00)
[2021-04-19] MEDS: ZINC SULFATE 220 MG CAPSULE. PO SCH (09:00)
--- NOTE | 2021-04-19 09:07 | PDOC ---
PULMONARY PROGRESS NOTES DATE: 04/19/21 TIME: 09:02 Subjective Patient remains on BiPAP at 80% more alert trying to talk to me Vitals Vital Signs Date Time Temp Pulse Resp B/P (MAP) Pulse Ox O2 Delivery O2 Flow Rate FiO2 04/19/21 07:46 98.8 102 150/80 (103) 91 BiPAP/CPAP 98.8 04/19/21 03:15 31 Comments on bipap nc at rrr mild accessory muscle use no paradoxical abd motion no skin rash no leg edema. General: Lethargic Cardiovascular: S1 Abdomen: Soft Extremities: No Edema Skin: Warm Labs Laboratory Tests Test 04/17/21 11:47 04/18/21 06:05 O2 Saturation 96 % (92-99) Arterial Blood pH 7.51 (7.35-7.45) Arterial Blood pCO2 at Patient Temp 28 mmHg (35-46) Arterial Blood pO2 at Patient Temp 84 mmHg (65-108) Arterial Blood HCO3 22 mmol/L (21-28) Arterial Blood Base Excess 0 mmol/L (-3-3) FiO2 70% White Blood Count 11.4 x10^3/uL (4.0-11.0) Red Blood Count 3.90 x10^6/uL (4.30-5.70) Hemoglobin 13.4 g/dL (13.0-17.5) Hematocrit 38.5 % (39.0-53.0) Mean Corpuscular Volume 99 fL (79-100) Mean Corpuscular Hemoglobin 34 pg (25-35) Mean Corpuscular Hemoglobin Concent 35 g/dL (31-37) Red Cell Distribution Width 14.7 % (11.5-14.5) Platelet Count 177 x10^3/uL (140-400) Sodium Level 145 mmol/L (136-145) Potassium Level 4.0 mmol/L (3.5-5.1) Chloride Level 112 mmol/L (98-107) Carbon Dioxide Level 25 mmol/L (21-32) Anion Gap 8 (6-14) Blood Urea Nitrogen 25 mg/dL (8-26) Creatinine 0.9 mg/dL (0.7-1.3) Estimated GFR (Cockcroft-Gault) 83.4 Glucose Level 106 mg/dL (70-99) Calcium Level 8.3 mg/dL (8.5-10.1) Medications Active Scripts Medications Dose Route/Sig Max Daily Dose Days Date Category Hydrochlorothiazide 25 Mg Tablet 25 Mg PO 1X 04/10/21 Reported Atorvastatin Calcium 20 Mg Tablet 20 Mg PO HS 04/10/21 Reported Metoprolol Succinate ( Xl ) (Metoprolol Succinate) 25 Mg Tab.er.24h 25 Mg PO 3X/WEEK 04/10/21 Reported Aspirin 81 Mg Tab.chew 81 Mg PO DAILY 04/10/21 Reported Comments Chest x-ray reviewed 04/17/2021 Diffuse unchanged bilateral interstitial infiltrates Impression . 1. Acute hypoxic respiratory failure secondary to COVID-19 viral pneumonia and acute lung injury. Oxygen requirement has increased. Now on 80% FiO2 via BiPAP. 2. Abnormal chest x-ray with diffuse bilateral interstitial infiltrates consistent with viral pneumonia. 3. Rhabdomyolysis, clinically improving. 4. Markedly elevated LFTs secondary to combination of COVID-19 viral pneumonia and rhabdomyolysis. Improving. 5. Mildly increased troponin level. 6. Lactic acidosis, which is now improving as well. 7. Underlying COPD. The patient smoked for 31 years before quitting. 8. Alcohol withdrawal. 9. Encephalopathy Plan . 04/19/2021 Continue current supplemental oxygen with BiPAP at 80% titrate fio2 to keep sat 90% S/P remdesivir course Repeat chest x-ray/ABG reviewed. Oxygen requirement remains marginal. Continue steroids with slow taper, started on 04/09, will need full 10-day course Continue empiric antibiotics Hypernatremia improving ovoid over sedation DVT/GI prophylaxis: Subcutaneous heparin Patient is a DO NOT RESUSCITATE Discussed with RN and RT agree with hospice. RONAK BRICEÑO MD Apr 19, 2021 09:07
[2021-04-19 11:23] VITALS: BP 137/78
--- NOTE | 2021-04-19 14:48 | PDOC ---
GENERAL General: Patient examined chart reviewed today's hospital day 11 for this patient with a cute hypoxic respiratory failure secondary to Covid pneumonia. He is slowly clinically improving seems to be comfortable on BiPAP this afternoon with 100% supplemental oxygen. Appreciate subspecialty support. Time spent today is 30 minutes with greater than 50% in counseling and coordination of care most of which in review of records. The patient was seen in full isolation gear including N95 respirator covered with a surgical mask, goggles covering eyewear, and contact isolation robe and hair cover. Problems: (1) Pneumonia due to COVID-19 virus (2) Acute respiratory failure with hypoxia VITAL SIGNS Vital Signs/I&O: Vital Signs Date Time Temp Pulse Resp B/P (MAP) Pulse Ox O2 Delivery O2 Flow Rate FiO2 04/19/21 11:55 93 BiPAP/CPAP 04/19/21 11:23 98.2 102 22 137/78 (97) 98.2 04/19/21 08:00 8.0 I & O 04/18/21 04/18/21 04/19/21 15:00 23:00 07:00 Intake Total 0 ml Output Total 750 ml 550 ml Balance 0 ml -750 ml -550 ml In general patient is laying in bed resting comfortably on his BiPAP he is appr opriately interactive Chest bilateral equal air entry anteriorly Heart S1-S2 normal regular rate and rhythm no murmurs or gallops are noted Abdomen soft nontender nondistended no masses organomegaly noted Extremity exam is unremarkable for acute abnormality ALLERGIES Allergies: Allergies Coded Allergies Type Severity Reaction Last Updated Verified No Known Drug Allergies 04/09/21 No MEDS Medications: Current Medications Medications (Trade) Dose Ordered Sig/Carole Start Time Stop Time Status Last Admin Dose Admin Acetaminophen (Tylenol Supp) 650 mg PRN Q6HRS PRN 04/09/21 20:15 04/17/21 20:24 Acetaminophen (Tylenol) 650 mg PRN Q6HRS PRN 04/09/21 15:00 Aspirin (Aspirin Chewable) 81 mg DAILY 04/11/21 09:00 04/15/21 14:37 DC 04/11/21 10:36 Aspirin (Aspirin Rectal Supp) 300 mg DAILY 04/15/21 14:45 04/18/21 09:54 Ceftriaxone Sodium (Rocephin) 1 gm Q24H 04/10/21 10:15 04/19/21 08:29 Clonidine HCl (Catapres) 0.1 mg PRN Q1HR PRN 04/11/21 11:45 04/17/21 10:38 DC Dexamethasone Sodium Phosphate (Decadron) 4 mg DAILY 04/18/21 09:00 04/19/21 08:28 Dextrose/Sodium Chloride 1,000 ml @ 75 mls/hr [id number] 04/17/21 10:45 04/18/21 14:01 Diphenhydramine HCl (Benadryl) 25 mg PRN Q15MIN PRN 04/11/21 11:45 04/17/21 10:38 DC Doxycycline Hyclate 100 mg/ Dextrose 100 ml @ 50 mls/hr Q12HR 04/10/21 09:00 04/19/21 08:28 Famotidine (Pepcid Vial) 20 mg BID 04/13/21 21:00 04/19/21 08:29 Fentanyl Citrate (Fentanyl 2ml Vial) 25 mcg PRN Q3HRS PRN 04/09/21 15:00 Folic Acid (Folic Acid) 1 mg DAILY 04/11/21 12:00 04/11/21 12:29 Guaifenesin (Robitussin Dm) 10 ml PRN Q6HRS PRN 04/09/21 15:00 Haloperidol Lactate (Haldol Inj) 5 mg PRN Q4HRS PRN 04/11/21 11:45 04/17/21 10:38 DC Heparin Sodium (Porcine) (Heparin Sodium) 5,000 unit Q8HRS 04/09/21 15:30 04/19/21 06:42 Lactobacillus Rhamnosus (Culturelle) 1 cap BID 04/10/21 09:00 04/11/21 21:34 Lorazepam (Ativan Inj) 4 mg PRN Q15MIN PRN 04/11/21 11:45 UNV Lorazepam (Ativan) 8 mg PRN Q1HR PRN 04/11/21 11:45 04/17/21 10:38 DC Metoprolol Succinate (Toprol Xl) 25 mg DAILY 04/12/21 09:00 04/14/21 15:11 DC Metoprolol Tartrate (Lopressor Vial) 5 mg Q6HRS 04/14/21 16:00 04/19/21 06:49 Multivitamins (Thera M Plus) 1 tab DAILY 04/11/21 12:00 04/11/21 12:28 Olanzapine (ZyPREXA ZYDIS) 5 mg PRN BID PRN 04/09/21 15:00 04/11/21 10:36 Ondansetron HCl (Zofran) 4 mg PRN Q4HRS PRN 04/09/21 15:00 Potassium Chloride (Klor-Con) 20 meq 1X ONCE 04/12/21 17:00 04/12/21 17:38 DC Remdesivir 100 mg/ Sodium Chloride 230 ml @ 460 mls/hr Q24H 04/10/21 16:00 04/13/21 16:29 DC 04/13/21 17:09 Remdesivir 200 mg/ Sodium Chloride 210 ml @ 210 mls/hr 1X ONCE 04/09/21 16:00 04/09/21 16:59 DC 04/09/21 19:00 Sodium Chloride 1,000 ml @ 75 mls/hr [id number] 04/10/21 14:00 04/17/21 10:43 DC 04/16/21 23:06 Thiamine Mononitrate (Vitamin B-1) 100 mg DAILY 04/16/21 09:00 UNV Tramadol HCl (Ultram) 50 mg PRN Q6HRS PRN 04/09/21 15:00 Zinc Sulfate (Orazinc) 220 mg DAILY 04/09/21 15:00 04/11/21 10:36 ASSESSMENT & PLAN A&P Plan as noted above This note was created using [employer] and may have omissions and/or errors due to the nature of real-time voice reservation clerk. Justifications for Admission Other Justification YOSI TORRES MD Apr 19, 2021 14:48
[2021-04-19 14:59] VITALS: BP 133/72
[2021-04-19] MEDS ORDERED: STERILE WATER for RESP 1,000 ML BAG. INH PRN (16:30)
[2021-04-19] MEDS: AA 4.25 %/CALCIUM/LYTES/D5W 1,000 ML IV SCH (18:29)
[2021-04-19 19:00] VITALS: BP 146/91
[2021-04-19 23:15] VITALS: BP 147/77
[2021-04-20] MEDS: METOPROLOL IV PUSH 5 MG/5 ML VIAL. IVP SCH ×5 (00:49→22:33)
[2021-04-20 03:00] VITALS: BP 155/94
[2021-04-20 05:42] LABS: ALBUMIN 1.4 g/dL (3.4-5.0); ALBUMIN/GLOBULIN RATIO 0.3 (1.0-1.7); CREATININE 0.8 mg/dL (0.7-1.3); GFR 95.6; POTASSIUM 4.2 mmol/L (3.5-5.1); TOTAL BILIRUBIN 5.2 mg/dL (0.2-1.0)
[2021-04-20 05:49] LABS: BASO % 0 % (0-3); EOS % 0 % (0-3); HEMATOCRIT 38.1 % (39.0-53.0); HEMOGLOBIN 13.2 g/dL (13.0-17.5); LYMPH # 0.6 x10^3/uL (1.0-4.8); LYMPH % 4 % (24-48); MEAN CORPUSCULAR HEMOGLOBIN 34 pg (25-35); MEAN CORPUSCULAR HGB CONC 35 g/dL (31-37); MEAN CORPUSCULAR VOLUME 98 fL (79-100); MONO # 0.4 x10^3/uL (0.0-1.1); MONO % 3 % (0-9); NEUT # 12.3 x10^3/uL (1.8-7.7); NEUT % 93 % (31-73); PLATELET COUNT 161 x10^3/uL (140-400); RED BLOOD COUNT 3.89 x10^6/uL (4.30-5.70); RED CELL DISTRIBUTION WIDTH 14.7 % (11.5-14.5); WHITE BLOOD COUNT 13.3 x10^3/uL (4.0-11.0)
[2021-04-20] MEDS: HEPARIN for SUB-Q USE 5,000 UNIT/ML VIAL. SQ SCH ×3 (06:48→20:12)
[2021-04-20 07:00] VITALS: BP 144/80
[2021-04-20] MEDS: POTASSIUM CHLORIDE 20 MEQ TABLET.ER. PO SCH (08:00)
--- NOTE | 2021-04-20 08:31 | PDOC ---
PULMONARY PROGRESS NOTES DATE: 04/20/21 TIME: 08:30 Subjective Patient remains on BiPAP at 80% more alert says he feels better Vitals Vital Signs Date Time Temp Pulse Resp B/P (MAP) Pulse Ox O2 Delivery O2 Flow Rate FiO2 04/20/21 07:37 98 BiPAP/CPAP 04/20/21 06:46 115 156/86 04/20/21 03:00 98.9 30 98.9 04/19/21 08:00 8.0 Comments on bipap nc at rrr mild accessory muscle use no paradoxical abd motion no skin rash no leg edema. General: Alert Cardiovascular: S1 Extremities: No Edema Skin: No Rashes Labs Laboratory Tests Test 04/20/21 04:40 White Blood Count 13.3 x10^3/uL (4.0-11.0) Red Blood Count 3.89 x10^6/uL (4.30-5.70) Hemoglobin 13.2 g/dL (13.0-17.5) Hematocrit 38.1 % (39.0-53.0) Mean Corpuscular Volume 98 fL (79-100) Mean Corpuscular Hemoglobin 34 pg (25-35) Mean Corpuscular Hemoglobin Concent 35 g/dL (31-37) Red Cell Distribution Width 14.7 % (11.5-14.5) Platelet Count 161 x10^3/uL (140-400) Neutrophils (%) (Auto) 93 % (31-73) Lymphocytes (%) (Auto) 4 % (24-48) Monocytes (%) (Auto) 3 % (0-9) Eosinophils (%) (Auto) 0 % (0-3) Basophils (%) (Auto) 0 % (0-3) Neutrophils # (Auto) 12.3 x10^3/uL (1.8-7.7) Lymphocytes # (Auto) 0.6 x10^3/uL (1.0-4.8) Monocytes # (Auto) 0.4 x10^3/uL (0.0-1.1) Eosinophils # (Auto) 0.0 x10^3/uL (0.0-0.7) Basophils # (Auto) 0.0 x10^3/uL (0.0-0.2) Sodium Level 143 mmol/L (136-145) Potassium Level 4.2 mmol/L (3.5-5.1) Chloride Level 109 mmol/L (98-107) Carbon Dioxide Level 25 mmol/L (21-32) Anion Gap 9 (6-14) Blood Urea Nitrogen 23 mg/dL (8-26) Creatinine 0.8 mg/dL (0.7-1.3) Estimated GFR (Cockcroft-Gault) 95.6 BUN/Creatinine Ratio 29 (6-20) Glucose Level 126 mg/dL (70-99) Calcium Level 8.0 mg/dL (8.5-10.1) Total Bilirubin 5.2 mg/dL (0.2-1.0) Aspartate Amino Transf (AST/SGOT) 66 U/L (15-37) Alanine Aminotransferase (ALT/SGPT) 72 U/L (16-63) Alkaline Phosphatase 95 U/L (46-116) Total Protein 6.0 g/dL (6.4-8.2) Albumin 1.4 g/dL (3.4-5.0) Albumin/Globulin Ratio 0.3 (1.0-1.7) Laboratory Tests Test 04/20/21 04:40 White Blood Count 13.3 x10^3/uL (4.0-11.0) Red Blood Count 3.89 x10^6/uL (4.30-5.70) Hemoglobin 13.2 g/dL (13.0-17.5) Hematocrit 38.1 % (39.0-53.0) Mean Corpuscular Volume 98 fL (79-100) Mean Corpuscular Hemoglobin 34 pg (25-35) Mean Corpuscular Hemoglobin Concent 35 g/dL (31-37) Red Cell Distribution Width 14.7 % (11.5-14.5) Platelet Count 161 x10^3/uL (140-400) Neutrophils (%) (Auto) 93 % (31-73) Lymphocytes (%) (Auto) 4 % (24-48) Monocytes (%) (Auto) 3 % (0-9) Eosinophils (%) (Auto) 0 % (0-3) Basophils (%) (Auto) 0 % (0-3) Neutrophils # (Auto) 12.3 x10^3/uL (1.8-7.7) Lymphocytes # (Auto) 0.6 x10^3/uL (1.0-4.8) Monocytes # (Auto) 0.4 x10^3/uL (0.0-1.1) Eosinophils # (Auto) 0.0 x10^3/uL (0.0-0.7) Basophils # (Auto) 0.0 x10^3/uL (0.0-0.2) Sodium Level 143 mmol/L (136-145) Potassium Level 4.2 mmol/L (3.5-5.1) Chloride Level 109 mmol/L (98-107) Carbon Dioxide Level 25 mmol/L (21-32) Anion Gap 9 (6-14) Blood Urea Nitrogen 23 mg/dL (8-26) Creatinine 0.8 mg/dL (0.7-1.3) Estimated GFR (Cockcroft-Gault) 95.6 BUN/Creatinine Ratio 29 (6-20) Glucose Level 126 mg/dL (70-99) Calcium Level 8.0 mg/dL (8.5-10.1) Total Bilirubin 5.2 mg/dL (0.2-1.0) Aspartate Amino Transf (AST/SGOT) 66 U/L (15-37) Alanine Aminotransferase (ALT/SGPT) 72 U/L (16-63) Alkaline Phosphatase 95 U/L (46-116) Total Protein 6.0 g/dL (6.4-8.2) Albumin 1.4 g/dL (3.4-5.0) Albumin/Globulin Ratio 0.3 (1.0-1.7) Medications Active Scripts Medications Dose Route/Sig Max Daily Dose Days Date Category Hydrochlorothiazide 25 Mg Tablet 25 Mg PO 1X 04/10/21 Reported Atorvastatin Calcium 20 Mg Tablet 20 Mg PO HS 04/10/21 Reported Metoprolol Succinate ( Xl ) (Metoprolol Succinate) 25 Mg Tab.er.24h 25 Mg PO 3X/WEEK 04/10/21 Reported Aspirin 81 Mg Tab.chew 81 Mg PO DAILY 04/10/21 Reported Comments Chest x-ray reviewed 04/17/2021 Diffuse unchanged bilateral interstitial infiltrates Impression . 1. Acute hypoxic respiratory failure secondary to COVID-19 viral pneumonia and acute lung injury. Oxygen requirement has increased. Now on 80% FiO2 via BiPAP. 2. Abnormal chest x-ray with diffuse bilateral interstitial infiltrates consistent with viral pneumonia. 3. Rhabdomyolysis, clinically improving. 4. Markedly elevated LFTs secondary to combination of COVID-19 viral pneumonia and rhabdomyolysis. Improving. 5. Mildly increased troponin level. 6. Lactic acidosis, which is now improving as well. 7. Underlying COPD. The patient smoked for 31 years before quitting. 8. Alcohol withdrawal. 9. Encephalopathy improving Plan . 04/19/2021 cont bipap titrate fio2 to keep sat 90% more alert may try off bipap if tolerates S/P remdesivir course Repeat chest x-ray/ABG reviewed. Continue steroids with slow taper, started on 04/09, will need full 10-day course Continue empiric antibiotics Hypernatremia improving ovoid over sedation DVT/GI prophylaxis: Subcutaneous heparin Patient is a DO NOT RESUSCITATE Discussed with RN and RT agree with hospice. RONAK BRICEÑO MD Apr 20, 2021 08:31
[2021-04-20] MEDS: FOLIC ACID 1 MG TABLET. PO SCH (09:00)
[2021-04-20] MEDS: MULTIVITAMIN with MINERAL TABLET. PO SCH (09:00)
[2021-04-20] MEDS: ZINC SULFATE 220 MG CAPSULE. PO SCH (09:00)
[2021-04-20] MEDS: THIAMINE 100 MG TABLET. PO SCH (09:00)
[2021-04-20] MEDS: LACTOBACILLUS RHAMNOSUS GG 1 CAPSULE. PO SCH ×2 (09:00→20:13)
[2021-04-20] MEDS: DOXYCYCLINE HYCLATE 100 MG in IV DEXTROSE 5% 100ML 100 ML IV SCH ×2 (10:56→20:13)
[2021-04-20] MEDS: cefTRIAXone IV Push 1 GM VIAL. IVP SCH (10:56)
[2021-04-20] MEDS: DEXAMETHASONE SOD PHOS 4 MG/ML VIAL IVP SCH (10:56)
[2021-04-20] MEDS: ASPIRIN RECTAL 300 MG SUPP. PR SCH (10:56)
[2021-04-20] MEDS: FAMOTIDINE 20 MG/2 ML VIAL IVP SCH ×2 (10:56→20:12)
[2021-04-20 11:12] VITALS: BP 151/78
[2021-04-20] MEDS: AA 4.25 %/CALCIUM/LYTES/D5W 1,000 ML IV SCH ×2 (11:17→20:11)
--- NOTE | 2021-04-20 13:23 | PDOC ---
GENERAL General: Patient examined chart reviewed no events overnight noted. Patient is resting comfortably today on his BiPAP without new complaint. Appreciate subspecialty support we will continue current management. The patient was seen in full isolation gear including N95 respirator covered with a surgical mask, goggles covering eyewear, and contact isolation robe and hair cover. Problems: (1) Pneumonia due to COVID-19 virus (2) Acute respiratory failure with hypoxia VITAL SIGNS Vital Signs/I&O: Vital Signs Date Time Temp Pulse Resp B/P (MAP) Pulse Ox O2 Delivery O2 Flow Rate FiO2 04/20/21 11:45 90 BiPAP/CPAP 04/20/21 11:12 97.8 110 22 151/78 (102) 97.8 04/19/21 08:00 8.0 I & O 04/19/21 04/19/21 04/20/21 15:00 23:00 07:00 Intake Total 0 ml 0 ml Output Total 1100 ml 300 ml Balance 0 ml -1100 ml -300 ml Patient is resting comfortably on BiPAP he awakens briefly during exam otherwise sleepy today Chest bilateral equal air entry though diminished throughout no crackles or wheezes are noted Heart S1-S2 normal regular rate and rhythm no murmurs or gallops are noted Abdomen soft nontender nondistended no masses organomegaly noted Extremity exam is unremarkable for acute abnormality ALLERGIES Allergies: Allergies Coded Allergies Type Severity Reaction Last Updated Verified No Known Drug Allergies 04/09/21 No MEDS Medications: Current Medications Medications (Trade) Dose Ordered Sig/Carole Start Time Stop Time Status Last Admin Dose Admin Acetaminophen (Tylenol Supp) 650 mg PRN Q6HRS PRN 04/09/21 20:15 04/17/21 20:24 Acetaminophen (Tylenol) 650 mg PRN Q6HRS PRN 04/09/21 15:00 Amino Acids/ Electrolytes/ Dextrose 1,000 ml @ 80 mls/hr [id number] 04/19/21 18:30 04/20/21 11:17 Aspirin (Aspirin Chewable) 81 mg DAILY 04/11/21 09:00 04/15/21 14:37 DC 04/11/21 10:36 Aspirin (Aspirin Rectal Supp) 300 mg DAILY 04/15/21 14:45 04/20/21 10:56 Ceftriaxone Sodium (Rocephin) 1 gm Q24H 04/10/21 10:15 04/20/21 10:56 Clonidine HCl (Catapres) 0.1 mg PRN Q1HR PRN 04/11/21 11:45 04/17/21 10:38 DC Dexamethasone Sodium Phosphate (Decadron) 4 mg DAILY 04/18/21 09:00 04/20/21 10:56 Dextrose/Sodium Chloride 1,000 ml @ 75 mls/hr [id number] 04/17/21 10:45 04/19/21 18:27 DC 04/18/21 14:01 Diphenhydramine HCl (Benadryl) 25 mg PRN Q15MIN PRN 04/11/21 11:45 04/17/21 10:38 DC Doxycycline Hyclate 100 mg/ Dextrose 100 ml @ 50 mls/hr Q12HR 04/10/21 09:00 04/20/21 10:56 Famotidine (Pepcid Vial) 20 mg BID 04/13/21 21:00 04/20/21 10:56 Fentanyl Citrate (Fentanyl 2ml Vial) 25 mcg PRN Q3HRS PRN 04/09/21 15:00 Folic Acid (Folic Acid) 1 mg DAILY 04/11/21 12:00 04/11/21 12:29 Guaifenesin (Robitussin Dm) 10 ml PRN Q6HRS PRN 04/09/21 15:00 Haloperidol Lactate (Haldol Inj) 5 mg PRN Q4HRS PRN 04/11/21 11:45 04/17/21 10:38 DC Heparin Sodium (Porcine) (Heparin Sodium) 5,000 unit Q8HRS 04/09/21 15:30 04/20/21 06:48 Lactobacillus Rhamnosus (Culturelle) 1 cap BID 04/10/21 09:00 04/11/21 21:34 Lorazepam (Ativan Inj) 4 mg PRN Q15MIN PRN 04/11/21 11:45 UNV Lorazepam (Ativan) 8 mg PRN Q1HR PRN 04/11/21 11:45 04/17/21 10:38 DC Metoprolol Succinate (Toprol Xl) 25 mg DAILY 04/12/21 09:00 04/14/21 15:11 DC Metoprolol Tartrate (Lopressor Vial) 5 mg Q6HRS 04/14/21 16:00 04/20/21 06:46 Multivitamins (Thera M Plus) 1 tab DAILY 04/11/21 12:00 04/11/21 12:28 Olanzapine (ZyPREXA ZYDIS) 5 mg PRN BID PRN 04/09/21 15:00 04/11/21 10:36 Ondansetron HCl (Zofran) 4 mg PRN Q4HRS PRN 04/09/21 15:00 Potassium Chloride (Klor-Con) 20 meq 1X ONCE 04/12/21 17:00 04/12/21 17:38 DC Remdesivir 100 mg/ Sodium Chloride 230 ml @ 460 mls/hr Q24H 04/10/21 16:00 04/13/21 16:29 DC 04/13/21 17:09 Remdesivir 200 mg/ Sodium Chloride 210 ml @ 210 mls/hr 1X ONCE 04/09/21 16:00 04/09/21 16:59 DC 04/09/21 19:00 Sodium Chloride 1,000 ml @ 75 mls/hr [id number] 04/10/21 14:00 04/17/21 10:43 DC 04/16/21 23:06 Sterile Water (WATER for RESP) 1,000 ml CONT PRN 04/19/21 16:30 Thiamine Mononitrate (Vitamin B-1) 100 mg DAILY 04/16/21 09:00 UNV Tramadol HCl (Ultram) 50 mg PRN Q6HRS PRN 04/09/21 15:00 Zinc Sulfate (Orazinc) 220 mg DAILY 04/09/21 15:00 04/11/21 10:36 Current Medications Medications (Trade) Dose Ordered Sig/Carole Route PRN Reason Start Time Stop Time Status Last Admin Dose Admin Amino Acids/ Electrolytes/ Dextrose 1,000 ml @ 80 mls/hr [id number] IV 04/19/21 18:30 04/20/21 11:17 LAB Lab: Laboratory Tests Test 04/20/21 04:40 White Blood Count 13.3 x10^3/uL (4.0-11.0) H Red Blood Count 3.89 x10^6/uL (4.30-5.70) L Hemoglobin 13.2 g/dL (13.0-17.5) Hematocrit 38.1 % (39.0-53.0) L Mean Corpuscular Volume 98 fL (79-100) Mean Corpuscular Hemoglobin 34 pg (25-35) Mean Corpuscular Hemoglobin Concent 35 g/dL (31-37) Red Cell Distribution Width 14.7 % (11.5-14.5) H Platelet Count 161 x10^3/uL (140-400) Neutrophils (%) (Auto) 93 % (31-73) H Lymphocytes (%) (Auto) 4 % (24-48) L Monocytes (%) (Auto) 3 % (0-9) Eosinophils (%) (Auto) 0 % (0-3) Basophils (%) (Auto) 0 % (0-3) Neutrophils # (Auto) 12.3 x10^3/uL (1.8-7.7) H Lymphocytes # (Auto) 0.6 x10^3/uL (1.0-4.8) L Monocytes # (Auto) 0.4 x10^3/uL (0.0-1.1) Eosinophils # (Auto) 0.0 x10^3/uL (0.0-0.7) Basophils # (Auto) 0.0 x10^3/uL (0.0-0.2) Sodium Level 143 mmol/L (136-145) Potassium Level 4.2 mmol/L (3.5-5.1) Chloride Level 109 mmol/L (98-107) H Carbon Dioxide Level 25 mmol/L (21-32) Anion Gap 9 (6-14) Blood Urea Nitrogen 23 mg/dL (8-26) Creatinine 0.8 mg/dL (0.7-1.3) Estimated GFR (Cockcroft-Gault) 95.6 BUN/Creatinine Ratio 29 (6-20) H Glucose Level 126 mg/dL (70-99) H Calcium Level 8.0 mg/dL (8.5-10.1) L Total Bilirubin 5.2 mg/dL (0.2-1.0) H Aspartate Amino Transferase (AST) 66 U/L (15-37) H Alanine Aminotransferase (ALT) 72 U/L (16-63) H Alkaline Phosphatase 95 U/L (46-116) Total Protein 6.0 g/dL (6.4-8.2) L Albumin 1.4 g/dL (3.4-5.0) L Albumin/Globulin Ratio 0.3 (1.0-1.7) L Laboratory Tests 04/20/21 04:40 Laboratory Tests 04/20/21 04:40 ASSESSMENT & PLAN A&P Plan as noted above This note was created using [employer] and may have omissions and/or errors due to the nature of real-time voice manager media. Justifications for Admission Other Justification YOSI TORRES MD Apr 20, 2021 13:23
[2021-04-20 15:00] VITALS: BP 141/83
[2021-04-20 19:28] VITALS: BP 165/89
[2021-04-20 22:39] VITALS: BP 151/83
[2021-04-21 02:52] VITALS: BP 153/86
[2021-04-21] MEDS: HEPARIN for SUB-Q USE 5,000 UNIT/ML VIAL. SQ SCH ×2 (05:12→15:13)
[2021-04-21] MEDS: METOPROLOL IV PUSH 5 MG/5 ML VIAL. IVP SCH ×2 (05:12→11:49)
[2021-04-21 07:00] VITALS: BP 120/71
[2021-04-21] MEDS: POTASSIUM CHLORIDE 20 MEQ TABLET.ER. PO SCH (08:00)
[2021-04-21 08:33] LABS: ALBUMIN 1.3 g/dL (3.4-5.0); ALBUMIN/GLOBULIN RATIO 0.3 (1.0-1.7); CALCIUM 8.2 mg/dL (8.5-10.1); CREATININE 0.9 mg/dL (0.7-1.3); GFR 83.4; POTASSIUM 4.1 mmol/L (3.5-5.1); TOTAL BILIRUBIN 6.4 mg/dL (0.2-1.0); TOTAL PROTEIN 5.7 g/dL (6.4-8.2)
[2021-04-21 08:45] LABS: BASO % 0 % (0-3); EOS % 0 % (0-3); HEMATOCRIT 36.7 % (39.0-53.0); HEMOGLOBIN 12.5 g/dL (13.0-17.5); LYMPH # 0.6 x10^3/uL (1.0-4.8); LYMPH % 4 % (24-48); MEAN CORPUSCULAR HEMOGLOBIN 34 pg (25-35); MEAN CORPUSCULAR HGB CONC 34 g/dL (31-37); MEAN CORPUSCULAR VOLUME 99 fL (79-100); MONO # 0.4 x10^3/uL (0.0-1.1); MONO % 3 % (0-9); NEUT # 13.5 x10^3/uL (1.8-7.7); NEUT % 93 % (31-73); PLATELET COUNT 162 x10^3/uL (140-400); RED BLOOD COUNT 3.72 x10^6/uL (4.30-5.70); RED CELL DISTRIBUTION WIDTH 14.7 % (11.5-14.5); WHITE BLOOD COUNT 14.5 x10^3/uL (4.0-11.0)
--- NOTE | 2021-04-21 08:58 | PDOC ---
PROGRESS NOTES Date of Service DATE: 04/21/21 TIME: 08:57 Assessment Problems Medical Problems: (1) Acute kidney injury Status: Acute (2) Altered mental status Status: Acute (3) Community acquired pneumonia Status: Acute (4) COVID-19 virus infection Status: Acute (5) Elevated lactic acid level Status: Acute (6) Elevated troponin I level Status: Acute Encephalopathy, COVID pneumonia, respiratory failure is worsening, requiring 80% FiO2 Rhabdomyolysis, elevated transaminases, renal insufficiency, elevated troponin on admission, elevated lactic acid on admission, history of alcohol abuse History of hypertension coronary artery disease, hyperlipidemia Plan Risks to our personnel outweigh benefits to patient of taking him out of isolation for a brain MRI Treat medical issues DNR Neurology will follow loosely I did discuss the case with his on 04/18 Subjective None Objective Vital Signs Date Time Temp Pulse Resp B/P (MAP) Pulse Ox O2 Delivery O2 Flow Rate FiO2 04/21/21 08:18 95 BiPAP/CPAP 04/21/21 05:12 121 153/86 04/21/21 02:52 97.8 20 97.8 04/20/21 19:29 Intake and Output 04/21/21 07:00 Intake Total 960 ml Output Total 1700 ml Balance -740 ml IV Total 960 ml Output Urine Total 1700 ml # Bowel Movements 2 PHYSICAL EXAM Eyes closed, opens to voice, bilateral mittens on, nonverbal, does not follow commands, does regard the observer On BiPAP PERRL. EOMI. CN: no focal findings. Muscle tone: normal. Muscle strength: 4/5 DTR: 1+ Plantar reflex: Flexor Gait: not examined in bed. Sensory exam: no abnormal findings. Cerebellar: Not cooperative Review of Relevant I have reviewed the following items pinky (where applicable) has been applied. Labs Laboratory Tests Test 04/20/21 04:40 04/21/21 06:55 White Blood Count 13.3 x10^3/uL (4.0-11.0) 14.5 x10^3/uL (4.0-11.0) Red Blood Count 3.89 x10^6/uL (4.30-5.70) 3.72 x10^6/uL (4.30-5.70) Hemoglobin 13.2 g/dL (13.0-17.5) 12.5 g/dL (13.0-17.5) Hematocrit 38.1 % (39.0-53.0) 36.7 % (39.0-53.0) Mean Corpuscular Volume 98 fL (79-100) 99 fL (79-100) Mean Corpuscular Hemoglobin 34 pg (25-35) 34 pg (25-35) Mean Corpuscular Hemoglobin Concent 35 g/dL (31-37) 34 g/dL (31-37) Red Cell Distribution Width 14.7 % (11.5-14.5) 14.7 % (11.5-14.5) Platelet Count 161 x10^3/uL (140-400) 162 x10^3/uL (140-400) Neutrophils (%) (Auto) 93 % (31-73) 93 % (31-73) Lymphocytes (%) (Auto) 4 % (24-48) 4 % (24-48) Monocytes (%) (Auto) 3 % (0-9) 3 % (0-9) Eosinophils (%) (Auto) 0 % (0-3) 0 % (0-3) Basophils (%) (Auto) 0 % (0-3) 0 % (0-3) Neutrophils # (Auto) 12.3 x10^3/uL (1.8-7.7) 13.5 x10^3/uL (1.8-7.7) Lymphocytes # (Auto) 0.6 x10^3/uL (1.0-4.8) 0.6 x10^3/uL (1.0-4.8) Monocytes # (Auto) 0.4 x10^3/uL (0.0-1.1) 0.4 x10^3/uL (0.0-1.1) Eosinophils # (Auto) 0.0 x10^3/uL (0.0-0.7) 0.0 x10^3/uL (0.0-0.7) Basophils # (Auto) 0.0 x10^3/uL (0.0-0.2) 0.0 x10^3/uL (0.0-0.2) Sodium Level 143 mmol/L (136-145) 142 mmol/L (136-145) Potassium Level 4.2 mmol/L (3.5-5.1) 4.1 mmol/L (3.5-5.1) Chloride Level 109 mmol/L (98-107) 110 mmol/L (98-107) Carbon Dioxide Level 25 mmol/L (21-32) 26 mmol/L (21-32) Anion Gap 9 (6-14) 6 (6-14) Blood Urea Nitrogen 23 mg/dL (8-26) 24 mg/dL (8-26) Creatinine 0.8 mg/dL (0.7-1.3) 0.9 mg/dL (0.7-1.3) Estimated GFR (Cockcroft-Gault) 95.6 83.4 BUN/Creatinine Ratio 29 (6-20) 27 (6-20) Glucose Level 126 mg/dL (70-99) 121 mg/dL (70-99) Calcium Level 8.0 mg/dL (8.5-10.1) 8.2 mg/dL (8.5-10.1) Total Bilirubin 5.2 mg/dL (0.2-1.0) 6.4 mg/dL (0.2-1.0) Aspartate Amino Transf (AST/SGOT) 66 U/L (15-37) 60 U/L (15-37) Alanine Aminotransferase (ALT/SGPT) 72 U/L (16-63) 73 U/L (16-63) Alkaline Phosphatase 95 U/L (46-116) 77 U/L (46-116) Total Protein 6.0 g/dL (6.4-8.2) 5.7 g/dL (6.4-8.2) Albumin 1.4 g/dL (3.4-5.0) 1.3 g/dL (3.4-5.0) Albumin/Globulin Ratio 0.3 (1.0-1.7) 0.3 (1.0-1.7) Laboratory Tests Test 04/21/21 06:55 White Blood Count 14.5 x10^3/uL (4.0-11.0) Red Blood Count 3.72 x10^6/uL (4.30-5.70) Hemoglobin 12.5 g/dL (13.0-17.5) Hematocrit 36.7 % (39.0-53.0) Mean Corpuscular Volume 99 fL (79-100) Mean Corpuscular Hemoglobin 34 pg (25-35) Mean Corpuscular Hemoglobin Concent 34 g/dL (31-37) Red Cell Distribution Width 14.7 % (11.5-14.5) Platelet Count 162 x10^3/uL (140-400) Neutrophils (%) (Auto) 93 % (31-73) Lymphocytes (%) (Auto) 4 % (24-48) Monocytes (%) (Auto) 3 % (0-9) Eosinophils (%) (Auto) 0 % (0-3) Basophils (%) (Auto) 0 % (0-3) Neutrophils # (Auto) 13.5 x10^3/uL (1.8-7.7) Lymphocytes # (Auto) 0.6 x10^3/uL (1.0-4.8) Monocytes # (Auto) 0.4 x10^3/uL (0.0-1.1) Eosinophils # (Auto) 0.0 x10^3/uL (0.0-0.7) Basophils # (Auto) 0.0 x10^3/uL (0.0-0.2) Sodium Level 142 mmol/L (136-145) Potassium Level 4.1 mmol/L (3.5-5.1) Chloride Level 110 mmol/L (98-107) Carbon Dioxide Level 26 mmol/L (21-32) Anion Gap 6 (6-14) Blood Urea Nitrogen 24 mg/dL (8-26) Creatinine 0.9 mg/dL (0.7-1.3) Estimated GFR (Cockcroft-Gault) 83.4 BUN/Creatinine Ratio 27 (6-20) Glucose Level 121 mg/dL (70-99) Calcium Level 8.2 mg/dL (8.5-10.1) Total Bilirubin 6.4 mg/dL (0.2-1.0) Aspartate Amino Transf (AST/SGOT) 60 U/L (15-37) Alanine Aminotransferase (ALT/SGPT) 73 U/L (16-63) Alkaline Phosphatase 77 U/L (46-116) Total Protein 5.7 g/dL (6.4-8.2) Albumin 1.3 g/dL (3.4-5.0) Albumin/Globulin Ratio 0.3 (1.0-1.7) Microbiology 04/09/21 Blood Culture - Final, Complete NO GROWTH AFTER 5 DAYS Medications Current Medications Sodium Chloride 1,000 ml @ 1,000 mls/hr 1X ONCE IV Last administered on 04/09/21at 10:10; Start 04/09/21 at 10:15; Stop 04/09/21 at 11:14; Status DC Sodium Chloride 1,000 ml @ 2,850 mls/hr Q22M IV Last administered on 04/09/21at 11:29; Start 04/09/21 at 10:45; Stop 04/09/21 at 11:45; Status DC Ceftriaxone Sodium (Rocephin) 1 gm 1X ONCE IVP Last administered on 04/09/21at 11:33; Start 04/09/21 at 10:45; Stop 04/09/21 at 10:46; Status DC Doxycycline Hyclate 100 mg/ Dextrose 100 ml @ 50 mls/hr 1X ONCE IV Last administered on 04/09/21at 11:32; Start 04/09/21 at 11:00; Stop 04/09/21 at 12:59; Status DC Olanzapine (ZyPREXA ZYDIS) 5 mg PRN BID PRN PO ANXIETY / AGITATION Last administered on 04/11/21at 10:36; Start 04/09/21 at 15:00 Ondansetron HCl (Zofran) 4 mg PRN Q4HRS PRN IVP NAUSEA/VOMITING; Start 04/09/21 at 15:00 Tramadol HCl (Ultram) 50 mg PRN Q6HRS PRN PO MODERATE - SEVERE PAIN; Start 04/09/21 at 15:00 Guaifenesin (Robitussin Dm) 10 ml PRN Q6HRS PRN PO COUGH; Start 04/09/21 at 15:00 Acetaminophen (Tylenol) 650 mg PRN Q6HRS PRN PO MILD PAIN / TEMP > 100.3'F; Start 04/09/21 at 15:00 Fentanyl Citrate (Fentanyl 2ml Vial) 25 mcg PRN Q3HRS PRN IVP SEVERE PAIN 7-10; Start 04/09/21 at 15:00 Heparin Sodium (Porcine) (Heparin Sodium) 5,000 unit Q8HRS SQ Last administered on 04/21/21at 05:12; Start 04/09/21 at 15:30 Zinc Sulfate (Orazinc) 220 mg DAILY PO Last administered on 04/11/21at 10:36; Start 04/09/21 at 15:00 Thiamine Mononitrate (Vitamin B-1) 100 mg DAILY PO Last administered on 04/11/21at 10:36; Start 04/09/21 at 15:00 Dexamethasone Sodium Phosphate (Decadron) 6 mg DAILY IVP Last administered on 04/17/21at 08:45; Start 04/09/21 at 15:30; Stop 04/17/21 at 17:46; Status DC Remdesivir 200 mg/ Sodium Chloride 210 ml @ 210 mls/hr 1X ONCE IV Last administered on 04/09/21at 19:00; Start 04/09/21 at 16:00; Stop 04/09/21 at 16:59; Status DC Remdesivir 100 mg/ Sodium Chloride 230 ml @ 460 mls/hr Q24H IV Last administered on 04/13/21at 17:09; Start 04/10/21 at 16:00; Stop 04/13/21 at 16:29; Status DC Acetaminophen (Tylenol Supp) 650 mg PRN Q6HRS PRN MT MILD PAIN / TEMP > 100.3'F Last administered on 04/17/21at 20:24; Start 04/09/21 at 20:15 Sodium Chloride 1,000 ml @ 100 mls/hr Q10H IV Last administered on 04/10/21at 05:59; Start 04/09/21 at 20:30; Stop 04/10/21 at 13:47; Status DC Ceftriaxone Sodium (Rocephin) 1 gm Q24H IVP Last administered on 04/20/21at 10:56; Start 04/10/21 at 10:15 Doxycycline Hyclate 100 mg/ Dextrose 100 ml @ 50 mls/hr Q12HR IV Last administered on 04/20/21at 20:13; Start 04/10/21 at 09:00 Lactobacillus Rhamnosus (Culturelle) 1 cap BID PO Last administered on 04/11/21at 21:34; Start 04/10/21 at 09:00 Sodium Chloride 1,000 ml @ 75 mls/hr [id number] IV Last administered on 04/16/21at 23:06; Start 04/10/21 at 14:00; Stop 04/17/21 at 10:43; Status DC Potassium Chloride (Klor-Con) 40 meq 1X ONCE PO Last administered on 04/10/21at 14:20; Start 04/10/21 at 14:00; Stop 04/10/21 at 14:01; Status DC Potassium Chloride (Klor-Con) 20 meq [id number] PO Last administered on 04/11/21at 10:36; Start 04/11/21 at 08:00 Aspirin (Aspirin Chewable) 81 mg DAILY PO Last administered on 04/11/21at 10:36; Start 04/11/21 at 09:00; Stop 04/15/21 at 14:37; Status DC Metoprolol Succinate (Toprol Xl) 25 mg 3X/WEEK PO Last administered on 04/11/21at 10:37; Start 04/11/21 at 09:00; Stop 04/11/21 at 10:48; Status DC Metoprolol Tartrate (Lopressor Vial) 5 mg PRN Q6HRS PRN IVP PER PROTOCOL Last administered on 04/13/21at 08:16; Start 04/11/21 at 10:30; Stop 04/14/21 at 15:11; Status DC Potassium Chloride (Klor-Con) 40 meq 1X ONCE PO Last administered on 04/11/21at 12:29; Start 04/11/21 at 10:45; Stop 04/11/21 at 10:46; Status DC Metoprolol Succinate (Toprol Xl) 25 mg DAILY PO ; Start 04/12/21 at 09:00; Stop 04/14/21 at 15:11; Status DC Multivitamins (Thera M Plus) 1 tab DAILY PO Last administered on 04/11/21at 12:28; Start 04/11/21 at 12:00 Folic Acid (Folic Acid) 1 mg DAILY PO Last administered on 04/11/21at 12:29; Start 04/11/21 at 12:00 Thiamine Mononitrate (Vitamin B-1) 100 mg DAILY PO ; Start 04/16/21 at 09:00; Status UNV Lorazepam (Ativan) 4 mg PRN Q1HR PRN PO For CIWA 8-14; Start 04/11/21 at 11:45; Stop 04/17/21 at 10:38; Status DC Lorazepam (Ativan) 8 mg PRN Q1HR PRN PO For CIWA 15 or greater; Start 04/11/21 at 11:45; Stop 04/17/21 at 10:38; Status DC Lorazepam (Ativan Inj) 2 mg PRN Q1HR PRN IV For CIWA 8-14 Last administered on 04/17/21at 09:47; Start 04/11/21 at 11:45; Stop 04/17/21 at 10:38; Status DC Lorazepam (Ativan Inj) 4 mg PRN Q1HR PRN IV For CIWA 15 or greater; Start 04/11/21 at 11:45; Stop 04/17/21 at 10:38; Status DC Haloperidol Lactate (Haldol Inj) 5 mg PRN Q4HRS PRN IVP Hallucinatns,Confusn,Delirium; Start 04/11/21 at 11:45; Stop 04/17/21 at 10:38; Status DC Diphenhydramine HCl (Benadryl) 25 mg PRN Q15MIN PRN IVP EPS symptoms 2'Haldol admin; Start 04/11/21 at 11:45; Stop 04/17/21 at 10:38; Status DC Clonidine HCl (Catapres) 0.1 mg PRN Q1HR PRN PO SBP > 180 or DBP > 100, MRX3; Start 04/11/21 at 11:45; Stop 04/17/21 at 10:38; Status DC Lorazepam (Ativan Inj) 2 mg PRN Q15MIN PRN IV SEE COMMENTS; Start 04/11/21 at 11:45; Status UNV Lorazepam (Ativan Inj) 4 mg PRN Q15MIN PRN IV SEE COMMENTS; Start 04/11/21 at 11:45; Status UNV Potassium Chloride (Klor-Con) 20 meq 1X ONCE PO ; Start 04/12/21 at 17:00; Stop 04/12/21 at 17:38; Status DC Famotidine (Pepcid Vial) 20 mg BID IVP Last administered on 04/20/21at 20:12; Start 04/13/21 at 21:00 Metoprolol Tartrate (Lopressor Vial) 5 mg Q6HRS IVP Last administered on 04/21/21at 05:12; Start 04/14/21 at 16:00 Aspirin (Aspirin Rectal Supp) 300 mg DAILY MT Last administered on 04/20/21at 10:56; Start 04/15/21 at 14:45 Dextrose/Sodium Chloride 1,000 ml @ 75 mls/hr [id number] IV Last administered on 04/18/21at 14:01; Start 04/17/21 at 10:45; Stop 04/19/21 at 18:27; Status DC Dexamethasone Sodium Phosphate (Decadron) 4 mg DAILY IVP Last administered on 04/20/21at 10:56; Start 04/18/21 at 09:00 Sterile Water (WATER for RESP) 1,000 ml CONT PRN INH VIA VAPOTHERM DEVICE; Start 04/19/21 at 16:30 Amino Acids/ Electrolytes/ Dextrose 1,000 ml @ 80 mls/hr [id number] IV Last administered on 04/20/21at 20:11; Start 04/19/21 at 18:30 Active Scripts Active Reported Hydrochlorothiazide 25 Mg Tablet 25 Mg PO 1X Atorvastatin Calcium 20 Mg Tablet 20 Mg PO HS Metoprolol Succinate ( Xl ) (Metoprolol Succinate) 25 Mg Tab.er.24h 25 Mg PO 3X/WEEK Aspirin 81 Mg Tab.chew 81 Mg PO DAILY Vitals/I & O Vital Sign - Last 24 Hours 04/20/21 04/20/21 04/20/21 04/20/21 11:12 11:45 14:50 15:00 Temp 97.8 96.8 97.8 96.8 Pulse 110 110 106 Resp 22 24 B/P (MAP) 151/78 (102) 151/78 141/83 (102) Pulse Ox 96 90 96 O2 Delivery BiPAP/CPAP BiPAP/CPAP BiPAP/CPAP 04/20/21 04/20/21 04/20/21 04/20/21 15:43 19:28 19:29 20:53 Temp 97.5 97.5 Pulse 110 Resp 20 B/P (MAP) 165/89 (114) Pulse Ox 90 92 95 O2 Delivery BiPAP/CPAP BiPAP/CPAP Bi-pap BiPAP/CPAP O2 Flow Rate 04/20/21 04/20/21 04/20/21 04/20/21 22:33 22:39 23:05 23:16 Temp 97.7 97.7 Pulse 110 120 Resp 22 B/P (MAP) 165/89 151/83 (105) Pulse Ox 90 97 92 O2 Delivery BiPAP/CPAP BiPAP/CPAP BiPAP/CPAP 04/21/21 04/21/21 04/21/21 04/21/21 00:57 02:52 03:15 05:12 Temp 97.8 97.8 Pulse 121 121 Resp 20 B/P (MAP) 153/86 (108) 153/86 Pulse Ox 97 95 91 O2 Delivery BiPAP/CPAP BiPAP/CPAP BiPAP/CPAP 04/21/21 04/21/21 05:30 08:18 Pulse Ox 96 95 O2 Delivery BiPAP/CPAP BiPAP/CPAP Intake and Output0 04/20/21 04/20/21 04/21/21 15:00 23:00 07:00 Intake Total 960 ml Output Total 900 ml 800 ml Balance -900 ml 160 ml Justicifation of Admission Dx: Justifications for Admission: Justification of Admission Dx: Yes Sepsis: Hypoxemia CARLEY CASTREJON MD Apr 21, 2021 08:58
[2021-04-21] MEDS: THIAMINE 100 MG TABLET. PO SCH (09:00)
[2021-04-21] MEDS: MULTIVITAMIN with MINERAL TABLET. PO SCH (09:00)
[2021-04-21] MEDS: ZINC SULFATE 220 MG CAPSULE. PO SCH (09:00)
[2021-04-21] MEDS: LACTOBACILLUS RHAMNOSUS GG 1 CAPSULE. PO SCH (09:00)
[2021-04-21] MEDS: FOLIC ACID 1 MG TABLET. PO SCH (09:00)
[2021-04-21] MEDS: cefTRIAXone IV Push 1 GM VIAL. IVP SCH (10:15)
[2021-04-21] MEDS: DEXAMETHASONE SOD PHOS 4 MG/ML VIAL IVP SCH (10:16)
[2021-04-21] MEDS: FAMOTIDINE 20 MG/2 ML VIAL IVP SCH (10:16)
[2021-04-21] MEDS: DOXYCYCLINE HYCLATE 100 MG in IV DEXTROSE 5% 100ML 100 ML IV SCH (10:16)
[2021-04-21] MEDS: ASPIRIN RECTAL 300 MG SUPP. PR SCH (10:19)
[2021-04-21 11:00] VITALS: BP 116/70
[2021-04-21] MEDS: AA 4.25 %/CALCIUM/LYTES/D5W 1,000 ML IV SCH (11:12)
--- NOTE | 2021-04-21 11:12 | PDOC ---
PULMONARY PROGRESS NOTES DATE: 04/21/21 TIME: 11:10 Subjective Patient remains on BiPAP at 80% more alert says he feels better Vitals Vital Signs Date Time Temp Pulse Resp B/P (MAP) Pulse Ox O2 Delivery O2 Flow Rate FiO2 04/21/21 10:17 88 VAPOTHERM 40.0 04/21/21 07:00 97.2 114 27 120/71 (87) 97.2 Comments on bipap nc at rrr mild accessory muscle use no paradoxical abd motion no skin rash no leg edema. General: Alert Cardiovascular: S1 Extremities: No Edema Skin: No Rashes Labs Laboratory Tests Test 04/20/21 04:40 04/21/21 06:55 White Blood Count 13.3 x10^3/uL (4.0-11.0) 14.5 x10^3/uL (4.0-11.0) Red Blood Count 3.89 x10^6/uL (4.30-5.70) 3.72 x10^6/uL (4.30-5.70) Hemoglobin 13.2 g/dL (13.0-17.5) 12.5 g/dL (13.0-17.5) Hematocrit 38.1 % (39.0-53.0) 36.7 % (39.0-53.0) Mean Corpuscular Volume 98 fL (79-100) 99 fL (79-100) Mean Corpuscular Hemoglobin 34 pg (25-35) 34 pg (25-35) Mean Corpuscular Hemoglobin Concent 35 g/dL (31-37) 34 g/dL (31-37) Red Cell Distribution Width 14.7 % (11.5-14.5) 14.7 % (11.5-14.5) Platelet Count 161 x10^3/uL (140-400) 162 x10^3/uL (140-400) Neutrophils (%) (Auto) 93 % (31-73) 93 % (31-73) Lymphocytes (%) (Auto) 4 % (24-48) 4 % (24-48) Monocytes (%) (Auto) 3 % (0-9) 3 % (0-9) Eosinophils (%) (Auto) 0 % (0-3) 0 % (0-3) Basophils (%) (Auto) 0 % (0-3) 0 % (0-3) Neutrophils # (Auto) 12.3 x10^3/uL (1.8-7.7) 13.5 x10^3/uL (1.8-7.7) Lymphocytes # (Auto) 0.6 x10^3/uL (1.0-4.8) 0.6 x10^3/uL (1.0-4.8) Monocytes # (Auto) 0.4 x10^3/uL (0.0-1.1) 0.4 x10^3/uL (0.0-1.1) Eosinophils # (Auto) 0.0 x10^3/uL (0.0-0.7) 0.0 x10^3/uL (0.0-0.7) Basophils # (Auto) 0.0 x10^3/uL (0.0-0.2) 0.0 x10^3/uL (0.0-0.2) Sodium Level 143 mmol/L (136-145) 142 mmol/L (136-145) Potassium Level 4.2 mmol/L (3.5-5.1) 4.1 mmol/L (3.5-5.1) Chloride Level 109 mmol/L (98-107) 110 mmol/L (98-107) Carbon Dioxide Level 25 mmol/L (21-32) 26 mmol/L (21-32) Anion Gap 9 (6-14) 6 (6-14) Blood Urea Nitrogen 23 mg/dL (8-26) 24 mg/dL (8-26) Creatinine 0.8 mg/dL (0.7-1.3) 0.9 mg/dL (0.7-1.3) Estimated GFR (Cockcroft-Gault) 95.6 83.4 BUN/Creatinine Ratio 29 (6-20) 27 (6-20) Glucose Level 126 mg/dL (70-99) 121 mg/dL (70-99) Calcium Level 8.0 mg/dL (8.5-10.1) 8.2 mg/dL (8.5-10.1) Total Bilirubin 5.2 mg/dL (0.2-1.0) 6.4 mg/dL (0.2-1.0) Aspartate Amino Transf (AST/SGOT) 66 U/L (15-37) 60 U/L (15-37) Alanine Aminotransferase (ALT/SGPT) 72 U/L (16-63) 73 U/L (16-63) Alkaline Phosphatase 95 U/L (46-116) 77 U/L (46-116) Total Protein 6.0 g/dL (6.4-8.2) 5.7 g/dL (6.4-8.2) Albumin 1.4 g/dL (3.4-5.0) 1.3 g/dL (3.4-5.0) Albumin/Globulin Ratio 0.3 (1.0-1.7) 0.3 (1.0-1.7) Laboratory Tests Test 04/21/21 06:55 White Blood Count 14.5 x10^3/uL (4.0-11.0) Red Blood Count 3.72 x10^6/uL (4.30-5.70) Hemoglobin 12.5 g/dL (13.0-17.5) Hematocrit 36.7 % (39.0-53.0) Mean Corpuscular Volume 99 fL (79-100) Mean Corpuscular Hemoglobin 34 pg (25-35) Mean Corpuscular Hemoglobin Concent 34 g/dL (31-37) Red Cell Distribution Width 14.7 % (11.5-14.5) Platelet Count 162 x10^3/uL (140-400) Neutrophils (%) (Auto) 93 % (31-73) Lymphocytes (%) (Auto) 4 % (24-48) Monocytes (%) (Auto) 3 % (0-9) Eosinophils (%) (Auto) 0 % (0-3) Basophils (%) (Auto) 0 % (0-3) Neutrophils # (Auto) 13.5 x10^3/uL (1.8-7.7) Lymphocytes # (Auto) 0.6 x10^3/uL (1.0-4.8) Monocytes # (Auto) 0.4 x10^3/uL (0.0-1.1) Eosinophils # (Auto) 0.0 x10^3/uL (0.0-0.7) Basophils # (Auto) 0.0 x10^3/uL (0.0-0.2) Sodium Level 142 mmol/L (136-145) Potassium Level 4.1 mmol/L (3.5-5.1) Chloride Level 110 mmol/L (98-107) Carbon Dioxide Level 26 mmol/L (21-32) Anion Gap 6 (6-14) Blood Urea Nitrogen 24 mg/dL (8-26) Creatinine 0.9 mg/dL (0.7-1.3) Estimated GFR (Cockcroft-Gault) 83.4 BUN/Creatinine Ratio 27 (6-20) Glucose Level 121 mg/dL (70-99) Calcium Level 8.2 mg/dL (8.5-10.1) Total Bilirubin 6.4 mg/dL (0.2-1.0) Aspartate Amino Transf (AST/SGOT) 60 U/L (15-37) Alanine Aminotransferase (ALT/SGPT) 73 U/L (16-63) Alkaline Phosphatase 77 U/L (46-116) Total Protein 5.7 g/dL (6.4-8.2) Albumin 1.3 g/dL (3.4-5.0) Albumin/Globulin Ratio 0.3 (1.0-1.7) Medications Active Scripts Medications Dose Route/Sig Max Daily Dose Days Date Category Hydrochlorothiazide 25 Mg Tablet 25 Mg PO 1X 04/10/21 Reported Atorvastatin Calcium 20 Mg Tablet 20 Mg PO HS 04/10/21 Reported Metoprolol Succinate ( Xl ) (Metoprolol Succinate) 25 Mg Tab.er.24h 25 Mg PO 3X/WEEK 04/10/21 Reported Aspirin 81 Mg Tab.chew 81 Mg PO DAILY 04/10/21 Reported Comments Chest x-ray reviewed 04/17/2021 Diffuse unchanged bilateral interstitial infiltrates Impression . 1. Acute hypoxic respiratory failure secondary to COVID-19 viral pneumonia and acute lung injury. Oxygen requirement has increased. Now on 80% FiO2 via BiPAP. 2. Abnormal chest x-ray with diffuse bilateral interstitial infiltrates consistent with viral pneumonia. 3. Rhabdomyolysis, clinically improving. 4. Markedly elevated LFTs secondary to combination of COVID-19 viral pneumonia and rhabdomyolysis. Improving. 5. Mildly increased troponin level. 6. Lactic acidosis, which is now improving as well. 7. Underlying COPD. The patient smoked for 31 years before quitting. 8. Alcohol withdrawal. 9. Encephalopathy improving Plan . Patient has been on BiPAP at 80% FiO2. I try to took him off the BiPAP and attempted high flow cannula. Patient's oxygen saturation dropped. He is reluctant to go back to BiPAP or Vapotherm. We will try to reach out to regarding further directives. S/P remdesivir course Repeat chest x-ray/ABG reviewed. Continue steroids with slow taper, started on 04/09, will need full 10-day course Continue empiric antibiotics Hypernatremia improving ovoid over sedation DVT/GI prophylaxis: Subcutaneous heparin Patient is a DO NOT RESUSCITATE Discussed with RN and RT Would recommend hospice care. addend: d/w in detail. explained patients condition. she is not ready to go for hospice. will continue present aggressive care for now ANN RIDDLE MD Apr 21, 2021 11:12
[2021-04-21 11:49] VITALS: BP 120/71
--- NOTE | 2021-04-21 12:38 | PDOC ---
Date of Service: DATE: 04/21/21 TIME: 12:35 Objective: Objective: Nurse notes yellowing of eyes. Pulm note: Patient has been on BiPAP at 80% FiO2. I try to took him off the BiPAP and attempted high flow cannula. Patient's oxygen saturation dropped. He is reluctant to go back to BiPAP or Vapotherm. We will try to reach out to regarding further directives. Vital Signs: Vital Signs Date Time Temp Pulse Resp B/P (MAP) Pulse Ox O2 Delivery O2 Flow Rate FiO2 04/21/21 12:06 92 VAPOTHERM 40.0 04/21/21 11:49 114 120/71 04/21/21 11:00 97.7 25 97.7 Labs: Laboratory Tests Test 04/21/21 06:55 White Blood Count 14.5 x10^3/uL Red Blood Count 3.72 x10^6/uL Hemoglobin 12.5 g/dL Hematocrit 36.7 % Mean Corpuscular Volume 99 fL Mean Corpuscular Hemoglobin 34 pg Mean Corpuscular Hemoglobin Concent 34 g/dL Red Cell Distribution Width 14.7 % Platelet Count 162 x10^3/uL Neutrophils (%) (Auto) 93 % Lymphocytes (%) (Auto) 4 % Monocytes (%) (Auto) 3 % Eosinophils (%) (Auto) 0 % Basophils (%) (Auto) 0 % Neutrophils # (Auto) 13.5 x10^3/uL Lymphocytes # (Auto) 0.6 x10^3/uL Monocytes # (Auto) 0.4 x10^3/uL Eosinophils # (Auto) 0.0 x10^3/uL Basophils # (Auto) 0.0 x10^3/uL Platelet Estimate Pending Sodium Level 142 mmol/L Potassium Level 4.1 mmol/L Chloride Level 110 mmol/L Carbon Dioxide Level 26 mmol/L Anion Gap 6 Blood Urea Nitrogen 24 mg/dL Creatinine 0.9 mg/dL Estimated GFR (Cockcroft-Gault) 83.4 BUN/Creatinine Ratio 27 Glucose Level 121 mg/dL Calcium Level 8.2 mg/dL Total Bilirubin 6.4 mg/dL Aspartate Amino Transf (AST/SGOT) 60 U/L Alanine Aminotransferase (ALT/SGPT) 73 U/L Alkaline Phosphatase 77 U/L Total Protein 5.7 g/dL Albumin 1.3 g/dL Albumin/Globulin Ratio 0.3 PE: GEN: COVID isolation, visual exam LUNGS: vapotherm HEART: tachycardic ABD: non-distended NEURO/PSYCH: resting A/P: COVID-19, resp failure Abnormal LFTs - mostly elevated bilirubin, Alk Phos normal - worse -- Await discussion w/ pt's . Follow labs. Justicifation of Admission Dx: Justifications for Admission: Justification of Admission Dx: Yes Sepsis: Hypoxemia MARK MARCELO Apr 21, 2021 12:38
[2021-04-21 12:53] LABS: % BANDS 5 % (0-9); % LYMPHS 5 % (24-48); % MONOS 3 % (0-10); % SEGS 87 % (35-66)
[2021-04-21 12:55] LABS: PLT ESTIMATE ADEQUATE (ADEQUATE)
--- NOTE | 2021-04-21 16:00 | NUR ---
Patient pronounced at 1537 by this RN and JOSE Simons. At approximately 1515, this RN called Samia () of patient to let her know that the patient was not doing well and to let her know I got approval for her to visit patient. upon Samia's arrival, patient had already been for approximately 5-[address] Chavez notified of patients at 1537. Patient's necklace, watch, drivers license, and insurance card given to patient's . Ring left on patient's finger
--- NOTE | 2021-04-21 16:39 | PDOC ---
[employer] PROGRESS NOTE Date of Service DOS: DATE: 04/21/21 TIME: 16:35 Chief Complaint Chief Complaint Assessment/Plan Assessment/Plan A/P: Acute encephalopathy - likely metabolic from hypoxia, rhabdomyolysis Acute hypoxic respiratory failure - likely due to COVID 19 pneumonia Sepsis - with COVID 19 will treat with IVF and remdesivir, no definite bacterial source Acute kidney injury - likely vasomotor nephropathy from rhabomyolysis, will monitor renal function Pneumonia - likely due to COVID 19 COVID-19 virus infection - remdesivir and steroids, supportive care, wean O2 as tolerated Transaminitis - likely rhabdo and covid related, will hydrate CAD s/p CABG - reconcile home meds with pharmacy as and patient cannot recall HTN - restart home meds FEN - ADAT PPX - heparin DNR/DNI Dispo - inpatient History of Present Illness History of Present Illness Identification/Chief Complaint Chief Complaint Acute encephalopathy Source Source: Caregiver, Chart review, Patient History of Present Illness History of Present Illness Mr Page is a 70 year old male with PMH HTN, HLD, CAD s/p CABG comes to ED via EMS after his called 911. Senior Solutions Engineer reports patient was found on floor in bedroom by who thinks he may have been laying there for at least 5-6 hours. noted he has bee sick for the past 10 days and that she has also been sick with COVID 19 for 14 days. She is confused as well as the patient. Patient can only ask for food and water and is oriented to self only. His only recalls above PMHx, does not know his meds. EMS noted patient was 87% on room air, placed on 4L NCO2 Patient's chest x-ray concerning for immunity acquired pneumonia, elevated troponin I, elevated lactic acid level, white blood cell [place] [address], LFTs elevated, CR 1.9. Started on Rocephin 1 g IV along with 30 mL/kg normal saline IV fluid replacement. COVID-19 positive per rapid study. EKG sinus tachycardia 118 bpm, left axis deviation, LAFB, no ST segment or T- wave abnormalities Admitted for further care 8-20 alcoholism: admitted drinking rum Metabolic encephalopathy Arrhythmia: NSVT with associated triggers above including covid-19, possible ETOH Mild troponin elevation; peak 0.5. Most probably type II, demand ischemia secondary to above. denies angina CAD s/p remote CABG. Cath 2010 showed patent grafts as noted above. Echo 03/10 with preserved LV systolic function COVID 19 POS Pneumonia Acute encephalopathy - likely metabolic from hypoxia, rhabdomyolysis Acute hypoxic respiratory failure - likely due to COVID 19 pneumonia Elevated troponin I level - likely demand ischemia from hypoxia, will trend, monitor on tele Elevated lactic acid - likely due to hypoxia, sepsis from COVID 19 Sepsis - with COVID 19 will treat with IVF and remdesivir, this is clearly viral, no definite bacterial source Acute kidney injury - likely vasomotor nephropathy from rhabomyolysis, will monitor renal function Pneumonia - likely due to COVID 19 COVID-19 virus infection - remdesivir and steroids, supportive care, wean O2 as tolerated Rhabdomyolysis - will monitor CK, likely traumatic from falling Transaminitis - likely rhabdo and covid related, will hydrate CAD s/p CABG - reconcile home meds with pharmacy as and patient cannot recall HTN - restart home meds FEN - ADAT PPX - heparin FULL CODE Dispo - inpatient Abnormal chest x-ray with faint bilateral hazy opacities consistent with viral pneumonia. Rhabdomyolysis, currently being hydrated and clinically improving. Markedly elevated LFTs secondary to combination of COVID-19 viral pneumonia rhabdomyolysis. Mildly increased troponin level. [facility] protocol d/w rn 8-21 alcoholism: admitted drinking rum 2-4 drinks a day Metabolic encephalopathy Arrhythmia: NSVT with associated triggers above including covid-19, possible ETOH Mild troponin elevation; peak 0.5. Most probably type II, demand ischemia secondary to above. denies angina CAD s/p remote CABG. Cath 2010 showed patent grafts as noted above. Echo 03/10 with preserved LV systolic function COVID 19 POS Pneumonia Acute encephalopathy - likely metabolic from hypoxia, rhabdomyolysis Acute hypoxic respiratory failure - likely due to COVID 19 pneumonia Elevated troponin I level - likely demand ischemia from hypoxia, will trend, monitor on tele Elevated lactic acid - likely due to hypoxia, sepsis from COVID 19 Sepsis - with COVID 19 will treat with IVF and remdesivir, this is clearly viral, no definite bacterial source Acute kidney injury - likely vasomotor nephropathy from rhabomyolysis, will monitor renal function Pneumonia - likely due to COVID 19 COVID-19 virus infection - remdesivir and steroids, supportive care, wean O2 as tolerated Rhabdomyolysis - will monitor CK, likely traumatic from falling Transaminitis - likely rhabdo and covid related, will hydrate CAD s/p CABG - reconcile home meds with pharmacy as and patient cannot recall HTN - restart home meds FEN - ADAT PPX - heparin FULL CODE Dispo - inpatient Abnormal chest x-ray with faint bilateral hazy opacities consistent with viral pneumonia. Rhabdomyolysis, currently being hydrated and clinically improving. Markedly elevated LFTs secondary to combination of COVID-19 viral pneumonia rhabdomyolysis. Mildly increased troponin level. [facility] protocol d/w rn 8- alcoholism: admitted drinking rum 2-4 drinks a day Metabolic encephalopathy Arrhythmia: NSVT with associated triggers above including covid-19, possible ETOH Mild troponin elevation; peak 0.5. Most probably type II, demand ischemia secondary to above. denies angina CAD s/p remote CABG. Cath 2010 showed patent grafts as noted above. Echo 03/10 with preserved LV systolic function COVID 19 POS Pneumonia Acute encephalopathy - likely metabolic from hypoxia, rhabdomyolysis Acute hypoxic respiratory failure - likely due to COVID 19 pneumonia Elevated troponin I level - likely demand ischemia from hypoxia, will trend, monitor on tele Elevated lactic acid - likely due to hypoxia, sepsis from COVID 19 Sepsis - with COVID 19 will treat with IVF and remdesivir, this is clearly viral, no definite bacterial source Acute kidney injury - likely vasomotor nephropathy from rhabomyolysis, will monitor renal function Pneumonia - likely due to COVID 19 COVID-19 virus infection - remdesivir and steroids, supportive care, wean O2 as tolerated Rhabdomyolysis - will monitor CK, likely traumatic from falling Transaminitis - likely rhabdo and covid related, will hydrate CAD s/p CABG - reconcile home meds with pharmacy as and patient cannot recall HTN - restart home meds FEN - ADAT PPX - heparin FULL CODE Dispo - inpatient Abnormal chest x-ray with faint bilateral hazy opacities consistent with viral pneumonia. Rhabdomyolysis, currently being hydrated and clinically improving. Markedly elevated LFTs secondary to combination of COVID-19 viral pneumonia rhabdomyolysis. Mildly increased troponin level. [facility] protocol, thiamine, folic acid Small remote blowout fracture in the left medial orbital wall with herniation of extraconal fat into the fracture defect. NEUROLOGY Consult d/w rn 8- alcoholism: admitted drinking rum 2-4 drinks a day Metabolic encephalopathy Arrhythmia: NSVT with associated triggers above including covid-19, possible ETOH Mild troponin elevation; peak 0.5. Most probably type II, demand ischemia secondary to above. denies angina CAD s/p remote CABG. Cath 2010 showed patent grafts as noted above. Echo 03/10 with preserved LV systolic function COVID 19 POS Pneumonia Acute encephalopathy - likely metabolic from hypoxia, rhabdomyolysis Acute hypoxic respiratory failure - likely due to COVID 19 pneumonia Elevated troponin I level - likely demand ischemia from hypoxia, will trend, monitor on tele Elevated lactic acid - likely due to hypoxia, sepsis from COVID 19 Sepsis - with COVID 19 will treat with IVF and remdesivir, this is clearly viral, no definite bacterial source Acute kidney injury - likely vasomotor nephropathy from rhabomyolysis, will monitor renal function Pneumonia - likely due to COVID 19 COVID-19 virus infection - remdesivir and steroids, supportive care, wean O2 as tolerated Rhabdomyolysis - will monitor CK, likely traumatic from falling Transaminitis - likely rhabdo and covid related, will hydrate CAD s/p CABG - reconcile home meds with pharmacy as and patient cannot recall HTN - restart home meds FEN - ADAT PPX - heparin FULL CODE Dispo - inpatient Abnormal chest x-ray with faint bilateral hazy opacities consistent with viral pneumonia. Rhabdomyolysis, currently being hydrated and clinically improving. Markedly elevated LFTs secondary to combination of COVID-19 viral pneumonia rhabdomyolysis. Mildly increased troponin level. [facility] protocol, thiamine, folic acid Small remote blowout fracture in the left medial orbital wall with herniation of extraconal fat into the fracture defect. NEUROLOGY Consult STEVE TO DD d/w rn 04/14/21 Worsening respiratory status overnight requiring increasing O2 levels. Very lethargic this AM. Dr Perez spoke with patient's about his worsening condition and she elected to make him DNR. 04/15 Evaluated at bedside. Remains very lethargic. Providing supportive measures continuing treatment otherwise. Covid protocol. Plan of care discussed with bedside RN. 04/16 Seen at bedside. Remains lethargic, on Bipap. Starting NPO this AM at speech therapy recommendation. 04/17 Patient seen at bedside. No withdrawal even to pain today. Remains on BiPAP. Continue ongoing discussion of hospice with family members. 04/18 Patient remains unresponsive. Dismal prognosis. Per notes Dr. Hatch attempted to contact , if he is unable to reach her I will try to contact as well.. 04/21: Page from RN that reportedly bradycardic today. was contacted. Patient is DNR. Unfortunately he passed at 1537. Vitals/I&O Vitals/I&O: Vital Signs Date Time Temp Pulse Resp B/P (MAP) Pulse Ox O2 Delivery O2 Flow Rate FiO2 04/21/21 14:31 95 BiPAP/CPAP 04/21/21 12:06 40.0 04/21/21 11:49 114 120/71 04/21/21 11:00 97.7 25 97.7 I & O 04/20/21 04/20/21 04/21/21 15:00 23:00 07:00 Intake Total 960 ml Output Total 900 ml 800 ml Balance -900 ml 160 ml Physical Exam Physical Exam: General: Cooperative, moderate distress, Other (Confused) HEENT: Atraumatic, PERRLA, EOMI, Mucous membr. moist/pink Lungs: Other (bialteral crackles) Heart: S1S2, bradycardic, no thrills, no rubs, no gallops, no murmurs Abdomen: Normal bowel sounds, Soft, No tenderness, No hepatosplenomegaly, No masses Extremities: No clubbing, No cyanosis, No edema, Normal pulses, No tenderness/swelling Skin: No rashes, No breakdown, No significant lesion Neuro: Normal tone, Sensation intact, Cranial nerves 3-12 NL, Reflexes 2+ Psych/Mental Status: Lethargic General: Other (Nonresponsive) Heart: Regular rate Abdomen: Normal bowel sounds, Soft, No tenderness Extremities: No cyanosis, No edema Skin: No significant lesion Labs Labs: Laboratory Tests Test 04/21/21 06:55 White Blood Count 14.5 x10^3/uL (4.0-11.0) Red Blood Count 3.72 x10^6/uL (4.30-5.70) Hemoglobin 12.5 g/dL (13.0-17.5) Hematocrit 36.7 % (39.0-53.0) Mean Corpuscular Volume 99 fL (79-100) Mean Corpuscular Hemoglobin 34 pg (25-35) Mean Corpuscular Hemoglobin Concent 34 g/dL (31-37) Red Cell Distribution Width 14.7 % (11.5-14.5) Platelet Count 162 x10^3/uL (140-400) Neutrophils (%) (Auto) 93 % (31-73) Lymphocytes (%) (Auto) 4 % (24-48) Monocytes (%) (Auto) 3 % (0-9) Eosinophils (%) (Auto) 0 % (0-3) Basophils (%) (Auto) 0 % (0-3) Neutrophils # (Auto) 13.5 x10^3/uL (1.8-7.7) Lymphocytes # (Auto) 0.6 x10^3/uL (1.0-4.8) Monocytes # (Auto) 0.4 x10^3/uL (0.0-1.1) Eosinophils # (Auto) 0.0 x10^3/uL (0.0-0.7) Basophils # (Auto) 0.0 x10^3/uL (0.0-0.2) Segmented Neutrophils % 87 % (35-66) Band Neutrophils % 5 % (0-9) Lymphocytes % 5 % (24-48) Monocytes % 3 % (0-10) Platelet Estimate Adequate (ADEQUATE) Giant Platelets Few Sodium Level 142 mmol/L (136-145) Potassium Level 4.1 mmol/L (3.5-5.1) Chloride Level 110 mmol/L (98-107) Carbon Dioxide Level 26 mmol/L (21-32) Anion Gap 6 (6-14) Blood Urea Nitrogen 24 mg/dL (8-26) Creatinine 0.9 mg/dL (0.7-1.3) Estimated GFR (Cockcroft-Gault) 83.4 BUN/Creatinine Ratio 27 (6-20) Glucose Level 121 mg/dL (70-99) Calcium Level 8.2 mg/dL (8.5-10.1) Total Bilirubin 6.4 mg/dL (0.2-1.0) Aspartate Amino Transf (AST/SGOT) 60 U/L (15-37) Alanine Aminotransferase (ALT/SGPT) 73 U/L (16-63) Alkaline Phosphatase 77 U/L (46-116) Total Protein 5.7 g/dL (6.4-8.2) Albumin 1.3 g/dL (3.4-5.0) Albumin/Globulin Ratio 0.3 (1.0-1.7) Assessment and Plan Assessmemt and Plan Problems Medical Problems: (1) Acute kidney injury Status: Acute (2) Altered mental status Status: Acute (3) Community acquired pneumonia Status: Acute (4) COVID-19 virus infection Status: Acute (5) Elevated lactic acid level Status: Acute (6) Elevated troponin I level Status: Acute Comment Review of Relevant I have reviewed the following items pinky (where applicable) has been applied. Medications: Current Medications Medications (Trade) Dose Ordered Sig/Carole Route PRN Reason Start Time Stop Time Status Last Admin Dose Admin Lorazepam (Ativan Inj) 1 mg PRN Q4HRS PRN IVP ANXIETY / AGITATION 04/21/21 15:00 04/21/21 15:09 Justifications for Admission Other Justification RINKU PHILLIPS MD Apr 21, 2021 16:39
--- NOTE | 2021-04-21 16:40 | PDOC3 ---
Discharge Summary Visit Information Date of Admission: Apr 09, 2021 Date of Discharge: Apr 21, 2021 Final Diagnosis Problems Medical Problems: (1) Acute kidney injury Status: Acute (2) Altered mental status Status: Acute (3) Community acquired pneumonia Status: Acute (4) COVID-19 virus infection Status: Acute (5) Elevated lactic acid level Status: Acute (6) Elevated troponin I level Status: Acute Brief Hospital Course Allergies Allergies Coded Allergies Type Severity Reaction Last Updated Verified No Known Drug Allergies 04/09/21 No Vital Signs Vital Signs Date Time Temp Pulse Resp B/P (MAP) Pulse Ox O2 Delivery O2 Flow Rate FiO2 04/21/21 14:31 95 BiPAP/CPAP 04/21/21 12:06 40.0 04/21/21 11:49 114 120/71 04/21/21 11:00 97.7 25 97.7 Lab Results Laboratory Tests Test 04/20/21 04:40 04/21/21 06:55 White Blood Count 13.3 x10^3/uL (4.0-11.0) 14.5 x10^3/uL (4.0-11.0) Red Blood Count 3.89 x10^6/uL (4.30-5.70) 3.72 x10^6/uL (4.30-5.70) Hemoglobin 13.2 g/dL (13.0-17.5) 12.5 g/dL (13.0-17.5) Hematocrit 38.1 % (39.0-53.0) 36.7 % (39.0-53.0) Mean Corpuscular Volume 98 fL (79-100) 99 fL (79-100) Mean Corpuscular Hemoglobin 34 pg (25-35) 34 pg (25-35) Mean Corpuscular Hemoglobin Concent 35 g/dL (31-37) 34 g/dL (31-37) Red Cell Distribution Width 14.7 % (11.5-14.5) 14.7 % (11.5-14.5) Platelet Count 161 x10^3/uL (140-400) 162 x10^3/uL (140-400) Neutrophils (%) (Auto) 93 % (31-73) 93 % (31-73) Lymphocytes (%) (Auto) 4 % (24-48) 4 % (24-48) Monocytes (%) (Auto) 3 % (0-9) 3 % (0-9) Eosinophils (%) (Auto) 0 % (0-3) 0 % (0-3) Basophils (%) (Auto) 0 % (0-3) 0 % (0-3) Neutrophils # (Auto) 12.3 x10^3/uL (1.8-7.7) 13.5 x10^3/uL (1.8-7.7) Lymphocytes # (Auto) 0.6 x10^3/uL (1.0-4.8) 0.6 x10^3/uL (1.0-4.8) Monocytes # (Auto) 0.4 x10^3/uL (0.0-1.1) 0.4 x10^3/uL (0.0-1.1) Eosinophils # (Auto) 0.0 x10^3/uL (0.0-0.7) 0.0 x10^3/uL (0.0-0.7) Basophils # (Auto) 0.0 x10^3/uL (0.0-0.2) 0.0 x10^3/uL (0.0-0.2) Sodium Level 143 mmol/L (136-145) 142 mmol/L (136-145) Potassium Level 4.2 mmol/L (3.5-5.1) 4.1 mmol/L (3.5-5.1) Chloride Level 109 mmol/L (98-107) 110 mmol/L (98-107) Carbon Dioxide Level 25 mmol/L (21-32) 26 mmol/L (21-32) Anion Gap 9 (6-14) 6 (6-14) Blood Urea Nitrogen 23 mg/dL (8-26) 24 mg/dL (8-26) Creatinine 0.8 mg/dL (0.7-1.3) 0.9 mg/dL (0.7-1.3) Estimated GFR (Cockcroft-Gault) 95.6 83.4 BUN/Creatinine Ratio 29 (6-20) 27 (6-20) Glucose Level 126 mg/dL (70-99) 121 mg/dL (70-99) Calcium Level 8.0 mg/dL (8.5-10.1) 8.2 mg/dL (8.5-10.1) Total Bilirubin 5.2 mg/dL (0.2-1.0) 6.4 mg/dL (0.2-1.0) Aspartate Amino Transf (AST/SGOT) 66 U/L (15-37) 60 U/L (15-37) Alanine Aminotransferase (ALT/SGPT) 72 U/L (16-63) 73 U/L (16-63) Alkaline Phosphatase 95 U/L (46-116) 77 U/L (46-116) Total Protein 6.0 g/dL (6.4-8.2) 5.7 g/dL (6.4-8.2) Albumin 1.4 g/dL (3.4-5.0) 1.3 g/dL (3.4-5.0) Albumin/Globulin Ratio 0.3 (1.0-1.7) 0.3 (1.0-1.7) Segmented Neutrophils % 87 % (35-66) Band Neutrophils % 5 % (0-9) Lymphocytes % 5 % (24-48) Monocytes % 3 % (0-10) Platelet Estimate Adequate (ADEQUATE) Giant Platelets Few Laboratory Tests Test 04/21/21 06:55 White Blood Count 14.5 x10^3/uL (4.0-11.0) Red Blood Count 3.72 x10^6/uL (4.30-5.70) Hemoglobin 12.5 g/dL (13.0-17.5) Hematocrit 36.7 % (39.0-53.0) Mean Corpuscular Volume 99 fL (79-100) Mean Corpuscular Hemoglobin 34 pg (25-35) Mean Corpuscular Hemoglobin Concent 34 g/dL (31-37) Red Cell Distribution Width 14.7 % (11.5-14.5) Platelet Count 162 x10^3/uL (140-400) Neutrophils (%) (Auto) 93 % (31-73) Lymphocytes (%) (Auto) 4 % (24-48) Monocytes (%) (Auto) 3 % (0-9) Eosinophils (%) (Auto) 0 % (0-3) Basophils (%) (Auto) 0 % (0-3) Neutrophils # (Auto) 13.5 x10^3/uL (1.8-7.7) Lymphocytes # (Auto) 0.6 x10^3/uL (1.0-4.8) Monocytes # (Auto) 0.4 x10^3/uL (0.0-1.1) Eosinophils # (Auto) 0.0 x10^3/uL (0.0-0.7) Basophils # (Auto) 0.0 x10^3/uL (0.0-0.2) Segmented Neutrophils % 87 % (35-66) Band Neutrophils % 5 % (0-9) Lymphocytes % 5 % (24-48) Monocytes % 3 % (0-10) Platelet Estimate Adequate (ADEQUATE) Giant Platelets Few Sodium Level 142 mmol/L (136-145) Potassium Level 4.1 mmol/L (3.5-5.1) Chloride Level 110 mmol/L (98-107) Carbon Dioxide Level 26 mmol/L (21-32) Anion Gap 6 (6-14) Blood Urea Nitrogen 24 mg/dL (8-26) Creatinine 0.9 mg/dL (0.7-1.3) Estimated GFR (Cockcroft-Gault) 83.4 BUN/Creatinine Ratio 27 (6-20) Glucose Level 121 mg/dL (70-99) Calcium Level 8.2 mg/dL (8.5-10.1) Total Bilirubin 6.4 mg/dL (0.2-1.0) Aspartate Amino Transf (AST/SGOT) 60 U/L (15-37) Alanine Aminotransferase (ALT/SGPT) 73 U/L (16-63) Alkaline Phosphatase 77 U/L (46-116) Total Protein 5.7 g/dL (6.4-8.2) Albumin 1.3 g/dL (3.4-5.0) Albumin/Globulin Ratio 0.3 (1.0-1.7) Brief Hospital Course Mr Page is a 70 year old male with PMH HTN, HLD, CAD s/p CABG comes to ED via EMS after his called 911. [employer] reports patient was found on floor in bedroom by who thinks he may have been laying there for at least 5-6 hours. noted he has bee sick for the past 10 days and that she has also been sick with COVID 19 for 14 days. She is confused as well as the patient. Patient can only ask for food and water and is oriented to self only. His only recalls above PMHx, does not know his meds. EMS noted patient was 87% on room air, placed on 4L NCO2 Patient's chest x-ray concerning for immunity acquired pneumonia, elevated troponin I, elevated lactic acid level, white blood cell count [place] [address], LFTs elevated, CR 1.9. Started on Rocephin 1 g IV along with 30 mL/kg normal saline IV fluid replacement. COVID-19 positive per rapid study. EKG sinus tachycardia 118 bpm, left axis deviation, LAFB, no ST segment or T- wave abnormalities Admitted for further care 04-11 alcoholism: admitted drinking rum Metabolic encephalopathy Arrhythmia: NSVT with associated triggers above including covid-19, possible ETOH Mild troponin elevation; peak 0.5. Most probably type II, demand ischemia secondary to above. denies angina CAD s/p remote CABG. Cath 2010 showed patent grafts as noted above. Echo 03/10 with preserved LV systolic function COVID 19 POS Pneumonia Acute encephalopathy - likely metabolic from hypoxia, rhabdomyolysis Acute hypoxic respiratory failure - likely due to COVID 19 pneumonia Elevated troponin I level - likely demand ischemia from hypoxia, will trend, monitor on tele Elevated lactic acid - likely due to hypoxia, sepsis from COVID 19 Sepsis - with COVID 19 will treat with IVF and remdesivir, this is clearly viral, no definite bacterial source Acute kidney injury - likely vasomotor nephropathy from rhabomyolysis, will monitor renal function Pneumonia - likely due to COVID 19 COVID-19 virus infection - remdesivir and steroids, supportive care, wean O2 as tolerated Rhabdomyolysis - will monitor CK, likely traumatic from falling Transaminitis - likely rhabdo and covid related, will hydrate CAD s/p CABG - reconcile home meds with pharmacy as and patient cannot recall HTN - restart home meds FEN - ADAT PPX - heparin FULL CODE Dispo - inpatient Abnormal chest x-ray with faint bilateral hazy opacities consistent with viral pneumonia. Rhabdomyolysis, currently being hydrated and clinically improving. Markedly elevated LFTs secondary to combination of COVID-19 viral pneumonia rhabdomyolysis. Mildly increased troponin level. [facility] protocol d/w rn 8- alcoholism: admitted drinking rum 2-4 drinks a day Metabolic encephalopathy Arrhythmia: NSVT with associated triggers above including covid-19, possible ETOH Mild troponin elevation; peak 0.5. Most probably type II, demand ischemia secondary to above. denies angina CAD s/p remote CABG. Cath 2010 showed patent grafts as noted above. Echo 03/10 with preserved LV systolic function COVID 19 POS Pneumonia Acute encephalopathy - likely metabolic from hypoxia, rhabdomyolysis Acute hypoxic respiratory failure - likely due to COVID 19 pneumonia Elevated troponin I level - likely demand ischemia from hypoxia, will trend, monitor on tele Elevated lactic acid - likely due to hypoxia, sepsis from COVID 19 Sepsis - with COVID 19 will treat with IVF and remdesivir, this is clearly viral, no definite bacterial source Acute kidney injury - likely vasomotor nephropathy from rhabomyolysis, will monitor renal function Pneumonia - likely due to COVID 19 COVID-19 virus infection - remdesivir and steroids, supportive care, wean O2 as tolerated Rhabdomyolysis - will monitor CK, likely traumatic from falling Transaminitis - likely rhabdo and covid related, will hydrate CAD s/p CABG - reconcile home meds with pharmacy as and patient cannot recall HTN - restart home meds FEN - ADAT PPX - heparin FULL CODE Dispo - inpatient Abnormal chest x-ray with faint bilateral hazy opacities consistent with viral pneumonia. Rhabdomyolysis, currently being hydrated and clinically improving. Markedly elevated LFTs secondary to combination of COVID-19 viral pneumonia rhabdomyolysis. Mildly increased troponin level. [facility] protocol d/w rn 8-22 alcoholism: admitted drinking rum 2-4 drinks a day Metabolic encephalopathy Arrhythmia: NSVT with associated triggers above including covid-19, possible ETOH Mild troponin elevation; peak 0.5. Most probably type II, demand ischemia secondary to above. denies angina CAD s/p remote CABG. Cath 2010 showed patent grafts as noted above. Echo 03/10 with preserved LV systolic function COVID 19 POS Pneumonia Acute encephalopathy - likely metabolic from hypoxia, rhabdomyolysis Acute hypoxic respiratory failure - likely due to COVID 19 pneumonia Elevated troponin I level - likely demand ischemia from hypoxia, will trend, monitor on tele Elevated lactic acid - likely due to hypoxia, sepsis from COVID 19 Sepsis - with COVID 19 will treat with IVF and remdesivir, this is clearly viral, no definite bacterial source Acute kidney injury - likely vasomotor nephropathy from rhabomyolysis, will monitor renal function Pneumonia - likely due to COVID 19 COVID-19 virus infection - remdesivir and steroids, supportive care, wean O2 as tolerated Rhabdomyolysis - will monitor CK, likely traumatic from falling Transaminitis - likely rhabdo and covid related, will hydrate CAD s/p CABG - reconcile home meds with pharmacy as and patient cannot recall HTN - restart home meds FEN - ADAT PPX - heparin FULL CODE Dispo - inpatient Abnormal chest x-ray with faint bilateral hazy opacities consistent with viral pneumonia. Rhabdomyolysis, currently being hydrated and clinically improving. Markedly elevated LFTs secondary to combination of COVID-19 viral pneumonia rhabdomyolysis. Mildly increased troponin level. [facility] protocol, thiamine, folic acid Small remote blowout fracture in the left medial orbital wall with herniation of extraconal fat into the fracture defect. NEUROLOGY Consult d/w rn 8-23 alcoholism: admitted drinking rum 2-4 drinks a day Metabolic encephalopathy Arrhythmia: NSVT with associated triggers above including covid-19, possible ETOH Mild troponin elevation; peak 0.5. Most probably type II, demand ischemia secondary to above. denies angina CAD s/p remote CABG. Cath 2010 showed patent grafts as noted above. Echo 03/10 with preserved LV systolic function COVID 19 POS Pneumonia Acute encephalopathy - likely metabolic from hypoxia, rhabdomyolysis Acute hypoxic respiratory failure - likely due to COVID 19 pneumonia Elevated troponin I level - likely demand ischemia from hypoxia, will trend, monitor on tele Elevated lactic acid - likely due to hypoxia, sepsis from COVID 19 Sepsis - with COVID 19 will treat with IVF and remdesivir, this is clearly viral, no definite bacterial source Acute kidney injury - likely vasomotor nephropathy from rhabomyolysis, will monitor renal function Pneumonia - likely due to COVID 19 COVID-19 virus infection - remdesivir and steroids, supportive care, wean O2 as tolerated Rhabdomyolysis - will monitor CK, likely traumatic from falling Transaminitis - likely rhabdo and covid related, will hydrate CAD s/p CABG - reconcile home meds with pharmacy as and patient cannot recall HTN - restart home meds FEN - ADAT PPX - heparin FULL CODE Dispo - inpatient Abnormal chest x-ray with faint bilateral hazy opacities consistent with viral pneumonia. Rhabdomyolysis, currently being hydrated and clinically improving. Markedly elevated LFTs secondary to combination of COVID-19 viral pneumonia rhabdomyolysis. Mildly increased troponin level. [facility] protocol, thiamine, folic acid Small remote blowout fracture in the left medial orbital wall with herniation of extraconal fat into the fracture defect. NEUROLOGY Consult STEVE TO ROSINA d/w rn 04/14/21 Worsening respiratory status overnight requiring increasing O2 levels. Very lethargic this AM. Dr Perez spoke with patient's about his worsening condition and she elected to make him DNR. 04/15 Evaluated at bedside. Remains very lethargic. Providing supportive measures continuing treatment otherwise. Covid protocol. Plan of care discussed with bedside RN. 04/16 Seen at bedside. Remains lethargic, on Bipap. Starting NPO this AM at speech therapy recommendation. 04/17 Patient seen at bedside. No withdrawal even to pain today. Remains on BiPAP. Continue ongoing discussion of hospice with family members. 04/18 Patient remains unresponsive. Dismal prognosis. Per notes Dr. Hatch attempted to contact , if he is unable to reach her I will try to contact as well.. 04/21: Page from RN that reportedly bradycardic today. was contacted. Patient is DNR. Unfortunately he passed at 1537. Discharge Information Condition at Discharge: / Disposition/Orders: Scheduled Aspirin (Aspirin) 81 Mg Tab.chew, 81 MG PO DAILY for heart healthy, (Reported) Entered as Reported by: CYNDI TILLEY on 04/10/21638 Last Action: Continued on 04/10/211619 by LUNA TRUJILLO APRN Atorvastatin Calcium (Atorvastatin Calcium) 20 Mg Tablet, 20 MG PO HS for FOR CHOLESTEROL, #30 Ref 0 (Reported) Entered as Reported by: CYNDI TILLEY on 04/10/21639 Last Action: New Order on 04/10/21639 by CYNDI TILLEY Hydrochlorothiazide (Hydrochlorothiazide) 25 Mg Tablet, 25 MG PO 1X for CHF, (Reported) Entered as Reported by: CYNDI TILLEY on 04/10/21640 Last Action: New Order on 04/10/21640 by CYNDI TILLEY Metoprolol Succinate (Metoprolol Succinate ( Xl )) 25 Mg Tab.er.24h, 25 MG PO 3X/WEEK for FOR HYPERTENSION, #30 Ref 0 (Reported) Entered as Reported by: CYNDI TILLEY on 04/10/21638 Last Action: Continued on 04/10/211619 by LUNA CASSANDRA, MANAGER [employer]ERGY Justicifation of Admission Dx: Justifications for Admission: Justification of Admission Dx: Yes Sepsis: Hypoxemia RINKU PHILLIPS MD Apr 21, 2021 16:40
--- NOTE | 2021-04-21 19:27 | NUR ---
Patient's MTN referral number #[id number]. record filled out and placed on patient's body ready for the pratik sharma. Addendum: 04/21/21 at 1931 by MARK JACKSON RN copy of record placed in patient's chart. original copy with patient's body
== END 2021-04-21 15:37 | DRG 871 ==
LOC: ER 09:38 → ED HOLD 10:35 → 6 SOUTH 16:55
PROVIDERS: ADMIT Internal Medicine; ATTEND Internal Medicine
PROC: XW033E5 Introduction of Remdesivir Anti-infective into Peripheral Vein, Percutaneous Approach, New Technology Group 5 (ICD-10-PCS; principal; 2021-04-10)
PROC: 5A09557 Assistance with Respiratory Ventilation, Greater than 96 Consecutive Hours, Continuous Positive Airway Pressure (ICD-10-PCS; 2021-04-13)
DX: A41.89 Other specified sepsis (principal); U07.1 COVID-19; J96.01 Acute respiratory failure with hypoxia; G93.41 Metabolic encephalopathy; J12.82 Pneumonia due to coronavirus disease 2019; N17.0 Acute kidney failure with tubular necrosis; E87.0 Hyperosmolality and hypernatremia; F10.239 Alcohol dependence with withdrawal, unspecified; I24.8 Other forms of acute ischemic heart disease; I47.2 Ventricular tachycardia; J44.0 Chronic obstructive pulmonary disease with (acute) lower respiratory infection; M62.82 Rhabdomyolysis; R17 Unspecified jaundice; E78.5 Hyperlipidemia, unspecified; E87.6 Hypokalemia; I11.0 Hypertensive heart disease with heart failure; I25.10 Atherosclerotic heart disease of native coronary artery without angina pectoris; I50.9 Heart failure, unspecified; Z66 Do not resuscitate; Z79.82 Long term (current) use of aspirin; Z87.891 Personal history of nicotine dependence; Z95.1 Presence of aortocoronary bypass graft
CPT/HCPCS: 36415; 36600; 70450; 71045; 80048; 80053; 80061; 80076; 80307; 81001; 82140; 82310; 82550; 82553; 82728; 82805; 83605; 83735; 83880; 84100; 84484; 85007; 85025; 85027; 85610; 86705; 86709; 86803; 87040; 87340; 87426; 94660; 94760; 96361; 96365; 96375; J0696; J1100; J1644; J2060; J3490; J7030; J7042; J7050; J7060; 92610-GN; 99285-25; G0378